=== PATIENT | male | born 1945 | race Hispanic/Latino ===

== ENCOUNTER 2018-11-12 21:55 | Inpatient (IN) | payer MEDICARE ==
[~2018-11-12 21:55] MED LIST: ADRENALIN ONE
[2018-11-12] MEDS ORDERED: NACL 0.9% 1000 ML 1,000 ML ONE (22:11)
[2018-11-12] MEDS ORDERED: NACL 0.9% 1000 ML 1,000 ML IV ONE (22:22)
[2018-11-12 22:30] LABS: Hematocrit 39.6 % (35.5-45.6); Hemoglobin 13.4 gm/dl (11.8-15.2); Mean Corpuscular HGB Conc 34 % (32-34); Mean Corpuscular Volume 104 fl (84-94); Platelet Count 112 K/mm3 (140-440); Red Blood Count 3.82 M/mm3 (3.65-5.03); Red Cell Distribution Width 15.1 % (13.2-15.2)
--- NOTE | 2018-11-12 22:36 | Emergency Department Report ---
ED CPR HPI - General Stated Complaint: CARDIAC ARREST Time Seen by Provider: 11/12/18 22:21 Source: family, EMS Mode of arrival: Stretcher Limitations: Altered Mental Status - History of Present Illness Initial Comments: 73-year-old male smoker with hx of previous stroke not taking any home meds presents to the hospital status post cardiopulmonary arrest. Witnessed collapse by his who then called EMS. EMS at the scene at 9:29, 3 min after receiving call. Patient was in V. fib upon arrival. Patient received 3 defibrillation shocks, one dose of epinephrine, and orally intubated in route to the hospital. Pt in PEA upon arrival. CPR continued upon arrival. Accucheck obtained after arrival and normal range - Related Data Home Medications Medication Instructions Recorded Confirmed Last Taken No Known Home Medications [No 11/13/18 11/13/18 Unknown Reported Home Medications] Allergies Allergy/AdvReac Type Severity Reaction Status Date / Time No Known Allergies Allergy Verified 11/12/18 22:20 ED Review of Systems ROS: Stated complaint: CARDIAC ARREST Other details as noted in HPI Comment: Unobtainable due to pts medical conditions ED Past Medical Hx - Medications Home Medications: Home Medications Medication Instructions Recorded Confirmed Last Taken Type No Known Home Medications [No 11/13/18 11/13/18 Unknown History Reported Home Medications] ED Physical Exam - Other Other exam information: Gen.: Unresponsive, thin, frail-appearing Head: Atraumatic Eyes: Unresponsive pupils EENT: Orally intubated, cyanosis Neck: Normal appearance Chest: Breath sounds bilaterally with bagging although diminished, no breath sounds over the epigastrium Cardiovascular: Pulseless Abdomen: Normal appearance none, nondistended Back: Normal appearance Extremity: No deformity Neuro: GCS equals 3 Psychiatric: Unresponsive Skin: Cyanotic ED Course Vital Signs 11/12/18 11/12/18 11/12/18 22:05 22:10 22:15 Temperature 95.1 F L Pulse Rate 67 66 Respiratory 15 15 Rate Blood Pressure Blood Pressure 184/105 156/78 [Left] O2 Sat by Pulse 100 100 100 Oximetry 11/12/18 11/12/18 11/12/18 22:25 22:35 22:40 Temperature Pulse Rate 78 64 75 Respiratory 15 16 23 Rate Blood Pressure Blood Pressure 115/73 117/64 117/77 [Left] O2 Sat by Pulse 100 100 100 Oximetry 11/12/18 11/12/18 22:47 22:50 Temperature Pulse Rate 77 69 Respiratory 15 Rate Blood Pressure 115/82 Blood Pressure 151/81 [Left] O2 Sat by Pulse 100 100 Oximetry - Reevaluation(s) Reevaluation #1: 11/12/18 22:37 CPR continued upon patient arrival. Patient was seen several doses of epi, 2 AMP of bicarbonate for PEA rhythm. Patient did regain his pulse and EKG performed showing inferior ST elevation MT about possible posterior wall involvement. Case discussed with Dr. Crouch on-call STEMI doctor and Package Line Relief Operator activated. Reevaluation #2: 11/12/18 22:48 Patient noted to have decorticate posturing versus seizure activity. Keppra and Ativan ordered. - Consultations Consultation #1: 11/12/18 22:[address] Crouch marketing operations specialist for ST elevation MT. label designer activated. Requests CT head prior to heparin. 11/12/18 22:58 Willa in ED to take pt [facility] ED Medical Decision Making - Lab Data Result diagrams: 11/12/18 22:15 11/12/18 22:15 Lab Results 11/12/18 11/12/18 11/12/18 Range/Units 22:10 22:15 22:15 WBC 8.5 (4.5-11.0) K/mm3 RBC 3.82 (3.65-5.03) M/mm3 Hgb 13.4 (11.8-15.2) gm/dl Hct 39.6 (35.5-45.6) % MCV 104 H (84-94) fl MCH 35 H (28-32) pg MCHC 34 (32-34) % RDW 15.1 (13.2-15.2) % Plt Count 112 L (140-440) K/mm3 Lymph % (Auto) Computer Numerical Control Grinder Lymph # Computer Numerical Control Grinder Add Manual Diff Complete Total Counted 100 Seg Neuts % (Manual) 46.0 (40.0-70.0) % Band Neutrophils % 1.0 % Lymphocytes % (Manual) 47.0 H (13.4-35.0) % Reactive Lymphs % (Man) 3.0 % Monocytes % (Manual) 1.0 (0.0-7.3) % Eosinophils % (Manual) 1.0 (0.0-4.3) % Basophils % (Manual) 0 (0.0-1.8) % Metamyelocytes % 1.0 % Myelocytes % 0 % Promyelocytes % 0 % Blast Cells % 0 % Nucleated RBC % Not Reportable Seg Neutrophils # Man 3.9 (1.8-7.7) K/mm3 Band Neutrophils # 0.1 K/mm3 Lymphocytes # (Manual) 4.0 (1.2-5.4) K/mm3 Abs React Lymphs (Man) 0.3 K/mm3 Monocytes # (Manual) 0.1 (0.0-0.8) K/mm3 Eosinophils # (Manual) 0.1 (0.0-0.4) K/mm3 Basophils # (Manual) 0.0 (0.0-0.1) K/mm3 Metamyelocytes # 0.1 K/mm3 Myelocytes # 0.0 K/mm3 Promyelocytes # 0.0 K/mm3 Blast Cells # 0.0 K/mm3 WBC Morphology Not Reportable Hypersegmented Neuts Not Reportable Hyposegmented Neuts Not Reportable Hypogranular Neuts Not Reportable Smudge Cells Not Reportable Toxic Granulation Not Reportable Toxic Vacuolation Not Reportable Dohle Bodies Not Reportable Pelger-Huet Anomaly Not Reportable Christal Rods Not Reportable Platelet Estimate Consistent w auto Clumped Platelets Not Reportable Plt Clumps, EDTA Not Reportable Large Platelets 1+ Giant Platelets Not Reportable Platelet Satelliting Not Reportable Plt Morphology Comment Not Reportable RBC Morphology Normal Dimorphic RBCs Not Reportable Polychromasia Not Reportable Hypochromasia Not Reportable Poikilocytosis Not Reportable Anisocytosis Not Reportable Microcytosis Not Reportable Macrocytosis Not Reportable Spherocytes Not Reportable Pappenheimer Bodies Not Reportable Sickle Cells Not Reportable Target Cells Not Reportable Tear Drop Cells Not Reportable Ovalocytes Not Reportable Helmet Cells Not Reportable Stewart-Gilliam Bodies Not Reportable [place] Rings Not Reportable Sita Cells Not Reportable Bite Cells Not Reportable Crenated Cell Not Reportable Elliptocytes Not Reportable Acanthocytes (Spur) Not Reportable Rouleaux Not Reportable Hemoglobin C Crystals Not Reportable Schistocytes Not Reportable Malaria parasites Not Reportable Coleman Bodies Not Reportable Hem Pathologist Commnt No PT 19.2 H (12.2-14.9) Sec. INR 1.66 H (0.87-1.13) APTT 52.5 H (24.2-36.6) Sec. Sodium (137-145) mmol/L Potassium (3.6-5.0) mmol/L Chloride (98-107) mmol/L Carbon Dioxide (22-30) mmol/L Anion Gap mmol/L BUN (9-20) mg/dL Creatinine (0.8-1.5) mg/dL Estimated GFR ml/min BUN/Creatinine Ratio % Glucose (75-100) mg/dL POC Glucose 131 H (70-105) Calcium (8.4-10.2) mg/dL Total Bilirubin (0.1-1.2) mg/dL AST (5-40) units/L ALT (7-56) units/L Alkaline Phosphatase (35-129) units/L Troponin T (0.00-0.029) ng/mL Total Protein (6.3-8.2) g/dL Albumin (3.9-5) g/dL Albumin/Globulin Ratio % 11/12/18 Range/Units 22:15 WBC (4.5-11.0) K/mm3 RBC (3.65-5.03) M/mm3 Hgb (11.8-15.2) gm/dl Hct (35.5-45.6) % MCV (84-94) fl MCH (28-32) pg MCHC (32-34) % RDW (13.2-15.2) % Plt Count (140-440) K/mm3 Lymph % (Auto) Lymph # Add Manual Diff Total Counted Seg Neuts % (Manual) (40.0-70.0) % Band Neutrophils % % Lymphocytes % (Manual) (13.4-35.0) % Reactive Lymphs % (Man) % Monocytes % (Manual) (0.0-7.3) % Eosinophils % (Manual) (0.0-4.3) % Basophils % (Manual) (0.0-1.8) % Metamyelocytes % % Myelocytes % % Promyelocytes % % Blast Cells % % Nucleated RBC % Seg Neutrophils # Man (1.8-7.7) K/mm3 Band Neutrophils # K/mm3 Lymphocytes # (Manual) (1.2-5.4) K/mm3 Abs React Lymphs (Man) K/mm3 Monocytes # (Manual) (0.0-0.8) K/mm3 Eosinophils # (Manual) (0.0-0.4) K/mm3 Basophils # (Manual) (0.0-0.1) K/mm3 Metamyelocytes # K/mm3 Myelocytes # K/mm3 Promyelocytes # K/mm3 Blast Cells # K/mm3 WBC Morphology Hypersegmented Neuts Hyposegmented Neuts Hypogranular Neuts Smudge Cells Toxic Granulation Toxic Vacuolation Dohle Bodies Pelger-Huet Anomaly Christal Rods Platelet Estimate Clumped Platelets Plt Clumps, EDTA Large Platelets Giant Platelets Platelet Satelliting Plt Morphology Comment RBC Morphology Dimorphic RBCs Polychromasia Hypochromasia Poikilocytosis Anisocytosis Microcytosis Macrocytosis Spherocytes Pappenheimer Bodies Sickle Cells Target Cells Tear Drop Cells Ovalocytes Helmet Cells Stewart-Gilliam Bodies [place]aver[place] Rings Hayden Cells Bite Cells Crenated Cell Elliptocytes Acanthocytes (Spur) Rouleaux Hemoglobin C Crystals Schistocytes Malaria parasites Coleman Bodies Hem Pathologist Commnt PT (12.2-14.9) Sec. INR (0.87-1.13) APTT (24.2-36.6) Sec. Sodium 142 (137-145) mmol/L Potassium 2.7 L* (3.6-5.0) mmol/L Chloride 94.9 L (98-107) mmol/L Carbon Dioxide 26 (22-30) mmol/L Anion Gap 24 mmol/L BUN 10 (9-20) mg/dL Creatinine 0.9 (0.8-1.5) mg/dL Estimated GFR > 60 ml/min BUN/Creatinine Ratio 11 % Glucose 341 H (75-100) mg/dL POC Glucose (70-105) Calcium 7.5 L (8.4-10.2) mg/dL Total Bilirubin 0.20 (0.1-1.2) mg/dL AST 58 H (5-40) units/L ALT 37 (7-56) units/L Alkaline Phosphatase 57 (35-129) units/L Troponin T < 0.010 (0.00-0.029) ng/mL Total Protein 4.7 L (6.3-8.2) g/dL Albumin 2.9 L (3.9-5) g/dL Albumin/Globulin Ratio 1.6 % - EKG Data -: EKG Interpreted by Me EKG shows normal: sinus rhythm, ST-T waves (inf stemi, with possible posterior involvement) - EKG Data When compared to previous EKG there are: previous EKG unavailable - Radiology Data Radiology results: report reviewed CHEST 1 VIEW 2240 INDICATION / CLINICAL INFORMATION: intubation, cardiac arrest. COMPARISON: None FINDINGS: SUPPORT DEVICES: None HEART / MEDIASTINUM: No significant abnormality. LUNGS / PLEURA: Evidence of COPD is seen. No definite areas of consolidation are noted. Mild asymmetric increase in markings is noted in the right upper lobe which could be chronic though mild acute interstitial infiltrate cannot be entirely excluded. Clinical correlation is suggested. No pneumothorax. ADDITIONAL FINDINGS: No significant additional findings. IMPRESSION: Chronic change with asymmetric markings noted in the right upper lobe as discussed CT HEAD WITHOUT CONTRAST INDICATION: MAIN: syncope, cardiac arrest, FALL, AMS TECHNIQUE: All CT scans at this location are performed using CT dose reduction for ALARA by means of automated exposure control. COMPARISON: None available. FINDINGS: BRAIN: No hemorrhage or mass effect are seen. Moderate white matter microvascular changes are seen. Asymmetric hypodensity is noted in the anterior aspect of the anterior limb of the internal capsule on the right which is age unknown. Also age unknown are small focal hypodensities in the anterior aspects of both thalami, greater on the left. I do not see evidence of acute cortical infarction. Mild atrophic changes are seen, cortical and central. ORBITS: Normal as visualized. SOFT TISSUES OF HEAD: Normal. CALVARIUM: Normal. VISUALIZED PARANASAL SINUSES AND MASTOID AIR CELLS: Clear. ADDITIONAL FINDINGS: None. IMPRESSION: No definite acute abnormalities are seen though bilateral deep lacu rosalba focal areas of ischemia as described are of unknown age. - Medical Decision Making pt pulseless greater than 30 min + stemi going [facility] BP with map >65 during ed stay after ROSC heparin pending ct head result pt with decorticate postering in ed, tx with ativan and keppra overall poor prognosis - Differential Diagnosis mi, unstable angina, pulmonary emboilism, co2 retention Critical Care Time: Yes Critical care time in (mins) excluding proc time.: 65 Critical care attestation.: If time is entered above; I have spent that time in minutes in the direct care of this critically ill patient, excluding procedure time. ED Disposition Clinical Impression: Cardiopulmonary arrest with successful resuscitation STEMI (ST elevation myocardial infarction) Qualifiers: Involved coronary artery: LAD coronary artery Qualified Code(s): I21.02 - ST elevation (STEMI) myocardial infarction involving left anterior descending coronary artery Disposition: -09 OP ADMIT IP TO THIS HOSP Is pt being admited?: Yes Condition: Serious Time of Disposition: 23:05 (Dr Ivan/hosp)
[2018-11-12 22:42] LABS: INR 1.66 (0.87-1.13)
[2018-11-12 22:43] LABS: Partial Thromboplastin Time 52.5 Sec. (24.2-36.6)
[2018-11-12] MEDS ORDERED: KEPPRA 1,000 MG/NS 0.75% 100ML 1,000 MG/100 ML BAG IV ONE ×2 (22:43→22:45)
[2018-11-12] MEDS ORDERED: ATIVAN IV ONE (22:45)
[2018-11-12] MEDS ORDERED: ATIVAN ONE (22:48)
[2018-11-12] MEDS ORDERED: HEPARIN 10,000 UNITS/10 ML ONE (22:57)
[2018-11-12] MEDS ORDERED: HEPARIN/NS 5000 UNIT/500ML(CATH LAB) 1,000 ML IR ONE (22:57)
[2018-11-12] MEDS ORDERED: XYLOCAINE 2% INFILTRATI ONE (22:57)
[2018-11-12] MEDS ORDERED: CALAN ONE (22:57)
[2018-11-12] MEDS ORDERED: NITROGLYCERIN SYRINGE 0 ML ONE (22:58)
[2018-11-12] MEDS ORDERED: NACL 0.9% 500 ML 500 ML ONE (22:58)
[2018-11-12] MEDS ORDERED: VERSED ONE (22:58)
[2018-11-12] MEDS ORDERED: SUBLIMAZE ONE (22:58)
--- NOTE | 2018-11-12 23:00 | Cat Scan Report ---
CT HEAD WITHOUT CONTRAST INDICATION: MAIN: syncope, cardiac arrest, FALL, AMS TECHNIQUE: All CT scans at this location are performed using CT dose reduction for ALARA by means of automated exposure control. COMPARISON: None available. FINDINGS: BRAIN: No hemorrhage or mass effect are seen. Moderate white matter microvascular changes are seen. A symmetric hypodensity is noted in the anterior aspect of the anterior limb of the internal capsule on the right which is age unknown. Also age unknown are small focal hypodensities in the anterior aspec ts of both thalami, greater on the left. I do not see evidence of acute cortical infarction. Mild atr ophic changes are seen, cortical and central. ORBITS: Normal as visualized. SOFT TISSUES OF HEAD: Normal. CALVARIUM: Normal. VISUALIZED PARANASAL SINUSES AND MASTOID AIR CELLS: Clear. ADDITIONAL FINDINGS: None. IMPRESSION: No definite acute abnormalities are seen though bilateral deep lacunar focal areas of isc hemia as described are of unknown age. Signer Name: Jason Britt MD Signed: 11/12/2018 10:56 PM Workstation Name: [id number]
[2018-11-12 23:08] LABS: Alanine Aminotransferase 37 units/L (7-56); Albumin 2.9 g/dL (3.9-5); BUN/Creatinine Ratio 11; Blood Urea Nitrogen 10 mg/dL (9-20); Calcium 7.5 mg/dL (8.4-10.2); Hemolysis Index 73
[2018-11-12] MEDS: PLAVIX ONE ×2 (23:30→23:45)
[2018-11-12] MEDS ORDERED: KCL 10MEQ/100ML 10 MEQ/100 ML BAG IV ONE (23:37)
[2018-11-12 23:40] LABS: Band Neutrophils # (Manual) 0.1 K/mm3; Basophils % (Manual) 0 % (0.0-1.8); Large Platelets 1+; Platelet Estimate Consistent w Auto; RBC Morphology Normal; Total Cells Counted 100
--- NOTE | 2018-11-12 23:43 | XRay Report ---
CHEST 1 VIEW 2240 INDICATION / CLINICAL INFORMATION: intubation, cardiac arrest. COMPARISON: None FINDINGS: SUPPORT DEVICES: None HEART / MEDIASTINUM: No significant abnormality. LUNGS / PLEURA: Evidence of COPD is seen. No definite areas of consolidation are noted. Mild asymmetr ic increase in markings is noted in the right upper lobe which could be chronic though mild acute int erstitial infiltrate cannot be entirely excluded. Clinical correlation is suggested. No pneumothorax. ADDITIONAL FINDINGS: No significant additional findings. IMPRESSION: Chronic change with asymmetric markings noted in the right upper lobe as discussed Signer Name: Jason Britt MD Signed: 11/12/2018 11:39 PM Workstation Name: [id number]
[2018-11-12] MEDS ORDERED: NACL 0.9% 1000 ML 1,000 ML IV SCH (23:45)
[2018-11-12] MEDS ORDERED: ASPIRIN ONE (23:46)
[2018-11-12] MEDS ORDERED: ALUM-MAG HYDROX-SIMETH 200-200-20MG/5ML ONE (23:46)
[2018-11-12] MEDS ORDERED: ZOFRAN IV PRN (23:59)
--- NOTE | 2018-11-13 00:13 | Consultation ---
History of Present Illness Consult date: 11/13/18 Requesting physician: GABI HARRELL Consult reason: cardiac arrest History of present illness: 73-year-old patient who is malnourished smoker history of questionable stroke last year. Though as per the who gives history. As per the patient's been having chest pain on and off for last several weeks has not seen a physician or gone to hospital for treatment. After dinner had chest pain and collapsed. called EMS after approximately 5-10 minutes patient resuscitation initiated by EMS. Patient was in V. fib and shocked. Patient had rosc in the ED and EKG shows an acute inferior lateral wall PR. CT of the head was negative for acute bleed. Patient had resuscitation. Patient brought to the cardiac Sales Executive Insurance revealed left main patent. LAD proximal 95% with WENDY 2 flow circumflex patent OM1 patent RCA patent with moderate LV dysfunction EF 3540% with septal inferior wall hypokinesis. With PCI of the LAD with a drug- eluting 3.5 x 23 mm stent at 15 kim. By the right femoral artery patient is on the vent and will be transferred to CCU. In the ED patient had some seizure activity in the ER physician rodrigo Tadeo Past History Past Medical History: other Social history: smoking. denies: alcohol abuse, prescription drug abuse Medications and Allergies Allergies Allergy/AdvReac Type Severity Reaction Status Date / Time No Known Allergies Allergy Verified 11/12/18 22:20 Active Meds: Active Medications Potassium Chloride (Kcl 10meq/100ml) 10 meq in 100 mls @ 100 mls/hr IV ONCE ONE Stop: 11/13/18 00:36 Review of Systems ROS unobtainable: due to endotracheal tube Physical Examination Vital Signs Pulse Ox 100 11/12/18 22:05 General appearance: cachectic HEENT: Positive: Other (sluggish) Neck: Positive: neck supple Cardiac: Positive: Reg Rate and Rhythm Lungs: Positive: clear to auscultation Neuro: Positive: Other (unresponsive) Abdomen: Positive: Soft Male genitourinary: Positive: scrotal edema Incision: Cardiac Cath Site (no hematoma) Extremities: Present: normal. Absent: edema Results 11/12/18 22:15 11/12/18 22:15 Cardiac Enzymes 11/12/18 Range/Units 22:15 AST 58 H (5-40) units/L Coagulation 11/12/18 Range/Units 22:15 PT 19.2 H (12.2-14.9) Sec. INR 1.66 H (0.87-1.13) APTT 52.5 H (24.2-36.6) Sec. CBC 11/12/18 Range/Units 22:15 WBC 8.5 (4.5-11.0) K/mm3 RBC 3.82 (3.65-5.03) M/mm3 Hgb 13.4 (11.8-15.2) gm/dl Hct 39.6 (35.5-45.6) % Plt Count 112 L (140-440) K/mm3 Lymph # Service Department Manager Comprehensive Metabolic Panel 11/12/18 Range/Units 22:15 Sodium 142 (137-145) mmol/L Potassium 2.7 L* (3.6-5.0) mmol/L Chloride 94.9 L (98-107) mmol/L Carbon Dioxide 26 (22-30) mmol/L BUN 10 (9-20) mg/dL Creatinine 0.9 (0.8-1.5) mg/dL Glucose 341 H (75-100) mg/dL Calcium 7.5 L (8.4-10.2) mg/dL AST 58 H (5-40) units/L ALT 37 (7-56) units/L Alkaline Phosphatase 57 (35-129) units/L Total Protein 4.7 L (6.3-8.2) g/dL Albumin 2.9 L (3.9-5) g/dL - Imaging and Cardiology Cardiac cath: report reviewed ( left main patent. LAD proximal 95% with WENDY 2 flow circumflex patent OM1 patent RCA patent with moderate LV dysfunction EF 3540% with septal inferior wall hypokinesis. With PCI of the LAD with a drug- eluting 3.5 x 23 mm stent at 15 kim.) EKG interpretations - Telemetry EKG Rhythm: Sinus Rhythm (st elevation inferior leads) Assessment and Plan Patient will have post PCI care discussed with the family detail about cardiac care but in view of prolonged resuscitation patient will have possible anoxic encephalopathy. Replace potassium for hypokalemia magnesium was given. Patient has NG tube for aspirin and Plavix and statin. Start low-dose beta danika in a.m. Guarded prognosis - Patient Problems (1) Respiratory failure requiring intubation Current Visit: Yes Status: Acute (2) Malnutrition of moderate degree Current Visit: Yes Status: Chronic (3) Smoking Current Visit: Yes Status: Chronic (4) Hypokalemia Current Visit: Yes Status: Acute (5) Acute diastolic (congestive) heart failure Current Visit: Yes Status: Acute (6) Cardiopulmonary arrest with successful resuscitation Current Visit: Yes Status: Acute (7) STEMI (ST elevation myocardial infarction) Current Visit: Yes Status: Acute Qualifiers: Involved coronary artery: LAD coronary artery Qualified Code(s): I21.02 - ST elevation (STEMI) myocardial infarction involving left anterior descending coronary artery
[2018-11-13] MEDS ORDERED: MAGNESIUM SULFATE 2GM/50ML 2 GM/50 ML BAG IV ONE (00:15)
[2018-11-13] MEDS ORDERED: KCL 10MEQ/100ML 10 MEQ/100 ML BAG IV ONE ×3 (00:15→02:23)
[2018-11-13] MEDS ORDERED: ATIVAN IV ONE (00:40)
[2018-11-13] MEDS ORDERED: POTASSIUM CHLORIDE FEEDTUBE ONE (00:45)
[2018-11-13] MEDS ORDERED: TYLENOL PR PRN (01:50)
[2018-11-13] MEDS ORDERED: PROVENTIL IH PRN (01:53)
[2018-11-13] MEDS ORDERED: D50W (25GM) Syringe IV PRN (02:01)
[2018-11-13 02:21] LABS: ABG Base Excess -4.7 mmol/L (-2.0-3.0); ABG HCO3 21.5 mmol/L (20.0-26.0); ABG Methemoglobin 0.7 % (0.0-1.5); ABG Oxygen Saturation 98.7 % (95.0-99.0); ABG PCO2 43.4 mm Hg; ABG PH 7.312 pH Units (7.350-7.450); ABG PO2 147.6 mm Hg (80.0-90.0)
--- NOTE | 2018-11-13 03:51 | Cardiac Catherization Report ---
LEFT HEART CATHETERIZATION/PERCUTANEOUS CORONARY INTERVENTION REPORT CLINICAL INFORMATION: This is a 73-year-old gentleman who is a smoker, noncompliant with medical followup, questionable history of TIA, who has been having chest pain on and off for several weeks, collapsed at home, had a witnessed arrest, had a return of spontaneous circulation. via EMS with VFib and shock. The patient's EKG post-resuscitation showed acute inferior ST elevation and lateral ST elevation with depressions in anterior leads, brought emergently to cardiac collaborative physician. The patient's initial CT of the head was negative that led to delay in part of the post-resuscitated cardiac arrest protocol. The patient received sedation, has received Ativan and Keppra for seizures by the ED. Procedure was done via the right femoral artery, sterile technique, local anesthesia, 6-Chinese groin sheath inserted. Left system engaged JL4 catheter. Left main is short and large and patent. LAD is a large caliber vessel, proximal 95% lesion with WENDY 2 flow, small diagonal. Patent circumflex medium caliber vessel, patent. Dictation ends here. see second dictation JOB# [id number] LAMAR/CANDIDA VINCENT
[2018-11-13] MEDS: KCL 10MEQ/100ML 10 MEQ/100 ML BAG IV SCH ×2 (03:54→05:06)
--- NOTE | 2018-11-13 04:00 | Cardiac Catherization Report ---
PROCEDURE: Left heart catheterization/percutaneous coronary support. CLINICAL INFORMATION: A 73-year-old female, cachectic and smoker, questionable TIA, has been having on and off chest pain for several weeks, did not go for medical care. Today, had chest pain and collapsed and EMS was called, and after prolonged resuscitation, had VFib shock. In the ED, post-resuscitation EKG shows acute inferior lateral wall AL with ST depression in the anterior leads. Initial CT of the head was done, was negative for bleed. The patient brought to the laboratory technologist for AL, post-arrest. The patient received sedation in the ED for seizures, Ativan and Keppra. Procedure was done via the right femoral artery, sterile technique, local anesthesia, 6-Belarusian groin sheath inserted. Left system and JL4 catheter, left main large and patent. LAD is a large caliber, proximal 95% with WENDY 2 flow. Circumflex is a medium caliber vessel, patent. OM1, medium caliber vessel, patent. RCA engaged with JR4 catheter, medium caliber vessel, patent. Small PDA, PLV patent. LV gram done in [place] and [place] view shows moderate LV dysfunction with septal and inferior wall hypokinesis, EF 35-40%. LVEDP of 31 mmHg, LV is 151. Aortic is 148/83, no gradient across the aortic valve on pullback. PERCUTANEOUS CORONARY INTERVENTION: 1. LAD engaged the left system, EBU 3.5 guiding catheter. 2. Crossed and distal LAD with short [place] wire. 3. Ballooned with 2.5 x 12 balloon at 12 atmospheres restoring WENDY 3 flow, large vessel. We have stented the proximal mid LAD across diagonal 1 with a drug-eluting Xience 3.5 x 23 mm at 15 atmospheres. 4. Excellent angiographic result, WENDY 3 flow, no dissection or perforation noted. Continued flow into the diagonal. 5. Coronary wire was removed. Multiple angiograms, continued WENDY 3 flow, good stent apposition and expansion, reduced stenosis 0%. 6. A 6-Belarusian guiding catheter was taken over a guidewire, 6-Belarusian groin sheath sewn in. No hematoma, no bleeding. SUMMARY: Successful PCI of the proximal LAD with drug-eluting Xience 3.5 x 23 mm, left main patent, circumflex patent, OM1 patent, RCA patent with moderate LV dysfunction, EF 35-40% with elevated left end-diastolic pressure. Discussed this in detail with the family. By neurological status, the patient will be on post-PCI care and is on a vent for respiratory distress. JOB# [id number] LAMAR/CANDIDA
[2018-11-13] MEDS: HumuLIN R SUB-Q SCH ×6 (04:35→23:39)
[2018-11-13] MEDS ORDERED: APRESOLINE IV ONE (05:21)
[2018-11-13] MEDS: ATIVAN IV PRN (05:46)
[2018-11-13 05:54] LABS: ABG Base Excess -4.4 mmol/L (-2.0-3.0); ABG HCO3 20.8 mmol/L (20.0-26.0); ABG Methemoglobin 0.7 % (0.0-1.5); ABG Oxygen Saturation 98.6 % (95.0-99.0); ABG PCO2 38.5 mm Hg; ABG PH 7.35 pH Units (7.350-7.450); ABG PO2 136.3 mm Hg (80.0-90.0)
[2018-11-13 06:13] LABS: Hematocrit 43.1 % (35.5-45.6); Hemoglobin 14.3 gm/dl (11.8-15.2); Mean Corpuscular HGB Conc 33 % (32-34); Mean Corpuscular Volume 102 fl (84-94); Platelet Count 158 K/mm3 (140-440); Red Blood Count 4.23 M/mm3 (3.65-5.03); Red Cell Distribution Width 15.5 % (13.2-15.2)
[2018-11-13 06:30] LABS: Creatine Kinase MB 126.5 ng/mL (0.0-4.0)
[2018-11-13 06:32] LABS: BUN/Creatinine Ratio 14; Blood Urea Nitrogen 13 mg/dL (9-20); Calcium 7.8 mg/dL (8.4-10.2); Hemolysis Index 27
[2018-11-13 07:14] LABS: Chol/HDL Ratio 2.62 %; HDL Cholesterol 56 mg/dL (40-59); LDL Cholesterol,Direct 95 mg/dL (50-130)
[2018-11-13 08:35] LABS: Band Neutrophils # (Manual) 1.4 K/mm3; Basophils % (Manual) 0 % (0.0-1.8); Eosinophils % (Manual) 0 % (0.0-4.3); Total Cells Counted 100
[2018-11-13 08:36] LABS: Anisocytosis 1+; Giant Platelets Few; Macrocytosis 1+; Platelet Estimate Consistent w Auto
[2018-11-13] MEDS: DUONEB *Not for PRN Use IH SCH ×3 (09:00→19:29)
--- NOTE | 2018-11-13 09:04 | History and Physical Report ---
CHIEF COMPLAINT: Cardiac arrest state. HISTORY OF PRESENTING ILLNESS: The patient is a 73-year-old male who was brought in as a case of cardiac arrest after he passed out at home. The said that the patient was having chest pain and passed out, and EMS was called. The patient was brought in as a case of cardiopulmonary arrest. He was also found to have ventricular fibrillation and was shocked 3 times with epinephrine given and the patient was intubated en route to the hospital. On arrival at the hospital, CPR was continued and the patient was successfully resuscitated and was found to have inferior wall IL on EKG, he also had seizure attack and as such, the patient was taken to the cardiac catheterization lab by the blending tank tender helper, Dr. Crouch, and had a cardiac catheterization done with stent placement. There is no history of nausea or vomiting. The patient was also found to have lacunar infarct on head CT scan with undetermined age, and also, he was found to have low potassium level and scrotal swelling. PAST MEDICAL HISTORY: Not clearly defined. PAST SURGICAL HISTORY: Not well known. FAMILY HISTORY: Noncontributory. SOCIAL HISTORY: The patient smokes cigarette, does not drink alcohol and does not use illicit drugs. MEDICATIONS: The patient's home medications are not known. ALLERGIES: There are no known drug allergies. REVIEW OF SYSTEMS: CONSTITUTIONAL: There is no fever, no chills, no diaphoresis. HEENT: There is no headache or sore throat. CARDIOVASCULAR SYSTEM: Chest pain noted. No orthopnea. RESPIRATORY SYSTEM: Difficulty in breathing noted. No cough. GASTROINTESTINAL SYSTEM: There is no nausea, no vomiting, no abdominal pain, diarrhea or constipation. NEUROLOGICAL SYSTEM: Change in mental status noted. Syncope or collapse noted. Seizure attack noted. MUSCULOSKELETAL SYSTEM: There is no joint pain or swelling. DERMATOLOGICAL SYSTEM: There is no skin rash or itching. GENITOURINARY SYSTEM: There is no dysuria, hematuria, or flank pain. Rest of systems review is normal. PHYSICAL EXAMINATION: GENERAL: At the time of exam, the patient was intubated, unresponsive, already had cardiac catheterization done and the patient was mechanically ventilated and not in acute distress. VITAL SIGNS: Show normal temperature with pulse of 78, respirations 25, blood pressure 156/117, O2 sat of 100% on mechanical ventilation. HEENT: Shows pupils to be equal on both sides, round, and reacting to light. The patient is intubated through the mouth. NECK: Supple, with no JVD or carotid bruit. CARDIOVASCULAR SYSTEM: Shows normal first and second heart sounds with no gallops or murmurs. RESPIRATORY SYSTEM: Shows good air entry on both sides of the lungs through the ET tube and mechanical ventilation with no abnormal breath sounds. GASTROINTESTINAL SYSTEM: Shows abdomen to be full, soft, nontender with no organomegaly or rigidity. NEUROLOGIC: Shows the patient to be intubated, unresponsive with some posturing noted showing a decerebrate posture. MUSCULOSKELETAL SYSTEM: Shows no joint swelling or tenderness. DERMATOLOGICAL SYSTEM: Shows no skin rash. GENITOURINARY SYSTEM: Shows swollen scrotum, firm in consistency. PERTINENT LABORATORY AND IMAGING STUDIES: The patient had CT of the head done without contrast that shows no definite acute abnormality, but the radiologist said that there is finding of bilateral deep lacunar focal area of ischemia with unknown age. Also, the patient had a chest x-ray done and the chest x-ray shows chronic changes with asymmetric markings noted in the right upper lobe of the lung, which he said could be chronic, though mild acute interstitial infiltrate cannot be entirely excluded and there is no finding of any pneumothorax. Lab results, the patient's CBC showed normal white count, normal hemoglobin and normal hematocrit with CBC differential showing elevated lymphocyte count of 47%. The patient's coagulation studies showed elevated INR of 1.66 with a high PT of 19.2 and elevated PTT of 52.5. The patient's ABG showed low pH of 7.31 with normal pCO2 of 43 and elevated pO2 of 147.6 with normal O2 sat of 98.7 with FiO2 of 40. The patient's chemistry showed normal sodium with low potassium level of 2.7 and low chloride of 94.9, and the patient's blood glucose is high with a value of 341. Liver transaminases show high AST of 58 with normal ALT of 37. Rest of chemistry shows low albumin level of 2.9 and low protein level of 4.7 with normal troponin level. DIAGNOSES: 1. Post-cardiac arrest. 2. Hypokalemia. 3. Syncope with altered mental status. 4. Scrotal swelling, rule out hydrocele. PLAN OF CARE: 1. The patient will be admitted to ICU, Critical Care Unit. 2. The patient will continue Cardiology consult with Dr. Crouch. 3. The patient will have a critical care consult with Dr. Rosa for ICU admission with mechanical ventilation. 4. The patient will have surgical consult with Dr. Lewis for scrotal swelling to rule out hydrocele versus inguinal hernia. 5. The patient will be on Tylenol 650 mg rectally every 4 hours for fever and headache and will have IV hydralazine 20 mg for elevated blood pressure. 6. The patient will have Neurology consult with Dr. rodríguez for seizure attack in the Emergency Room. 7. The patient will be on IV Keppra 750 mg q. 12 hours for management of seizure and IV Ativan 1 mg every 4 hours as needed for seizure. 8. The patient will have basic metabolic panel checked this morning because of hypokalemia, having received 40 mg of potassium by mouth and IV potassium chloride after the cardiac catheterization. 9. The patient will have respiratory therapy to manage ventilator. 10. The patient will be on Accu-Chek q. 4 hours followed by low-dose sliding scale using regular insulin coverage. JOB# [id number] OCN/NTS MELISA
--- NOTE | 2018-11-13 10:28 | Progress Note ---
Assessment and Plan Currently stable cardiac status. Cont post-PCI care and other present cardiac management. Await echo. Await neurology input. The patient has been seen in conjunction with Dr. Raji Mina who agrees with the assessment and plan of care. - Patient Problems (1) Cardiopulmonary arrest with successful resuscitation Current Visit: Yes Status: Acute (2) STEMI (ST elevation myocardial infarction) Current Visit: Yes Status: Acute Qualifiers: Involved coronary artery: LAD coronary artery Qualified Code(s): I21.02 - ST elevation (STEMI) myocardial infarction involving left anterior descending coronary artery (3) CAD (coronary artery disease) Current Visit: Yes Status: Chronic (4) Stented coronary artery Current Visit: Yes Status: Chronic (5) Altered mental status Current Visit: Yes Status: Acute (6) Seizure Current Visit: Yes Status: Suspected (7) Tobacco use Current Visit: Yes Status: Chronic (8) Malnutrition Current Visit: Yes Status: Chronic (9) Hypokalemia Current Visit: Yes Status: Acute Subjective Date of service: 11/13/18 Principal diagnosis: cardiac arrest; stemi Interval history: pt remains intubated, nonresponsive. in SR. family at bedside. Objective Last Vital Signs Temp 96.8 F L 11/13/18 08:00 Pulse 87 11/13/18 09:15 Resp 8 L 11/13/18 09:15 BP 121/76 11/13/18 09:15 Pulse Ox 99 11/13/18 09:15 - Physical Examination General: Other (intubated, nonresponsive ) HEENT: Positive: Other (sluggish) Neck: Positive: neck supple Cardiac: Positive: Reg Rate and Rhythm, S1/S2 Lungs: Positive: Decreased Breath Sounds Neuro: Positive: Other (unresponsive) Abdomen: Positive: Soft Incision: Cardiac Cath Site (c/d/i, no bleeding, no hematoma) Extremities: Present: Cold, Other (DP pulses present via doppler, no pedal pulses via doppler). Absent: edema - Labs and Meds Cardiac Enzymes 11/12/18 11/13/18 Range/Units 22:15 05:44 AST 58 H (5-40) units/L CK-MB (CK-2) 126.5 H (0.0-4.0) ng/mL Coagulation 11/12/18 Range/Units 22:15 PT 19.2 H (12.2-14.9) Sec. INR 1.66 H (0.87-1.13) APTT 52.5 H (24.2-36.6) Sec. Lipids 11/13/18 Range/Units 05:44 Triglycerides 94 (2-149) mg/dL Cholesterol 147 (50-199) mg/dL HDL Cholesterol 56 (40-59) mg/dL Cholesterol/HDL Ratio 2.62 % CBC 11/12/18 11/13/18 Range/Units 22:15 05:44 WBC 8.5 23.9 H (4.5-11.0) K/mm3 RBC 3.82 4.23 (3.65-5.03) M/mm3 Hgb 13.4 14.3 (11.8-15.2) gm/dl Hct 39.6 43.1 (35.5-45.6) % Plt Count 112 L 158 (140-440) K/mm3 Lymph # Classifier Operator Comprehensive Metabolic Panel 11/12/18 11/13/18 Range/Units 22:15 05:44 Sodium 142 141 (137-145) mmol/L Potassium 2.7 L* 3.6 D (3.6-5.0) mmol/L Chloride 94.9 L 102.0 (98-107) mmol/L Carbon Dioxide 26 22 (22-30) mmol/L BUN 10 13 (9-20) mg/dL Creatinine 0.9 0.9 (0.8-1.5) mg/dL Glucose 341 H 210 H (75-100) mg/dL Calcium 7.5 L 7.8 L (8.4-10.2) mg/dL AST 58 H (5-40) units/L ALT 37 (7-56) units/L Alkaline Phosphatase 57 (35-129) units/L Total Protein 4.7 L (6.3-8.2) g/dL Albumin 2.9 L (3.9-5) g/dL - Imaging and Cardiology Cardiac cath: report reviewed ( left main patent. LAD proximal 95% with WENDY 2 flow circumflex patent OM1 patent RCA patent with moderate LV dysfunction EF 3540% with septal inferior wall hypokinesis. With PCI of the LAD with a drug- eluting 3.5 x 23 mm stent at 15 kim.)
[2018-11-13] MEDS: KEPPRA 750 MG in D5W 100 ML IV SCH ×2 (10:37→22:40)
[2018-11-13] MEDS: LOVENOX SUB-Q SCH (10:37)
[2018-11-13] MEDS: LOPRESSOR PO SCH ×2 (10:38→23:49)
[2018-11-13] MEDS: BABY ASPIRIN PO SCH (10:38)
[2018-11-13] MEDS: PEPCID IV SCH ×2 (10:39→22:40)
--- NOTE | 2018-11-13 11:41 | XRay Report ---
CHEST 1 VIEW INDICATION: post pci. COMPARISON: 11/12/2018 FINDINGS: Support devices: A nasogastric tube has been inserted which terminates in the distal esophagus. Advan cement by 10 cm is recommended. Heart: Within normal limits. Lungs/Pleura: The lungs are severely hyperinflated but clear. No pleural effusion or pneumothorax. Additional findings: None. IMPRESSION: Hyperinflation. The nasogastric tube terminates in the distal esophagus. Signer Name: Zeferino Mahan Jr, MD Signed: 11/13/2018 11:37 AM Workstation Name: [id number]
--- NOTE | 2018-11-13 11:52 | Consultation ---
History of Present Illness Consult date: 11/13/18 Requesting physician: LORENZA GUTIÉRREZ Reason for consult: other (Acute Hypoxemic Respiratory Failure; S/P Cardiac Arrest) History of present illness: PULMONARY/CCM CONSULT NOTE (Full dictation # [id number]) Please see dictated notes for full details Past History Past Medical History: other Social history: smoking. denies: alcohol abuse, prescription drug abuse Medications and Allergies Allergies Allergy/AdvReac Type Severity Reaction Status Date / Time No Known Allergies Allergy Verified 11/12/18 22:20 Home Medications Medication Instructions Recorded Confirmed Last Taken Type RX: No Known Home Medications [No 11/13/18 11/13/18 Unknown History Reported Home Medications] Active Meds: Active Medications Acetaminophen (Tylenol) 650 mg MS Q4H PRN PRN Reason: Fever >101 Albuterol (Proventil) 2.5 mg IH Q6HRT PRN PRN Reason: Wheezing Albuterol/Ipratropium (Duoneb *Not For Prn Use*) 1 ampul IH Q6HRT [facility] Last Admin: 11/13/18 09:00 Dose: 1 ampul Documented by: Aspirin (Baby Aspirin) 81 mg PO QDAY [facility] Last Admin: 11/13/18 10:38 Dose: 81 mg Documented by: Atorvastatin Calcium (Lipitor) 80 mg PO QHS [facility] Clopidogrel Bisulfate (Plavix) 75 mg PO QDAY [facility] Dextrose (D50w (25gm) Syringe) 50 ml IV PRN PRN PRN Reason: Hypoglycemia Enoxaparin Sodium (Lovenox) 40 mg SUB-Q QDAY [facility] Last Admin: 11/13/18 10:37 Dose: 40 mg Documented by: Famotidine (Pepcid) 20 mg IV BID [facility] Levetiracetam 750 mg/ Dextrose 107.5 mls @ 400 mls/hr IV Q12HR [facility] Last Admin: 11/13/18 10:37 Dose: 400 mls/hr Documented by: Insulin Human Regular (Humulin R) 0 units SUB-Q Q4H [facility]; Protocol Last Admin: 11/13/18 07:33 Dose: 1 units Documented by: Lorazepam (Ativan) 1 mg IV Q4H PRN PRN Reason: Seizures Last Admin: 11/13/18 05:46 Dose: 1 mg Documented by: Metoprolol Tartrate (Lopressor) 25 mg PO BID [facility] Last Admin: 11/13/18 10:38 Dose: 25 mg Documented by: Ondansetron HCl (Zofran) 4 mg IV Q8H PRN PRN Reason: N/V unrelieved by Reglan Physical Examination Vital signs: Vital Signs Pulse Ox 100 11/12/18 22:05 Results - Laboratory Findings CBC and BMP: 11/13/18 05:44 11/13/18 05:44 ABG ABG pH 7.350 pH Units (7.350-7.450) 11/13/18 04:50 ABG pCO2 38.5 mm Hg 11/13/18 04:50 ABG pO2 136.3 mm Hg (80.0-90.0) H 11/13/18 04:50 ABG O2 Saturation 98.6 % (95.0-99.0) 11/13/18 04:50 PT/INR, D-dimer PT 19.2 Sec. (12.2-14.9) H 11/12/18 22:15 INR 1.66 (0.87-1.13) H 11/12/18 22:15 Abnormal lab findings: Abnormal Labs 11/12/18 11/12/18 11/12/18 22:10 22:15 22:15 WBC MCV 104 H MCH 35 H RDW Plt Count 112 L Seg Neuts % (Manual) Lymphocytes % (Manual) 47.0 H Seg Neutrophils # Man Lymphocytes # (Manual) Monocytes # (Manual) PT 19.2 H INR 1.66 H APTT 52.5 H Activated Clotting Time ABG pH ABG pO2 ABG Base Excess Potassium Chloride Glucose POC Glucose 131 H Calcium AST Total Creatine Kinase CK-MB (CK-2) CK-MB (CK-2) Rel Index Troponin T Total Protein Albumin 11/12/18 11/12/18 11/13/18 22:15 23:42 01:50 WBC MCV MCH RDW Plt Count Seg Neuts % (Manual) Lymphocytes % (Manual) Seg Neutrophils # Man Lymphocytes # (Manual) Monocytes # (Manual) PT INR APTT Activated Clotting Time 329 H ABG pH 7.312 L ABG pO2 147.6 H ABG Base Excess -4.7 L Potassium 2.7 L* Chloride 94.9 L Glucose 341 H POC Glucose Calcium 7.5 L AST 58 H Total Creatine Kinase CK-MB (CK-2) CK-MB (CK-2) Rel Index Troponin T Total Protein 4.7 L Albumin 2.9 L 11/13/18 11/13/18 11/13/18 02:30 03:04 04:01 WBC MCV MCH RDW Plt Count Seg Neuts % (Manual) Lymphocytes % (Manual) Seg Neutrophils # Man Lymphocytes # (Manual) Monocytes # (Manual) PT INR APTT Activated Clotting Time 175 H 142 H ABG pH ABG pO2 ABG Base Excess Potassium Chloride Glucose POC Glucose 185 H Calcium AST Total Creatine Kinase CK-MB (CK-2) CK-MB (CK-2) Rel Index Troponin T Total Protein Albumin 11/13/18 11/13/18 11/13/18 04:50 05:44 05:44 WBC 23.9 H MCV 102 H MCH 34 H RDW 15.5 H Plt Count Seg Neuts % (Manual) 85.0 H Lymphocytes % (Manual) 2.0 L Seg Neutrophils # Man 20.3 H Lymphocytes # (Manual) 0.5 L Monocytes # (Manual) 1.7 H PT INR APTT Activated Clotting Time ABG pH ABG pO2 136.3 H ABG Base Excess -4.4 L Potassium Chloride Glucose 210 H POC Glucose Calcium 7.8 L AST Total Creatine Kinase 2686 H CK-MB (CK-2) 126.5 H CK-MB (CK-2) Rel Index 4.7 H Troponin T 1.500 H* D Total Protein Albumin 11/13/18 06:44 WBC MCV MCH RDW Plt Count Seg Neuts % (Manual) Lymphocytes % (Manual) Seg Neutrophils # Man Lymphocytes # (Manual) Monocytes # (Manual) PT INR APTT Activated Clotting Time ABG pH ABG pO2 ABG Base Excess Potassium Chloride Glucose POC Glucose 197 H Calcium AST Total Creatine Kinase CK-MB (CK-2) CK-MB (CK-2) Rel Index Troponin T Total Protein Albumin
--- NOTE | 2018-11-13 12:14 | Progress Note ---
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 The aggregate critical care time was [35] minutes. This time is in addition to time spent performing reported procedures but includes the following: [x] Data Review and interpretation [x] Patient assessment and monitoring of vital signs [x] Documentation [x] Medication orders and management Brief History: Patient is 73-year-old man with a history of previous TIA 1 year ago, who presented yesterday evening with chest pain and loss of consciousness at home. His states that the patient had been experiencing chest pain for the past few weeks, however did not seek medical attention for this. The patient was found to have cardiac arrest yesterday evening by the EMS. CPR was started, and patient returned to spontaneous circulation in the emergency room. Patient reportedly had a seizure-like event while in the emergency room yesterday. He was taken for heart cath emergently for STEMI, and an LAD stent was placed. Patient remains intubated since yesterday, not on any sedation, no pressor. Head CT no acute infract. Subjective Date of service: 11/13/18 Principal diagnosis: cardiac arrest; stemi Interval history: Patient seen and examined On mechanical ventilation, no sedation Family at bedside - updated Objective - Exam Narrative Exam: - Physical Exam Narrative exam: Patient is intubated, opens eyes spontaneously, however not to command. Noted to open eyes with pain stimulation in all extremities. Pupils equal round reactive to light, cough reflexes intact. Patient does not withdraw to pain stimulation in any extremity, however is noted to open eyes on pain stimulation. - Constitutional General appearance: acutely ill - EENT EENT: Present: ATNC, PERRL, mucous membranes moist - Respiratory Respiratory: Present: decreased breath sounds - Cardiovascular Cardiovascular: Present: regular rate, normal S1, normal S2 Extremities: Present: no peripheral edema bilatateraly, no clubbing, cyanosis - Gastrointestinal Gastrointestinal: Present: normoactive bowel sounds, soft, non-tender - Integumentary Integumentary: Present: erythema (LUE) - Neurologic Cranial nerve examination: PERRL - Musculoskeletal Musculoskeletal: Present: no fluid collection, no pain - Constitutional Vitals: Vital Signs - 12hr 11/13/18 11/13/18 11/13/18 01:01 01:15 01:26 Temperature 98.7 F 98.7 F Pulse Rate 80 83 Pulse Rate [ Bilateral Throughout] Pulse Rate [ From Monitor] Respiratory 26 H Rate Respiratory Rate [Bilateral Throughout] Blood Pressure 103/82 O2 Sat by Pulse 100 100 Oximetry 11/13/18 11/13/18 11/13/18 01:30 01:31 01:45 Temperature Pulse Rate 79 81 80 Pulse Rate [ Bilateral Throughout] Pulse Rate [ From Monitor] Respiratory 23 28 H 24 Rate Respiratory Rate [Bilateral Throughout] Blood Pressure 121/104 121/104 132/110 O2 Sat by Pulse 99 100 99 Oximetry 11/13/18 11/13/18 11/13/18 02:00 02:15 02:31 Temperature Pulse Rate 78 76 78 Pulse Rate [ Bilateral Throughout] Pulse Rate [ From Monitor] Respiratory 24 32 H 29 H Rate Respiratory Rate [Bilateral Throughout] Blood Pressure 144/102 134/96 149/108 O2 Sat by Pulse 99 99 100 Oximetry 11/13/18 11/13/18 11/13/18 02:45 03:00 03:15 Temperature Pulse Rate 79 78 78 Pulse Rate [ Bilateral Throughout] Pulse Rate [ From Monitor] Respiratory 28 H 28 H 26 H Rate Respiratory Rate [Bilateral Throughout] Blood Pressure 135/102 145/103 144/106 O2 Sat by Pulse 100 100 100 Oximetry 11/13/18 11/13/18 11/13/18 03:16 03:30 03:45 Temperature Pulse Rate 77 79 Pulse Rate [ Bilateral Throughout] Pulse Rate [ From Monitor] Respiratory 24 26 H Rate Respiratory Rate [Bilateral Throughout] Blood Pressure 158/107 149/107 O2 Sat by Pulse 100 100 100 Oximetry 11/13/18 11/13/18 11/13/18 04:00 04:15 04:30 Temperature 97.7 F Pulse Rate 82 83 83 Pulse Rate [ Bilateral Throughout] Pulse Rate [ From Monitor] Respiratory 27 H 27 H 25 H Rate Respiratory Rate [Bilateral Throughout] Blood Pressure 154/109 161/116 157/107 O2 Sat by Pulse 100 100 100 Oximetry 11/13/18 11/13/18 11/13/18 04:45 05:00 05:01 Temperature Pulse Rate 82 108 H 84 Pulse Rate [ Bilateral Throughout] Pulse Rate [ From Monitor] Respiratory 17 26 H Rate Respiratory Rate [Bilateral Throughout] Blood Pressure 154/105 147/85 158/111 O2 Sat by Pulse 100 99 99 Oximetry 11/13/18 11/13/18 11/13/18 05:11 05:15 05:29 Temperature Pulse Rate 87 87 Pulse Rate [ 107 H Bilateral Throughout] Pulse Rate [ From Monitor] Respiratory 28 H Rate Respiratory 22 Rate [Bilateral Throughout] Blood Pressure 167/108 163/109 O2 Sat by Pulse 100 Oximetry 11/13/18 11/13/18 11/13/18 05:30 05:45 06:00 Temperature Pulse Rate 90 102 H 95 H Pulse Rate [ Bilateral Throughout] Pulse Rate [ From Monitor] Respiratory 28 H 29 H 25 H Rate Respiratory Rate [Bilateral Throughout] Blood Pressure 181/112 147/85 116/59 O2 Sat by Pulse 100 99 99 Oximetry 11/13/18 11/13/18 11/13/18 06:01 06:15 06:30 Temperature Pulse Rate 103 H 98 H 93 H Pulse Rate [ Bilateral Throughout] Pulse Rate [ From Monitor] Respiratory 30 H 26 H 29 H Rate Respiratory Rate [Bilateral Throughout] Blood Pressure 116/59 102/46 102/46 O2 Sat by Pulse 99 98 99 Oximetry 11/13/18 11/13/18 11/13/18 06:45 07:00 07:15 Temperature Pulse Rate 93 H 90 89 Pulse Rate [ Bilateral Throughout] Pulse Rate [ From Monitor] Respiratory 27 H 26 H 28 H Rate Respiratory Rate [Bilateral Throughout] Blood Pressure 114/85 107/75 93/76 O2 Sat by Pulse 99 99 99 Oximetry 11/13/18 11/13/18 11/13/18 07:31 07:45 08:00 Temperature 96.8 F L Pulse Rate 88 88 Pulse Rate [ Bilateral Throughout] Pulse Rate [ 85 From Monitor] Respiratory 28 H 29 H 32 H Rate Respiratory Rate [Bilateral Throughout] Blood Pressure 89/74 116/80 O2 Sat by Pulse 99 99 100 Oximetry 11/13/18 11/13/18 11/13/18 08:01 08:15 08:31 Temperature Pulse Rate 85 84 84 Pulse Rate [ Bilateral Throughout] Pulse Rate [ From Monitor] Respiratory 32 H 33 H 25 H Rate Respiratory Rate [Bilateral Throughout] Blood Pressure 119/83 129/86 128/87 O2 Sat by Pulse 100 99 100 Oximetry 11/13/18 11/13/18 11/13/18 08:45 08:55 09:00 Temperature Pulse Rate 87 85 87 Pulse Rate [ Bilateral Throughout] Pulse Rate [ From Monitor] Respiratory 30 H 30 H Rate Respiratory Rate [Bilateral Throughout] Blood Pressure 132/90 132/90 123/85 O2 Sat by Pulse 99 100 100 Oximetry 11/13/18 11/13/18 11/13/18 09:01 09:15 10:38 Temperature Pulse Rate 87 89 Pulse Rate [ 86 Bilateral Throughout] Pulse Rate [ From Monitor] Respiratory 8 L Rate Respiratory 27 H Rate [Bilateral Throughout] Blood Pressure 121/76 128/76 O2 Sat by Pulse 99 Oximetry - Labs CBC & Chem 7: 11/13/18 05:44 11/13/18 05:44 Labs: Abnormal lab results 11/12/18 11/12/18 11/12/18 Range/Units 22:10 22:15 22:15 WBC (4.5-11.0) K/mm3 MCV 104 H (84-94) fl MCH 35 H (28-32) pg RDW (13.2-15.2) % Plt Count 112 L (140-440) K/mm3 Seg Neuts % (Manual) (40.0-70.0) % Lymphocytes % (Manual) 47.0 H (13.4-35.0) % Seg Neutrophils # Man (1.8-7.7) K/mm3 Lymphocytes # (Manual) (1.2-5.4) K/mm3 Monocytes # (Manual) (0.0-0.8) K/mm3 PT 19.2 H (12.2-14.9) Sec. INR 1.66 H (0.87-1.13) APTT 52.5 H (24.2-36.6) Sec. Activated Clotting Time (74-137) ABG pH (7.350-7.450) pH Units ABG pO2 (80.0-90.0) mm Hg ABG Base Excess (-2.0-3.0) mmol/L Potassium (3.6-5.0) mmol/L Chloride (98-107) mmol/L Glucose (75-100) mg/dL POC Glucose 131 H (70-105) Calcium (8.4-10.2) mg/dL AST (5-40) units/L Total Creatine Kinase (55-170) units/L CK-MB (CK-2) (0.0-4.0) ng/mL CK-MB (CK-2) Rel Index (0-4) Troponin T (0.00-0.029) ng/mL Total Protein (6.3-8.2) g/dL Albumin (3.9-5) g/dL 11/12/18 11/12/18 11/13/18 Range/Units 22:15 23:42 01:50 WBC (4.5-11.0) K/mm3 MCV (84-94) fl MCH (28-32) pg RDW (13.2-15.2) % Plt Count (140-440) K/mm3 Seg Neuts % (Manual) (40.0-70.0) % Lymphocytes % (Manual) (13.4-35.0) % Seg Neutrophils # Man (1.8-7.7) K/mm3 Lymphocytes # (Manual) (1.2-5.4) K/mm3 Monocytes # (Manual) (0.0-0.8) K/mm3 PT (12.2-14.9) Sec. INR (0.87-1.13) APTT (24.2-36.6) Sec. Activated Clotting Time 329 H (74-137) ABG pH 7.312 L (7.350-7.450) pH Units ABG pO2 147.6 H (80.0-90.0) mm Hg ABG Base Excess -4.7 L (-2.0-3.0) mmol/L Potassium 2.7 L* (3.6-5.0) mmol/L Chloride 94.9 L (98-107) mmol/L Glucose 341 H (75-100) mg/dL POC Glucose (70-105) Calcium 7.5 L (8.4-10.2) mg/dL AST 58 H (5-40) units/L Total Creatine Kinase (55-170) units/L CK-MB (CK-2) (0.0-4.0) ng/mL CK-MB (CK-2) Rel Index (0-4) Troponin T (0.00-0.029) ng/mL Total Protein 4.7 L (6.3-8.2) g/dL Albumin 2.9 L (3.9-5) g/dL 11/13/18 11/13/18 11/13/18 Range/Units 02:30 03:04 04:01 WBC (4.5-11.0) K/mm3 MCV (84-94) fl MCH (28-32) pg RDW (13.2-15.2) % Plt Count (140-440) K/mm3 Seg Neuts % (Manual) (40.0-70.0) % Lymphocytes % (Manual) (13.4-35.0) % Seg Neutrophils # Man (1.8-7.7) K/mm3 Lymphocytes # (Manual) (1.2-5.4) K/mm3 Monocytes # (Manual) (0.0-0.8) K/mm3 PT (12.2-14.9) Sec. INR (0.87-1.13) APTT (24.2-36.6) Sec. Activated Clotting Time 175 H 142 H (74-137) ABG pH (7.350-7.450) pH Units ABG pO2 (80.0-90.0) mm Hg ABG Base Excess (-2.0-3.0) mmol/L Potassium (3.6-5.0) mmol/L Chloride (98-107) mmol/L Glucose (75-100) mg/dL POC Glucose 185 H (70-105) Calcium (8.4-10.2) mg/dL AST (5-40) units/L Total Creatine Kinase (55-170) units/L CK-MB (CK-2) (0.0-4.0) ng/mL CK-MB (CK-2) Rel Index (0-4) Troponin T (0.00-0.029) ng/mL Total Protein (6.3-8.2) g/dL Albumin (3.9-5) g/dL 11/13/18 11/13/18 11/13/18 Range/Units 04:50 05:44 05:44 WBC 23.9 H (4.5-11.0) K/mm3 MCV 102 H (84-94) fl MCH 34 H (28-32) pg RDW 15.5 H (13.2-15.2) % Plt Count (140-440) K/mm3 Seg Neuts % (Manual) 85.0 H (40.0-70.0) % Lymphocytes % (Manual) 2.0 L (13.4-35.0) % Seg Neutrophils # Man 20.3 H (1.8-7.7) K/mm3 Lymphocytes # (Manual) 0.5 L (1.2-5.4) K/mm3 Monocytes # (Manual) 1.7 H (0.0-0.8) K/mm3 PT (12.2-14.9) Sec. INR (0.87-1.13) APTT (24.2-36.6) Sec. Activated Clotting Time (74-137) ABG pH (7.350-7.450) pH Units ABG pO2 136.3 H (80.0-90.0) mm Hg ABG Base Excess -4.4 L (-2.0-3.0) mmol/L Potassium (3.6-5.0) mmol/L Chloride (98-107) mmol/L Glucose 210 H (75-100) mg/dL POC Glucose (70-105) Calcium 7.8 L (8.4-10.2) mg/dL AST (5-40) units/L Total Creatine Kinase 2686 H (55-170) units/L CK-MB (CK-2) 126.5 H (0.0-4.0) ng/mL CK-MB (CK-2) Rel Index 4.7 H (0-4) Troponin T 1.500 H* D (0.00-0.029) ng/mL Total Protein (6.3-8.2) g/dL Albumin (3.9-5) g/dL 11/13/18 Range/Units 06:44 WBC (4.5-11.0) K/mm3 MCV (84-94) fl MCH (28-32) pg RDW (13.2-15.2) % Plt Count (140-440) K/mm3 Seg Neuts % (Manual) (40.0-70.0) % Lymphocytes % (Manual) (13.4-35.0) % Seg Neutrophils # Man (1.8-7.7) K/mm3 Lymphocytes # (Manual) (1.2-5.4) K/mm3 Monocytes # (Manual) (0.0-0.8) K/mm3 PT (12.2-14.9) Sec. INR (0.87-1.13) APTT (24.2-36.6) Sec. Activated Clotting Time (74-137) ABG pH (7.350-7.450) pH Units ABG pO2 (80.0-90.0) mm Hg ABG Base Excess (-2.0-3.0) mmol/L Potassium (3.6-5.0) mmol/L Chloride (98-107) mmol/L Glucose (75-100) mg/dL POC Glucose 197 H (70-105) Calcium (8.4-10.2) mg/dL AST (5-40) units/L Total Creatine Kinase (55-170) units/L CK-MB (CK-2) (0.0-4.0) ng/mL CK-MB (CK-2) Rel Index (0-4) Troponin T (0.00-0.029) ng/mL Total Protein (6.3-8.2) g/dL Albumin (3.9-5) g/dL
--- NOTE | 2018-11-13 14:36 | Consultation ---
History of Present Illness Consult date: 11/13/18 Reason for Consult: Seizure Chief complaint: Seizure History of present illness: Patient is 73-year-old man with a history of previous TIA 1 year ago, who presented yesterday evening with chest pain and loss of consciousness at home. His states that the patient did not have routine outpatient care with physicians. He had been experiencing chest pain for the past few weeks, however did not seek medical attention for this. The patient was found to have cardiac arrest yesterday evening by the EMS. CPR was started, and patient returned to spontaneous circulation in the emergency room. Patient reportedly had a seizure-like event while in the emergency room yesterday. He was taken for heart cath emergently, and an LAD stent was placed yesterday. Patient remains intubated since yesterday., The patient's states that he was not taking any medications regularly, however he was previously advised to do so by his physicians. Past History Past Medical History: other (TIA) Social history: smoking. denies: alcohol abuse, prescription drug abuse Medications and Allergies Allergies Allergy/AdvReac Type Severity Reaction Status Date / Time No Known Allergies Allergy Verified 11/12/18 22:20 Home Medications Medication Instructions Recorded Confirmed Last Taken Type No Known Home Medications [No 11/13/18 11/13/18 Unknown History Reported Home Medications] Active Meds: Active Medications Acetaminophen (Tylenol) 650 mg ME Q4H PRN PRN Reason: Fever >101 Albuterol (Proventil) 2.5 mg IH Q6HRT PRN PRN Reason: Wheezing Albuterol/Ipratropium (Duoneb *Not For Prn Use*) 1 ampul IH Q6HRT [facility] Last Admin: 11/13/18 09:00 Dose: 1 ampul Documented by: Aspirin (Baby Aspirin) 81 mg PO QDAY [facility] Last Admin: 11/13/18 10:38 Dose: 81 mg Documented by: Atorvastatin Calcium (Lipitor) 80 mg PO QHS [facility] Clopidogrel Bisulfate (Plavix) 75 mg PO QDAY [facility] Dextrose (D50w (25gm) Syringe) 50 ml IV PRN PRN PRN Reason: Hypoglycemia Enoxaparin Sodium (Lovenox) 40 mg SUB-Q QDAY [facility] Last Admin: 11/13/18 10:37 Dose: 40 mg Documented by: Famotidine (Pepcid) 20 mg IV BID [facility] Last Admin: 11/13/18 10:39 Dose: 20 mg Documented by: Levetiracetam 750 mg/ Dextrose 107.5 mls @ 400 mls/hr IV Q12HR [facility] Last Admin: 11/13/18 10:37 Dose: 400 mls/hr Documented by: Insulin Human Regular (Humulin R) 0 units SUB-Q Q4H [facility]; Protocol Last Admin: 11/13/18 13:00 Dose: 1 units Documented by: Lorazepam (Ativan) 1 mg IV Q4H PRN PRN Reason: Seizures Last Admin: 11/13/18 05:46 Dose: 1 mg Documented by: Metoprolol Tartrate (Lopressor) 25 mg PO BID [facility] Last Admin: 11/13/18 10:38 Dose: 25 mg Documented by: Ondansetron HCl (Zofran) 4 mg IV Q8H PRN PRN Reason: N/V unrelieved by Reglan Review of Systems ROS unobtainable: due to mental status Physical Examination - Vital Signs Vital Signs: Vital Signs Pulse Ox 100 11/12/18 22:05 - Physical Exam Narrative exam: Patient is intubated, opens eyes spontaneously, however not to command. Noted to open eyes with pain stimulation in all extremities. Pupils equal round reactive to light, cough reflexes intact. Patient does not withdraw to pain stimulation in any extremity, however is noted to open eyes on pain stimulation. - Constitutional General appearance: acutely ill - EENT EENT: Present: ATNC, PERRL, mucous membranes moist - Respiratory Respiratory: Present: decreased breath sounds - Cardiovascular Cardiovascular: Present: regular rate, normal S1, normal S2 Extremities: Present: no peripheral edema bilatateraly, no clubbing, cyanosis - Gastrointestinal Gastrointestinal: Present: normoactive bowel sounds, soft, non-tender - Integumentary Integumentary: Present: erythema (LUE) - Neurologic Cranial nerve examination: PERRL - Musculoskeletal Musculoskeletal: Present: no fluid collection, no pain Results - Laboratory Findings CBC and BMP: 11/13/18 05:44 11/13/18 05:44 Abnormal Lab Findings: Abnormal Labs 11/12/18 11/12/18 11/12/18 22:10 22:15 22:15 WBC MCV 104 H MCH 35 H RDW Plt Count 112 L Seg Neuts % (Manual) Lymphocytes % (Manual) 47.0 H Seg Neutrophils # Man Lymphocytes # (Manual) Monocytes # (Manual) PT 19.2 H INR 1.66 H APTT 52.5 H Activated Clotting Time ABG pH ABG pO2 ABG Base Excess Potassium Chloride Glucose POC Glucose 131 H Calcium AST Total Creatine Kinase CK-MB (CK-2) CK-MB (CK-2) Rel Index Troponin T Total Protein Albumin 11/12/18 11/12/18 11/13/18 22:15 23:42 01:50 WBC MCV MCH RDW Plt Count Seg Neuts % (Manual) Lymphocytes % (Manual) Seg Neutrophils # Man Lymphocytes # (Manual) Monocytes # (Manual) PT INR APTT Activated Clotting Time 329 H ABG pH 7.312 L ABG pO2 147.6 H ABG Base Excess -4.7 L Potassium 2.7 L* Chloride 94.9 L Glucose 341 H POC Glucose Calcium 7.5 L AST 58 H Total Creatine Kinase CK-MB (CK-2) CK-MB (CK-2) Rel Index Troponin T Total Protein 4.7 L Albumin 2.9 L 11/13/18 11/13/18 11/13/18 02:30 03:04 04:01 WBC MCV MCH RDW Plt Count Seg Neuts % (Manual) Lymphocytes % (Manual) Seg Neutrophils # Man Lymphocytes # (Manual) Monocytes # (Manual) PT INR APTT Activated Clotting Time 175 H 142 H ABG pH ABG pO2 ABG Base Excess Potassium Chloride Glucose POC Glucose 185 H Calcium AST Total Creatine Kinase CK-MB (CK-2) CK-MB (CK-2) Rel Index Troponin T Total Protein Albumin 11/13/18 11/13/18 11/13/18 04:50 05:44 05:44 WBC 23.9 H MCV 102 H MCH 34 H RDW 15.5 H Plt Count Seg Neuts % (Manual) 85.0 H Lymphocytes % (Manual) 2.0 L Seg Neutrophils # Man 20.3 H Lymphocytes # (Manual) 0.5 L Monocytes # (Manual) 1.7 H PT INR APTT Activated Clotting Time ABG pH ABG pO2 136.3 H ABG Base Excess -4.4 L Potassium Chloride Glucose 210 H POC Glucose Calcium 7.8 L AST Total Creatine Kinase 2686 H CK-MB (CK-2) 126.5 H CK-MB (CK-2) Rel Index 4.7 H Troponin T 1.500 H* D Total Protein Albumin 11/13/18 11/13/18 06:44 11:12 WBC MCV MCH RDW Plt Count Seg Neuts % (Manual) Lymphocytes % (Manual) Seg Neutrophils # Man Lymphocytes # (Manual) Monocytes # (Manual) PT INR APTT Activated Clotting Time ABG pH ABG pO2 ABG Base Excess Potassium Chloride Glucose POC Glucose 197 H 152 H Calcium AST Total Creatine Kinase CK-MB (CK-2) CK-MB (CK-2) Rel Index Troponin T Total Protein Albumin Assessment and Plan Patient is 73-year-old man with a history of previous TIA 1 year ago, who presented with chest pain and loss of consciousness at home. He was found to be in cardiac arrest, and only return to spontaneous circulation upon arriving in the ER. Patient reportedly had a seizure-like episode while in the ER. According the patient's clinical findings, it is likely that he has anoxic brain injury due to the cardiac arrest. It is not entirely clear how long the patient was in cardiac arrest prior to returning to spontaneous circulation. Plan: 1. Seizure: - Will check EEG - Continue Keppra 2. Anoxic brain injury after cardiac arrest - Currently patient is opening eyes to pain stimulation, and pupillary/cough/ brainstem reflexes are notably intact. This indicates that patient's brainstem is intact at this time - Discussed potential prognosis with family at bedside, including possible long- term dependency and disability, given amount of time patient was in cardiac arrest prior to CPR initiated ( states that there was about a 30 minute time period prior to CPR initiation). - Will continue to follow patient. Kyaw Brush MD Neurology
--- NOTE | 2018-11-13 15:13 | XRay Report ---
ABDOMEN 1 VIEW(S) INDICATION / CLINICAL INFORMATION: NGT position. COMPARISON: None available. FINDINGS: TUBES / LINES: The nasogastric tube terminates in the distal esophagus. Advancement is recommended. BOWEL GAS PATTERN: No significant abnormality. FREE AIR / EXTRALUMINAL GAS: None seen. ADDITIONAL FINDINGS: There is residual IV contrast in the renal collecting systems and bladder. IMPRESSION: No significant abnormality. The endotracheal tube terminates in the distal esophagus. Signer Name: Zeferino Mahan Jr, MD Signed: 11/13/2018 3:09 PM Workstation Name: [id number]
--- NOTE | 2018-11-13 15:14 | XRay Report ---
CHEST 1 VIEW INDICATION: Endotracheal tube placement. COMPARISON: 11/13/2018 at 1032 hours FINDINGS: Support devices: The endotracheal tube terminates at the level of the thoracic inlet approximately 10 cm superior to the mahesh. The nasogastric tube terminates in the distal esophagus. Heart: Within normal limits. Lungs/Pleura: The lungs are markedly hyperinflated consistent with advanced emphysema. Additional findings: None. IMPRESSION: Lines and tubes as described. Emphysema. Signer Name: Zeferino Mahan Jr, MD Signed: 11/13/2018 3:10 PM Workstation Name: [id number]
[2018-11-14] MEDS: DUONEB *Not for PRN Use IH SCH ×4 (01:45→19:30)
[2018-11-14] MEDS: HumuLIN R SUB-Q SCH ×6 (03:21→23:51)
[2018-11-14 03:49] LABS: Basophils # (Auto) 0.1 K/mm3 (0.0-0.1); Basophils % (Auto) 0.4 % (0.0-1.8); Eosinophils # (Auto) 0.1 K/mm3 (0.0-0.4); Eosinophils % (Auto) 0.5 % (0.0-4.3); Hematocrit 41.2 % (35.5-45.6); Lymphocytes # (Auto) 1.2 K/mm3 (1.2-5.4); Lymphocytes % (Auto) 8.5 % (13.4-35.0); Mean Corpuscular HGB Conc 34 % (32-34); Mean Corpuscular Volume 103 fl (84-94); Monocytes # (Auto) 0.7 K/mm3 (0.0-0.8); Monocytes % (Auto) 5.3 % (0.0-7.3); Red Blood Count 4.01 M/mm3 (3.65-5.03); Red Cell Distribution Width 15.4 % (13.2-15.2)
[2018-11-14 03:52] LABS: Platelet Count 95 K/mm3 (140-440)
[2018-11-14 04:07] LABS: Alanine Aminotransferase 76 units/L (7-56); Albumin 3.4 g/dL (3.9-5); BUN/Creatinine Ratio 29; Blood Urea Nitrogen 20 mg/dL (9-20); Calcium 7.9 mg/dL (8.4-10.2); Hemolysis Index 16
[2018-11-14 04:21] LABS: Bilirubin,Direct < 0.2 mg/dL (0-0.2)
[2018-11-14 06:02] LABS: ABG Base Excess -2.2 mmol/L (-2.0-3.0); ABG HCO3 21.4 mmol/L (20.0-26.0); ABG Methemoglobin 0.6 % (0.0-1.5); ABG Oxygen Saturation 98.1 % (95.0-99.0); ABG PCO2 33.4 mm Hg; ABG PH 7.425 pH Units (7.350-7.450)
--- NOTE | 2018-11-14 07:01 | Consultation ---
PULMONARY CRITICAL CARE CONSULT NOTE CONSULTING PHYSICIAN: Dr. Ivan. REASON FOR CONSULTATION: Acute hypoxemic respiratory failure, status post cardiopulmonary arrest with return of spontaneous circulation. CHIEF COMPLAINT AND HISTORY OF PRESENT ILLNESS: As follows: The patient is a 73-year-old male with past medical history significant amongst other things for a diagnosis of a prior cerebrovascular accident and not taking any home meds. He came into the Emergency Room status post cardiopulmonary arrest. He had a witnessed collapse by his . EMS was called. He was in VFib on arrival. He received 3 defibrillations and one dose of epinephrine. He was intubated en route to the hospital. On reaching the hospital, evaluation was done. He apparently had been complaining of some chest pain before collapsing. A CT of his head was negative. He was taken to the landscape lab[facility]. He had a patent left main, but left anterior descending, proximal, had 95% occlusion. He was found to have an ejection fraction of 35-40%. He had PCI done with stenting, a drug-eluting stent. Postprocedure, he was brought into the Intensive Care Unit, where I stopped by to see him. When I stopped by to see him, he was on mechanical ventilator, essentially right in the set rate of the ventilator. Not really responding appropriately or following my commands. He was not on any sedation. He does have a prior history of a stroke and his baseline mental status is unclear but appears to have been decent enough to where he was eating dinner with his . He is described as a tobacco abuser, who continues to smoke. This is as much of the history of presentation as I have. PAST MEDICAL HISTORY: Again, significant for a diagnosis of a prior cerebrovascular accident, a history of tobacco use disorder, and I believe a history of hypertension. PAST SURGICAL HISTORY: Unknown. MEDICATIONS: He was on at the time I stopped by to see him were reviewed. Pertinent medications included the following: Tylenol 650 mg per rectum q. 4 hours p.r.n. fever greater than 101, albuterol and Atrovent treatments nebulized q. 6 hours, aspirin 81 mg p.o. daily, Lipitor 80 mg p.o. at bedtime, Plavix 75 mg p.o. daily, Lovenox 40 mg subcutaneous daily, Pepcid 20 mg IV b.i.d., insulin via sliding scale, Keppra 750 mg IV q. 12 hours, Lopressor 25 mg p.o. b.i.d., and Zofran 4 mg IV q. 8 hours p.r.n. nausea and vomiting. ALLERGIES: No known drug allergies. DIET: Thin, almost cachectic-looking gentleman. Acute weight loss or gain history is unknown. FAMILY AND SOCIAL HISTORY: Apparently lives in the community with his . He is described as a current smoker. Alcohol or illicit drug use or abuse history is unknown. FAMILY HISTORY: Otherwise, unknown. REVIEW OF SYSTEMS: Unknown and unobtainable secondary to the patient's medical and mental condition. Since he has been here, it is unclear if he actually had a seizure, but there was some history of that along the way, but he has had no gross hematochezia or melena, no gross hematuria, no hematemesis, and no bloody tracheal secretions. Review of systems is otherwise unobtainable or as in the body of history above. PHYSICAL EXAMINATION: VITAL SIGNS: At presentation in the Emergency Room, he was hypothermic, temperature of 95.1 degrees Fahrenheit, pulse of 67, respiratory rate of 15, blood pressure of 184/105, O2 sats were 100%, and inspired oxygen concentration at the time was not recorded. When I stopped by to see him, his O2 sats were 99%. That was on the assist control mode of ventilation. A set rate of 22, tidal volume is 450, PEEP of 6, and 50% FiO2. GENERAL: He is an elderly-looking male, normocephalic, looks chronically ill, and on the mechanical ventilator without significant patient ventilator dyssynchrony. HEAD, EYES, EARS, NOSE AND THROAT: He is anicteric. No conjunctival erythema. Oropharynx was moist. ET tube was in place, taped at the lips, around 23 cm. Grossly, no palpable lymph nodes in the supraclavicular or submandibular lymph node chains. There was no thyromegaly and no jugular venous distention. LUNGS: Auscultation of both lung rizvi is significant for diminished bilateral breath sounds. No wheezing. Prolonged expiratory phase. HEART: Heart sounds 1 and 2 were heard. They were regular in rate and rhythm at time of my evaluation without overt rubs or murmurs. ABDOMEN: Soft and flat. Bowel sounds were positive. Nontender and no palpable hepatosplenomegaly. EXTREMITIES: Without overt digital clubbing or cyanosis. No pedal edema. Pedal pulses were palpable bilaterally. NEUROLOGICAL: Pupils were equal, round, about 3 mm, and reactive to the light. Extraocular muscle movements could not be assessed. He did not display spontaneous movements to his extremities. No spasticity. No fasciculations could be seen. SKIN: Poor turgor. He had areas of the upper extremities and upper chest with ecchymosis under the skin. In the areas I examined I did not notice a decubitus ulcer. PSYCHIATRIC: Mood and affect could not be evaluated due to the altered mental status. LABORATORY DATA: From my review were as follows: Admission white cell count is 8500, hemoglobin is 13.4, hematocrit 39.6, and platelet count is 112. No significant band forms were reported. INR was 1.66. Serum sodium was 142, potassium 2.7, chloride 95, bicarbonate 24, BUN 10, creatinine is 0.9, and glucose was 341. AST was up slightly at 58. Albumin was low at 2.9. His troponin was 1.5. CPK 2686. I think that was post-catheterization. His potassium is up to 3.6. Most recent ABG: pH of 7.35, pCO2 of 39, and pO2 of 136 and that was on 35% and the above-mentioned vent settings. Microbiology studies: No microbiology studies. Radiographic studies have been reviewed. His initial chest x-ray has definite hyperinflation. No focal infiltrate and chronic-looking increased interstitial markings. I see a NG tube coursing downwards through the mediastinum. I do not see an ET tube in this film view. No gross pneumothorax and no gross bony fractures. ASSESSMENT AND PLAN: 1. Acute hypoxemic respiratory failure, on mechanical ventilator support. 2. Status post cardiac arrest with return of spontaneous circulation. 3. Ventricular fibrillation. 4. History of cerebrovascular accident. 5. Adult failure to thrive. 6. ST elevation myocardial infarction. 7. Leukocytosis. White count is now 23,900. 8. Coagulopathy present on arrival. 9. Hypokalemia. 10. Likely chronic obstructive pulmonary disease. 11. Possible history of hypertension. PLAN: We will keep him on full mechanical ventilatory support in the short time. Hopefully, his mental status improves to where he could be extubated without any risk of aspiration or decompensation. A ventilator-associated pneumonia bundle has been instituted. Because of the clinical COPD, he will be started on long and short-acting bronchodilators. I will start him with Brovana and then put him on inhaled corticosteroids. I will change the scheduled DuoNeb treatments to p.r.n. Oxygen will be weaned to keep sats greater than or equal to about 90%. Aspiration precautions will be maintained. I am going to discontinue his IV normal saline, especially with the low ejection fraction. We will reduce his set rate on the mechanical ventilator to 12 and repeat an arterial blood gas shortly. A nutrition consult is going to be placed to begin feeding him. Cardiology evaluation is ongoing. He is on antiplatelet therapy at this time. I have a low clinical suspicion for a possible venous thromboembolic event in this gentleman. I will not be pushing that workup any further. We are going to follow him clinically off antibiotic therapy. I do feel this is a stress leukocytosis we are dealing with. I will, however, get a lactic acid level as well as a CRP level and trend as necessary to aid clinical decision making. He is appropriately on GI prophylaxis as well as DVT prophylaxis. Enteral nutrition will be the feeding modality of choice as soon as we can. Daily spontaneous breathing trials will be done. We will also be having daily sedation assessment trials. Target sedation will be for RASS scale of 0 to -1. Flu and pneumonia vaccination have been addressed per protocol. Thank you very much for the consult, Dr. Ivan. We will follow along and make further recommendations as picture progresses/becomes clearer. He is critically ill on life-sustaining interventions including mechanical ventilatory support, at high risk of decompensation including the risk of . At this time, we spent about 35-40 minutes of critical care time without overlap and excluding any procedural time that may be necessary. JOB# [id number] BUCKY/CANDIDA VINCENT
--- NOTE | 2018-11-14 08:35 | Progress Note ---
Assessment and Plan Assessment and plan: Cardiopulmonary arrest with successful resuscitation - could be from STEMI - now on vent, w/o pressor, follow 2d echo - s/p emergent cath with PCI STEMI (ST elevation myocardial infarction) - ST elevation (STEMI) myocardial infarction involving left anterior descending coronary artery s/p PCI cardiology following CAD (coronary artery disease), cont asprin and plavix Anoxic encephalopathy CT head no acute process, neurology consulted Comatose hyperkalemia Mild Repeat in am Seizure, on iv keppra, Tobacco use Severe PC Malnutrition - consult cage tender Hypokalemia, repleted SIRS - cont abx, follow cx DVT Px, lovenox The high probability of a clinically significant, sudden or life threatening deterioration of the [multiple] system(s) required my full and direct attention, intervention and personal management. The aggregate critical care time was [33] minutes. This time is in addition to time spent performing reported procedures but includes the following: [x] Data Review and interpretation [x] Patient assessment and monitoring of vital signs [x] Documentation [x] Medication orders and management History Interval history: Still intubated Hospitalist Physical - Physical exam Narrative exam: Gen: Not in acute distress, malnourished, intubated HEENT: Normocephalic, atraumatic Neck: supple, no JVD Heart: S1 and S2 reg, no murmurs, rubs or gallop Lungs: Clear to auscultation, no rhonchi, no wheeze Abd: soft, non tender, non distended, normal BS, Ext: No edema, no clubbing, no cyanosis Neuro: Unresponsive, does not follow commands - Constitutional Vitals: Temp Pulse Resp BP Pulse Ox 97.9 F 97 H 14 115/83 98 11/14/18 08:00 11/14/18 08:00 11/14/18 08:00 11/14/18 08:00 11/14/18 08:00 General appearance: Present: cachectic Results - Labs CBC & Chem 7: 11/14/18 03:24 11/14/18 03:24 Labs: Laboratory Last Values WBC 13.6 K/mm3 (4.5-11.0) H 11/14/18 03:24 RBC 4.01 M/mm3 (3.65-5.03) 11/14/18 03:24 Hgb 14.0 gm/dl (11.8-15.2) 11/14/18 03:24 Hct 41.2 % (35.5-45.6) 11/14/18 03:24 MCV 103 fl (84-94) H 11/14/18 03:24 MCH 35 pg (28-32) H 11/14/18 03:24 MCHC 34 % (32-34) 11/14/18 03:24 RDW 15.4 % (13.2-15.2) H 11/14/18 03:24 Plt Count 95 K/mm3 (140-440) L 11/14/18 03:24 Lymph % (Auto) 8.5 % (13.4-35.0) L 11/14/18 03:24 [place] % (Auto) 5.3 % (0.0-7.3) 11/14/18 03:24 Eos % (Auto) 0.5 % (0.0-4.3) 11/14/18 03:24 Baso % (Auto) 0.4 % (0.0-1.8) 11/14/18 03:24 Lymph # 1.2 K/mm3 (1.2-5.4) 11/14/18 03:24 [place] # 0.7 K/mm3 (0.0-0.8) 11/14/18 03:24 Eos # 0.1 K/mm3 (0.0-0.4) 11/14/18 03:24 Baso # 0.1 K/mm3 (0.0-0.1) 11/14/18 03:24 Add Manual Diff Complete 11/13/18 05:44 Total Counted 100 11/13/18 05:44 Seg Neutrophils % 85.3 % (40.0-70.0) H 11/14/18 03:24 Seg Neuts % (Manual) 85.0 % (40.0-70.0) H 11/13/18 05:44 6.0 % 11/13/18 05:44 2.0 % (13.4-35.0) L 11/13/18 05:44 Reactive Lymphs % (Man) 0 % 11/13/18 05:44 7.0 % (0.0-7.3) 11/13/18 05:44 0 % (0.0-4.3) 11/13/18 05:44 0 % (0.0-1.8) 11/13/18 05:44 0 % 11/13/18 05:44 0 % 11/13/18 05:44 0 % 11/13/18 05:44 0 % 11/13/18 05:44 Nucleated RBC % Not Reportable 11/13/18 05:44 Seg Neutrophils # 11.6 K/mm3 (1.8-7.7) H 11/14/18 03:24 Seg Neutrophils # Man 20.3 K/mm3 (1.8-7.7) H 11/13/18 05:44 Band Neutrophils # 1.4 K/mm3 11/13/18 05:44 0.5 K/mm3 (1.2-5.4) L 11/13/18 05:44 Abs React Lymphs (Man) 0.0 K/mm3 11/13/18 05:44 1.7 K/mm3 (0.0-0.8) H 11/13/18 05:44 0.0 K/mm3 (0.0-0.4) 11/13/18 05:44 0.0 K/mm3 (0.0-0.1) 11/13/18 05:44 0.0 K/mm3 11/13/18 05:44 0.0 K/mm3 11/13/18 05:44 0.0 K/mm3 11/13/18 05:44 Blast Cells # 0.0 K/mm3 11/13/18 05:44 WBC Morphology Not Reportable 11/13/18 05:44 Hypersegmented Neuts Not Reportable 11/13/18 05:44 Hyposegmented Neuts Not Reportable 11/13/18 05:44 Hypogranular Neuts Not Reportable 11/13/18 05:44 Not Reportable 11/13/18 05:44 Not Reportable 11/13/18 05:44 Not Reportable 11/13/18 05:44 Not Reportable 11/13/18 05:44 Not Reportable 11/13/18 05:44 Not Reportable 11/13/18 05:44 Consistent w auto 11/13/18 05:44 Not Reportable 11/13/18 05:44 Plt Clumps, EDTA Not Reportable 11/13/18 05:44 Not Reportable 11/13/18 05:44 Few 11/13/18 05:44 Not Reportable 11/13/18 05:44 Plt Morphology Comment Not Reportable 11/13/18 05:44 RBC Morphology Not Reportable 11/13/18 05:44 Dimorphic RBCs Not Reportable 11/13/18 05:44 Not Reportable 11/13/18 05:44 Not Reportable 11/13/18 05:44 Not Reportable 11/13/18 05:44 1+ 11/13/18 05:44 Not Reportable 11/13/18 05:44 1+ 11/13/18 05:44 Not Reportable 11/13/18 05:44 Not Reportable 11/13/18 05:44 Not Reportable 11/13/18 05:44 Not Reportable 11/13/18 05:44 Not Reportable 11/13/18 05:44 Not Reportable 11/13/18 05:44 Not Reportable 11/13/18 05:44 Not Reportable 11/13/18 05:44 Not Reportable 11/13/18 05:44 Not Reportable 11/13/18 05:44 Not Reportable 11/13/18 05:44 Not Reportable 11/13/18 05:44 Not Reportable 11/13/18 05:44 Acanthocytes (Spur) Not Reportable 11/13/18 05:44 Rouleaux Not Reportable 11/13/18 05:44 Not Reportable 11/13/18 05:44 Not Reportable 11/13/18 05:44 Not Reportable 11/13/18 05:44 Not Reportable 11/13/18 05:44 Hem Pathologist Commnt No 11/13/18 05:44 PT 19.2 Sec. (12.2-14.9) H 11/12/18 22:15 INR 1.66 (0.87-1.13) H 11/12/18 22:15 APTT 52.5 Sec. (24.2-36.6) H 11/12/18 22:15 142 (74-137) H 11/13/18 04:01 ABG pH 7.425 pH Units (7.350-7.450) 11/14/18 05:25 ABG pCO2 33.4 mm Hg 11/14/18 05:25 ABG pO2 110.0 mm Hg (80.0-90.0) H 11/14/18 05:25 ABG HCO3 21.4 mmol/L (20.0-26.0) 11/14/18 05:25 ABG O2 Saturation 98.1 % (95.0-99.0) 11/14/18 05:25 ABG O2 Content 18.0 (0.0-44) 11/14/18 05:25 ABG Base Excess -2.2 mmol/L (-2.0-3.0) L 11/14/18 05:25 ABG Hemoglobin 13.2 gm/dl (14.0-18.0) L 11/14/18 05:25 ABG Carboxyhemoglobin 1.2 % (0.0-5.0) 11/14/18 05:25 ABG Methemoglobin 0.6 % (0.0-1.5) 11/14/18 05:25 96.3 % (95.0-99.0) 11/14/18 05:25 30 % 11/14/18 05:25 Sodium 136 mmol/L (137-145) L 11/14/18 03:24 Potassium 5.1 mmol/L (3.6-5.0) H D 11/14/18 03:24 Chloride 102.7 mmol/L (98-107) 11/14/18 03:24 Carbon Dioxide 20 mmol/L (22-30) L 11/14/18 03:24 18 mmol/L 11/14/18 03:24 BUN 20 mg/dL (9-20) 11/14/18 03:24 0.7 mg/dL (0.8-1.5) L 11/14/18 03:24 Estimated GFR > 60 ml/min 11/14/18 03:24 29 % 11/14/18 03:24 Glucose 124 mg/dL (75-100) H 11/14/18 03:24 POC Glucose 124 (70-105) H 11/14/18 06:17 Calcium 7.9 mg/dL (8.4-10.2) L 11/14/18 03:24 Magnesium 2.60 mg/dL (1.7-2.3) H 11/13/18 16:19 0.60 mg/dL (0.1-1.2) 11/14/18 03:24 < 0.2 mg/dL (0-0.2) 11/14/18 03:24 0.4 mg/dL 11/14/18 03:24 AST 183 units/L (5-40) H 11/14/18 03:24 ALT 76 units/L (7-56) H 11/14/18 03:24 57 units/L (35-129) 11/14/18 03:24 2686 units/L (55-170) H 11/13/18 05:44 CK-MB (CK-2) 126.5 ng/mL (0.0-4.0) H 11/13/18 05:44 CK-MB (CK-2) Rel Index 4.7 (0-4) H 11/13/18 05:44 1.500 ng/mL (0.00-0.029) H* D 11/13/18 05:44 5.9 g/dL (6.3-8.2) L D 11/14/18 03:24 3.4 g/dL (3.9-5) L 11/14/18 03:24 1.4 % 11/14/18 03:24 Triglycerides 94 mg/dL (2-149) 11/13/18 05:44 Cholesterol 147 mg/dL (50-199) 11/13/18 05:44 95 mg/dL (50-130) 11/13/18 05:44 56 mg/dL (40-59) 11/13/18 05:44 2.62 % 11/13/18 05:44 Active Medications - Current Medications Current Medications: Generic Name Dose Route Start Last Admin Trade Name Freq PRN Reason Stop Dose Admin Acetaminophen 650 mg 11/13/18 01:50 Tylenol OK Q4H PRN Fever >101 Albuterol 2.5 mg 11/13/18 01:53 Proventil IH Q6HRT PRN Wheezing Albuterol/Ipratropium 1 ampul 11/13/18 08:00 11/14/18 07:38 Duoneb *Not For Prn Use* IH 1 ampul Q6HRT YOSELIN Administration Aspirin 81 mg 11/13/18 10:00 11/13/18 10:38 Baby Aspirin PO 81 mg QDAY YOSELIN Administration Atorvastatin Calcium 80 mg 11/13/18 22:00 11/13/18 21:21 Lipitor PO 80 mg QHS YOSELIN Administration Clopidogrel Bisulfate 75 mg 11/14/18 10:00 Plavix PO QDAY YOSELIN Dextrose 50 ml 11/13/18 02:01 D50w (25gm) Syringe IV PRN PRN Hypoglycemia Enoxaparin Sodium 40 mg 11/13/18 10:00 11/13/18 10:37 Lovenox SUB-Q 40 mg QDAY YOSELIN Administration Famotidine 20 mg 11/13/18 10:00 11/13/18 22:40 Pepcid IV 20 mg BID YOSELIN Administration Levetiracetam 750 mg/ Dextrose 107.5 mls @ 400 mls/hr 11/13/18 10:00 11/13/18 22:40 IV 400 mls/hr Q12HR YOSELIN Administration Insulin Human Regular 0 units 11/13/18 03:00 11/14/18 06:17 Humulin R SUB-Q Not Given Q4H [facility] Protocol Lorazepam 1 mg 11/13/18 01:41 11/13/18 05:46 Ativan IV 1 mg Q4H PRN Administration Seizures Metoprolol Tartrate 25 mg 11/13/18 10:00 11/13/18 23:49 Lopressor PO Not Given BID YOSELIN Ondansetron HCl 4 mg 11/12/18 23:59 Zofran IV Q8H PRN N/V unrelieved by Moy Nutrition/Malnutrition Assess - Dietary Evaluation Nutrition/Malnutrition Findings: Nutrition Notes Start: 11/13/18 11:12 Freq: Status: Active Protocol: Document 11/13/18 11:12 JUDE (Rec: 11/13/18 11:20 JUDE [email or web address]) Nutrition Notes 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 Pt intubated and on vent support. No TF consult received yet. Burn Absent Trauma Absent #2 Nutrition Diagnosis Malnutrition Etiology acute illness (cardiac arrest) As Evidenced by Signs and Symptoms BMI 12.9, subcutaneous fat loss, muscle wasting, inadequate PO intake #1 Nutrition Diagnosis Inadequate oral intake Etiology mech ventilation As Evidenced by Signs and Symptoms pt NPO Is patient on ventilator? Yes Is Patient Ambulatory and/or Out of Bed No REE-([facility]-confined to bed) 1510.932 Kcal/Kg value to use for calculation 45 Approximate Energy Requirements Using 2002 kcal/Kg Calculation Used for Recommendations Kcal/kg Additional Notes Pro needs 1.2-2g/k-89g/ day Fluid needs 1ml/kcal Nutrition Intervention Change Diet Order: Change diet to NPO Goal #1 Either advance diet or start EN support to meet nutrient needs Goal #2 Wt maintenance and/or gain Anticipated Discharge Needs: Unable to identify at this time Follow-Up By: 11/14/18 Additional Comments F/U: diet advancement, vent status, TF consult
[2018-11-14] MEDS ORDERED: SODIUM BICARBONATE FEEDTUBE PRN (09:40)
[2018-11-14] MEDS: PLAVIX PO SCH (09:40)
[2018-11-14] MEDS ORDERED: SIMPLE SYRUP FEEDTUBE PRN ×2 (09:40)
[2018-11-14] MEDS: PEPCID IV SCH ×2 (09:40→21:05)
[2018-11-14] MEDS ORDERED: PANCREAZE DR 10,500 UNIT FEEDTUBE PRN (09:40)
[2018-11-14] MEDS: BABY ASPIRIN PO SCH (09:40)
[2018-11-14] MEDS: LOPRESSOR PO SCH ×2 (09:40→23:30)
[2018-11-14] MEDS: KEPPRA 750 MG in D5W 100 ML IV SCH ×2 (09:44→21:50)
--- NOTE | 2018-11-14 09:53 | Progress Note ---
Assessment and Plan Echo reviewed - TDS, EF 15-20%, mid anteroseptal, apical anterior and apical lateral wall dyskinetic. No current clinical evidence of acute heart failure. Cont lopressor per hold parameters. Initiate lisinoprol with hold parameters. Currently stable cardiac status. Cont post-PCI care and other present cardiac management. Neuro input noted. The patient has been seen in conjunction with Dr. Raji Mina who agrees with the assessment and plan of care. - Patient Problems (1) Anoxic brain injury Current Visit: Yes Status: Suspected (2) Cardiopulmonary arrest with successful resuscitation Current Visit: Yes Status: Acute (3) STEMI (ST elevation myocardial infarction) Current Visit: Yes Status: Acute Qualifiers: Involved coronary artery: LAD coronary artery Qualified Code(s): I21.02 - ST elevation (STEMI) myocardial infarction involving left anterior descending coronary artery (4) CAD (coronary artery disease) Current Visit: Yes Status: Chronic (5) Stented coronary artery Current Visit: Yes Status: Chronic (6) Ischemic cardiomyopathy Current Visit: Yes Status: Acute (7) Altered mental status Current Visit: Yes Status: Acute (8) Seizure Current Visit: Yes Status: Suspected (9) Tobacco use Current Visit: Yes Status: Chronic (10) Malnutrition Current Visit: Yes Status: Chronic (11) Hypokalemia Current Visit: Yes Status: Acute Subjective Date of service: 11/14/18 Principal diagnosis: cardiac arrest; stemi Interval history: pt remains intubated, nonresponsive. in SR. Objective Last Vital Signs Temp 97.9 F 11/14/18 08:00 Pulse 98 H 11/14/18 09:40 Resp 14 11/14/18 08:00 BP 121/91 11/14/18 09:40 Pulse Ox 98 11/14/18 08:00 - Physical Examination General: Other (intubated, nonresponsive ) HEENT: Positive: Other (sluggish) Neck: Positive: neck supple Cardiac: Positive: Reg Rate and Rhythm, S1/S2 Lungs: Positive: Decreased Breath Sounds, Ventilated Respirations Neuro: Positive: Other (unresponsive) Abdomen: Positive: Soft Incision: Cardiac Cath Site (c/d/i, no bleeding, no hematoma) Extremities: Present: Cold, Other (DP pulses present via doppler, no pedal pulses via doppler). Absent: edema - Labs and Meds Cardiac Enzymes 11/14/18 Range/Units 03:24 AST 183 H (5-40) units/L CBC 11/14/18 Range/Units 03:24 WBC 13.6 H (4.5-11.0) K/mm3 RBC 4.01 (3.65-5.03) M/mm3 Hgb 14.0 (11.8-15.2) gm/dl Hct 41.2 (35.5-45.6) % Plt Count 95 L (140-440) K/mm3 Lymph # 1.2 (1.2-5.4) K/mm3 [place] # 0.7 (0.0-0.8) K/mm3 Eos # 0.1 (0.0-0.4) K/mm3 Baso # 0.1 (0.0-0.1) K/mm3 Comprehensive Metabolic Panel 11/14/18 Range/Units 03:24 Sodium 136 L (137-145) mmol/L Potassium 5.1 H D (3.6-5.0) mmol/L Chloride 102.7 (98-107) mmol/L Carbon Dioxide 20 L (22-30) mmol/L BUN 20 (9-20) mg/dL Creatinine 0.7 L (0.8-1.5) mg/dL Glucose 124 H (75-100) mg/dL Calcium 7.9 L (8.4-10.2) mg/dL Direct Bilirubin < 0.2 (0-0.2) mg/dL Indirect Bilirubin 0.4 mg/dL AST 183 H (5-40) units/L ALT 76 H (7-56) units/L Alkaline Phosphatase 57 (35-129) units/L Total Protein 5.9 L D (6.3-8.2) g/dL Albumin 3.4 L (3.9-5) g/dL - Imaging and Cardiology Cardiac cath: report reviewed ( left main patent. LAD proximal 95% with WENDY 2 flow circumflex patent OM1 patent RCA patent with moderate LV dysfunction EF 3540% with septal inferior wall hypokinesis. With PCI of the LAD with a drug- eluting 3.5 x 23 mm stent at 15 kim.) - Telemetry EKG Rhythm: Sinus Rhythm
[2018-11-14] MEDS: ZESTRIL PO SCH (12:45)
--- NOTE | 2018-11-14 13:07 | Progress Note ---
Assessment and Plan Acute hypoxemic respiratory failure, on mechanical ventilator support. Status post cardiac arrest with return of spontaneous circulation. Ventricular fibrillation. History of cerebrovascular accident. Adult failure to thrive. ST elevation myocardial infarction. Leukocytosis Coagulopathy present on arrival. Hypokalemia. Likely chronic obstructive pulmonary disease. Possible history of hypertension - daily SAT and SBT assessments as tolerated - ABG after 2 hours on SBT's today - discontinue lovenox re: thrombocytopenia - continue bronchodilators with pulmonary hygiene per RT - VAP bundle addressed - continue to wean supplemental O2 to keep O2 sats > 90% - VTE prophylaxis with SCD's - continue stress ulcer prophylaxis - begin enteral nutrition at goal rate as tolerated - continue accuchecks with glycemic control per SSI for target blood glucose 140-180mg/dL - follow EEG report - follow clinically off AB's (No acute indication) - resume chronic home medications per attending - target sedation for RASS 0 to -1 - continue Keppra for seizures; adjust per neurology recommendations - neurology evaluation ongoing - continue mobility protocols / off loading for pressure ulcer prevention - Critical care bundles addressed - continue Seizure precautions - fall precautions - neuro-checks per RN - continue other care per attending / other consultants ..... care plan discussed at length with his at bedside CONDITION: CRITICAL PROGNOSIS: GUARDED TO GRAVE CODE STATUS: FULL CODE The high probability of a clinically significant, sudden or life threatening deterioration of the [Neurologic, Respiratory & Cardiovascular] system(s) required my full and direct attention, intervention and personal management. The aggregate critical care time was [37] minutes. This time is in addition to time spent performing reported procedures but includes the following: [x] Data Review and interpretation [x] Patient assessment and monitoring of vital signs [x] Documentation [x] Medication orders and management Subjective Date of service: 11/14/18 Principal diagnosis: Ac. hypoxemic resp failure; S/P cardiac arrest; V-fib; H/O CVA; STEMI Interval history: Patient is seen today for: Ac. hypoxemic resp failure; S/P cardiac arrest with ROSC; Ventricular fibrillation.; H/O CVA; STEMI; Leukocytosis; Coagulopathy (POA); Likely COPD; HTN Seen and examined at bedside; 24hour events reviewed; nursing and respiratory care staff consulted; no adverse overnight events reported to me; resting peacefully in bed; a little more purposeful movements now; is visiting; no emesis or overt aspiration; no seizure activity noted Objective Vital Signs - 12hr 11/14/18 11/14/18 11/14/18 01:15 01:31 01:45 Temperature Pulse Rate 93 H 94 H 87 Pulse Rate [ Bilateral Throughout] Pulse Rate [ From Monitor] Respiratory 26 H 24 24 Rate Respiratory Rate [Bilateral Throughout] Blood Pressure 152/115 111/81 111/81 O2 Sat by Pulse 99 100 100 Oximetry 11/14/18 11/14/18 11/14/18 02:00 02:02 02:05 Temperature Pulse Rate 96 H 98 H Pulse Rate [ 97 H Bilateral Throughout] Pulse Rate [ From Monitor] Respiratory 13 25 H Rate Respiratory 21 Rate [Bilateral Throughout] Blood Pressure 112/84 112/84 O2 Sat by Pulse 99 99 Oximetry 11/14/18 11/14/18 11/14/18 02:15 02:31 02:42 Temperature Pulse Rate 94 H 96 H 96 H Pulse Rate [ Bilateral Throughout] Pulse Rate [ 97 H From Monitor] Respiratory 27 H 25 H 25 H Rate Respiratory Rate [Bilateral Throughout] Blood Pressure 111/81 111/81 O2 Sat by Pulse 100 100 100 Oximetry 11/14/18 11/14/18 11/14/18 02:45 03:00 03:10 Temperature 98.8 F Pulse Rate 95 H 92 H 94 H Pulse Rate [ Bilateral Throughout] Pulse Rate [ 97 H From Monitor] Respiratory 24 21 27 H Rate Respiratory Rate [Bilateral Throughout] Blood Pressure 111/81 120/89 O2 Sat by Pulse 100 100 100 Oximetry 11/14/18 11/14/18 11/14/18 03:15 03:31 03:45 Temperature Pulse Rate 97 H 98 H 98 H Pulse Rate [ Bilateral Throughout] Pulse Rate [ From Monitor] Respiratory 12 22 26 H Rate Respiratory Rate [Bilateral Throughout] Blood Pressure 120/89 120/89 120/89 O2 Sat by Pulse 99 100 100 Oximetry 11/14/18 11/14/18 11/14/18 04:00 04:15 04:31 Temperature Pulse Rate 98 H 99 H 99 H Pulse Rate [ Bilateral Throughout] Pulse Rate [ From Monitor] Respiratory 25 H 25 H 26 H Rate Respiratory Rate [Bilateral Throughout] Blood Pressure 117/89 117/89 117/89 O2 Sat by Pulse 100 100 100 Oximetry 11/14/18 11/14/18 11/14/18 04:45 05:00 05:15 Temperature Pulse Rate 99 H 98 H 97 H Pulse Rate [ Bilateral Throughout] Pulse Rate [ From Monitor] Respiratory 25 H 25 H 24 Rate Respiratory Rate [Bilateral Throughout] Blood Pressure 117/89 124/93 124/93 O2 Sat by Pulse 99 99 99 Oximetry 11/14/18 11/14/18 11/14/18 05:18 05:31 05:33 Temperature Pulse Rate 94 H 97 H 94 H Pulse Rate [ Bilateral Throughout] Pulse Rate [ 97 H From Monitor] Respiratory 19 27 H Rate Respiratory Rate [Bilateral Throughout] Blood Pressure 124/91 124/93 O2 Sat by Pulse 100 99 100 Oximetry 11/14/18 11/14/18 11/14/18 05:45 06:00 06:15 Temperature Pulse Rate 99 H 98 H 97 H Pulse Rate [ Bilateral Throughout] Pulse Rate [ From Monitor] Respiratory 25 H 21 23 Rate Respiratory Rate [Bilateral Throughout] Blood Pressure 124/93 116/86 116/86 O2 Sat by Pulse 99 99 99 Oximetry 11/14/18 11/14/18 11/14/18 06:31 06:45 07:00 Temperature Pulse Rate 99 H 98 H 98 H Pulse Rate [ Bilateral Throughout] Pulse Rate [ From Monitor] Respiratory 24 21 24 Rate Respiratory Rate [Bilateral Throughout] Blood Pressure 116/86 116/86 119/85 O2 Sat by Pulse 99 99 99 Oximetry 11/14/18 11/14/18 11/14/18 07:15 07:31 07:39 Temperature Pulse Rate 96 H 97 H 97 H Pulse Rate [ 99 H Bilateral Throughout] Pulse Rate [ From Monitor] Respiratory 25 H 23 Rate Respiratory 13 Rate [Bilateral Throughout] Blood Pressure 119/85 119/85 118/85 O2 Sat by Pulse 99 97 99 Oximetry 11/14/18 11/14/18 11/14/18 07:45 08:00 08:10 Temperature 97.9 F Pulse Rate 95 H 97 H 100 H Pulse Rate [ Bilateral Throughout] Pulse Rate [ 97 H From Monitor] Respiratory 20 14 Rate Respiratory Rate [Bilateral Throughout] Blood Pressure 119/85 115/83 O2 Sat by Pulse 98 98 Oximetry 11/14/18 11/14/18 11/14/18 08:15 08:31 08:45 Temperature Pulse Rate 97 H 98 H 99 H Pulse Rate [ Bilateral Throughout] Pulse Rate [ From Monitor] Respiratory 14 15 12 Rate Respiratory Rate [Bilateral Throughout] Blood Pressure 115/83 115/83 115/83 O2 Sat by Pulse 97 96 98 Oximetry 11/14/18 11/14/18 11/14/18 09:00 09:15 09:31 Temperature Pulse Rate 98 H 101 H 98 H Pulse Rate [ Bilateral Throughout] Pulse Rate [ From Monitor] Respiratory 19 16 24 Rate Respiratory Rate [Bilateral Throughout] Blood Pressure 121/91 121/91 121/91 O2 Sat by Pulse 97 98 99 Oximetry 11/14/18 11/14/18 11/14/18 09:40 09:45 10:00 Temperature Pulse Rate 98 H 99 H 95 H Pulse Rate [ Bilateral Throughout] Pulse Rate [ From Monitor] Respiratory 25 H 22 Rate Respiratory Rate [Bilateral Throughout] Blood Pressure 121/91 121/91 132/88 O2 Sat by Pulse 100 100 Oximetry 11/14/18 11/14/18 11/14/18 10:15 10:31 10:45 Temperature Pulse Rate 95 H 94 H 88 Pulse Rate [ Bilateral Throughout] Pulse Rate [ From Monitor] Respiratory 21 21 19 Rate Respiratory Rate [Bilateral Throughout] Blood Pressure 132/88 132/88 132/88 O2 Sat by Pulse 99 100 100 Oximetry 11/14/18 11/14/18 12:12 12:45 Temperature Pulse Rate 70 73 Pulse Rate [ Bilateral Throughout] Pulse Rate [ From Monitor] Respiratory 12 Rate Respiratory Rate [Bilateral Throughout] Blood Pressure 130/73 130/73 O2 Sat by Pulse 100 Oximetry Constitutional: no acute distress, other (elderly and chronically ill looking CM with mildly increased resp effort at rest; + temporal wasting) Eyes: non-icteric ENT: oropharynx moist, other (ETT 25 cm MARCE) Neck: supple, no lymphadenopathy, no JVD Effort: mildly labored Ascultation: Bilateral: diminished breath sounds, rhonchi (scant) Percussion: Bilateral: not dull Cardiovascular: regular rate and rhythm Gastrointestinal: normoactive bowel sounds, soft, non-tender, non-distended Integumentary: erythema (LUE), other (echymosis) Extremities: no cyanosis, no edema, pink and warm, pulses normal Neurologic: non-focal exam (grossly), pupils equal and round, unable to assess Psychiatric: other (unable to assess re: AMS) CBC and BMP: 11/14/18 03:24 11/14/18 03:24 ABG, PT/INR, D-dimer: ABG ABG pH 7.425 pH Units (7.350-7.450) 11/14/18 05:25 ABG pCO2 33.4 mm Hg 11/14/18 05:25 ABG pO2 110.0 mm Hg (80.0-90.0) H 11/14/18 05:25 ABG O2 Saturation 98.1 % (95.0-99.0) 11/14/18 05:25 PT/INR, D-dimer PT 19.2 Sec. (12.2-14.9) H 11/12/18 22:15 INR 1.66 (0.87-1.13) H 11/12/18 22:15 Abnormal lab findings: Abnormal Labs 11/12/18 11/12/18 11/12/18 22:10 22:15 22:15 WBC MCV 104 H MCH 35 H RDW Plt Count 112 L Lymph % (Auto) Seg Neutrophils % Seg Neuts % (Manual) Lymphocytes % (Manual) 47.0 H Seg Neutrophils # Seg Neutrophils # Man Lymphocytes # (Manual) Monocytes # (Manual) PT 19.2 H INR 1.66 H APTT 52.5 H Activated Clotting Time ABG pH ABG pO2 ABG Base Excess ABG Hemoglobin Sodium Potassium Chloride Carbon Dioxide Creatinine Glucose POC Glucose 131 H Calcium Magnesium AST ALT Total Creatine Kinase CK-MB (CK-2) CK-MB (CK-2) Rel Index Troponin T Total Protein Albumin 11/12/18 11/12/18 11/13/18 22:15 23:42 01:50 WBC MCV MCH RDW Plt Count Lymph % (Auto) Seg Neutrophils % Seg Neuts % (Manual) Lymphocytes % (Manual) Seg Neutrophils # Seg Neutrophils # Man Lymphocytes # (Manual) Monocytes # (Manual) PT INR APTT Activated Clotting Time 329 H ABG pH 7.312 L ABG pO2 147.6 H ABG Base Excess -4.7 L ABG Hemoglobin Sodium Potassium 2.7 L* Chloride 94.9 L Carbon Dioxide Creatinine Glucose 341 H POC Glucose Calcium 7.5 L Magnesium AST 58 H ALT Total Creatine Kinase CK-MB (CK-2) CK-MB (CK-2) Rel Index Troponin T Total Protein 4.7 L Albumin 2.9 L 11/13/18 11/13/18 11/13/18 02:30 03:04 04:01 WBC MCV MCH RDW Plt Count Lymph % (Auto) Seg Neutrophils % Seg Neuts % (Manual) Lymphocytes % (Manual) Seg Neutrophils # Seg Neutrophils # Man Lymphocytes # (Manual) Monocytes # (Manual) PT INR APTT Activated Clotting Time 175 H 142 H ABG pH ABG pO2 ABG Base Excess ABG Hemoglobin Sodium Potassium Chloride Carbon Dioxide Creatinine Glucose POC Glucose 185 H Calcium Magnesium AST ALT Total Creatine Kinase CK-MB (CK-2) CK-MB (CK-2) Rel Index Troponin T Total Protein Albumin 11/13/18 11/13/18 11/13/18 04:50 05:44 05:44 WBC 23.9 H MCV 102 H MCH 34 H RDW 15.5 H Plt Count Lymph % (Auto) Seg Neutrophils % Seg Neuts % (Manual) 85.0 H Lymphocytes % (Manual) 2.0 L Seg Neutrophils # Seg Neutrophils # Man 20.3 H Lymphocytes # (Manual) 0.5 L Monocytes # (Manual) 1.7 H PT INR APTT Activated Clotting Time ABG pH ABG pO2 136.3 H ABG Base Excess -4.4 L ABG Hemoglobin Sodium Potassium Chloride Carbon Dioxide Creatinine Glucose 210 H POC Glucose Calcium 7.8 L Magnesium AST ALT Total Creatine Kinase 2686 H CK-MB (CK-2) 126.5 H CK-MB (CK-2) Rel Index 4.7 H Troponin T 1.500 H* D Total Protein Albumin 11/13/18 11/13/18 11/13/18 06:44 11:12 14:15 WBC MCV MCH RDW Plt Count Lymph % (Auto) Seg Neutrophils % Seg Neuts % (Manual) Lymphocytes % (Manual) Seg Neutrophils # Seg Neutrophils # Man Lymphocytes # (Manual) Monocytes # (Manual) PT INR APTT Activated Clotting Time ABG pH ABG pO2 ABG Base Excess ABG Hemoglobin Sodium Potassium Chloride Carbon Dioxide Creatinine Glucose POC Glucose 197 H 152 H 125 H Calcium Magnesium AST ALT Total Creatine Kinase CK-MB (CK-2) CK-MB (CK-2) Rel Index Troponin T Total Protein Albumin 11/13/18 11/13/18 11/13/18 16:19 17:51 19:15 WBC MCV MCH RDW Plt Count Lymph % (Auto) Seg Neutrophils % Seg Neuts % (Manual) Lymphocytes % (Manual) Seg Neutrophils # Seg Neutrophils # Man Lymphocytes # (Manual) Monocytes # (Manual) PT INR APTT Activated Clotting Time ABG pH ABG pO2 ABG Base Excess ABG Hemoglobin Sodium Potassium Chloride Carbon Dioxide Creatinine Glucose POC Glucose 124 H 129 H Calcium Magnesium 2.60 H AST ALT Total Creatine Kinase CK-MB (CK-2) CK-MB (CK-2) Rel Index Troponin T Total Protein Albumin 11/13/18 11/14/18 11/14/18 23:11 02:55 03:24 WBC 13.6 H MCV 103 H MCH 35 H RDW 15.4 H Plt Count 95 L Lymph % (Auto) 8.5 L Seg Neutrophils % 85.3 H Seg Neuts % (Manual) Lymphocytes % (Manual) Seg Neutrophils # 11.6 H Seg Neutrophils # Man Lymphocytes # (Manual) Monocytes # (Manual) PT INR APTT Activated Clotting Time ABG pH ABG pO2 ABG Base Excess ABG Hemoglobin Sodium Potassium Chloride Carbon Dioxide Creatinine Glucose POC Glucose 180 H 119 H Calcium Magnesium AST ALT Total Creatine Kinase CK-MB (CK-2) CK-MB (CK-2) Rel Index Troponin T Total Protein Albumin 11/14/18 11/14/18 11/14/18 03:24 05:25 06:17 WBC MCV MCH RDW Plt Count Lymph % (Auto) Seg Neutrophils % Seg Neuts % (Manual) Lymphocytes % (Manual) Seg Neutrophils # Seg Neutrophils # Man Lymphocytes # (Manual) Monocytes # (Manual) PT INR APTT Activated Clotting Time ABG pH ABG pO2 110.0 H ABG Base Excess -2.2 L ABG Hemoglobin 13.2 L Sodium 136 L Potassium 5.1 H D Chloride Carbon Dioxide 20 L Creatinine 0.7 L Glucose 124 H POC Glucose 124 H Calcium 7.9 L Magnesium AST 183 H ALT 76 H Total Creatine Kinase CK-MB (CK-2) CK-MB (CK-2) Rel Index Troponin T Total Protein 5.9 L D Albumin 3.4 L 11/14/18 11:28 WBC MCV MCH RDW Plt Count Lymph % (Auto) Seg Neutrophils % Seg Neuts % (Manual) Lymphocytes % (Manual) Seg Neutrophils # Seg Neutrophils # Man Lymphocytes # (Manual) Monocytes # (Manual) PT INR APTT Activated Clotting Time ABG pH ABG pO2 ABG Base Excess ABG Hemoglobin Sodium Potassium Chloride Carbon Dioxide Creatinine Glucose POC Glucose 172 H Calcium Magnesium AST ALT Total Creatine Kinase CK-MB (CK-2) CK-MB (CK-2) Rel Index Troponin T Total Protein Albumin Chest x-ray: pending Allied health notes reviewed: nursing
[2018-11-14] MEDS ORDERED: ARTIFICIAL TEARS OPHTH OINT OU PRN (13:20)
[2018-11-14] MEDS ORDERED: VASELINE LIP THERAPY TP PRN (13:20)
--- NOTE | 2018-11-14 13:28 | Event Note ---
Date: 11/14/18 Elevated lactic acid levels reported at 4.4 persistent but improving leucocytosis clinically improving - get CRP level - get cultures (blood and urine) - continue to follow clinically off AB's - gentle hydration (IVNS @ 75 mls/hr X 1 liter
--- NOTE | 2018-11-14 13:43 | XRay Report ---
CHEST 1 VIEW INDICATION: ETT position. COMPARISON: 11/13/2018 FINDINGS: Support devices: The endotracheal tube has been advanced and now terminates 7 cm superior to the yoel na. Heart: Within normal limits. Lungs/Pleura: The lungs remain hyperinflated but clear. Additional findings: None. IMPRESSION: Endotracheal tube as described. Signer Name: Zeferino Mahan Jr, MD Signed: 11/14/2018 1:39 PM Workstation Name: [id number]
--- NOTE | 2018-11-14 16:01 | Progress Note ---
Assessment and Plan Patient is 73-year-old man with a history of previous TIA 1 year ago, who presented with chest pain and loss of consciousness at home. He was found to be in cardiac arrest, and only return to spontaneous circulation upon arriving in the ER. Patient reportedly had a seizure-like episode while in the ER. According the patient's clinical findings, it is likely that he has anoxic brain injury due to the cardiac arrest. It is not entirely clear how long the patient was in cardiac arrest prior to returning to spontaneous circulation. Plan: 1. Seizure: - Will check EEG- final report pending, however initial review did not show any seizures. - Continue Keppra 2. Anoxic brain injury after cardiac arrest - Currently patient is opening eyes to pain stimulation, and pupillary/cough/ brainstem reflexes are notably intact. This indicates that patient's brainstem is intact at this time - Discussed potential prognosis with family at bedside, including possible long- term dependency and disability, given amount of time patient was in cardiac arrest prior to CPR initiated ( states that there was about a 30 minute time period prior to CPR initiation). - Will continue to follow patient. Kyaw Brush MD Neurology Subjective Date of service: 11/14/18 Principal diagnosis: Ac. hypoxemic resp failure; S/P cardiac arrest; V-fib; H/O CVA; STEMI Interval history: No acute events overnight. Objective - Exam Narrative Exam: Patient is intubated, opens eyes spontaneously, however not to command. Noted to open eyes with pain stimulation in all extremities. Patient withdraws to pain stimulation in all extremities. Cough, corneal reflexes intact, PEERL. 2+ reflexes throughout. - Vital Sign Vital Signs - 12hr 11/14/18 11/14/18 11/14/18 04:00 04:15 04:31 Temperature Pulse Rate 98 H 99 H 99 H Pulse Rate [ Bilateral Throughout] Pulse Rate [ From Monitor] Respiratory 25 H 25 H 26 H Rate Respiratory Rate [Bilateral Throughout] Blood Pressure 117/89 117/89 117/89 O2 Sat by Pulse 100 100 100 Oximetry 11/14/18 11/14/18 11/14/18 04:45 05:00 05:15 Temperature Pulse Rate 99 H 98 H 97 H Pulse Rate [ Bilateral Throughout] Pulse Rate [ From Monitor] Respiratory 25 H 25 H 24 Rate Respiratory Rate [Bilateral Throughout] Blood Pressure 117/89 124/93 124/93 O2 Sat by Pulse 99 99 99 Oximetry 11/14/18 11/14/18 11/14/18 05:18 05:31 05:33 Temperature Pulse Rate 94 H 97 H 94 H Pulse Rate [ Bilateral Throughout] Pulse Rate [ 97 H From Monitor] Respiratory 19 27 H Rate Respiratory Rate [Bilateral Throughout] Blood Pressure 124/91 124/93 O2 Sat by Pulse 100 99 100 Oximetry 11/14/18 11/14/18 11/14/18 05:45 06:00 06:15 Temperature Pulse Rate 99 H 98 H 97 H Pulse Rate [ Bilateral Throughout] Pulse Rate [ From Monitor] Respiratory 25 H 21 23 Rate Respiratory Rate [Bilateral Throughout] Blood Pressure 124/93 116/86 116/86 O2 Sat by Pulse 99 99 99 Oximetry 11/14/18 11/14/18 11/14/18 06:31 06:45 07:00 Temperature Pulse Rate 99 H 98 H 98 H Pulse Rate [ Bilateral Throughout] Pulse Rate [ From Monitor] Respiratory 24 21 24 Rate Respiratory Rate [Bilateral Throughout] Blood Pressure 116/86 116/86 119/85 O2 Sat by Pulse 99 99 99 Oximetry 11/14/18 11/14/18 11/14/18 07:15 07:31 07:39 Temperature Pulse Rate 96 H 97 H 97 H Pulse Rate [ 99 H Bilateral Throughout] Pulse Rate [ From Monitor] Respiratory 25 H 23 Rate Respiratory 13 Rate [Bilateral Throughout] Blood Pressure 119/85 119/85 118/85 O2 Sat by Pulse 99 97 99 Oximetry 11/14/18 11/14/18 11/14/18 07:45 08:00 08:10 Temperature 97.9 F Pulse Rate 95 H 97 H 100 H Pulse Rate [ Bilateral Throughout] Pulse Rate [ 97 H From Monitor] Respiratory 20 14 Rate Respiratory Rate [Bilateral Throughout] Blood Pressure 119/85 115/83 O2 Sat by Pulse 98 98 Oximetry 11/14/18 11/14/18 11/14/18 08:15 08:31 08:45 Temperature Pulse Rate 97 H 98 H 99 H Pulse Rate [ Bilateral Throughout] Pulse Rate [ From Monitor] Respiratory 14 15 12 Rate Respiratory Rate [Bilateral Throughout] Blood Pressure 115/83 115/83 115/83 O2 Sat by Pulse 97 96 98 Oximetry 11/14/18 11/14/18 11/14/18 09:00 09:15 09:31 Temperature Pulse Rate 98 H 101 H 98 H Pulse Rate [ Bilateral Throughout] Pulse Rate [ From Monitor] Respiratory 19 16 24 Rate Respiratory Rate [Bilateral Throughout] Blood Pressure 121/91 121/91 121/91 O2 Sat by Pulse 97 98 99 Oximetry 11/14/18 11/14/18 11/14/18 09:40 09:45 10:00 Temperature Pulse Rate 98 H 99 H 95 H Pulse Rate [ Bilateral Throughout] Pulse Rate [ From Monitor] Respiratory 25 H 22 Rate Respiratory Rate [Bilateral Throughout] Blood Pressure 121/91 121/91 132/88 O2 Sat by Pulse 100 100 Oximetry 11/14/18 11/14/18 11/14/18 10:15 10:31 10:45 Temperature Pulse Rate 95 H 94 H 88 Pulse Rate [ Bilateral Throughout] Pulse Rate [ From Monitor] Respiratory 21 21 19 Rate Respiratory Rate [Bilateral Throughout] Blood Pressure 132/88 132/88 132/88 O2 Sat by Pulse 99 100 100 Oximetry 11/14/18 11/14/18 12:12 12:45 Temperature Pulse Rate 70 73 Pulse Rate [ Bilateral Throughout] Pulse Rate [ From Monitor] Respiratory 12 Rate Respiratory Rate [Bilateral Throughout] Blood Pressure 130/73 130/73 O2 Sat by Pulse 100 Oximetry - General Apperance Constitutional: acutely ill - EENT EENT: ATNC, PERRL, mucous membranes moist - Respiratory Respiratory: decreased breath sounds - Cardiovascular Cardiovascular: regular rate, normal S1, normal S2 Extremities: no clubbing, cyanosis, no inflammation - Gastrointestinal Gastrointestinal: normoactive bowel sounds, soft, non-tender - Neurologic Cranial nerve examination: PERRL - Laboratory Findings CBC and BMP: 11/14/18 03:24 11/14/18 03:24 Abnormal Lab Findings: Abnormal Labs 11/12/18 11/12/18 11/12/18 22:10 22:15 22:15 WBC MCV 104 H MCH 35 H RDW Plt Count 112 L Lymph % (Auto) Seg Neutrophils % Seg Neuts % (Manual) Lymphocytes % (Manual) 47.0 H Seg Neutrophils # Seg Neutrophils # Man Lymphocytes # (Manual) Monocytes # (Manual) PT 19.2 H INR 1.66 H APTT 52.5 H Activated Clotting Time ABG pH ABG pO2 ABG Base Excess ABG Hemoglobin Sodium Potassium Chloride Carbon Dioxide Creatinine Glucose POC Glucose 131 H Lactic Acid Calcium Magnesium AST ALT Total Creatine Kinase CK-MB (CK-2) CK-MB (CK-2) Rel Index Troponin T Total Protein Albumin 11/12/18 11/12/18 11/13/18 22:15 23:42 01:50 WBC MCV MCH RDW Plt Count Lymph % (Auto) Seg Neutrophils % Seg Neuts % (Manual) Lymphocytes % (Manual) Seg Neutrophils # Seg Neutrophils # Man Lymphocytes # (Manual) Monocytes # (Manual) PT INR APTT Activated Clotting Time 329 H ABG pH 7.312 L ABG pO2 147.6 H ABG Base Excess -4.7 L ABG Hemoglobin Sodium Potassium 2.7 L* Chloride 94.9 L Carbon Dioxide Creatinine Glucose 341 H POC Glucose Lactic Acid Calcium 7.5 L Magnesium AST 58 H ALT Total Creatine Kinase CK-MB (CK-2) CK-MB (CK-2) Rel Index Troponin T Total Protein 4.7 L Albumin 2.9 L 11/13/18 11/13/18 11/13/18 02:30 03:04 04:01 WBC MCV MCH RDW Plt Count Lymph % (Auto) Seg Neutrophils % Seg Neuts % (Manual) Lymphocytes % (Manual) Seg Neutrophils # Seg Neutrophils # Man Lymphocytes # (Manual) Monocytes # (Manual) PT INR APTT Activated Clotting Time 175 H 142 H ABG pH ABG pO2 ABG Base Excess ABG Hemoglobin Sodium Potassium Chloride Carbon Dioxide Creatinine Glucose POC Glucose 185 H Lactic Acid Calcium Magnesium AST ALT Total Creatine Kinase CK-MB (CK-2) CK-MB (CK-2) Rel Index Troponin T Total Protein Albumin 11/13/18 11/13/18 11/13/18 04:50 05:44 05:44 WBC 23.9 H MCV 102 H MCH 34 H RDW 15.5 H Plt Count Lymph % (Auto) Seg Neutrophils % Seg Neuts % (Manual) 85.0 H Lymphocytes % (Manual) 2.0 L Seg Neutrophils # Seg Neutrophils # Man 20.3 H Lymphocytes # (Manual) 0.5 L Monocytes # (Manual) 1.7 H PT INR APTT Activated Clotting Time ABG pH ABG pO2 136.3 H ABG Base Excess -4.4 L ABG Hemoglobin Sodium Potassium Chloride Carbon Dioxide Creatinine Glucose 210 H POC Glucose Lactic Acid Calcium 7.8 L Magnesium AST ALT Total Creatine Kinase 2686 H CK-MB (CK-2) 126.5 H CK-MB (CK-2) Rel Index 4.7 H Troponin T 1.500 H* D Total Protein Albumin 11/13/18 11/13/18 11/13/18 06:44 11:12 14:15 WBC MCV MCH RDW Plt Count Lymph % (Auto) Seg Neutrophils % Seg Neuts % (Manual) Lymphocytes % (Manual) Seg Neutrophils # Seg Neutrophils # Man Lymphocytes # (Manual) Monocytes # (Manual) PT INR APTT Activated Clotting Time ABG pH ABG pO2 ABG Base Excess ABG Hemoglobin Sodium Potassium Chloride Carbon Dioxide Creatinine Glucose POC Glucose 197 H 152 H 125 H Lactic Acid Calcium Magnesium AST ALT Total Creatine Kinase CK-MB (CK-2) CK-MB (CK-2) Rel Index Troponin T Total Protein Albumin 11/13/18 11/13/18 11/13/18 16:19 17:51 19:15 WBC MCV MCH RDW Plt Count Lymph % (Auto) Seg Neutrophils % Seg Neuts % (Manual) Lymphocytes % (Manual) Seg Neutrophils # Seg Neutrophils # Man Lymphocytes # (Manual) Monocytes # (Manual) PT INR APTT Activated Clotting Time ABG pH ABG pO2 ABG Base Excess ABG Hemoglobin Sodium Potassium Chloride Carbon Dioxide Creatinine Glucose POC Glucose 124 H 129 H Lactic Acid Calcium Magnesium 2.60 H AST ALT Total Creatine Kinase CK-MB (CK-2) CK-MB (CK-2) Rel Index Troponin T Total Protein Albumin 11/13/18 11/14/18 11/14/18 23:11 02:55 03:24 WBC 13.6 H MCV 103 H MCH 35 H RDW 15.4 H Plt Count 95 L Lymph % (Auto) 8.5 L Seg Neutrophils % 85.3 H Seg Neuts % (Manual) Lymphocytes % (Manual) Seg Neutrophils # 11.6 H Seg Neutrophils # Man Lymphocytes # (Manual) Monocytes # (Manual) PT INR APTT Activated Clotting Time ABG pH ABG pO2 ABG Base Excess ABG Hemoglobin Sodium Potassium Chloride Carbon Dioxide Creatinine Glucose POC Glucose 180 H 119 H Lactic Acid Calcium Magnesium AST ALT Total Creatine Kinase CK-MB (CK-2) CK-MB (CK-2) Rel Index Troponin T Total Protein Albumin 11/14/18 11/14/18 11/14/18 03:24 05:25 06:17 WBC MCV MCH RDW Plt Count Lymph % (Auto) Seg Neutrophils % Seg Neuts % (Manual) Lymphocytes % (Manual) Seg Neutrophils # Seg Neutrophils # Man Lymphocytes # (Manual) Monocytes # (Manual) PT INR APTT Activated Clotting Time ABG pH ABG pO2 110.0 H ABG Base Excess -2.2 L ABG Hemoglobin 13.2 L Sodium 136 L Potassium 5.1 H D Chloride Carbon Dioxide 20 L Creatinine 0.7 L Glucose 124 H POC Glucose 124 H Lactic Acid Calcium 7.9 L Magnesium AST 183 H ALT 76 H Total Creatine Kinase CK-MB (CK-2) CK-MB (CK-2) Rel Index Troponin T Total Protein 5.9 L D Albumin 3.4 L 11/14/18 11/14/18 11:28 12:41 WBC MCV MCH RDW Plt Count Lymph % (Auto) Seg Neutrophils % Seg Neuts % (Manual) Lymphocytes % (Manual) Seg Neutrophils # Seg Neutrophils # Man Lymphocytes # (Manual) Monocytes # (Manual) PT INR APTT Activated Clotting Time ABG pH ABG pO2 ABG Base Excess ABG Hemoglobin Sodium Potassium Chloride Carbon Dioxide Creatinine Glucose POC Glucose 172 H Lactic Acid 4.40 H* Calcium Magnesium AST ALT Total Creatine Kinase CK-MB (CK-2) CK-MB (CK-2) Rel Index Troponin T Total Protein Albumin
[2018-11-14] MEDS: NACL 0.9% 1000 ML 1,000 ML IV SCH (21:07)
--- NOTE | 2018-11-14 21:40 | Electroencephalogram Report ---
Electroencephalogram EEG Date of exam: 11/14/18 History: Patient is 73-year-old man with a history of previous TIA 1 year ago, who presented with chest pain and loss of consciousness at home. He was found to be in cardiac arrest, and only return to spontaneous circulation upon arriving in the ER. Patient reportedly had a seizure-like episode while in the ER. Description: DESCRIPTION OF THE PROCEDURE: Electrodes were applied using Paste technique in positions dictated by International 10-20 system of placement. In addition to EEG data EKG and eye movements were recorded. DESCRIPTION OF ACTIVITY: At the onset of this recording, the patient is lying supine. In the background we note a 3-5 Hz delta and theta activity that has an amplitude ranging 20-30uV. Additional low voltage rhythmic delta activity occurs at the anterior head regions bilaterally. There are no asymmetries in amplitude or frequency between hemispheres. There is artifact noted due to electrode not being adequately adhesive during EEG. Intermittent photic stimulation was not performed. Hyperventilation was not performed. EEG Impression: 1) Generalized slowing. 2) No seizures or epileptiform discharges CLINICAL INTERPRETATION: This routine video EEG, performed is abnormal secondary to above findings and is consistent with bi-hemispheric dysfunction and encephalopathy. The above described finding of diffuse slowing is etiologically non-specific and similar findings have been reported in cases of toxic, metabolic, hypoxic ischemic, infectious, medication, sleep deprivation, dementia,post-ictal state, and other causes of diffuse and multifocal encephalopathy.
[2018-11-15] MEDS: DUONEB *Not for PRN Use IH SCH ×4 (01:05→19:33)
[2018-11-15] MEDS: HumuLIN R SUB-Q SCH ×5 (03:04→18:27)
[2018-11-15 06:17] LABS: Mean Corpuscular HGB Conc 34 % (32-34); Mean Corpuscular Volume 102 fl (84-94); Red Blood Count 3.41 M/mm3 (3.65-5.03)
[2018-11-15 06:27] LABS: Alanine Aminotransferase 59 units/L (7-56); BUN/Creatinine Ratio 33; Blood Urea Nitrogen 26 mg/dL (9-20); Calcium 8.1 mg/dL (8.4-10.2); Hemolysis Index 39
[2018-11-15 06:51] LABS: Mean Platelet Volume 10.4 fl (6-12); Platelet Count 91 K/mm3 (140-440)
--- NOTE | 2018-11-15 07:26 | XRay Report ---
CHEST 1 VIEW [id number] INDICATION / CLINICAL INFORMATION: follow up respiratory failure. COMPARISON: 11/14/2018, 11/13/2018 FINDINGS: SUPPORT DEVICES: Endotracheal tube is not significantly changed. Nasogastric tube is in better positi on with proximal port now roughly at the level of gastroesophageal junction. HEART / MEDIASTINUM: Stable LUNGS / PLEURA: Increased markings are seen in the right midlung of concern for developing interstiti al infiltrate. No dense areas of consolidation are noted. Left lung field remains clear. Chronic pearson ges are again seen. No pneumothorax. ADDITIONAL FINDINGS: No significant additional findings. IMPRESSION: Possible developing infiltrate in the right midlung Signer Name: Jason Britt MD Signed: 11/15/2018 7:21 AM Workstation Name: [id number]
--- NOTE | 2018-11-15 08:48 | Progress Note ---
Assessment and Plan Assessment and plan: Cardiopulmonary arrest with successful resuscitation - could be from STEMI - now on vent, w/o pressor, follow 2d echo - s/p emergent cath with PCI STEMI (ST elevation myocardial infarction) - ST elevation (STEMI) myocardial infarction involving left anterior descending coronary artery s/p PCI cardiology following CAD (coronary artery disease), cont asprin and plavix Anoxic encephalopathy CT head no acute process, neurology consulted Comatose hyperkalemia Now resolved Seizure, on iv keppra, Tobacco use Severe PC Malnutrition - consult booster station operator Hypokalemia, repleted SIRS - cont abx, follow cx DVT Px, lovenox The high probability of a clinically significant, sudden or life threatening deterioration of the [multiple] system(s) required my full and direct attention, intervention and personal management. The aggregate critical care time was [34] minutes. This time is in addition to time spent performing reported procedures but includes the following: [x] Data Review and interpretation [x] Patient assessment and monitoring of vital signs [x] Documentation [x] Medication orders and management History Interval history: Still intubated at bedside Hospitalist Physical - Physical exam Narrative exam: Gen: Not in acute distress, malnourished, intubated HEENT: Normocephalic, atraumatic Neck: supple, no JVD Heart: S1 and S2 reg, no murmurs, rubs or gallop Lungs: Clear to auscultation, no rhonchi, no wheeze Abd: soft, non tender, non distended, normal BS, Ext: No edema, no clubbing, no cyanosis Neuro: Unresponsive, does not follow commands - Constitutional Vitals: Temp Pulse Resp BP Pulse Ox 99.0 F 84 20 105/70 98 11/15/18 08:00 11/15/18 07:54 11/15/18 07:52 11/15/18 07:54 11/15/18 07:54 General appearance: Present: cachectic Results - Labs CBC & Chem 7: 11/15/18 05:59 11/15/18 05:14 Labs: Laboratory Last Values WBC 9.6 K/mm3 (4.5-11.0) 11/15/18 05:59 RBC 3.41 M/mm3 (3.65-5.03) L 11/15/18 05:59 Hgb 12.0 gm/dl (11.8-15.2) 11/15/18 05:59 Hct 35.0 % (35.5-45.6) L D 11/15/18 05:59 MCV 102 fl (84-94) H 11/15/18 05:59 MCH 35 pg (28-32) H 11/15/18 05:59 MCHC 34 % (32-34) 11/15/18 05:59 RDW 15.0 % (13.2-15.2) 11/15/18 05:59 Plt Count 91 K/mm3 (140-440) L 11/15/18 05:59 Lymph % (Auto) 8.5 % (13.4-35.0) L 11/14/18 03:24 [place] % (Auto) 5.3 % (0.0-7.3) 11/14/18 03:24 Eos % (Auto) 0.5 % (0.0-4.3) 11/14/18 03:24 Baso % (Auto) 0.4 % (0.0-1.8) 11/14/18 03:24 Lymph # 1.2 K/mm3 (1.2-5.4) 11/14/18 03:24 [place] # 0.7 K/mm3 (0.0-0.8) 11/14/18 03:24 Eos # 0.1 K/mm3 (0.0-0.4) 11/14/18 03:24 Baso # 0.1 K/mm3 (0.0-0.1) 11/14/18 03:24 Add Manual Diff Complete 11/13/18 05:44 Total Counted 100 11/13/18 05:44 Seg Neutrophils % 85.3 % (40.0-70.0) H 11/14/18 03:24 Seg Neuts % (Manual) 85.0 % (40.0-70.0) H 11/13/18 05:44 6.0 % 11/13/18 05:44 2.0 % (13.4-35.0) L 11/13/18 05:44 Reactive Lymphs % (Man) 0 % 11/13/18 05:44 7.0 % (0.0-7.3) 11/13/18 05:44 0 % (0.0-4.3) 11/13/18 05:44 0 % (0.0-1.8) 11/13/18 05:44 0 % 11/13/18 05:44 0 % 11/13/18 05:44 0 % 11/13/18 05:44 0 % 11/13/18 05:44 Nucleated RBC % Not Reportable 11/13/18 05:44 Seg Neutrophils # 11.6 K/mm3 (1.8-7.7) H 11/14/18 03:24 Seg Neutrophils # Man 20.3 K/mm3 (1.8-7.7) H 11/13/18 05:44 Band Neutrophils # 1.4 K/mm3 11/13/18 05:44 0.5 K/mm3 (1.2-5.4) L 11/13/18 05:44 Abs React Lymphs (Man) 0.0 K/mm3 11/13/18 05:44 1.7 K/mm3 (0.0-0.8) H 11/13/18 05:44 0.0 K/mm3 (0.0-0.4) 11/13/18 05:44 0.0 K/mm3 (0.0-0.1) 11/13/18 05:44 0.0 K/mm3 11/13/18 05:44 0.0 K/mm3 11/13/18 05:44 0.0 K/mm3 11/13/18 05:44 Blast Cells # 0.0 K/mm3 11/13/18 05:44 WBC Morphology Not Reportable 11/13/18 05:44 Hypersegmented Neuts Not Reportable 11/13/18 05:44 Hyposegmented Neuts Not Reportable 11/13/18 05:44 Hypogranular Neuts Not Reportable 11/13/18 05:44 Not Reportable 11/13/18 05:44 Not Reportable 11/13/18 05:44 Not Reportable 11/13/18 05:44 Not Reportable 11/13/18 05:44 Not Reportable 11/13/18 05:44 Not Reportable 11/13/18 05:44 Consistent w auto 11/13/18 05:44 Not Reportable 11/13/18 05:44 Plt Clumps, EDTA Not Reportable 11/13/18 05:44 Not Reportable 11/13/18 05:44 Few 11/13/18 05:44 Not Reportable 11/13/18 05:44 Plt Morphology Comment Not Reportable 11/13/18 05:44 RBC Morphology Not Reportable 11/13/18 05:44 Dimorphic RBCs Not Reportable 11/13/18 05:44 Not Reportable 11/13/18 05:44 Not Reportable 11/13/18 05:44 Not Reportable 11/13/18 05:44 1+ 11/13/18 05:44 Not Reportable 11/13/18 05:44 1+ 11/13/18 05:44 Not Reportable 11/13/18 05:44 Not Reportable 11/13/18 05:44 Not Reportable 11/13/18 05:44 Not Reportable 11/13/18 05:44 Not Reportable 11/13/18 05:44 Not Reportable 11/13/18 05:44 Not Reportable 11/13/18 05:44 Not Reportable 11/13/18 05:44 Not Reportable 11/13/18 05:44 Not Reportable 11/13/18 05:44 Not Reportable 11/13/18 05:44 Not Reportable 11/13/18 05:44 Not Reportable 11/13/18 05:44 Acanthocytes (Spur) Not Reportable 11/13/18 05:44 Rouleaux Not Reportable 11/13/18 05:44 Not Reportable 11/13/18 05:44 Not Reportable 11/13/18 05:44 Not Reportable 11/13/18 05:44 Not Reportable 11/13/18 05:44 Hem Pathologist Commnt No 11/13/18 05:44 PT 19.2 Sec. (12.2-14.9) H 11/12/18 22:15 INR 1.66 (0.87-1.13) H 11/12/18 22:15 APTT 52.5 Sec. (24.2-36.6) H 11/12/18 22:15 142 (74-137) H 11/13/18 04:01 POC ABG pH 7.404 (7.35-7.45) 11/15/18 03:17 ABG pH 7.425 pH Units (7.350-7.450) 11/14/18 05:25 POC ABG pCO2 35.7 (35-45) 11/15/18 03:17 ABG pCO2 33.4 mm Hg 11/14/18 05:25 POC ABG pO2 93 (80-105) 11/15/18 03:17 ABG pO2 110.0 mm Hg (80.0-90.0) H 11/14/18 05:25 POC ABG HCO3 22.3 (22-26 mml/L) 11/15/18 03:17 ABG HCO3 21.4 mmol/L (20.0-26.0) 11/14/18 05:25 POC ABG Total CO2 23 (23-27mmol/L) 11/15/18 03:17 POC ABG O2 Sat 97 11/15/18 03:17 ABG O2 Saturation 98.1 % (95.0-99.0) 11/14/18 05:25 ABG O2 Content 18.0 (0.0-44) 11/14/18 05:25 POC ABG Base Excess -2 ((-2) - (+3)mmol/L) 11/15/18 03:17 ABG Base Excess -2.2 mmol/L (-2.0-3.0) L 11/14/18 05:25 ABG Hemoglobin 13.2 gm/dl (14.0-18.0) L 11/14/18 05:25 ABG Carboxyhemoglobin 1.2 % (0.0-5.0) 11/14/18 05:25 ABG Methemoglobin 0.6 % (0.0-1.5) 11/14/18 05:25 96.3 % (95.0-99.0) 11/14/18 05:25 30 % 11/15/18 03:17 Sodium 139 mmol/L (137-145) 11/15/18 05:14 Potassium 5.0 mmol/L (3.6-5.0) 11/15/18 05:14 Chloride 102.2 mmol/L (98-107) 11/15/18 05:14 Carbon Dioxide 22 mmol/L (22-30) 11/15/18 05:14 20 mmol/L 11/15/18 05:14 BUN 26 mg/dL (9-20) H 11/15/18 05:14 0.8 mg/dL (0.8-1.5) 11/15/18 05:14 Estimated GFR > 60 ml/min 11/15/18 05:14 33 % 11/15/18 05:14 Glucose 134 mg/dL (75-100) H 11/15/18 05:14 POC Glucose 160 (70-105) H 11/15/18 06:37 Lactic Acid 2.30 mmol/L (0.7-2.0) H* 11/15/18 05:59 Calcium 8.1 mg/dL (8.4-10.2) L 11/15/18 05:14 Magnesium 2.60 mg/dL (1.7-2.3) H 11/13/18 16:19 0.50 mg/dL (0.1-1.2) 11/15/18 05:14 < 0.2 mg/dL (0-0.2) 11/14/18 03:24 0.4 mg/dL 11/14/18 03:24 AST 107 units/L (5-40) H 11/15/18 05:14 ALT 59 units/L (7-56) H 11/15/18 05:14 45 units/L (35-129) 11/15/18 05:14 2686 units/L (55-170) H 11/13/18 05:44 CK-MB (CK-2) 126.5 ng/mL (0.0-4.0) H 11/13/18 05:44 CK-MB (CK-2) Rel Index 4.7 (0-4) H 11/13/18 05:44 1.500 ng/mL (0.00-0.029) H* D 11/13/18 05:44 12.70 mg/dL (0.00-1.30) H 11/14/18 19:58 5.3 g/dL (6.3-8.2) L 11/15/18 05:14 3.0 g/dL (3.9-5) L 11/15/18 05:14 1.3 % 11/15/18 05:14 Triglycerides 94 mg/dL (2-149) 11/13/18 05:44 Cholesterol 147 mg/dL (50-199) 11/13/18 05:44 95 mg/dL (50-130) 11/13/18 05:44 56 mg/dL (40-59) 11/13/18 05:44 2.62 % 11/13/18 05:44 Active Medications - Current Medications Current Medications: Generic Name Dose Route Start Last Admin Trade Name Freq PRN Reason Stop Dose Admin Acetaminophen 650 mg 11/13/18 01:50 Tylenol NM Q4H PRN Fever >101 Albuterol 2.5 mg 11/13/18 01:53 Proventil IH Q6HRT PRN Wheezing Albuterol/Ipratropium 1 ampul 11/13/18 08:00 11/15/18 07:52 Duoneb *Not For Prn Use* IH 1 ampul Q6HRT YOSELIN Administration Lipase/Protease/Amylase 1 each 11/14/18 09:40 Pancreazambar Bass 10,500 Unit FEEDTUBE PRN PRN For Clogged Feeding Tube Aspirin 81 mg 11/13/18 10:00 11/14/18 09:40 Baby Aspirin PO 81 mg QDAY YOSELIN Administration Atorvastatin Calcium 80 mg 11/13/18 22:00 11/14/18 21:05 Lipitor PO 80 mg QHS YOSELIN Administration Clopidogrel Bisulfate 75 mg 11/14/18 10:00 11/14/18 09:40 Plavix PO 75 mg QDAY YOSELIN Administration Dextrose 50 ml 11/13/18 02:01 D50w (25gm) Syringe IV PRN PRN Hypoglycemia Famotidine 20 mg 11/15/18 10:00 Pepcid PO BID YOSELIN Hydrophilic Ointment 1 applic 11/14/18 13:20 Vaseline Lip Therapy TP Q2HR PRN Dry Lips Levetiracetam 750 mg/ Dextrose 107.5 mls @ 400 mls/hr 11/13/18 10:00 11/14/18 21:50 IV 11/15/18 23:59 400 mls/hr Q12HR YOSELIN Administration Sodium Chloride 1,000 mls @ 75 mls/hr 11/14/18 14:00 11/14/18 21:07 Nacl 0.9% 1000 Ml IV 75 mls/hr DIRECT YOSELIN Administration Insulin Human Regular 0 units 11/13/18 03:00 11/15/18 06:49 Humulin R SUB-Q 1 units Q4H YOSELIN Administration Protocol Levetiracetam 750 mg 11/16/18 10:00 Keppra PO BID YOSELIN Lisinopril 10 mg 11/14/18 11:00 11/14/18 12:45 Zestril PO 10 mg QDAY YOSELIN Administration Lorazepam 1 mg 11/13/18 01:41 11/13/18 05:46 Ativan IV 1 mg Q4H PRN Administration Seizures Metoprolol Tartrate 25 mg 11/13/18 10:00 11/14/18 23:30 Lopressor PO 25 mg BID YOSELIN Administration Multi-Ingred Cream/Lotion/Oil/Oint 1 applic 11/14/18 13:20 Artificial Tears Ophth Oint OU Q4HR PRN Dry Eye(s) Ondansetron HCl 4 mg 11/12/18 23:59 Zofran IV Q8H PRN N/V unrelieved by Reglan Simple Syrup 15 ml 11/14/18 09:40 Simple Syrup FEEDTUBE PRN PRN Hypoglycemia Simple Syrup 30 ml 11/14/18 09:40 Simple Syrup FEEDTUBE PRN PRN Hypoglycemia Sodium Bicarbonate 325 mg 11/14/18 09:40 Sodium Bicarbonate FEEDTUBE PRN PRN For Clogged Feeding Tube Nutrition/Malnutrition Assess - Dietary Evaluation Nutrition/Malnutrition Findings: Nutrition Notes Start: 11/13/18 11:12 Freq: Status: Active Protocol: Document 11/14/18 08:54 LM (Rec: 11/14/18 09:21 LM [id number]) Nutrition Notes Need for Assessment generated from: MD Order Initial or Follow up Reassessment Other Pertinent Diagnosis s/p cardiac arrest, syncope, AMS, scrotal swelling Current Diet NPO Labs/Tests Na 136 K 5.1 Cr 0.7 BG 124 Ca 7.9 Pertinent Medications Reviewed Height 6 ft 1 in Weight 44.6 kg [place] Body Weight (kg) 83.63 BMI 12.9 Subjective/Other Information MD consult for TF and evaluate nutritional intake. Pt on vent. Burn Absent Trauma Absent #2 Nutrition Diagnosis Malnutrition Diagnosis Progress(for reassessment Continues documentation) #1 Nutrition Diagnosis Inadequate oral intake Diagnosis Progress(for reassessment Continues documentation) Is patient on ventilator? Yes Is Patient Ambulatory and/or Out of Bed No REE-([place]-confined to bed) 1512.132 Kcal/Kg value to use for calculation 45 Approximate Energy Requirements Using 2007 kcal/Kg Calculation Used for Recommendations Kcal/kg Additional Notes Pro needs 1.2-2g/k-89g/ day Fluid needs 1ml/kcal Nutrition Intervention Change Diet Order: TF Nutrition Support: Osmolite 1.5 at 60 ml/hr Flush 150 ml q4hr Kcal 2,160 Protein (gm) 90 Fluid (mL) 1,097 Goal #1 TF start/tolerance Goal #2 Meet at least 80% of energy and protein needs Goal #3 Wt maintenance and/or gain Anticipated Discharge Needs: Unable to identify at this time Follow-Up By: 11/15/18 Additional Comments F/U TF start/tolerance
[2018-11-15] MEDS: PEPCID PO SCH ×2 (09:45→22:00)
[2018-11-15] MEDS: LOPRESSOR PO SCH ×2 (09:45→22:00)
[2018-11-15] MEDS: BABY ASPIRIN PO SCH (09:45)
[2018-11-15] MEDS: ZESTRIL PO SCH (09:45)
[2018-11-15] MEDS: PLAVIX PO SCH (09:45)
[2018-11-15] MEDS: KEPPRA 750 MG in D5W 100 ML IV SCH ×2 (09:46→22:00)
[2018-11-15] MEDS: NACL 0.9% 1000 ML 1,000 ML IV SCH (10:03)
--- NOTE | 2018-11-15 10:34 | Progress Note ---
Assessment and Plan Acute hypoxemic respiratory failure, on mechanical ventilator support. Status post cardiac arrest with return of spontaneous circulation. Ventricular fibrillation. History of cerebrovascular accident. Adult failure to thrive. ST elevation myocardial infarction. Leukocytosis Coagulopathy present on arrival. Hypokalemia. Likely chronic obstructive pulmonary disease. Possible history of hypertension - daily SAT and SBT assessments as tolerated - ABG after 2 hours on SBT's today - discontinue lovenox re: thrombocytopenia - continue bronchodilators with pulmonary hygiene per RT - VAP bundle addressed - continue to wean supplemental O2 to keep O2 sats > 90% - VTE prophylaxis with SCD's - continue stress ulcer prophylaxis - begin enteral nutrition at goal rate as tolerated - continue accuchecks with glycemic control per SSI for target blood glucose 140-180mg/dL - follow EEG report - follow clinically off AB's (No acute indication) - resume chronic home medications per attending - target sedation for RASS 0 to -1 - continue Keppra for seizures; adjust per neurology recommendations - neurology evaluation ongoing - continue mobility protocols / off loading for pressure ulcer prevention - Critical care bundles addressed - continue Seizure precautions - fall precautions - neuro-checks per RN - continue other care per attending / other consultants ..... care plan discussed at length with his at bedside CONDITION: CRITICAL PROGNOSIS: GUARDED TO GRAVE CODE STATUS: FULL CODE The high probability of a clinically significant, sudden or life threatening deterioration of the [Neurologic, Respiratory & Cardiovascular] system(s) required my full and direct attention, intervention and personal management. The aggregate critical care time was [37] minutes. This time is in addition to time spent performing reported procedures but includes the following: [x] Data Review and interpretation [x] Patient assessment and monitoring of vital signs [x] Documentation [x] Medication orders and management Subjective Date of service: 11/15/18 Principal diagnosis: Ac. hypoxemic resp failure; S/P cardiac arrest; V-fib; H/O CVA; STEMI Interval history: Patient is seen today for: Ac. hypoxemic resp failure; S/P cardiac arrest with ROSC; Ventricular fibrillation.; H/O CVA; STEMI; Leukocytosis; Coagulopathy (POA); Likely COPD; HTN Seen and examined at bedside; 24hour events reviewed; nursing and respiratory care staff consulted; no adverse overnight events reported to me; resting peacefully in bed; Objective Vital Signs - 12hr 11/14/18 11/14/18 11/14/18 23:01 23:30 23:31 Temperature Pulse Rate 81 82 79 Pulse Rate [ Bilateral Throughout] Pulse Rate [ From Monitor] Respiratory 12 21 Rate Respiratory Rate [Bilateral Throughout] Blood Pressure 107/74 117/82 117/82 O2 Sat by Pulse 96 Oximetry 11/14/18 11/15/18 11/15/18 23:35 00:00 00:07 Temperature 98.4 F 98.8 F Pulse Rate 78 79 79 Pulse Rate [ Bilateral Throughout] Pulse Rate [ 79 From Monitor] Respiratory 12 12 Rate Respiratory Rate [Bilateral Throughout] Blood Pressure 117/82 111/82 111/82 O2 Sat by Pulse 96 98 98 Oximetry 11/15/18 11/15/18 11/15/18 00:31 01:00 01:19 Temperature Pulse Rate 80 77 Pulse Rate [ 78 Bilateral Throughout] Pulse Rate [ From Monitor] Respiratory 9 L 14 Rate Respiratory 17 Rate [Bilateral Throughout] Blood Pressure 111/82 109/74 O2 Sat by Pulse 100 99 Oximetry 11/15/18 11/15/18 11/15/18 01:31 02:00 02:31 Temperature Pulse Rate 79 82 84 Pulse Rate [ Bilateral Throughout] Pulse Rate [ From Monitor] Respiratory 19 20 18 Rate Respiratory Rate [Bilateral Throughout] Blood Pressure 109/74 104/68 104/68 O2 Sat by Pulse 97 97 98 Oximetry 11/15/18 11/15/18 11/15/18 03:00 03:08 03:30 Temperature Pulse Rate 84 82 81 Pulse Rate [ Bilateral Throughout] Pulse Rate [ From Monitor] Respiratory 20 14 Rate Respiratory Rate [Bilateral Throughout] Blood Pressure 93/63 93/63 93/63 O2 Sat by Pulse 98 97 98 Oximetry 11/15/18 11/15/18 11/15/18 03:51 04:00 04:31 Temperature 98.1 F 98.1 F Pulse Rate 78 81 Pulse Rate [ Bilateral Throughout] Pulse Rate [ 79 From Monitor] Respiratory 20 20 Rate Respiratory Rate [Bilateral Throughout] Blood Pressure 103/73 103/73 O2 Sat by Pulse 97 97 Oximetry 11/15/18 11/15/18 11/15/18 05:00 05:31 06:00 Temperature Pulse Rate 81 81 82 Pulse Rate [ Bilateral Throughout] Pulse Rate [ From Monitor] Respiratory 21 22 22 Rate Respiratory Rate [Bilateral Throughout] Blood Pressure 103/73 103/73 103/67 O2 Sat by Pulse 98 97 98 Oximetry 11/15/18 11/15/18 11/15/18 06:31 07:00 07:31 Temperature Pulse Rate 81 82 82 Pulse Rate [ Bilateral Throughout] Pulse Rate [ From Monitor] Respiratory 20 13 14 Rate Respiratory Rate [Bilateral Throughout] Blood Pressure 103/67 115/69 105/70 O2 Sat by Pulse 98 98 97 Oximetry 11/15/18 11/15/18 11/15/18 07:52 07:54 08:00 Temperature 99.0 F Pulse Rate 84 82 Pulse Rate [ 81 Bilateral Throughout] Pulse Rate [ 82 From Monitor] Respiratory 13 Rate Respiratory 18 Rate [Bilateral Throughout] Blood Pressure 105/70 115/69 O2 Sat by Pulse 98 98 Oximetry 11/15/18 11/15/18 11/15/18 08:31 09:00 09:45 Temperature Pulse Rate 85 84 83 Pulse Rate [ Bilateral Throughout] Pulse Rate [ From Monitor] Respiratory 20 18 Rate Respiratory Rate [Bilateral Throughout] Blood Pressure 115/69 123/78 123/78 O2 Sat by Pulse 98 99 Oximetry Constitutional: no acute distress, other (elderly and chronically ill looking CM with mildly increased resp effort at rest; + temporal wasting) Eyes: non-icteric ENT: oropharynx moist, other (ETT 25 cm MARCE) Neck: supple, no lymphadenopathy, no JVD Effort: mildly labored Ascultation: Bilateral: diminished breath sounds, rhonchi (scant) Percussion: Bilateral: not dull Cardiovascular: regular rate and rhythm Gastrointestinal: normoactive bowel sounds, soft, non-tender Integumentary: erythema (LUE), other (echymosis) Extremities: no cyanosis, no edema, pink and warm, pulses normal Neurologic: non-focal exam (grossly), pupils equal and round, unable to assess Psychiatric: other (unable to assess re: AMS) CBC and BMP: 11/15/18 05:59 11/15/18 05:14 ABG, PT/INR, D-dimer: ABG POC ABG pH 7.404 (7.35-7.45) 11/15/18 03:17 ABG pH 7.425 pH Units (7.350-7.450) 11/14/18 05:25 POC ABG pCO2 35.7 (35-45) 11/15/18 03:17 ABG pCO2 33.4 mm Hg 11/14/18 05:25 POC ABG pO2 93 (80-105) 11/15/18 03:17 ABG pO2 110.0 mm Hg (80.0-90.0) H 11/14/18 05:25 POC ABG HCO3 22.3 (22-26 mml/L) 11/15/18 03:17 POC ABG Total CO2 23 (23-27mmol/L) 11/15/18 03:17 POC ABG O2 Sat 97 11/15/18 03:17 ABG O2 Saturation 98.1 % (95.0-99.0) 11/14/18 05:25 PT/INR, D-dimer PT 19.2 Sec. (12.2-14.9) H 11/12/18 22:15 INR 1.66 (0.87-1.13) H 11/12/18 22:15 Abnormal lab findings: Abnormal Labs 11/12/18 11/12/18 11/12/18 22:10 22:15 22:15 WBC RBC Hct MCV 104 H MCH 35 H RDW Plt Count 112 L Lymph % (Auto) Seg Neutrophils % Seg Neuts % (Manual) Lymphocytes % (Manual) 47.0 H Seg Neutrophils # Seg Neutrophils # Man Lymphocytes # (Manual) Monocytes # (Manual) PT 19.2 H INR 1.66 H APTT 52.5 H Activated Clotting Time ABG pH ABG pO2 ABG Base Excess ABG Hemoglobin Sodium Potassium Chloride Carbon Dioxide BUN Creatinine Glucose POC Glucose 131 H Lactic Acid Calcium Magnesium AST ALT Total Creatine Kinase CK-MB (CK-2) CK-MB (CK-2) Rel Index Troponin T C-Reactive Protein Total Protein Albumin 11/12/18 11/12/18 11/13/18 22:15 23:42 01:50 WBC RBC Hct MCV MCH RDW Plt Count Lymph % (Auto) Seg Neutrophils % Seg Neuts % (Manual) Lymphocytes % (Manual) Seg Neutrophils # Seg Neutrophils # Man Lymphocytes # (Manual) Monocytes # (Manual) PT INR APTT Activated Clotting Time 329 H ABG pH 7.312 L ABG pO2 147.6 H ABG Base Excess -4.7 L ABG Hemoglobin Sodium Potassium 2.7 L* Chloride 94.9 L Carbon Dioxide BUN Creatinine Glucose 341 H POC Glucose Lactic Acid Calcium 7.5 L Magnesium AST 58 H ALT Total Creatine Kinase CK-MB (CK-2) CK-MB (CK-2) Rel Index Troponin T C-Reactive Protein Total Protein 4.7 L Albumin 2.9 L 11/13/18 11/13/18 11/13/18 02:30 03:04 04:01 WBC RBC Hct MCV MCH RDW Plt Count Lymph % (Auto) Seg Neutrophils % Seg Neuts % (Manual) Lymphocytes % (Manual) Seg Neutrophils # Seg Neutrophils # Man Lymphocytes # (Manual) Monocytes # (Manual) PT INR APTT Activated Clotting Time 175 H 142 H ABG pH ABG pO2 ABG Base Excess ABG Hemoglobin Sodium Potassium Chloride Carbon Dioxide BUN Creatinine Glucose POC Glucose 185 H Lactic Acid Calcium Magnesium AST ALT Total Creatine Kinase CK-MB (CK-2) CK-MB (CK-2) Rel Index Troponin T C-Reactive Protein Total Protein Albumin 11/13/18 11/13/18 11/13/18 04:50 05:44 05:44 WBC 23.9 H RBC Hct MCV 102 H MCH 34 H RDW 15.5 H Plt Count Lymph % (Auto) Seg Neutrophils % Seg Neuts % (Manual) 85.0 H Lymphocytes % (Manual) 2.0 L Seg Neutrophils # Seg Neutrophils # Man 20.3 H Lymphocytes # (Manual) 0.5 L Monocytes # (Manual) 1.7 H PT INR APTT Activated Clotting Time ABG pH ABG pO2 136.3 H ABG Base Excess -4.4 L ABG Hemoglobin Sodium Potassium Chloride Carbon Dioxide BUN Creatinine Glucose 210 H POC Glucose Lactic Acid Calcium 7.8 L Magnesium AST ALT Total Creatine Kinase 2686 H CK-MB (CK-2) 126.5 H CK-MB (CK-2) Rel Index 4.7 H Troponin T 1.500 H* D C-Reactive Protein Total Protein Albumin 11/13/18 11/13/18 11/13/18 06:44 11:12 14:15 WBC RBC Hct MCV MCH RDW Plt Count Lymph % (Auto) Seg Neutrophils % Seg Neuts % (Manual) Lymphocytes % (Manual) Seg Neutrophils # Seg Neutrophils # Man Lymphocytes # (Manual) Monocytes # (Manual) PT INR APTT Activated Clotting Time ABG pH ABG pO2 ABG Base Excess ABG Hemoglobin Sodium Potassium Chloride Carbon Dioxide BUN Creatinine Glucose POC Glucose 197 H 152 H 125 H Lactic Acid Calcium Magnesium AST ALT Total Creatine Kinase CK-MB (CK-2) CK-MB (CK-2) Rel Index Troponin T C-Reactive Protein Total Protein Albumin 11/13/18 11/13/18 11/13/18 16:19 17:51 19:15 WBC RBC Hct MCV MCH RDW Plt Count Lymph % (Auto) Seg Neutrophils % Seg Neuts % (Manual) Lymphocytes % (Manual) Seg Neutrophils # Seg Neutrophils # Man Lymphocytes # (Manual) Monocytes # (Manual) PT INR APTT Activated Clotting Time ABG pH ABG pO2 ABG Base Excess ABG Hemoglobin Sodium Potassium Chloride Carbon Dioxide BUN Creatinine Glucose POC Glucose 124 H 129 H Lactic Acid Calcium Magnesium 2.60 H AST ALT Total Creatine Kinase CK-MB (CK-2) CK-MB (CK-2) Rel Index Troponin T C-Reactive Protein Total Protein Albumin 11/13/18 11/14/18 11/14/18 23:11 02:55 03:24 WBC 13.6 H RBC Hct MCV 103 H MCH 35 H RDW 15.4 H Plt Count 95 L Lymph % (Auto) 8.5 L Seg Neutrophils % 85.3 H Seg Neuts % (Manual) Lymphocytes % (Manual) Seg Neutrophils # 11.6 H Seg Neutrophils # Man Lymphocytes # (Manual) Monocytes # (Manual) PT INR APTT Activated Clotting Time ABG pH ABG pO2 ABG Base Excess ABG Hemoglobin Sodium Potassium Chloride Carbon Dioxide BUN Creatinine Glucose POC Glucose 180 H 119 H Lactic Acid Calcium Magnesium AST ALT Total Creatine Kinase CK-MB (CK-2) CK-MB (CK-2) Rel Index Troponin T C-Reactive Protein Total Protein Albumin 11/14/18 11/14/18 11/14/18 03:24 05:25 06:17 WBC RBC Hct MCV MCH RDW Plt Count Lymph % (Auto) Seg Neutrophils % Seg Neuts % (Manual) Lymphocytes % (Manual) Seg Neutrophils # Seg Neutrophils # Man Lymphocytes # (Manual) Monocytes # (Manual) PT INR APTT Activated Clotting Time ABG pH ABG pO2 110.0 H ABG Base Excess -2.2 L ABG Hemoglobin 13.2 L Sodium 136 L Potassium 5.1 H D Chloride Carbon Dioxide 20 L BUN Creatinine 0.7 L Glucose 124 H POC Glucose 124 H Lactic Acid Calcium 7.9 L Magnesium AST 183 H ALT 76 H Total Creatine Kinase CK-MB (CK-2) CK-MB (CK-2) Rel Index Troponin T C-Reactive Protein Total Protein 5.9 L D Albumin 3.4 L 11/14/18 11/14/18 11/14/18 11:28 12:41 16:51 WBC RBC Hct MCV MCH RDW Plt Count Lymph % (Auto) Seg Neutrophils % Seg Neuts % (Manual) Lymphocytes % (Manual) Seg Neutrophils # Seg Neutrophils # Man Lymphocytes # (Manual) Monocytes # (Manual) PT INR APTT Activated Clotting Time ABG pH ABG pO2 ABG Base Excess ABG Hemoglobin Sodium Potassium Chloride Carbon Dioxide BUN Creatinine Glucose POC Glucose 172 H 149 H Lactic Acid 4.40 H* Calcium Magnesium AST ALT Total Creatine Kinase CK-MB (CK-2) CK-MB (CK-2) Rel Index Troponin T C-Reactive Protein Total Protein Albumin 11/14/18 11/14/18 11/14/18 18:54 19:58 19:58 WBC RBC Hct MCV MCH RDW Plt Count Lymph % (Auto) Seg Neutrophils % Seg Neuts % (Manual) Lymphocytes % (Manual) Seg Neutrophils # Seg Neutrophils # Man Lymphocytes # (Manual) Monocytes # (Manual) PT INR APTT Activated Clotting Time ABG pH ABG pO2 ABG Base Excess ABG Hemoglobin Sodium Potassium Chloride Carbon Dioxide BUN Creatinine Glucose POC Glucose 168 H Lactic Acid 3.90 H* Calcium Magnesium AST ALT Total Creatine Kinase CK-MB (CK-2) CK-MB (CK-2) Rel Index Troponin T C-Reactive Protein 12.70 H Total Protein Albumin 11/14/18 11/15/18 11/15/18 23:10 02:40 05:14 WBC RBC Hct MCV MCH RDW Plt Count Lymph % (Auto) Seg Neutrophils % Seg Neuts % (Manual) Lymphocytes % (Manual) Seg Neutrophils # Seg Neutrophils # Man Lymphocytes # (Manual) Monocytes # (Manual) PT INR APTT Activated Clotting Time ABG pH ABG pO2 ABG Base Excess ABG Hemoglobin Sodium Potassium Chloride Carbon Dioxide BUN 26 H Creatinine Glucose 134 H POC Glucose 160 H 129 H Lactic Acid Calcium 8.1 L Magnesium AST 107 H ALT 59 H Total Creatine Kinase CK-MB (CK-2) CK-MB (CK-2) Rel Index Troponin T C-Reactive Protein Total Protein 5.3 L Albumin 3.0 L 11/15/18 11/15/18 11/15/18 05:59 05:59 06:37 WBC RBC 3.41 L Hct 35.0 L D MCV 102 H MCH 35 H RDW Plt Count 91 L Lymph % (Auto) Seg Neutrophils % Seg Neuts % (Manual) Lymphocytes % (Manual) Seg Neutrophils # Seg Neutrophils # Man Lymphocytes # (Manual) Monocytes # (Manual) PT INR APTT Activated Clotting Time ABG pH ABG pO2 ABG Base Excess ABG Hemoglobin Sodium Potassium Chloride Carbon Dioxide BUN Creatinine Glucose POC Glucose 160 H Lactic Acid 2.30 H* Calcium Magnesium AST ALT Total Creatine Kinase CK-MB (CK-2) CK-MB (CK-2) Rel Index Troponin T C-Reactive Protein Total Protein Albumin Allied health notes reviewed: nursing
--- NOTE | 2018-11-15 10:39 | Progress Note ---
Assessment and Plan Currently stable cardiac status. Cont post-PCI care and other present cardiac management. Neuro input noted. The patient has been seen in conjunction with Dr. Raji Mina who agrees with the assessment and plan of care. - Patient Problems (1) Anoxic brain injury Current Visit: Yes Status: Suspected (2) Cardiopulmonary arrest with successful resuscitation Current Visit: Yes Status: Acute (3) STEMI (ST elevation myocardial infarction) Current Visit: Yes Status: Acute Qualifiers: Involved coronary artery: LAD coronary artery Qualified Code(s): I21.02 - ST elevation (STEMI) myocardial infarction involving left anterior descending coronary artery (4) CAD (coronary artery disease) Current Visit: Yes Status: Chronic (5) Stented coronary artery Current Visit: Yes Status: Chronic (6) Ischemic cardiomyopathy Current Visit: Yes Status: Acute (7) Altered mental status Current Visit: Yes Status: Acute (8) Seizure Current Visit: Yes Status: Suspected (9) Tobacco use Current Visit: Yes Status: Chronic (10) Malnutrition Current Visit: Yes Status: Chronic (11) Hypokalemia Current Visit: Yes Status: Acute Subjective Date of service: 11/15/18 Principal diagnosis: Ac. hypoxemic resp failure; S/P cardiac arrest; V-fib; H/O CVA; STEMI Interval history: pt remains intubated, nonresponsive. in SR. Objective Last Vital Signs Temp 99.0 F 11/15/18 08:00 Pulse 84 11/15/18 09:45 Resp 18 11/15/18 09:00 BP 123/78 11/15/18 09:45 Pulse Ox 99 11/15/18 09:00 - Physical Examination General: Other (intubated, nonresponsive ) HEENT: Positive: Other (sluggish) Neck: Positive: neck supple Cardiac: Positive: Reg Rate and Rhythm, S1/S2 Lungs: Positive: Decreased Breath Sounds, Ventilated Respirations Neuro: Positive: Other (unresponsive) Abdomen: Positive: Soft Incision: Cardiac Cath Site (c/d/i, no bleeding, no hematoma) Extremities: Present: Cold, Other (DP pulses present via doppler, no pedal puls es via doppler). Absent: edema - Labs and Meds Cardiac Enzymes 11/15/18 Range/Units 05:14 AST 107 H (5-40) units/L CBC 11/15/18 Range/Units 05:59 WBC 9.6 (4.5-11.0) K/mm3 RBC 3.41 L (3.65-5.03) M/mm3 Hgb 12.0 (11.8-15.2) gm/dl Hct 35.0 L D (35.5-45.6) % Plt Count 91 L (140-440) K/mm3 Comprehensive Metabolic Panel 11/15/18 Range/Units 05:14 Sodium 139 (137-145) mmol/L Potassium 5.0 (3.6-5.0) mmol/L Chloride 102.2 (98-107) mmol/L Carbon Dioxide 22 (22-30) mmol/L BUN 26 H (9-20) mg/dL Creatinine 0.8 (0.8-1.5) mg/dL Glucose 134 H (75-100) mg/dL Calcium 8.1 L (8.4-10.2) mg/dL AST 107 H (5-40) units/L ALT 59 H (7-56) units/L Alkaline Phosphatase 45 (35-129) units/L Total Protein 5.3 L (6.3-8.2) g/dL Albumin 3.0 L (3.9-5) g/dL - Imaging and Cardiology Echo: report reviewed (TDS, EF 15-20%, mid anteroseptal, apical anterior and apical lateral wall dyskinetic.) Cardiac cath: report reviewed ( left main patent. LAD proximal 95% with WENDY 2 flow circumflex patent OM1 patent RCA patent with moderate LV dysfunction EF 3540% with septal inferior wall hypokinesis. With PCI of the LAD with a drug- eluting 3.5 x 23 mm stent at 15 kim.) - Telemetry EKG Rhythm: Sinus Rhythm - Allied health notes Allied health notes reviewed: nursing
[2018-11-15] MEDS ORDERED: NACL 0.9% 1000 ML 1,000 ML IV SCH (12:00)
--- NOTE | 2018-11-15 14:33 | XRay Report ---
ABDOMEN 1 VIEW(S) INDICATION / CLINICAL INFORMATION: NGT placement confirmation. COMPARISON: 11/13/2018 FINDINGS: TUBES / LINES: The nasogastric tube is coiled in the upper esophagus. BOWEL GAS PATTERN: No significant abnormality. FREE AIR / EXTRALUMINAL GAS: None seen. ADDITIONAL FINDINGS: No significant additional findings. IMPRESSION: The nasogastric tube is coiled in the upper esophagus. Replacement is recommended. Signer Name: Zeferino Mahan Jr, MD Signed: 11/15/2018 2:28 PM Workstation Name: [id number]
--- NOTE | 2018-11-15 14:49 | XRay Report ---
ABDOMEN 1 VIEW(S) INDICATION / CLINICAL INFORMATION: NGT placement confirmation. COMPARISON: 11/15/2018 at 1408 hours FINDINGS: TUBES / LINES: The nasogastric tube has been repositioned and now terminates in the fundus of the sto mach. BOWEL GAS PATTERN: No significant abnormality. FREE AIR / EXTRALUMINAL GAS: None seen. ADDITIONAL FINDINGS: No significant additional findings. IMPRESSION: The nasogastric tube terminates in the fundus of the stomach. Signer Name: Zeferino Mahan Jr, MD Signed: 11/15/2018 2:44 PM Workstation Name: [id number]
--- NOTE | 2018-11-15 15:55 | Ultrasound Report ---
SCROTAL ULTRASOUND WITH DOPPLER HISTORY: mass COMPARISON: None. TECHNIQUE: Grayscale, color and spectral Doppler images were obtained of the scrotum. FINDINGS: RIGHT: Right testicle: No significant abnormality. No mass. Right testicular size: 4.7 x 1.3 x 3.0 cm. Right epididymis: No significant abnormality. LEFT: Left testicle: No significant abnormality. No mass. Left testicular size: 4.6 x 2.1 x 3.0 cm. Left epididymis: No significant abnormality. Spectral Doppler waveforms demonstrate arterial flow to both testicles. Additional findings: A large slightly complex left hydrocele containing septations is identified. IMPRESSION: Large slightly complex left hydrocele. Signer Name: Zeferino Mahan Jr, MD Signed: 11/15/2018 3:50 PM Workstation Name: [id number]
[2018-11-15] MEDS ORDERED: fentaNYL DRIP Premix 2,000 MCG/100 ML BAG IV SCH (16:00)
--- NOTE | 2018-11-15 16:10 | Progress Note ---
Assessment and Plan Patient is 73-year-old man with a history of previous TIA 1 year ago, who presented with chest pain and loss of consciousness at home. He was found to be in cardiac arrest, and only return to spontaneous circulation upon arriving in the ER. Patient reportedly had a seizure-like episode while in the ER. According the patient's clinical findings, it is likely that he has anoxic brain injury due to the cardiac arrest. It is not entirely clear how long the patient was in cardiac arrest prior to returning to spontaneous circulation. Plan: 1. Seizure: - EEG: generalized slowing noted, no seizures or epileptiform activity. - Continue Keppra 2. Anoxic brain injury after cardiac arrest - Currently patient is opening eyes to pain stimulation, and pupillary/cough/ brainstem reflexes are notably intact. This indicates that patient's brainstem is intact at this time - Discussed potential prognosis with family at bedside, including possible long- term dependency and disability, given amount of time patient was in cardiac arrest prior to CPR initiated ( states that there was about a 30 minute time period prior to CPR initiation). - Will continue to follow patient with serial neurologic exams. Kyaw Brush MD Neurology Subjective Date of service: 11/15/18 Principal diagnosis: Ac. hypoxemic resp failure; S/P cardiac arrest; V-fib; H/O CVA; STEMI Interval history: No acute events overnight. Objective - Exam Narrative Exam: Patient is intubated, opens eyes spontaneously, however not to command. Noted to open eyes with pain stimulation in all extremities. Patient withdraws to pain stimulation in all extremities. Cough, corneal reflexes intact, PEERL. 2+ reflexes throughout. - Vital Sign Vital Signs - 12hr 11/15/18 11/15/18 11/15/18 04:31 05:00 05:31 Temperature Pulse Rate 81 81 81 Pulse Rate [ Bilateral Throughout] Pulse Rate [ From Monitor] Respiratory 20 21 22 Rate Respiratory Rate [Bilateral Throughout] Blood Pressure 103/73 103/73 103/73 O2 Sat by Pulse 97 98 97 Oximetry 11/15/18 11/15/18 11/15/18 06:00 06:31 07:00 Temperature Pulse Rate 82 81 82 Pulse Rate [ Bilateral Throughout] Pulse Rate [ From Monitor] Respiratory 22 20 13 Rate Respiratory Rate [Bilateral Throughout] Blood Pressure 103/67 103/67 115/69 O2 Sat by Pulse 98 98 98 Oximetry 11/15/18 11/15/18 11/15/18 07:31 07:52 07:54 Temperature Pulse Rate 82 84 Pulse Rate [ 81 Bilateral Throughout] Pulse Rate [ From Monitor] Respiratory 14 Rate Respiratory 18 Rate [Bilateral Throughout] Blood Pressure 105/70 105/70 O2 Sat by Pulse 97 98 Oximetry 11/15/18 11/15/18 11/15/18 08:00 08:31 09:00 Temperature 99.0 F Pulse Rate 82 85 84 Pulse Rate [ Bilateral Throughout] Pulse Rate [ 82 From Monitor] Respiratory 13 20 18 Rate Respiratory Rate [Bilateral Throughout] Blood Pressure 115/69 115/69 123/78 O2 Sat by Pulse 98 98 99 Oximetry 11/15/18 11/15/18 11/15/18 09:31 09:45 10:00 Temperature Pulse Rate 82 83 77 Pulse Rate [ Bilateral Throughout] Pulse Rate [ From Monitor] Respiratory 19 16 Rate Respiratory Rate [Bilateral Throughout] Blood Pressure 123/78 123/78 110/69 O2 Sat by Pulse 98 99 Oximetry 11/15/18 11/15/18 11/15/18 10:31 11:00 11:31 Temperature Pulse Rate 72 67 67 Pulse Rate [ Bilateral Throughout] Pulse Rate [ From Monitor] Respiratory 19 20 15 Rate Respiratory Rate [Bilateral Throughout] Blood Pressure 110/69 112/60 110/69 O2 Sat by Pulse 98 99 99 Oximetry 11/15/18 11/15/18 11/15/18 11:46 12:00 12:31 Temperature 98.0 F Pulse Rate 66 67 68 Pulse Rate [ Bilateral Throughout] Pulse Rate [ 67 From Monitor] Respiratory 18 20 18 Rate Respiratory Rate [Bilateral Throughout] Blood Pressure 112/60 110/64 110/64 O2 Sat by Pulse 99 100 100 Oximetry 11/15/18 11/15/18 11/15/18 13:00 13:31 14:00 Temperature Pulse Rate 72 72 75 Pulse Rate [ Bilateral Throughout] Pulse Rate [ From Monitor] Respiratory 22 20 20 Rate Respiratory Rate [Bilateral Throughout] Blood Pressure 110/64 110/64 137/71 O2 Sat by Pulse 100 98 97 Oximetry 11/15/18 11/15/18 11/15/18 14:31 15:00 15:04 Temperature Pulse Rate 78 76 80 Pulse Rate [ Bilateral Throughout] Pulse Rate [ From Monitor] Respiratory 23 19 Rate Respiratory Rate [Bilateral Throughout] Blood Pressure 132/74 121/69 121/69 O2 Sat by Pulse 98 100 99 Oximetry 11/15/18 11/15/18 11/15/18 15:13 15:31 16:00 Temperature Pulse Rate 79 77 Pulse Rate [ 81 Bilateral Throughout] Pulse Rate [ From Monitor] Respiratory 20 17 Rate Respiratory 22 Rate [Bilateral Throughout] Blood Pressure 121/69 115/68 O2 Sat by Pulse 99 96 Oximetry - General Apperance Constitutional: uncomfortable - EENT EENT: ATNC, PERRL, mucous membranes moist - Respiratory Respiratory: decreased breath sounds - Cardiovascular Cardiovascular: regular rate, normal S1, normal S2 Extremities: no peripheral edema bilat, no clubbing, cyanosis - Gastrointestinal Gastrointestinal: normoactive bowel sounds, soft, non-tender - Integumentary Integumentary: normal - Laboratory Findings CBC and BMP: 11/15/18 05:59 11/15/18 05:14 Abnormal Lab Findings: Abnormal Labs 11/12/18 11/12/18 11/12/18 22:10 22:15 22:15 WBC RBC Hct MCV 104 H MCH 35 H RDW Plt Count 112 L Lymph % (Auto) Seg Neutrophils % Seg Neuts % (Manual) Lymphocytes % (Manual) 47.0 H Seg Neutrophils # Seg Neutrophils # Man Lymphocytes # (Manual) Monocytes # (Manual) PT 19.2 H INR 1.66 H APTT 52.5 H Activated Clotting Time ABG pH ABG pO2 ABG Base Excess ABG Hemoglobin Sodium Potassium Chloride Carbon Dioxide BUN Creatinine Glucose POC Glucose 131 H Lactic Acid Calcium Magnesium AST ALT Total Creatine Kinase CK-MB (CK-2) CK-MB (CK-2) Rel Index Troponin T C-Reactive Protein Total Protein Albumin 11/12/18 11/12/18 11/13/18 22:15 23:42 01:50 WBC RBC Hct MCV MCH RDW Plt Count Lymph % (Auto) Seg Neutrophils % Seg Neuts % (Manual) Lymphocytes % (Manual) Seg Neutrophils # Seg Neutrophils # Man Lymphocytes # (Manual) Monocytes # (Manual) PT INR APTT Activated Clotting Time 329 H ABG pH 7.312 L ABG pO2 147.6 H ABG Base Excess -4.7 L ABG Hemoglobin Sodium Potassium 2.7 L* Chloride 94.9 L Carbon Dioxide BUN Creatinine Glucose 341 H POC Glucose Lactic Acid Calcium 7.5 L Magnesium AST 58 H ALT Total Creatine Kinase CK-MB (CK-2) CK-MB (CK-2) Rel Index Troponin T C-Reactive Protein Total Protein 4.7 L Albumin 2.9 L 11/13/18 11/13/18 11/13/18 02:30 03:04 04:01 WBC RBC Hct MCV MCH RDW Plt Count Lymph % (Auto) Seg Neutrophils % Seg Neuts % (Manual) Lymphocytes % (Manual) Seg Neutrophils # Seg Neutrophils # Man Lymphocytes # (Manual) Monocytes # (Manual) PT INR APTT Activated Clotting Time 175 H 142 H ABG pH ABG pO2 ABG Base Excess ABG Hemoglobin Sodium Potassium Chloride Carbon Dioxide BUN Creatinine Glucose POC Glucose 185 H Lactic Acid Calcium Magnesium AST ALT Total Creatine Kinase CK-MB (CK-2) CK-MB (CK-2) Rel Index Troponin T C-Reactive Protein Total Protein Albumin 11/13/18 11/13/18 11/13/18 04:50 05:44 05:44 WBC 23.9 H RBC Hct MCV 102 H MCH 34 H RDW 15.5 H Plt Count Lymph % (Auto) Seg Neutrophils % Seg Neuts % (Manual) 85.0 H Lymphocytes % (Manual) 2.0 L Seg Neutrophils # Seg Neutrophils # Man 20.3 H Lymphocytes # (Manual) 0.5 L Monocytes # (Manual) 1.7 H PT INR APTT Activated Clotting Time ABG pH ABG pO2 136.3 H ABG Base Excess -4.4 L ABG Hemoglobin Sodium Potassium Chloride Carbon Dioxide BUN Creatinine Glucose 210 H POC Glucose Lactic Acid Calcium 7.8 L Magnesium AST ALT Total Creatine Kinase 2686 H CK-MB (CK-2) 126.5 H CK-MB (CK-2) Rel Index 4.7 H Troponin T 1.500 H* D C-Reactive Protein Total Protein Albumin 11/13/18 11/13/18 11/13/18 06:44 11:12 14:15 WBC RBC Hct MCV MCH RDW Plt Count Lymph % (Auto) Seg Neutrophils % Seg Neuts % (Manual) Lymphocytes % (Manual) Seg Neutrophils # Seg Neutrophils # Man Lymphocytes # (Manual) Monocytes # (Manual) PT INR APTT Activated Clotting Time ABG pH ABG pO2 ABG Base Excess ABG Hemoglobin Sodium Potassium Chloride Carbon Dioxide BUN Creatinine Glucose POC Glucose 197 H 152 H 125 H Lactic Acid Calcium Magnesium AST ALT Total Creatine Kinase CK-MB (CK-2) CK-MB (CK-2) Rel Index Troponin T C-Reactive Protein Total Protein Albumin 11/13/18 11/13/18 11/13/18 16:19 17:51 19:15 WBC RBC Hct MCV MCH RDW Plt Count Lymph % (Auto) Seg Neutrophils % Seg Neuts % (Manual) Lymphocytes % (Manual) Seg Neutrophils # Seg Neutrophils # Man Lymphocytes # (Manual) Monocytes # (Manual) PT INR APTT Activated Clotting Time ABG pH ABG pO2 ABG Base Excess ABG Hemoglobin Sodium Potassium Chloride Carbon Dioxide BUN Creatinine Glucose POC Glucose 124 H 129 H Lactic Acid Calcium Magnesium 2.60 H AST ALT Total Creatine Kinase CK-MB (CK-2) CK-MB (CK-2) Rel Index Troponin T C-Reactive Protein Total Protein Albumin 11/13/18 11/14/18 11/14/18 23:11 02:55 03:24 WBC 13.6 H RBC Hct MCV 103 H MCH 35 H RDW 15.4 H Plt Count 95 L Lymph % (Auto) 8.5 L Seg Neutrophils % 85.3 H Seg Neuts % (Manual) Lymphocytes % (Manual) Seg Neutrophils # 11.6 H Seg Neutrophils # Man Lymphocytes # (Manual) Monocytes # (Manual) PT INR APTT Activated Clotting Time ABG pH ABG pO2 ABG Base Excess ABG Hemoglobin Sodium Potassium Chloride Carbon Dioxide BUN Creatinine Glucose POC Glucose 180 H 119 H Lactic Acid Calcium Magnesium AST ALT Total Creatine Kinase CK-MB (CK-2) CK-MB (CK-2) Rel Index Troponin T C-Reactive Protein Total Protein Albumin 11/14/18 11/14/18 11/14/18 03:24 05:25 06:17 WBC RBC Hct MCV MCH RDW Plt Count Lymph % (Auto) Seg Neutrophils % Seg Neuts % (Manual) Lymphocytes % (Manual) Seg Neutrophils # Seg Neutrophils # Man Lymphocytes # (Manual) Monocytes # (Manual) PT INR APTT Activated Clotting Time ABG pH ABG pO2 110.0 H ABG Base Excess -2.2 L ABG Hemoglobin 13.2 L Sodium 136 L Potassium 5.1 H D Chloride Carbon Dioxide 20 L BUN Creatinine 0.7 L Glucose 124 H POC Glucose 124 H Lactic Acid Calcium 7.9 L Magnesium AST 183 H ALT 76 H Total Creatine Kinase CK-MB (CK-2) CK-MB (CK-2) Rel Index Troponin T C-Reactive Protein Total Protein 5.9 L D Albumin 3.4 L 11/14/18 11/14/18 11/14/18 11:28 12:41 16:51 WBC RBC Hct MCV MCH RDW Plt Count Lymph % (Auto) Seg Neutrophils % Seg Neuts % (Manual) Lymphocytes % (Manual) Seg Neutrophils # Seg Neutrophils # Man Lymphocytes # (Manual) Monocytes # (Manual) PT INR APTT Activated Clotting Time ABG pH ABG pO2 ABG Base Excess ABG Hemoglobin Sodium Potassium Chloride Carbon Dioxide BUN Creatinine Glucose POC Glucose 172 H 149 H Lactic Acid 4.40 H* Calcium Magnesium AST ALT Total Creatine Kinase CK-MB (CK-2) CK-MB (CK-2) Rel Index Troponin T C-Reactive Protein Total Protein Albumin 11/14/18 11/14/18 11/14/18 18:54 19:58 19:58 WBC RBC Hct MCV MCH RDW Plt Count Lymph % (Auto) Seg Neutrophils % Seg Neuts % (Manual) Lymphocytes % (Manual) Seg Neutrophils # Seg Neutrophils # Man Lymphocytes # (Manual) Monocytes # (Manual) PT INR APTT Activated Clotting Time ABG pH ABG pO2 ABG Base Excess ABG Hemoglobin Sodium Potassium Chloride Carbon Dioxide BUN Creatinine Glucose POC Glucose 168 H Lactic Acid 3.90 H* Calcium Magnesium AST ALT Total Creatine Kinase CK-MB (CK-2) CK-MB (CK-2) Rel Index Troponin T C-Reactive Protein 12.70 H Total Protein Albumin 11/14/18 11/15/18 11/15/18 23:10 02:40 05:14 WBC RBC Hct MCV MCH RDW Plt Count Lymph % (Auto) Seg Neutrophils % Seg Neuts % (Manual) Lymphocytes % (Manual) Seg Neutrophils # Seg Neutrophils # Man Lymphocytes # (Manual) Monocytes # (Manual) PT INR APTT Activated Clotting Time ABG pH ABG pO2 ABG Base Excess ABG Hemoglobin Sodium Potassium Chloride Carbon Dioxide BUN 26 H Creatinine Glucose 134 H POC Glucose 160 H 129 H Lactic Acid Calcium 8.1 L Magnesium AST 107 H ALT 59 H Total Creatine Kinase CK-MB (CK-2) CK-MB (CK-2) Rel Index Troponin T C-Reactive Protein Total Protein 5.3 L Albumin 3.0 L 11/15/18 11/15/18 11/15/18 05:59 05:59 06:37 WBC RBC 3.41 L Hct 35.0 L D MCV 102 H MCH 35 H RDW Plt Count 91 L Lymph % (Auto) Seg Neutrophils % Seg Neuts % (Manual) Lymphocytes % (Manual) Seg Neutrophils # Seg Neutrophils # Man Lymphocytes # (Manual) Monocytes # (Manual) PT INR APTT Activated Clotting Time ABG pH ABG pO2 ABG Base Excess ABG Hemoglobin Sodium Potassium Chloride Carbon Dioxide BUN Creatinine Glucose POC Glucose 160 H Lactic Acid 2.30 H* Calcium Magnesium AST ALT Total Creatine Kinase CK-MB (CK-2) CK-MB (CK-2) Rel Index Troponin T C-Reactive Protein Total Protein Albumin 11/15/18 11:30 WBC RBC Hct MCV MCH RDW Plt Count Lymph % (Auto) Seg Neutrophils % Seg Neuts % (Manual) Lymphocytes % (Manual) Seg Neutrophils # Seg Neutrophils # Man Lymphocytes # (Manual) Monocytes # (Manual) PT INR APTT Activated Clotting Time ABG pH ABG pO2 ABG Base Excess ABG Hemoglobin Sodium Potassium Chloride Carbon Dioxide BUN Creatinine Glucose POC Glucose 186 H Lactic Acid Calcium Magnesium AST ALT Total Creatine Kinase CK-MB (CK-2) CK-MB (CK-2) Rel Index Troponin T C-Reactive Protein Total Protein Albumin
[2018-11-15] MEDS: LOVENOX SUB-Q SCH (22:50)
[2018-11-16] MEDS: HumuLIN R SUB-Q SCH ×7 (01:14→23:00)
[2018-11-16] MEDS: DUONEB *Not for PRN Use IH SCH ×4 (01:44→19:01)
--- NOTE | 2018-11-16 04:17 | XRay Report ---
CHEST 1 VIEW [id number] INDICATION / CLINICAL INFORMATION: follow up respiratory failure. COMPARISON: 11/15/2018 FINDINGS: SUPPORT DEVICES: Stable HEART / MEDIASTINUM: Stable LUNGS / PLEURA: Markings in the right midlung are slightly more prominent. No pneumothorax. ADDITIONAL FINDINGS: No significant additional findings. IMPRESSION: Slight worsening on the right Signer Name: Jason Britt MD Signed: 11/16/2018 4:13 AM Workstation Name: [id number]
[2018-11-16 05:58] LABS: Hematocrit 32.1 % (35.5-45.6); Mean Corpuscular HGB Conc 34 % (32-34); Mean Corpuscular Volume 102 fl (84-94); Red Blood Count 3.14 M/mm3 (3.65-5.03); Red Cell Distribution Width 14.9 % (13.2-15.2)
[2018-11-16 06:03] LABS: Platelet Count 96 K/mm3 (140-440)
[2018-11-16 06:05] LABS: BUN/Creatinine Ratio 34; Blood Urea Nitrogen 17 mg/dL (9-20); Hemolysis Index 19
--- NOTE | 2018-11-16 08:53 | Progress Note ---
Assessment and Plan Assessment and plan: Cardiopulmonary arrest with successful resuscitation - could be from STEMI - now on vent, w/o pressor, follow 2d echo - s/p emergent cath with PCI STEMI (ST elevation myocardial infarction) - ST elevation (STEMI) myocardial infarction involving left anterior descending coronary artery s/p PCI cardiology following CAD (coronary artery disease), cont asprin and plavix Anoxic encephalopathy CT head no acute process, neurology consulted Comatose Hydrocele consult Urologist. 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 She has decided on DNR status The high probability of a clinically significant, sudden or life threatening deterioration of the [multiple] system(s) required my full and direct attention, intervention and personal management. The aggregate critical care time was [36] minutes. This time is in addition to time spent performing reported procedures but includes the following: [x] Data Review and interpretation [x] Patient assessment and monitoring of vital signs [x] Documentation [x] Medication orders and management History Interval history: Still intubated at bedside has decided on DNR code status Hospitalist Physical - Physical exam Narrative exam: Gen: Not in acute distress, malnourished, intubated HEENT: Normocephalic, atraumatic Neck: supple, no JVD Heart: S1 and S2 reg, no murmurs, rubs or gallop Lungs: Clear to auscultation, no rhonchi, no wheeze Abd: soft, non tender, non distended, normal BS, Ext: No edema, no clubbing, no cyanosis Neuro: Unresponsive, does not follow commands - Constitutional Vitals: Temp Pulse Resp BP Pulse Ox 98.6 F 64 10 L 99/59 98 11/16/18 08:00 11/16/18 08:00 11/16/18 08:00 11/16/18 08:00 11/16/18 08:00 General appearance: Present: cachectic Results - Labs CBC & Chem 7: 11/16/18 05:22 11/16/18 05:22 Labs: Laboratory Last Values WBC 6.6 K/mm3 (4.5-11.0) 11/16/18 05:22 RBC 3.14 M/mm3 (3.65-5.03) L 11/16/18 05:22 Hgb 11.0 gm/dl (11.8-15.2) L 11/16/18 05:22 Hct 32.1 % (35.5-45.6) L 11/16/18 05:22 MCV 102 fl (84-94) H 11/16/18 05:22 MCH 35 pg (28-32) H 11/16/18 05:22 MCHC 34 % (32-34) 11/16/18 05:22 RDW 14.9 % (13.2-15.2) 11/16/18 05:22 Plt Count 96 K/mm3 (140-440) L 11/16/18 05:22 Lymph % (Auto) 8.5 % (13.4-35.0) L 11/14/18 03:24 Geary % (Auto) 5.3 % (0.0-7.3) 11/14/18 03:24 Eos % (Auto) 0.5 % (0.0-4.3) 11/14/18 03:24 Baso % (Auto) 0.4 % (0.0-1.8) 11/14/18 03:24 Lymph # 1.2 K/mm3 (1.2-5.4) 11/14/18 03:24 Geary # 0.7 K/mm3 (0.0-0.8) 11/14/18 03:24 Eos # 0.1 K/mm3 (0.0-0.4) 11/14/18 03:24 Baso # 0.1 K/mm3 (0.0-0.1) 11/14/18 03:24 Add Manual Diff Complete 11/13/18 05:44 Total Counted 100 11/13/18 05:44 Seg Neutrophils % 85.3 % (40.0-70.0) H 11/14/18 03:24 Seg Neuts % (Manual) 85.0 % (40.0-70.0) H 11/13/18 05:44 6.0 % 11/13/18 05:44 2.0 % (13.4-35.0) L 11/13/18 05:44 Reactive Lymphs % (Man) 0 % 11/13/18 05:44 7.0 % (0.0-7.3) 11/13/18 05:44 0 % (0.0-4.3) 11/13/18 05:44 0 % (0.0-1.8) 11/13/18 05:44 0 % 11/13/18 05:44 0 % 11/13/18 05:44 0 % 11/13/18 05:44 0 % 11/13/18 05:44 Nucleated RBC % Not Reportable 11/13/18 05:44 Seg Neutrophils # 11.6 K/mm3 (1.8-7.7) H 11/14/18 03:24 Seg Neutrophils # Man 20.3 K/mm3 (1.8-7.7) H 11/13/18 05:44 Band Neutrophils # 1.4 K/mm3 11/13/18 05:44 0.5 K/mm3 (1.2-5.4) L 11/13/18 05:44 Abs React Lymphs (Man) 0.0 K/mm3 11/13/18 05:44 1.7 K/mm3 (0.0-0.8) H 11/13/18 05:44 0.0 K/mm3 (0.0-0.4) 11/13/18 05:44 0.0 K/mm3 (0.0-0.1) 11/13/18 05:44 0.0 K/mm3 11/13/18 05:44 0.0 K/mm3 11/13/18 05:44 0.0 K/mm3 11/13/18 05:44 Blast Cells # 0.0 K/mm3 11/13/18 05:44 WBC Morphology Not Reportable 11/13/18 05:44 Hypersegmented Neuts Not Reportable 11/13/18 05:44 Hyposegmented Neuts Not Reportable 11/13/18 05:44 Hypogranular Neuts Not Reportable 11/13/18 05:44 Not Reportable 11/13/18 05:44 Not Reportable 11/13/18 05:44 Not Reportable 11/13/18 05:44 Not Reportable 11/13/18 05:44 Not Reportable 11/13/18 05:44 Not Reportable 11/13/18 05:44 Consistent w auto 11/13/18 05:44 Not Reportable 11/13/18 05:44 Plt Clumps, EDTA Not Reportable 11/13/18 05:44 Not Reportable 11/13/18 05:44 Few 11/13/18 05:44 Not Reportable 11/13/18 05:44 Plt Morphology Comment Not Reportable 11/13/18 05:44 RBC Morphology Not Reportable 11/13/18 05:44 Dimorphic RBCs Not Reportable 11/13/18 05:44 Not Reportable 11/13/18 05:44 Not Reportable 11/13/18 05:44 Not Reportable 11/13/18 05:44 1+ 11/13/18 05:44 Not Reportable 11/13/18 05:44 1+ 11/13/18 05:44 Not Reportable 11/13/18 05:44 Not Reportable 11/13/18 05:44 Not Reportable 11/13/18 05:44 Not Reportable 11/13/18 05:44 Not Reportable 11/13/18 05:44 Not Reportable 11/13/18 05:44 Not Reportable 11/13/18 05:44 Not Reportable 11/13/18 05:44 Not Reportable 11/13/18 05:44 Not Reportable 11/13/18 05:44 Not Reportable 11/13/18 05:44 Not Reportable 11/13/18 05:44 Not Reportable 11/13/18 05:44 Acanthocytes (Spur) Not Reportable 11/13/18 05:44 Rouleaux Not Reportable 11/13/18 05:44 Not Reportable 11/13/18 05:44 Not Reportable 11/13/18 05:44 Not Reportable 11/13/18 05:44 Not Reportable 11/13/18 05:44 Hem Pathologist Commnt No 11/13/18 05:44 PT 19.2 Sec. (12.2-14.9) H 11/12/18 22:15 INR 1.66 (0.87-1.13) H 11/12/18 22:15 APTT 52.5 Sec. (24.2-36.6) H 11/12/18 22:15 142 (74-137) H 11/13/18 04:01 POC ABG pH 7.367 (7.35-7.45) 11/16/18 03:11 ABG pH 7.425 pH Units (7.350-7.450) 11/14/18 05:25 POC ABG pCO2 43.9 (35-45) 11/16/18 03:11 ABG pCO2 33.4 mm Hg 11/14/18 05:25 POC ABG pO2 89 (80-105) 11/16/18 03:11 ABG pO2 110.0 mm Hg (80.0-90.0) H 11/14/18 05:25 POC ABG HCO3 25.2 (22-26 mml/L) 11/16/18 03:11 ABG HCO3 21.4 mmol/L (20.0-26.0) 11/14/18 05:25 POC ABG Total CO2 27 (23-27mmol/L) 11/16/18 03:11 POC ABG O2 Sat 96 11/16/18 03:11 ABG O2 Saturation 98.1 % (95.0-99.0) 11/14/18 05:25 ABG O2 Content 18.0 (0.0-44) 11/14/18 05:25 POC ABG Base Excess 0 ((-2) - (+3)mmol/L) 11/16/18 03:11 ABG Base Excess -2.2 mmol/L (-2.0-3.0) L 11/14/18 05:25 ABG Hemoglobin 13.2 gm/dl (14.0-18.0) L 11/14/18 05:25 ABG Carboxyhemoglobin 1.2 % (0.0-5.0) 11/14/18 05:25 ABG Methemoglobin 0.6 % (0.0-1.5) 11/14/18 05:25 96.3 % (95.0-99.0) 11/14/18 05:25 30 % 11/16/18 03:11 Sodium 139 mmol/L (137-145) 11/16/18 05:22 Potassium 4.4 mmol/L (3.6-5.0) 11/16/18 05:22 Chloride 103.3 mmol/L (98-107) 11/16/18 05:22 Carbon Dioxide 24 mmol/L (22-30) 11/16/18 05:22 16 mmol/L 11/16/18 05:22 BUN 17 mg/dL (9-20) 11/16/18 05:22 0.5 mg/dL (0.8-1.5) L 11/16/18 05:22 Estimated GFR > 60 ml/min 11/16/18 05:22 34 % 11/16/18 05:22 Glucose 134 mg/dL (75-100) H 11/16/18 05:22 POC Glucose 176 (70-105) H 11/16/18 08:11 Lactic Acid 2.30 mmol/L (0.7-2.0) H* 11/15/18 05:59 Calcium 8.0 mg/dL (8.4-10.2) L 11/16/18 05:22 Magnesium 2.60 mg/dL (1.7-2.3) H 11/13/18 16:19 0.50 mg/dL (0.1-1.2) 11/15/18 05:14 < 0.2 mg/dL (0-0.2) 11/14/18 03:24 0.4 mg/dL 11/14/18 03:24 AST 107 units/L (5-40) H 11/15/18 05:14 ALT 59 units/L (7-56) H 11/15/18 05:14 45 units/L (35-129) 11/15/18 05:14 2686 units/L (55-170) H 11/13/18 05:44 CK-MB (CK-2) 126.5 ng/mL (0.0-4.0) H 11/13/18 05:44 CK-MB (CK-2) Rel Index 4.7 (0-4) H 11/13/18 05:44 1.500 ng/mL (0.00-0.029) H* D 11/13/18 05:44 12.70 mg/dL (0.00-1.30) H 11/14/18 19:58 5.3 g/dL (6.3-8.2) L 11/15/18 05:14 3.0 g/dL (3.9-5) L 11/15/18 05:14 1.3 % 11/15/18 05:14 Triglycerides 94 mg/dL (2-149) 11/13/18 05:44 Cholesterol 147 mg/dL (50-199) 11/13/18 05:44 95 mg/dL (50-130) 11/13/18 05:44 56 mg/dL (40-59) 11/13/18 05:44 2.62 % 11/13/18 05:44 Active Medications - Current Medications Current Medications: Generic Name Dose Route Start Last Admin Trade Name Freq PRN Reason Stop Dose Admin Acetaminophen 650 mg 11/13/18 01:50 Tylenol WI Q4H PRN Fever >101 Albuterol 2.5 mg 11/13/18 01:53 Proventil IH Q6HRT PRN Wheezing Albuterol/Ipratropium 1 ampul 11/13/18 08:00 11/16/18 07:32 Duoneb *Not For Prn Use* IH 1 ampul Q6HRT YOSELIN Administration Lipase/Protease/Amylase 1 each 11/14/18 09:40 Pancreaze 10,500 Unit FEEDTUBE PRN PRN For Clogged Feeding Tube Aspirin 81 mg 11/13/18 10:00 11/15/18 09:45 Baby Aspirin PO 81 mg QDAY YOSELIN Administration Atorvastatin Calcium 80 mg 11/13/18 22:00 11/15/18 22:00 Lipitor PO 80 mg QHS YOSELIN Administration Clopidogrel Bisulfate 75 mg 11/14/18 10:00 11/15/18 09:45 Plavix PO 75 mg QDAY YOSELIN Administration Dextrose 50 ml 11/13/18 02:01 D50w (25gm) Syringe IV PRN PRN Hypoglycemia Famotidine 20 mg 11/15/18 10:00 11/15/18 22:00 Pepcid PO 20 mg BID YOSELIN Administration Hydrophilic Ointment 1 applic 11/14/18 13:20 Vaseline Lip Therapy TP Q2HR PRN Dry Lips Fentanyl Citrate 2,000 mcg in 100 mls @ 2.23 mls/hr 11/15/18 16:00 11/15/18 15:54 Fentanyl Drip Premix IV 1 mcg/kg/hr TITR YOSELIN 2.23 mls/hr Administration Protocol 1 MCG/KG/HR Insulin Human Regular 0 units 11/13/18 03:00 11/16/18 03:06 Humulin R SUB-Q Not Given Q4H [facility] Protocol Levetiracetam 750 mg 11/16/18 10:00 Keppra PO BID YOSELIN Lisinopril 10 mg 11/14/18 11:00 11/15/18 09:45 Zestril PO 10 mg QDAY YOSELIN Administration Lorazepam 1 mg 11/13/18 01:41 11/13/18 05:46 Ativan IV 1 mg Q4H PRN Administration Seizures Metoprolol Tartrate 25 mg 11/13/18 10:00 11/15/18 22:00 Lopressor PO 25 mg BID YOSELIN Administration Multi-Ingred Cream/Lotion/Oil/Oint 1 applic 11/14/18 13:20 Artificial Tears Ophth Oint OU Q4HR PRN Dry Eye(s) Ondansetron HCl 4 mg 11/12/18 23:59 Zofran IV Q8H PRN N/V unrelieved by Reglan Simple Syrup 15 ml 11/14/18 09:40 Simple Syrup FEEDTUBE PRN PRN Hypoglycemia Simple Syrup 30 ml 11/14/18 09:40 Simple Syrup FEEDTUBE PRN PRN Hypoglycemia Sodium Bicarbonate 325 mg 11/14/18 09:40 Sodium Bicarbonate FEEDTUBE PRN PRN For Clogged Feeding Tube Nutrition/Malnutrition Assess - Dietary Evaluation Nutrition/Malnutrition Findings: Nutrition Notes Start: 11/13/18 11:12 Freq: Status: Active Protocol: Document 11/15/18 09:15 LM (Rec: 11/15/18 09:33 LM [id number]) Nutrition Notes Initial or Follow up Reassessment Other Pertinent Diagnosis s/p cardiac arrest, syncope, AMS, scrotal swelling, R wrist and elbow wound Current Diet Osmolite 1.5 at 60 ml/hr Labs/Tests BG 134 BUN 26 Pertinent Medications Humulin Height 6 ft 1 in Weight 44.6 kg [place] Body Weight (kg) 83.63 BMI 12.9 Subjective/Other Information Osmolite running at 40 ml/hr at time of visit. Pt tolerating TF. Percent of energy/protein needs met: 72%/100% Burn Absent Trauma Absent #2 Nutrition Diagnosis Malnutrition Diagnosis Progress(for reassessment Continues documentation) #1 Nutrition Diagnosis Inadequate oral intake Diagnosis Progress(for reassessment Continues documentation) Is patient on ventilator? Yes Is Patient Ambulatory and/or Out of Bed No REE-([facility]-confined to bed) 1512.132 Kcal/Kg value to use for calculation 45 Approximate Energy Requirements Using 2007 kcal/Kg Calculation Used for Recommendations Kcal/kg Additional Notes Pro needs 1.2-2g/k-89g/ day Fluid needs 1ml/kcal Nutrition Intervention Change Diet Order: Continue TF Nutrition Support: Osmolite 1.5 at 60 ml/hr Flush 150 ml q4hr Kcal 2,160 Protein (gm) 90 Fluid (mL) 1,097 Goal #1 Continue TF Goal #2 Meet at least 80% of energy and protein needs Goal #3 Wt maintenance and/or gain Anticipated Discharge Needs: Unable to identify at this time Follow-Up By: 11/17/18 Additional Comments F/U for TF rate/tolerance
[2018-11-16] MEDS ORDERED: SUBLIMAZE IV PRN (10:08)
[2018-11-16] MEDS: KEPPRA PO SCH ×2 (10:23→21:14)
[2018-11-16] MEDS: BABY ASPIRIN PO SCH (10:23)
[2018-11-16] MEDS: PEPCID PO SCH ×2 (10:23→21:15)
[2018-11-16] MEDS: PLAVIX PO SCH (10:23)
[2018-11-16] MEDS: LOPRESSOR PO SCH ×2 (10:24→21:15)
[2018-11-16] MEDS: ZESTRIL PO SCH (10:25)
--- NOTE | 2018-11-16 10:52 | Progress Note ---
Assessment and Plan Currently stable cardiac status. Cont post-PCI care and other present cardiac management. Neuro input noted. The patient has been seen in conjunction with Dr. Raji Mina who agrees with the assessment and plan of care. - Patient Problems (1) Anoxic brain injury Current Visit: Yes Status: Suspected (2) Cardiopulmonary arrest with successful resuscitation Current Visit: Yes Status: Acute (3) STEMI (ST elevation myocardial infarction) Current Visit: Yes Status: Acute Qualifiers: Involved coronary artery: LAD coronary artery Qualified Code(s): I21.02 - ST elevation (STEMI) myocardial infarction involving left anterior descending coronary artery (4) CAD (coronary artery disease) Current Visit: Yes Status: Chronic (5) Stented coronary artery Current Visit: Yes Status: Chronic (6) Ischemic cardiomyopathy Current Visit: Yes Status: Acute (7) Altered mental status Current Visit: Yes Status: Acute (8) Seizure Current Visit: Yes Status: Suspected (9) Tobacco use Current Visit: Yes Status: Chronic (10) Malnutrition Current Visit: Yes Status: Chronic (11) Hypokalemia Current Visit: Yes Status: Acute Subjective Date of service: 11/16/18 Principal diagnosis: Ac. hypoxemic resp failure; S/P cardiac arrest; V-fib; H/O CVA; STEMI Interval history: pt remains intubated, nonresponsive. in SR. at bedside. Objective Last Vital Signs Temp 98.6 F 11/16/18 08:00 Pulse 67 11/16/18 10:25 Resp 9 L 11/16/18 10:00 BP 96/59 11/16/18 10:25 Pulse Ox 96 11/16/18 10:00 - Physical Examination General: Other (intubated, nonresponsive ) HEENT: Positive: Other (sluggish) Neck: Positive: neck supple Cardiac: Positive: Reg Rate and Rhythm, S1/S2 Lungs: Positive: Decreased Breath Sounds, Oxygen, Ventilated Respirations Neuro: Positive: Other (unresponsive) Abdomen: Positive: Soft Incision: Cardiac Cath Site (c/d/i, no bleeding, no hematoma) Extremities: Present: Cold, Other (DP pulses present via doppler, no pedal pulses via doppler). Absent: edema - Labs and Meds CBC 11/16/18 Range/Units 05:22 WBC 6.6 (4.5-11.0) K/mm3 RBC 3.14 L (3.65-5.03) M/mm3 Hgb 11.0 L (11.8-15.2) gm/dl Hct 32.1 L (35.5-45.6) % Plt Count 96 L (140-440) K/mm3 Comprehensive Metabolic Panel 11/16/18 Range/Units 05:22 Sodium 139 (137-145) mmol/L Potassium 4.4 (3.6-5.0) mmol/L Chloride 103.3 (98-107) mmol/L Carbon Dioxide 24 (22-30) mmol/L BUN 17 (9-20) mg/dL Creatinine 0.5 L (0.8-1.5) mg/dL Glucose 134 H (75-100) mg/dL Calcium 8.0 L (8.4-10.2) mg/dL - Imaging and Cardiology Echo: report reviewed (TDS, EF 15-20%, mid anteroseptal, apical anterior and apical lateral wall dyskinetic.) Cardiac cath: report reviewed ( left main patent. LAD proximal 95% with WENDY 2 flow circumflex patent OM1 patent RCA patent with moderate LV dysfunction EF 3540% with septal inferior wall hypokinesis. With PCI of the LAD with a drug- eluting 3.5 x 23 mm stent at 15 kim.) - Allied health notes Allied health notes reviewed: nursing
--- NOTE | 2018-11-16 10:55 | Progress Note ---
Assessment and Plan Acute hypoxemic respiratory failure, on mechanical ventilator support. Status post cardiac arrest with return of spontaneous circulation. Ventricular fibrillation. History of cerebrovascular accident. Adult failure to thrive. ST elevation myocardial infarction. Leukocytosis Coagulopathy present on arrival. Hypokalemia. Likely chronic obstructive pulmonary disease. Possible history of hypertension - daily SAT and SBT assessments as tolerated - continue bronchodilators with pulmonary hygiene per RT - VAP bundle addressed - continue to wean supplemental O2 to keep O2 sats > 90% - VTE prophylaxis with SCD's - continue stress ulcer prophylaxis - begin enteral nutrition at goal rate as tolerated - continue accuchecks with glycemic control per SSI for target blood glucose 140-180mg/dL - follow clinically off AB's (No acute indication) - chronic home medications per attending - target sedation for RASS 0 to -1 - continue Keppra for seizures; adjust per neurology recommendations - neurology evaluation ongoing - continue mobility protocols / off loading for pressure ulcer prevention - Critical care bundles addressed - continue Seizure precautions - fall precautions - neuro-checks per RN - continue other care per attending / other consultants ..... care plan discussed at length with his at bedside CONDITION: CRITICAL PROGNOSIS: GUARDED TO GRAVE CODE STATUS: DNAR The high probability of a clinically significant, sudden or life threatening deterioration of the [Neurologic, Respiratory & Cardiovascular] system(s) required my full and direct attention, intervention and personal management. The aggregate critical care time was [35] minutes. This time is in addition to time spent performing reported procedures but includes the following: [x] Data Review and interpretation [x] Patient assessment and monitoring of vital signs [x] Documentation [x] Medication orders and management Subjective Date of service: 11/16/18 Principal diagnosis: Ac. hypoxemic resp failure; S/P cardiac arrest; V-fib; H/O CVA; STEMI Interval history: Patient is seen today for: Ac. hypoxemic resp failure; S/P cardiac arrest with ROSC; Ventricular fibrillation.; H/O CVA; STEMI; Leukocytosis; Coagulopathy (POA); Likely COPD; HTN Seen and examined at bedside; 24hour events reviewed; nursing and respiratory care staff consulted; no adverse overnight events reported to me; resting peacefully in bed; some agitation reported earlier. Encephalopathy persists, to lerating PSV trials. No fevers, no vomiting reported. at the bedside. Vitals, labs,medications, chart and imaging reviewed. Discussed in ICU-IDT rounds Objective Vital Signs - 12hr 11/15/18 11/15/18 11/15/18 23:00 23:31 23:44 Temperature Pulse Rate 71 72 75 Pulse Rate [ Bilateral Throughout] Pulse Rate [ From Monitor] Respiratory 9 L 9 L Rate Respiratory Rate [Bilateral Throughout] Blood Pressure 112/62 112/62 112/62 O2 Sat by Pulse 98 98 98 Oximetry 11/16/18 11/16/18 11/16/18 00:00 00:31 01:00 Temperature 98.0 F Pulse Rate 70 75 73 Pulse Rate [ Bilateral Throughout] Pulse Rate [ 76 From Monitor] Respiratory 9 L 10 L 9 L Rate Respiratory Rate [Bilateral Throughout] Blood Pressure 121/65 121/65 129/60 O2 Sat by Pulse 99 98 99 Oximetry 11/16/18 11/16/18 11/16/18 01:31 01:45 02:01 Temperature Pulse Rate 73 67 Pulse Rate [ 75 Bilateral Throughout] Pulse Rate [ From Monitor] Respiratory 9 L 10 L Rate Respiratory 14 Rate [Bilateral Throughout] Blood Pressure 129/60 116/56 O2 Sat by Pulse 97 95 Oximetry 11/16/18 11/16/18 11/16/18 02:31 03:00 03:31 Temperature Pulse Rate 70 67 71 Pulse Rate [ Bilateral Throughout] Pulse Rate [ From Monitor] Respiratory 10 L 9 L 9 L Rate Respiratory Rate [Bilateral Throughout] Blood Pressure 116/56 105/60 105/60 O2 Sat by Pulse 99 98 99 Oximetry 11/16/18 11/16/18 11/16/18 04:00 04:01 04:31 Temperature 97.7 F Pulse Rate 80 65 64 Pulse Rate [ Bilateral Throughout] Pulse Rate [ 80 From Monitor] Respiratory 17 9 L 9 L Rate Respiratory Rate [Bilateral Throughout] Blood Pressure 95/45 O2 Sat by Pulse 96 97 98 Oximetry 11/16/18 11/16/18 11/16/18 05:01 05:31 06:00 Temperature Pulse Rate 80 75 69 Pulse Rate [ Bilateral Throughout] Pulse Rate [ From Monitor] Respiratory 13 8 L 10 L Rate Respiratory Rate [Bilateral Throughout] Blood Pressure 95/45 154/86 98/58 O2 Sat by Pulse 97 98 95 Oximetry 11/16/18 11/16/18 11/16/18 06:31 07:00 07:22 Temperature Pulse Rate 65 64 64 Pulse Rate [ Bilateral Throughout] Pulse Rate [ From Monitor] Respiratory 9 L 9 L Rate Respiratory Rate [Bilateral Throughout] Blood Pressure 98/58 90/60 90/60 O2 Sat by Pulse 97 97 99 Oximetry 11/16/18 11/16/18 11/16/18 07:31 07:33 07:52 Temperature Pulse Rate 64 Pulse Rate [ 64 Bilateral Throughout] Pulse Rate [ 65 From Monitor] Respiratory 9 L 9 L Rate Respiratory 10 L Rate [Bilateral Throughout] Blood Pressure 90/60 O2 Sat by Pulse 99 Oximetry 11/16/18 11/16/18 11/16/18 08:00 08:31 09:00 Temperature 98.6 F Pulse Rate 64 66 68 Pulse Rate [ Bilateral Throughout] Pulse Rate [ From Monitor] Respiratory 10 L 9 L 9 L Rate Respiratory Rate [Bilateral Throughout] Blood Pressure 99/59 99/59 117/66 O2 Sat by Pulse 98 98 97 Oximetry 11/16/18 11/16/18 11/16/18 09:31 10:00 10:24 Temperature Pulse Rate 67 67 68 Pulse Rate [ Bilateral Throughout] Pulse Rate [ From Monitor] Respiratory 9 L 9 L Rate Respiratory Rate [Bilateral Throughout] Blood Pressure 117/66 96/59 96/59 O2 Sat by Pulse 97 96 Oximetry 11/16/18 10:25 Temperature Pulse Rate 67 Pulse Rate [ Bilateral Throughout] Pulse Rate [ From Monitor] Respiratory Rate Respiratory Rate [Bilateral Throughout] Blood Pressure 96/59 O2 Sat by Pulse Oximetry Constitutional: no acute distress, other (elderly and chronically ill looking CM with mildly increased resp effort at rest; + temporal wasting) Eyes: non-icteric ENT: oropharynx moist, other (ETT 25 cm MARCE) Neck: supple, no lymphadenopathy, no JVD Effort: mildly labored Ascultation: Bilateral: diminished breath sounds, rhonchi (scant) Percussion: Bilateral: not dull Cardiovascular: regular rate and rhythm, other (S1,S2) Gastrointestinal: normoactive bowel sounds, soft, non-tender Integumentary: other (Bilateral ecchymosis on risa posterior aspects of his chest wall) Extremities: no cyanosis, no edema, pink and warm, pulses normal Neurologic: non-focal exam (grossly), pupils equal and round, unable to assess Psychiatric: other (unable to assess re: AMS) CBC and BMP: 11/19/18 13:46 11/18/18 04:03 ABG, PT/INR, D-dimer: ABG POC ABG pH 7.367 (7.35-7.45) 11/16/18 03:11 ABG pH 7.425 pH Units (7.350-7.450) 11/14/18 05:25 POC ABG pCO2 43.9 (35-45) 11/16/18 03:11 ABG pCO2 33.4 mm Hg 11/14/18 05:25 POC ABG pO2 89 (80-105) 11/16/18 03:11 ABG pO2 110.0 mm Hg (80.0-90.0) H 11/14/18 05:25 POC ABG HCO3 25.2 (22-26 mml/L) 11/16/18 03:11 POC ABG Total CO2 27 (23-27mmol/L) 11/16/18 03:11 POC ABG O2 Sat 96 11/16/18 03:11 ABG O2 Saturation 98.1 % (95.0-99.0) 11/14/18 05:25 PT/INR, D-dimer PT 19.2 Sec. (12.2-14.9) H 11/12/18 22:15 INR 1.66 (0.87-1.13) H 11/12/18 22:15 Abnormal lab findings: Abnormal Labs 11/12/18 11/12/18 11/12/18 22:10 22:15 22:15 WBC RBC Hgb Hct MCV 104 H MCH 35 H RDW Plt Count 112 L Lymph % (Auto) Seg Neutrophils % Seg Neuts % (Manual) Lymphocytes % (Manual) 47.0 H Seg Neutrophils # Seg Neutrophils # Man Lymphocytes # (Manual) Monocytes # (Manual) PT 19.2 H INR 1.66 H APTT 52.5 H Activated Clotting Time ABG pH ABG pO2 ABG Base Excess ABG Hemoglobin Sodium Potassium Chloride Carbon Dioxide BUN Creatinine Glucose POC Glucose 131 H Lactic Acid Calcium Magnesium AST ALT Total Creatine Kinase CK-MB (CK-2) CK-MB (CK-2) Rel Index Troponin T C-Reactive Protein Total Protein Albumin 11/12/18 11/12/18 11/13/18 22:15 23:42 01:50 WBC RBC Hgb Hct MCV MCH RDW Plt Count Lymph % (Auto) Seg Neutrophils % Seg Neuts % (Manual) Lymphocytes % (Manual) Seg Neutrophils # Seg Neutrophils # Man Lymphocytes # (Manual) Monocytes # (Manual) PT INR APTT Activated Clotting Time 329 H ABG pH 7.312 L ABG pO2 147.6 H ABG Base Excess -4.7 L ABG Hemoglobin Sodium Potassium 2.7 L* Chloride 94.9 L Carbon Dioxide BUN Creatinine Glucose 341 H POC Glucose Lactic Acid Calcium 7.5 L Magnesium AST 58 H ALT Total Creatine Kinase CK-MB (CK-2) CK-MB (CK-2) Rel Index Troponin T C-Reactive Protein Total Protein 4.7 L Albumin 2.9 L 11/13/18 11/13/18 11/13/18 02:30 03:04 04:01 WBC RBC Hgb Hct MCV MCH RDW Plt Count Lymph % (Auto) Seg Neutrophils % Seg Neuts % (Manual) Lymphocytes % (Manual) Seg Neutrophils # Seg Neutrophils # Man Lymphocytes # (Manual) Monocytes # (Manual) PT INR APTT Activated Clotting Time 175 H 142 H ABG pH ABG pO2 ABG Base Excess ABG Hemoglobin Sodium Potassium Chloride Carbon Dioxide BUN Creatinine Glucose POC Glucose 185 H Lactic Acid Calcium Magnesium AST ALT Total Creatine Kinase CK-MB (CK-2) CK-MB (CK-2) Rel Index Troponin T C-Reactive Protein Total Protein Albumin 11/13/18 11/13/18 11/13/18 04:50 05:44 05:44 WBC 23.9 H RBC Hgb Hct MCV 102 H MCH 34 H RDW 15.5 H Plt Count Lymph % (Auto) Seg Neutrophils % Seg Neuts % (Manual) 85.0 H Lymphocytes % (Manual) 2.0 L Seg Neutrophils # Seg Neutrophils # Man 20.3 H Lymphocytes # (Manual) 0.5 L Monocytes # (Manual) 1.7 H PT INR APTT Activated Clotting Time ABG pH ABG pO2 136.3 H ABG Base Excess -4.4 L ABG Hemoglobin Sodium Potassium Chloride Carbon Dioxide BUN Creatinine Glucose 210 H POC Glucose Lactic Acid Calcium 7.8 L Magnesium AST ALT Total Creatine Kinase 2686 H CK-MB (CK-2) 126.5 H CK-MB (CK-2) Rel Index 4.7 H Troponin T 1.500 H* D C-Reactive Protein Total Protein Albumin 11/13/18 11/13/18 11/13/18 06:44 11:12 14:15 WBC RBC Hgb Hct MCV MCH RDW Plt Count Lymph % (Auto) Seg Neutrophils % Seg Neuts % (Manual) Lymphocytes % (Manual) Seg Neutrophils # Seg Neutrophils # Man Lymphocytes # (Manual) Monocytes # (Manual) PT INR APTT Activated Clotting Time ABG pH ABG pO2 ABG Base Excess ABG Hemoglobin Sodium Potassium Chloride Carbon Dioxide BUN Creatinine Glucose POC Glucose 197 H 152 H 125 H Lactic Acid Calcium Magnesium AST ALT Total Creatine Kinase CK-MB (CK-2) CK-MB (CK-2) Rel Index Troponin T C-Reactive Protein Total Protein Albumin 11/13/18 11/13/18 11/13/18 16:19 17:51 19:15 WBC RBC Hgb Hct MCV MCH RDW Plt Count Lymph % (Auto) Seg Neutrophils % Seg Neuts % (Manual) Lymphocytes % (Manual) Seg Neutrophils # Seg Neutrophils # Man Lymphocytes # (Manual) Monocytes # (Manual) PT INR APTT Activated Clotting Time ABG pH ABG pO2 ABG Base Excess ABG Hemoglobin Sodium Potassium Chloride Carbon Dioxide BUN Creatinine Glucose POC Glucose 124 H 129 H Lactic Acid Calcium Magnesium 2.60 H AST ALT Total Creatine Kinase CK-MB (CK-2) CK-MB (CK-2) Rel Index Troponin T C-Reactive Protein Total Protein Albumin 11/13/18 11/14/18 11/14/18 23:11 02:55 03:24 WBC 13.6 H RBC Hgb Hct MCV 103 H MCH 35 H RDW 15.4 H Plt Count 95 L Lymph % (Auto) 8.5 L Seg Neutrophils % 85.3 H Seg Neuts % (Manual) Lymphocytes % (Manual) Seg Neutrophils # 11.6 H Seg Neutrophils # Man Lymphocytes # (Manual) Monocytes # (Manual) PT INR APTT Activated Clotting Time ABG pH ABG pO2 ABG Base Excess ABG Hemoglobin Sodium Potassium Chloride Carbon Dioxide BUN Creatinine Glucose POC Glucose 180 H 119 H Lactic Acid Calcium Magnesium AST ALT Total Creatine Kinase CK-MB (CK-2) CK-MB (CK-2) Rel Index Troponin T C-Reactive Protein Total Protein Albumin 11/14/18 11/14/18 11/14/18 03:24 05:25 06:17 WBC RBC Hgb Hct MCV MCH RDW Plt Count Lymph % (Auto) Seg Neutrophils % Seg Neuts % (Manual) Lymphocytes % (Manual) Seg Neutrophils # Seg Neutrophils # Man Lymphocytes # (Manual) Monocytes # (Manual) PT INR APTT Activated Clotting Time ABG pH ABG pO2 110.0 H ABG Base Excess -2.2 L ABG Hemoglobin 13.2 L Sodium 136 L Potassium 5.1 H D Chloride Carbon Dioxide 20 L BUN Creatinine 0.7 L Glucose 124 H POC Glucose 124 H Lactic Acid Calcium 7.9 L Magnesium AST 183 H ALT 76 H Total Creatine Kinase CK-MB (CK-2) CK-MB (CK-2) Rel Index Troponin T C-Reactive Protein Total Protein 5.9 L D Albumin 3.4 L 11/14/18 11/14/18 11/14/18 11:28 12:41 16:51 WBC RBC Hgb Hct MCV MCH RDW Plt Count Lymph % (Auto) Seg Neutrophils % Seg Neuts % (Manual) Lymphocytes % (Manual) Seg Neutrophils # Seg Neutrophils # Man Lymphocytes # (Manual) Monocytes # (Manual) PT INR APTT Activated Clotting Time ABG pH ABG pO2 ABG Base Excess ABG Hemoglobin Sodium Potassium Chloride Carbon Dioxide BUN Creatinine Glucose POC Glucose 172 H 149 H Lactic Acid 4.40 H* Calcium Magnesium AST ALT Total Creatine Kinase CK-MB (CK-2) CK-MB (CK-2) Rel Index Troponin T C-Reactive Protein Total Protein Albumin 11/14/18 11/14/18 11/14/18 18:54 19:58 19:58 WBC RBC Hgb Hct MCV MCH RDW Plt Count Lymph % (Auto) Seg Neutrophils % Seg Neuts % (Manual) Lymphocytes % (Manual) Seg Neutrophils # Seg Neutrophils # Man Lymphocytes # (Manual) Monocytes # (Manual) PT INR APTT Activated Clotting Time ABG pH ABG pO2 ABG Base Excess ABG Hemoglobin Sodium Potassium Chloride Carbon Dioxide BUN Creatinine Glucose POC Glucose 168 H Lactic Acid 3.90 H* Calcium Magnesium AST ALT Total Creatine Kinase CK-MB (CK-2) CK-MB (CK-2) Rel Index Troponin T C-Reactive Protein 12.70 H Total Protein Albumin 11/14/18 11/15/18 11/15/18 23:10 02:40 05:14 WBC RBC Hgb Hct MCV MCH RDW Plt Count Lymph % (Auto) Seg Neutrophils % Seg Neuts % (Manual) Lymphocytes % (Manual) Seg Neutrophils # Seg Neutrophils # Man Lymphocytes # (Manual) Monocytes # (Manual) PT INR APTT Activated Clotting Time ABG pH ABG pO2 ABG Base Excess ABG Hemoglobin Sodium Potassium Chloride Carbon Dioxide BUN 26 H Creatinine Glucose 134 H POC Glucose 160 H 129 H Lactic Acid Calcium 8.1 L Magnesium AST 107 H ALT 59 H Total Creatine Kinase CK-MB (CK-2) CK-MB (CK-2) Rel Index Troponin T C-Reactive Protein Total Protein 5.3 L Albumin 3.0 L 11/15/18 11/15/18 11/15/18 05:59 05:59 06:37 WBC RBC 3.41 L Hgb Hct 35.0 L D MCV 102 H MCH 35 H RDW Plt Count 91 L Lymph % (Auto) Seg Neutrophils % Seg Neuts % (Manual) Lymphocytes % (Manual) Seg Neutrophils # Seg Neutrophils # Man Lymphocytes # (Manual) Monocytes # (Manual) PT INR APTT Activated Clotting Time ABG pH ABG pO2 ABG Base Excess ABG Hemoglobin Sodium Potassium Chloride Carbon Dioxide BUN Creatinine Glucose POC Glucose 160 H Lactic Acid 2.30 H* Calcium Magnesium AST ALT Total Creatine Kinase CK-MB (CK-2) CK-MB (CK-2) Rel Index Troponin T C-Reactive Protein Total Protein Albumin 11/15/18 11/15/18 11/16/18 11:30 23:20 03:09 WBC RBC Hgb Hct MCV MCH RDW Plt Count Lymph % (Auto) Seg Neutrophils % Seg Neuts % (Manual) Lymphocytes % (Manual) Seg Neutrophils # Seg Neutrophils # Man Lymphocytes # (Manual) Monocytes # (Manual) PT INR APTT Activated Clotting Time ABG pH ABG pO2 ABG Base Excess ABG Hemoglobin Sodium Potassium Chloride Carbon Dioxide BUN Creatinine Glucose POC Glucose 186 H 129 H 153 H Lactic Acid Calcium Magnesium AST ALT Total Creatine Kinase CK-MB (CK-2) CK-MB (CK-2) Rel Index Troponin T C-Reactive Protein Total Protein Albumin 11/16/18 11/16/18 11/16/18 05:22 05:22 06:54 WBC RBC 3.14 L Hgb 11.0 L Hct 32.1 L MCV 102 H MCH 35 H RDW Plt Count 96 L Lymph % (Auto) Seg Neutrophils % Seg Neuts % (Manual) Lymphocytes % (Manual) Seg Neutrophils # Seg Neutrophils # Man Lymphocytes # (Manual) Monocytes # (Manual) PT INR APTT Activated Clotting Time ABG pH ABG pO2 ABG Base Excess ABG Hemoglobin Sodium Potassium Chloride Carbon Dioxide BUN Creatinine 0.5 L Glucose 134 H POC Glucose 184 H Lactic Acid Calcium 8.0 L Magnesium AST ALT Total Creatine Kinase CK-MB (CK-2) CK-MB (CK-2) Rel Index Troponin T C-Reactive Protein Total Protein Albumin 11/16/18 08:11 WBC RBC Hgb Hct MCV MCH RDW Plt Count Lymph % (Auto) Seg Neutrophils % Seg Neuts % (Manual) Lymphocytes % (Manual) Seg Neutrophils # Seg Neutrophils # Man Lymphocytes # (Manual) Monocytes # (Manual) PT INR APTT Activated Clotting Time ABG pH ABG pO2 ABG Base Excess ABG Hemoglobin Sodium Potassium Chloride Carbon Dioxide BUN Creatinine Glucose POC Glucose 176 H Lactic Acid Calcium Magnesium AST ALT Total Creatine Kinase CK-MB (CK-2) CK-MB (CK-2) Rel Index Troponin T C-Reactive Protein Total Protein Albumin Chest x-ray: image reviewed (ETT in positon, flattening of the diaphragms, inc reased infiltrates RLL) Allied health notes reviewed: RT
--- NOTE | 2018-11-16 11:54 | Progress Note ---
Assessment and Plan Patient is 73-year-old man with a history of previous TIA 1 year ago, who presented with chest pain and loss of consciousness at home. He was found to be in cardiac arrest, and only return to spontaneous circulation upon arriving in the ER. Patient reportedly had a seizure-like episode while in the ER. According the patient's clinical findings, it is likely that he has anoxic brain injury due to the cardiac arrest. It is not entirely clear how long the patient was in cardiac arrest prior to returning to spontaneous circulation. Plan: 1. Anoxic brain injury after cardiac arrest - Currently patient is opening eyes to pain stimulation, and pupillary/cough/ brainstem reflexes are notably intact. This indicates that patient's brainstem is intact at this time - Discussed potential prognosis with family at bedside, including possible long- term dependency and disability, given amount of time patient was in cardiac arrest prior to CPR initiated ( states that there was about a 30 minute time period prior to CPR initiation). 2. Seizure: - EEG: generalized slowing noted, no seizures or epileptiform activity. - Continue Keppra - Cont. supportive care per ICU/primary teams. - Will continue to follow patient with serial neurologic exams. Kyaw Brush MD Neurology Subjective Date of service: 11/16/18 Principal diagnosis: Ac. hypoxemic resp failure; S/P cardiac arrest; V-fib; H/O CVA; STEMI Interval history: No acute events overnight. Objective - Exam Narrative Exam: Patient is intubated, opens eyes spontaneously, however not to command. Noted to track movement with eyes. Noted to open eyes with pain stimulation in all extremities. Patient withdraws to pain stimulation in all extremities. Cough, corneal reflexes intact, PEERL. 2+ reflexes throughout. - Vital Sign Vital Signs - 12hr 11/16/18 11/16/18 11/16/18 00:00 00:31 01:00 Temperature 98.0 F Pulse Rate 70 75 73 Pulse Rate [ Bilateral Throughout] Pulse Rate [ 76 From Monitor] Respiratory 9 L 10 L 9 L Rate Respiratory Rate [Bilateral Throughout] Blood Pressure 121/65 121/65 129/60 O2 Sat by Pulse 99 98 99 Oximetry 11/16/18 11/16/18 11/16/18 01:31 01:45 02:01 Temperature Pulse Rate 73 67 Pulse Rate [ 75 Bilateral Throughout] Pulse Rate [ From Monitor] Respiratory 9 L 10 L Rate Respiratory 14 Rate [Bilateral Throughout] Blood Pressure 129/60 116/56 O2 Sat by Pulse 97 95 Oximetry 11/16/18 11/16/18 11/16/18 02:31 03:00 03:31 Temperature Pulse Rate 70 67 71 Pulse Rate [ Bilateral Throughout] Pulse Rate [ From Monitor] Respiratory 10 L 9 L 9 L Rate Respiratory Rate [Bilateral Throughout] Blood Pressure 116/56 105/60 105/60 O2 Sat by Pulse 99 98 99 Oximetry 11/16/18 11/16/18 11/16/18 04:00 04:01 04:31 Temperature 97.7 F Pulse Rate 80 65 64 Pulse Rate [ Bilateral Throughout] Pulse Rate [ 80 From Monitor] Respiratory 17 9 L 9 L Rate Respiratory Rate [Bilateral Throughout] Blood Pressure 95/45 O2 Sat by Pulse 96 97 98 Oximetry 11/16/18 11/16/18 11/16/18 05:01 05:31 06:00 Temperature Pulse Rate 80 75 69 Pulse Rate [ Bilateral Throughout] Pulse Rate [ From Monitor] Respiratory 13 8 L 10 L Rate Respiratory Rate [Bilateral Throughout] Blood Pressure 95/45 154/86 98/58 O2 Sat by Pulse 97 98 95 Oximetry 11/16/18 11/16/18 11/16/18 06:31 07:00 07:22 Temperature Pulse Rate 65 64 64 Pulse Rate [ Bilateral Throughout] Pulse Rate [ From Monitor] Respiratory 9 L 9 L Rate Respiratory Rate [Bilateral Throughout] Blood Pressure 98/58 90/60 90/60 O2 Sat by Pulse 97 97 99 Oximetry 11/16/18 11/16/18 11/16/18 07:31 07:33 07:52 Temperature Pulse Rate 64 Pulse Rate [ 64 Bilateral Throughout] Pulse Rate [ 65 From Monitor] Respiratory 9 L 9 L Rate Respiratory 10 L Rate [Bilateral Throughout] Blood Pressure 90/60 O2 Sat by Pulse 99 Oximetry 11/16/18 11/16/18 11/16/18 08:00 08:31 09:00 Temperature 98.6 F Pulse Rate 64 66 68 Pulse Rate [ Bilateral Throughout] Pulse Rate [ From Monitor] Respiratory 10 L 9 L 9 L Rate Respiratory Rate [Bilateral Throughout] Blood Pressure 99/59 99/59 117/66 O2 Sat by Pulse 98 98 97 Oximetry 11/16/18 11/16/18 11/16/18 09:31 10:00 10:24 Temperature Pulse Rate 67 67 68 Pulse Rate [ Bilateral Throughout] Pulse Rate [ From Monitor] Respiratory 9 L 9 L Rate Respiratory Rate [Bilateral Throughout] Blood Pressure 117/66 96/59 96/59 O2 Sat by Pulse 97 96 Oximetry 11/16/18 11/16/18 11/16/18 10:25 10:31 11:00 Temperature Pulse Rate 67 71 69 Pulse Rate [ Bilateral Throughout] Pulse Rate [ From Monitor] Respiratory 9 L 9 L Rate Respiratory Rate [Bilateral Throughout] Blood Pressure 96/59 96/59 105/66 O2 Sat by Pulse 96 99 Oximetry 11/16/18 11:31 Temperature Pulse Rate 71 Pulse Rate [ Bilateral Throughout] Pulse Rate [ From Monitor] Respiratory 9 L Rate Respiratory Rate [Bilateral Throughout] Blood Pressure 105/66 O2 Sat by Pulse 97 Oximetry - General Apperance Constitutional: comfortable - EENT EENT: ATNC, PERRL, mucous membranes moist - Respiratory Respiratory: decreased breath sounds - Cardiovascular Cardiovascular: regular rate, normal S1, normal S2 Extremities: no peripheral edema bilat, no clubbing, cyanosis - Gastrointestinal Gastrointestinal: normoactive bowel sounds, non-tender - Integumentary Integumentary: normal - Laboratory Findings CBC and BMP: 11/16/18 05:22 11/16/18 05:22 Abnormal Lab Findings: Abnormal Labs 11/12/18 11/12/18 11/12/18 22:10 22:15 22:15 WBC RBC Hgb Hct MCV 104 H MCH 35 H RDW Plt Count 112 L Lymph % (Auto) Seg Neutrophils % Seg Neuts % (Manual) Lymphocytes % (Manual) 47.0 H Seg Neutrophils # Seg Neutrophils # Man Lymphocytes # (Manual) Monocytes # (Manual) PT 19.2 H INR 1.66 H APTT 52.5 H Activated Clotting Time ABG pH ABG pO2 ABG Base Excess ABG Hemoglobin Sodium Potassium Chloride Carbon Dioxide BUN Creatinine Glucose POC Glucose 131 H Lactic Acid Calcium Magnesium AST ALT Total Creatine Kinase CK-MB (CK-2) CK-MB (CK-2) Rel Index Troponin T C-Reactive Protein Total Protein Albumin 11/12/18 11/12/18 11/13/18 22:15 23:42 01:50 WBC RBC Hgb Hct MCV MCH RDW Plt Count Lymph % (Auto) Seg Neutrophils % Seg Neuts % (Manual) Lymphocytes % (Manual) Seg Neutrophils # Seg Neutrophils # Man Lymphocytes # (Manual) Monocytes # (Manual) PT INR APTT Activated Clotting Time 329 H ABG pH 7.312 L ABG pO2 147.6 H ABG Base Excess -4.7 L ABG Hemoglobin Sodium Potassium 2.7 L* Chloride 94.9 L Carbon Dioxide BUN Creatinine Glucose 341 H POC Glucose Lactic Acid Calcium 7.5 L Magnesium AST 58 H ALT Total Creatine Kinase CK-MB (CK-2) CK-MB (CK-2) Rel Index Troponin T C-Reactive Protein Total Protein 4.7 L Albumin 2.9 L 11/13/18 11/13/18 11/13/18 02:30 03:04 04:01 WBC RBC Hgb Hct MCV MCH RDW Plt Count Lymph % (Auto) Seg Neutrophils % Seg Neuts % (Manual) Lymphocytes % (Manual) Seg Neutrophils # Seg Neutrophils # Man Lymphocytes # (Manual) Monocytes # (Manual) PT INR APTT Activated Clotting Time 175 H 142 H ABG pH ABG pO2 ABG Base Excess ABG Hemoglobin Sodium Potassium Chloride Carbon Dioxide BUN Creatinine Glucose POC Glucose 185 H Lactic Acid Calcium Magnesium AST ALT Total Creatine Kinase CK-MB (CK-2) CK-MB (CK-2) Rel Index Troponin T C-Reactive Protein Total Protein Albumin 11/13/18 11/13/18 11/13/18 04:50 05:44 05:44 WBC 23.9 H RBC Hgb Hct MCV 102 H MCH 34 H RDW 15.5 H Plt Count Lymph % (Auto) Seg Neutrophils % Seg Neuts % (Manual) 85.0 H Lymphocytes % (Manual) 2.0 L Seg Neutrophils # Seg Neutrophils # Man 20.3 H Lymphocytes # (Manual) 0.5 L Monocytes # (Manual) 1.7 H PT INR APTT Activated Clotting Time ABG pH ABG pO2 136.3 H ABG Base Excess -4.4 L ABG Hemoglobin Sodium Potassium Chloride Carbon Dioxide BUN Creatinine Glucose 210 H POC Glucose Lactic Acid Calcium 7.8 L Magnesium AST ALT Total Creatine Kinase 2686 H CK-MB (CK-2) 126.5 H CK-MB (CK-2) Rel Index 4.7 H Troponin T 1.500 H* D C-Reactive Protein Total Protein Albumin 11/13/18 11/13/18 11/13/18 06:44 11:12 14:15 WBC RBC Hgb Hct MCV MCH RDW Plt Count Lymph % (Auto) Seg Neutrophils % Seg Neuts % (Manual) Lymphocytes % (Manual) Seg Neutrophils # Seg Neutrophils # Man Lymphocytes # (Manual) Monocytes # (Manual) PT INR APTT Activated Clotting Time ABG pH ABG pO2 ABG Base Excess ABG Hemoglobin Sodium Potassium Chloride Carbon Dioxide BUN Creatinine Glucose POC Glucose 197 H 152 H 125 H Lactic Acid Calcium Magnesium AST ALT Total Creatine Kinase CK-MB (CK-2) CK-MB (CK-2) Rel Index Troponin T C-Reactive Protein Total Protein Albumin 11/13/18 11/13/18 11/13/18 16:19 17:51 19:15 WBC RBC Hgb Hct MCV MCH RDW Plt Count Lymph % (Auto) Seg Neutrophils % Seg Neuts % (Manual) Lymphocytes % (Manual) Seg Neutrophils # Seg Neutrophils # Man Lymphocytes # (Manual) Monocytes # (Manual) PT INR APTT Activated Clotting Time ABG pH ABG pO2 ABG Base Excess ABG Hemoglobin Sodium Potassium Chloride Carbon Dioxide BUN Creatinine Glucose POC Glucose 124 H 129 H Lactic Acid Calcium Magnesium 2.60 H AST ALT Total Creatine Kinase CK-MB (CK-2) CK-MB (CK-2) Rel Index Troponin T C-Reactive Protein Total Protein Albumin 11/13/18 11/14/18 11/14/18 23:11 02:55 03:24 WBC 13.6 H RBC Hgb Hct MCV 103 H MCH 35 H RDW 15.4 H Plt Count 95 L Lymph % (Auto) 8.5 L Seg Neutrophils % 85.3 H Seg Neuts % (Manual) Lymphocytes % (Manual) Seg Neutrophils # 11.6 H Seg Neutrophils # Man Lymphocytes # (Manual) Monocytes # (Manual) PT INR APTT Activated Clotting Time ABG pH ABG pO2 ABG Base Excess ABG Hemoglobin Sodium Potassium Chloride Carbon Dioxide BUN Creatinine Glucose POC Glucose 180 H 119 H Lactic Acid Calcium Magnesium AST ALT Total Creatine Kinase CK-MB (CK-2) CK-MB (CK-2) Rel Index Troponin T C-Reactive Protein Total Protein Albumin 11/14/18 11/14/18 11/14/18 03:24 05:25 06:17 WBC RBC Hgb Hct MCV MCH RDW Plt Count Lymph % (Auto) Seg Neutrophils % Seg Neuts % (Manual) Lymphocytes % (Manual) Seg Neutrophils # Seg Neutrophils # Man Lymphocytes # (Manual) Monocytes # (Manual) PT INR APTT Activated Clotting Time ABG pH ABG pO2 110.0 H ABG Base Excess -2.2 L ABG Hemoglobin 13.2 L Sodium 136 L Potassium 5.1 H D Chloride Carbon Dioxide 20 L BUN Creatinine 0.7 L Glucose 124 H POC Glucose 124 H Lactic Acid Calcium 7.9 L Magnesium AST 183 H ALT 76 H Total Creatine Kinase CK-MB (CK-2) CK-MB (CK-2) Rel Index Troponin T C-Reactive Protein Total Protein 5.9 L D Albumin 3.4 L 11/14/18 11/14/18 11/14/18 11:28 12:41 16:51 WBC RBC Hgb Hct MCV MCH RDW Plt Count Lymph % (Auto) Seg Neutrophils % Seg Neuts % (Manual) Lymphocytes % (Manual) Seg Neutrophils # Seg Neutrophils # Man Lymphocytes # (Manual) Monocytes # (Manual) PT INR APTT Activated Clotting Time ABG pH ABG pO2 ABG Base Excess ABG Hemoglobin Sodium Potassium Chloride Carbon Dioxide BUN Creatinine Glucose POC Glucose 172 H 149 H Lactic Acid 4.40 H* Calcium Magnesium AST ALT Total Creatine Kinase CK-MB (CK-2) CK-MB (CK-2) Rel Index Troponin T C-Reactive Protein Total Protein Albumin 11/14/18 11/14/18 11/14/18 18:54 19:58 19:58 WBC RBC Hgb Hct MCV MCH RDW Plt Count Lymph % (Auto) Seg Neutrophils % Seg Neuts % (Manual) Lymphocytes % (Manual) Seg Neutrophils # Seg Neutrophils # Man Lymphocytes # (Manual) Monocytes # (Manual) PT INR APTT Activated Clotting Time ABG pH ABG pO2 ABG Base Excess ABG Hemoglobin Sodium Potassium Chloride Carbon Dioxide BUN Creatinine Glucose POC Glucose 168 H Lactic Acid 3.90 H* Calcium Magnesium AST ALT Total Creatine Kinase CK-MB (CK-2) CK-MB (CK-2) Rel Index Troponin T C-Reactive Protein 12.70 H Total Protein Albumin 11/14/18 11/15/18 11/15/18 23:10 02:40 05:14 WBC RBC Hgb Hct MCV MCH RDW Plt Count Lymph % (Auto) Seg Neutrophils % Seg Neuts % (Manual) Lymphocytes % (Manual) Seg Neutrophils # Seg Neutrophils # Man Lymphocytes # (Manual) Monocytes # (Manual) PT INR APTT Activated Clotting Time ABG pH ABG pO2 ABG Base Excess ABG Hemoglobin Sodium Potassium Chloride Carbon Dioxide BUN 26 H Creatinine Glucose 134 H POC Glucose 160 H 129 H Lactic Acid Calcium 8.1 L Magnesium AST 107 H ALT 59 H Total Creatine Kinase CK-MB (CK-2) CK-MB (CK-2) Rel Index Troponin T C-Reactive Protein Total Protein 5.3 L Albumin 3.0 L 11/15/18 11/15/18 11/15/18 05:59 05:59 06:37 WBC RBC 3.41 L Hgb Hct 35.0 L D MCV 102 H MCH 35 H RDW Plt Count 91 L Lymph % (Auto) Seg Neutrophils % Seg Neuts % (Manual) Lymphocytes % (Manual) Seg Neutrophils # Seg Neutrophils # Man Lymphocytes # (Manual) Monocytes # (Manual) PT INR APTT Activated Clotting Time ABG pH ABG pO2 ABG Base Excess ABG Hemoglobin Sodium Potassium Chloride Carbon Dioxide BUN Creatinine Glucose POC Glucose 160 H Lactic Acid 2.30 H* Calcium Magnesium AST ALT Total Creatine Kinase CK-MB (CK-2) CK-MB (CK-2) Rel Index Troponin T C-Reactive Protein Total Protein Albumin 11/15/18 11/15/18 11/16/18 11:30 23:20 03:09 WBC RBC Hgb Hct MCV MCH RDW Plt Count Lymph % (Auto) Seg Neutrophils % Seg Neuts % (Manual) Lymphocytes % (Manual) Seg Neutrophils # Seg Neutrophils # Man Lymphocytes # (Manual) Monocytes # (Manual) PT INR APTT Activated Clotting Time ABG pH ABG pO2 ABG Base Excess ABG Hemoglobin Sodium Potassium Chloride Carbon Dioxide BUN Creatinine Glucose POC Glucose 186 H 129 H 153 H Lactic Acid Calcium Magnesium AST ALT Total Creatine Kinase CK-MB (CK-2) CK-MB (CK-2) Rel Index Troponin T C-Reactive Protein Total Protein Albumin 11/16/18 11/16/18 11/16/18 05:22 05:22 06:54 WBC RBC 3.14 L Hgb 11.0 L Hct 32.1 L MCV 102 H MCH 35 H RDW Plt Count 96 L Lymph % (Auto) Seg Neutrophils % Seg Neuts % (Manual) Lymphocytes % (Manual) Seg Neutrophils # Seg Neutrophils # Man Lymphocytes # (Manual) Monocytes # (Manual) PT INR APTT Activated Clotting Time ABG pH ABG pO2 ABG Base Excess ABG Hemoglobin Sodium Potassium Chloride Carbon Dioxide BUN Creatinine 0.5 L Glucose 134 H POC Glucose 184 H Lactic Acid Calcium 8.0 L Magnesium AST ALT Total Creatine Kinase CK-MB (CK-2) CK-MB (CK-2) Rel Index Troponin T C-Reactive Protein Total Protein Albumin 11/16/18 08:11 WBC RBC Hgb Hct MCV MCH RDW Plt Count Lymph % (Auto) Seg Neutrophils % Seg Neuts % (Manual) Lymphocytes % (Manual) Seg Neutrophils # Seg Neutrophils # Man Lymphocytes # (Manual) Monocytes # (Manual) PT INR APTT Activated Clotting Time ABG pH ABG pO2 ABG Base Excess ABG Hemoglobin Sodium Potassium Chloride Carbon Dioxide BUN Creatinine Glucose POC Glucose 176 H Lactic Acid Calcium Magnesium AST ALT Total Creatine Kinase CK-MB (CK-2) CK-MB (CK-2) Rel Index Troponin T C-Reactive Protein Total Protein Albumin
[2018-11-16] MEDS: SUBLIMAZE IV PRN ×2 (14:13→20:51)
[2018-11-16] MEDS: ATIVAN IV PRN (20:30)
[2018-11-17] MEDS: DUONEB *Not for PRN Use IH SCH ×4 (02:30→19:09)
[2018-11-17] MEDS: HumuLIN R SUB-Q SCH ×5 (03:00→20:00)
[2018-11-17] MEDS: SUBLIMAZE IV PRN (06:19)
[2018-11-17] MEDS: ATIVAN IV PRN (06:20)
--- NOTE | 2018-11-17 06:32 | XRay Report ---
CHEST 1 VIEW [id number] INDICATION / CLINICAL INFORMATION: follow up respiratory failure. COMPARISON: 11/16/2018 FINDINGS: SUPPORT DEVICES: Stable HEART / MEDIASTINUM: Stable LUNGS / PLEURA: Increased markings in the right lung continue without significant change. No pneumoth orax. ADDITIONAL FINDINGS: No significant additional findings. IMPRESSION: No significant changes Signer Name: Jason Britt MD Signed: 11/17/2018 6:28 AM Workstation Name: [id number]
[2018-11-17 06:39] LABS: Hematocrit 28.7 % (35.5-45.6); Mean Corpuscular HGB Conc 35 % (32-34); Mean Corpuscular Volume 102 fl (84-94); Platelet Count 117 K/mm3 (140-440); Red Blood Count 2.82 M/mm3 (3.65-5.03)
[2018-11-17 06:40] LABS: BUN/Creatinine Ratio 35; Blood Urea Nitrogen 14 mg/dL (9-20); Calcium 8.1 mg/dL (8.4-10.2); Hemolysis Index 48
--- NOTE | 2018-11-17 08:44 | Progress Note ---
Assessment and Plan Assessment and plan: Cardiopulmonary arrest with successful resuscitation - could be from STEMI - now on vent, w/o pressor, follow 2d echo - s/p emergent cath with PCI STEMI (ST elevation myocardial infarction) - ST elevation (STEMI) myocardial infarction involving left anterior descending coronary artery s/p PCI cardiology following CAD (coronary artery disease), cont asprin and plavix Anoxic encephalopathy CT head no acute process, Neurology following Nurse says patient was awake, following commands yesterday and overnight. He is currently sedated because of agitation so I cannot duplicate Hydrocele consult Urologist. hyperkalemia Now resolved Seizure, on iv keppra, Tobacco use Severe PC Malnutrition - consult metal tester Hypokalemia, repleted SIRS - cont abx, follow cx DVT Px, lovenox DNR status I discussed with at bedside. She has decided on DNR status The high probability of a clinically significant, sudden or life threatening deterioration of the [multiple] system(s) required my full and direct attention, intervention and personal management. The aggregate critical care time was [35] minutes. This time is in addition to time spent performing reported procedures but includes the following: [x] Data Review and interpretation [x] Patient assessment and monitoring of vital signs [x] Documentation [x] Medication orders and management History Interval history: Still intubated at bedside has decided on DNR code status Nurse say patient was awake, following commands yesterday , and earlier but was agitated, so now sedated Hospitalist Physical - Physical exam Narrative exam: Gen: Not in acute distress, malnourished, intubated HEENT: Normocephalic, atraumatic Neck: supple, no JVD Heart: S1 and S2 reg, no murmurs, rubs or gallop Lungs: Clear to auscultation, no rhonchi, no wheeze Abd: soft, non tender, non distended, normal BS, Ext: No edema, no clubbing, no cyanosis Neuro: Currently sedated, does not follow commands. Nurse says was following commands earlier - Constitutional Vitals: Temp Pulse Resp BP Pulse Ox 101.2 F H 88 15 124/68 94 11/17/18 08:00 11/17/18 07:47 11/17/18 07:47 11/17/18 07:31 11/17/18 07:31 General appearance: Present: cachectic Results - Labs CBC & Chem 7: 11/17/18 05:34 11/17/18 05:34 Labs: Laboratory Last Values WBC 6.1 K/mm3 (4.5-11.0) 11/17/18 05:34 RBC 2.82 M/mm3 (3.65-5.03) L 11/17/18 05:34 Hgb 10.0 gm/dl (11.8-15.2) L 11/17/18 05:34 Hct 28.7 % (35.5-45.6) L 11/17/18 05:34 MCV 102 fl (84-94) H 11/17/18 05:34 MCH 36 pg (28-32) H 11/17/18 05:34 MCHC 35 % (32-34) H 11/17/18 05:34 RDW 15.0 % (13.2-15.2) 11/17/18 05:34 Plt Count 117 K/mm3 (140-440) L 11/17/18 05:34 Lymph % (Auto) 8.5 % (13.4-35.0) L 11/14/18 03:24 [place] % (Auto) 5.3 % (0.0-7.3) 11/14/18 03:24 Eos % (Auto) 0.5 % (0.0-4.3) 11/14/18 03:24 Baso % (Auto) 0.4 % (0.0-1.8) 11/14/18 03:24 Lymph # 1.2 K/mm3 (1.2-5.4) 11/14/18 03:24 [place] # 0.7 K/mm3 (0.0-0.8) 11/14/18 03:24 Eos # 0.1 K/mm3 (0.0-0.4) 11/14/18 03:24 Baso # 0.1 K/mm3 (0.0-0.1) 11/14/18 03:24 Add Manual Diff Complete 11/13/18 05:44 Total Counted 100 11/13/18 05:44 Seg Neutrophils % 85.3 % (40.0-70.0) H 11/14/18 03:24 Seg Neuts % (Manual) 85.0 % (40.0-70.0) H 11/13/18 05:44 6.0 % 11/13/18 05:44 2.0 % (13.4-35.0) L 11/13/18 05:44 Reactive Lymphs % (Man) 0 % 11/13/18 05:44 7.0 % (0.0-7.3) 11/13/18 05:44 0 % (0.0-4.3) 11/13/18 05:44 0 % (0.0-1.8) 11/13/18 05:44 0 % 11/13/18 05:44 0 % 11/13/18 05:44 0 % 11/13/18 05:44 0 % 11/13/18 05:44 Nucleated RBC % Not Reportable 11/13/18 05:44 Seg Neutrophils # 11.6 K/mm3 (1.8-7.7) H 11/14/18 03:24 Seg Neutrophils # Man 20.3 K/mm3 (1.8-7.7) H 11/13/18 05:44 Band Neutrophils # 1.4 K/mm3 11/13/18 05:44 0.5 K/mm3 (1.2-5.4) L 11/13/18 05:44 Abs React Lymphs (Man) 0.0 K/mm3 11/13/18 05:44 1.7 K/mm3 (0.0-0.8) H 11/13/18 05:44 0.0 K/mm3 (0.0-0.4) 11/13/18 05:44 0.0 K/mm3 (0.0-0.1) 11/13/18 05:44 0.0 K/mm3 11/13/18 05:44 0.0 K/mm3 11/13/18 05:44 0.0 K/mm3 11/13/18 05:44 Blast Cells # 0.0 K/mm3 11/13/18 05:44 WBC Morphology Not Reportable 11/13/18 05:44 Hypersegmented Neuts Not Reportable 11/13/18 05:44 Hyposegmented Neuts Not Reportable 11/13/18 05:44 Hypogranular Neuts Not Reportable 11/13/18 05:44 Not Reportable 11/13/18 05:44 Not Reportable 11/13/18 05:44 Not Reportable 11/13/18 05:44 Not Reportable 11/13/18 05:44 Not Reportable 11/13/18 05:44 Not Reportable 11/13/18 05:44 Consistent w auto 11/13/18 05:44 Not Reportable 11/13/18 05:44 Plt Clumps, EDTA Not Reportable 11/13/18 05:44 Not Reportable 11/13/18 05:44 Few 11/13/18 05:44 Not Reportable 11/13/18 05:44 Plt Morphology Comment Not Reportable 11/13/18 05:44 RBC Morphology Not Reportable 11/13/18 05:44 Dimorphic RBCs Not Reportable 11/13/18 05:44 Not Reportable 11/13/18 05:44 Not Reportable 11/13/18 05:44 Not Reportable 11/13/18 05:44 1+ 11/13/18 05:44 Not Reportable 11/13/18 05:44 1+ 11/13/18 05:44 Not Reportable 11/13/18 05:44 Not Reportable 11/13/18 05:44 Not Reportable 11/13/18 05:44 Not Reportable 11/13/18 05:44 Not Reportable 11/13/18 05:44 Not Reportable 11/13/18 05:44 Not Reportable 11/13/18 05:44 Not Reportable 11/13/18 05:44 Not Reportable 11/13/18 05:44 Not Reportable 11/13/18 05:44 Not Reportable 11/13/18 05:44 Not Reportable 11/13/18 05:44 Not Reportable 11/13/18 05:44 Acanthocytes (Spur) Not Reportable 11/13/18 05:44 Rouleaux Not Reportable 11/13/18 05:44 Not Reportable 11/13/18 05:44 Not Reportable 11/13/18 05:44 Not Reportable 11/13/18 05:44 Not Reportable 11/13/18 05:44 Hem Pathologist Commnt No 11/13/18 05:44 PT 19.2 Sec. (12.2-14.9) H 11/12/18 22:15 INR 1.66 (0.87-1.13) H 11/12/18 22:15 APTT 52.5 Sec. (24.2-36.6) H 11/12/18 22:15 142 (74-137) H 11/13/18 04:01 POC ABG pH 7.424 (7.35-7.45) 11/17/18 04:17 ABG pH 7.425 pH Units (7.350-7.450) 11/14/18 05:25 POC ABG pCO2 40.0 (35-45) 11/17/18 04:17 ABG pCO2 33.4 mm Hg 11/14/18 05:25 POC ABG pO2 70 (80-105) L 11/17/18 04:17 ABG pO2 110.0 mm Hg (80.0-90.0) H 11/14/18 05:25 POC ABG HCO3 26.2 (22-26 mml/L) 11/17/18 04:17 ABG HCO3 21.4 mmol/L (20.0-26.0) 11/14/18 05:25 POC ABG Total CO2 27 (23-27mmol/L) 11/17/18 04:17 POC ABG O2 Sat 94 11/17/18 04:17 ABG O2 Saturation 98.1 % (95.0-99.0) 11/14/18 05:25 ABG O2 Content 18.0 (0.0-44) 11/14/18 05:25 POC ABG Base Excess 2 ((-2) - (+3)mmol/L) 11/17/18 04:17 ABG Base Excess -2.2 mmol/L (-2.0-3.0) L 11/14/18 05:25 ABG Hemoglobin 13.2 gm/dl (14.0-18.0) L 11/14/18 05:25 ABG Carboxyhemoglobin 1.2 % (0.0-5.0) 11/14/18 05:25 ABG Methemoglobin 0.6 % (0.0-1.5) 11/14/18 05:25 96.3 % (95.0-99.0) 11/14/18 05:25 30 % 11/17/18 04:17 Sodium 140 mmol/L (137-145) 11/17/18 05:34 Potassium 3.7 mmol/L (3.6-5.0) 11/17/18 05:34 Chloride 102.8 mmol/L (98-107) 11/17/18 05:34 Carbon Dioxide 27 mmol/L (22-30) 11/17/18 05:34 14 mmol/L 11/17/18 05:34 BUN 14 mg/dL (9-20) 11/17/18 05:34 0.4 mg/dL (0.8-1.5) L 11/17/18 05:34 Estimated GFR > 60 ml/min 11/17/18 05:34 35 % 11/17/18 05:34 Glucose 198 mg/dL (75-100) H 11/17/18 05:34 POC Glucose 255 (70-105) H 11/17/18 03:18 Lactic Acid 2.30 mmol/L (0.7-2.0) H* 11/15/18 05:59 Calcium 8.1 mg/dL (8.4-10.2) L 11/17/18 05:34 Magnesium 2.60 mg/dL (1.7-2.3) H 11/13/18 16:19 0.50 mg/dL (0.1-1.2) 11/15/18 05:14 < 0.2 mg/dL (0-0.2) 11/14/18 03:24 0.4 mg/dL 11/14/18 03:24 AST 107 units/L (5-40) H 11/15/18 05:14 ALT 59 units/L (7-56) H 11/15/18 05:14 45 units/L (35-129) 11/15/18 05:14 2686 units/L (55-170) H 11/13/18 05:44 CK-MB (CK-2) 126.5 ng/mL (0.0-4.0) H 11/13/18 05:44 CK-MB (CK-2) Rel Index 4.7 (0-4) H 11/13/18 05:44 1.500 ng/mL (0.00-0.029) H* D 11/13/18 05:44 12.70 mg/dL (0.00-1.30) H 11/14/18 19:58 5.3 g/dL (6.3-8.2) L 11/15/18 05:14 3.0 g/dL (3.9-5) L 11/15/18 05:14 1.3 % 11/15/18 05:14 Triglycerides 94 mg/dL (2-149) 11/13/18 05:44 Cholesterol 147 mg/dL (50-199) 11/13/18 05:44 95 mg/dL (50-130) 11/13/18 05:44 56 mg/dL (40-59) 11/13/18 05:44 2.62 % 11/13/18 05:44 Active Medications - Current Medications Current Medications: Generic Name Dose Route Start Last Admin Trade Name Freq PRN Reason Stop Dose Admin Acetaminophen 650 mg 11/13/18 01:50 Tylenol IA Q4H PRN Fever >101 Albuterol 2.5 mg 11/13/18 01:53 Proventil IH Q6HRT PRN Wheezing Albuterol/Ipratropium 1 ampul 11/13/18 08:00 11/17/18 07:27 Duoneb *Not For Prn Use* IH 1 ampul Q6HRT YOSELIN Administration Lipase/Protease/Amylase 1 each 11/14/18 09:40 Pancreazambar Bass 10,500 Unit FEEDTUBE PRN PRN For Clogged Feeding Tube Aspirin 81 mg 11/13/18 10:00 11/16/18 10:23 Baby Aspirin PO 81 mg QDAY YOSELIN Administration Atorvastatin Calcium 80 mg 11/13/18 22:00 11/16/18 21:15 Lipitor PO 80 mg QHS YOSELIN Administration Clopidogrel Bisulfate 75 mg 11/14/18 10:00 11/16/18 10:23 Plavix PO 75 mg QDAY YOSELIN Administration Dextrose 50 ml 11/13/18 02:01 D50w (25gm) Syringe IV PRN PRN Hypoglycemia Famotidine 20 mg 11/15/18 10:00 11/16/18 21:15 Pepcid PO 20 mg BID YOSELIN Administration Fentanyl 50 mcg 11/16/18 11:00 11/17/18 06:19 Sublimaze IV 50 mcg Q2H PRN Administration Pain , Severe (7-10)/AGITATION Hydrophilic Ointment 1 applic 11/14/18 13:20 Vaseline Lip Therapy TP Q2HR PRN Dry Lips Insulin Human Regular 0 units 11/13/18 03:00 11/17/18 03:00 Humulin R SUB-Q 3 units Q4H YOSELIN Administration Protocol Levetiracetam 750 mg 11/16/18 10:00 11/16/18 21:14 Keppra PO 750 mg BID YOSELIN Administration Lisinopril 10 mg 11/14/18 11:00 11/16/18 10:25 Zestril PO Not Given QDAY YOSELIN Lorazepam 1 mg 11/13/18 01:41 11/17/18 06:20 Ativan IV 1 mg Q4H PRN Administration Seizures Metoprolol Tartrate 25 mg 11/13/18 10:00 11/16/18 21:15 Lopressor PO 25 mg BID YOSELIN Administration Multi-Ingred Cream/Lotion/Oil/Oint 1 applic 11/14/18 13:20 Artificial Tears Ophth Oint OU Q4HR PRN Dry Eye(s) Ondansetron HCl 4 mg 11/12/18 23:59 Zofran IV Q8H PRN N/V unrelieved by Reglan Simple Syrup 15 ml 11/14/18 09:40 Simple Syrup FEEDTUBE PRN PRN Hypoglycemia Simple Syrup 30 ml 11/14/18 09:40 Simple Syrup FEEDTUBE PRN PRN Hypoglycemia Sodium Bicarbonate 325 mg 11/14/18 09:40 Sodium Bicarbonate FEEDTUBE PRN PRN For Clogged Feeding Tube Nutrition/Malnutrition Assess - Dietary Evaluation Nutrition/Malnutrition Findings: Nutrition Notes Start: 11/13/18 11:12 Freq: Status: Active Protocol: Document 11/15/18 09:15 LM (Rec: 11/15/18 09:33 LM [id number]) Nutrition Notes Initial or Follow up Reassessment Other Pertinent Diagnosis s/p cardiac arrest, syncope, AMS, scrotal swelling, R wrist and elbow wound Current Diet Osmolite 1.5 at 60 ml/hr Labs/Tests BG 134 BUN 26 Pertinent Medications Humulin Height 6 ft 1 in Weight 44.6 kg [place] Body Weight (kg) 83.63 BMI 12.9 Subjective/Other Information Osmolite running at 40 ml/hr at time of visit. Pt tolerating TF. Percent of energy/protein needs met: 72%/100% Burn Absent Trauma Absent #2 Nutrition Diagnosis Malnutrition Diagnosis Progress(for reassessment Continues documentation) #1 Nutrition Diagnosis Inadequate oral intake Diagnosis Progress(for reassessment Continues documentation) Is patient on ventilator? Yes Is Patient Ambulatory and/or Out of Bed No REE-([place]-confined to bed) 1512.132 Kcal/Kg value to use for calculation 45 Approximate Energy Requirements Using 2007 kcal/Kg Calculation Used for Recommendations Kcal/kg Additional Notes Pro needs 1.2-2g/k-89g/ day Fluid needs 1ml/kcal Nutrition Intervention Change Diet Order: Continue TF Nutrition Support: Osmolite 1.5 at 60 ml/hr Flush 150 ml q4hr Kcal 2,160 Protein (gm) 90 Fluid (mL) 1,097 Goal #1 Continue TF Goal #2 Meet at least 80% of energy and protein needs Goal #3 Wt maintenance and/or gain Anticipated Discharge Needs: Unable to identify at this time Follow-Up By: 11/17/18 Additional Comments F/U for TF rate/tolerance
[2018-11-17] MEDS: LOPRESSOR PO SCH ×2 (09:12→22:36)
[2018-11-17] MEDS: BABY ASPIRIN PO SCH (09:12)
[2018-11-17] MEDS: PLAVIX PO SCH (09:12)
[2018-11-17] MEDS: PEPCID PO SCH ×2 (09:12→22:35)
[2018-11-17] MEDS: KEPPRA PO SCH ×2 (09:13→22:34)
[2018-11-17] MEDS: ZESTRIL PO SCH (10:00)
--- NOTE | 2018-11-17 10:54 | Progress Note ---
Assessment and Plan Currently stable cardiac status. Cont post-PCI care and other present cardiac management. Neuro input noted. Pt was made DNR per his . The patient has been seen in conjunction with Dr. Raji Mina who agrees with the assessment and plan of care. - Patient Problems (1) Anoxic brain injury Current Visit: Yes Status: Suspected (2) Cardiopulmonary arrest with successful resuscitation Current Visit: Yes Status: Acute (3) STEMI (ST elevation myocardial infarction) Current Visit: Yes Status: Acute Qualifiers: Involved coronary artery: LAD coronary artery Qualified Code(s): I21.02 - ST elevation (STEMI) myocardial infarction involving left anterior descending coronary artery (4) CAD (coronary artery disease) Current Visit: Yes Status: Chronic (5) Stented coronary artery Current Visit: Yes Status: Chronic (6) Ischemic cardiomyopathy Current Visit: Yes Status: Acute (7) Altered mental status Current Visit: Yes Status: Acute (8) Seizure Current Visit: Yes Status: Suspected (9) Tobacco use Current Visit: Yes Status: Chronic (10) Malnutrition Current Visit: Yes Status: Chronic (11) Hypokalemia Current Visit: Yes Status: Acute (12) DNR (do not resuscitate) Current Visit: Yes Status: Chronic Subjective Date of service: 11/17/18 Principal diagnosis: Ac. hypoxemic resp failure; S/P cardiac arrest; V-fib; H/O CVA; STEMI Interval history: pt remains intubated, nonresponsive. in SR. no family at bedside. Objective Last Vital Signs Temp 101.2 F H 11/17/18 08:00 Pulse 89 11/17/18 09:12 Resp 18 11/17/18 09:00 BP 122/80 11/17/18 09:12 Pulse Ox 96 11/17/18 09:00 - Physical Examination General: Other (intubated, nonresponsive ) HEENT: Positive: Other (sluggish) Neck: Positive: neck supple Cardiac: Positive: Reg Rate and Rhythm, S1/S2 Lungs: Positive: Decreased Breath Sounds, Oxygen, Ventilated Respirations Neuro: Positive: Other (unresponsive) Abdomen: Positive: Soft Incision: Cardiac Cath Site (c/d/i, no bleeding, no hematoma) Extremities: Present: Cold, Other (DP pulses present via doppler, no pedal pulses via doppler). Absent: edema - Labs and Meds CBC 11/17/18 Range/Units 05:34 WBC 6.1 (4.5-11.0) K/mm3 RBC 2.82 L (3.65-5.03) M/mm3 Hgb 10.0 L (11.8-15.2) gm/dl Hct 28.7 L (35.5-45.6) % Plt Count 117 L (140-440) K/mm3 Comprehensive Metabolic Panel 11/17/18 Range/Units 05:34 Sodium 140 (137-145) mmol/L Potassium 3.7 (3.6-5.0) mmol/L Chloride 102.8 (98-107) mmol/L Carbon Dioxide 27 (22-30) mmol/L BUN 14 (9-20) mg/dL Creatinine 0.4 L (0.8-1.5) mg/dL Glucose 198 H (75-100) mg/dL Calcium 8.1 L (8.4-10.2) mg/dL - Imaging and Cardiology Echo: report reviewed (TDS, EF 15-20%, mid anteroseptal, apical anterior and apical lateral wall dyskinetic.) Cardiac cath: report reviewed ( left main patent. LAD proximal 95% with WENDY 2 flow circumflex patent OM1 patent RCA patent with moderate LV dysfunction EF 3540% with septal inferior wall hypokinesis. With PCI of the LAD with a drug- eluting 3.5 x 23 mm stent at 15 kim.) - Allied health notes Allied health notes reviewed: nursing
--- NOTE | 2018-11-17 12:54 | Progress Note ---
Assessment and Plan Acute hypoxemic respiratory failure, on mechanical ventilator support. Status post cardiac arrest with return of spontaneous circulation. Ventricular fibrillation. History of cerebrovascular accident. Adult failure to thrive. ST elevation myocardial infarction. Leukocytosis Coagulopathy present on arrival. Hypokalemia. Likely chronic obstructive pulmonary disease. Possible history of hypertension - daily SAT and SBT assessments as tolerated - ABG after 2 hours on SBT's today - discontinue lovenox re: thrombocytopenia - continue bronchodilators with pulmonary hygiene per RT - VAP bundle addressed - continue to wean supplemental O2 to keep O2 sats > 90% - VTE prophylaxis with SCD's - continue stress ulcer prophylaxis - begin enteral nutrition at goal rate as tolerated - continue accuchecks with glycemic control per SSI for target blood glucose 140-180mg/dL - follow EEG report - follow clinically off AB's (No acute indication) - resume chronic home medications per attending - target sedation for RASS 0 to -1 - continue Keppra for seizures; adjust per neurology recommendations - neurology evaluation ongoing - continue mobility protocols / off loading for pressure ulcer prevention - Critical care bundles addressed - continue Seizure precautions - fall precautions - neuro-checks per RN - continue other care per attending / other consultants ..... care plan discussed at length with his at bedside CONDITION: CRITICAL PROGNOSIS: GUARDED TO GRAVE CODE STATUS: FULL CODE The high probability of a clinically significant, sudden or life threatening deterioration of the [Neurologic, Respiratory & Cardiovascular] system(s) required my full and direct attention, intervention and personal management. The aggregate critical care time was [37] minutes. This time is in addition to time spent performing reported procedures but includes the following: [x] Data Review and interpretation [x] Patient assessment and monitoring of vital signs [x] Documentation [x] Medication orders and management Subjective Date of service: 11/17/18 Principal diagnosis: Ac. hypoxemic resp failure; S/P cardiac arrest; V-fib; H/O CVA; STEMI Objective Vital Signs - 12hr 11/17/18 11/17/18 11/17/18 01:00 01:31 02:00 Temperature Pulse Rate 77 79 78 Pulse Rate [ Bilateral Throughout] Pulse Rate [ From Monitor] Respiratory 18 16 15 Rate Respiratory Rate [Bilateral Throughout] Blood Pressure 113/62 113/62 113/57 O2 Sat by Pulse 100 97 96 Oximetry 11/17/18 11/17/18 11/17/18 02:31 02:40 03:00 Temperature Pulse Rate 80 80 Pulse Rate [ 81 Bilateral Throughout] Pulse Rate [ From Monitor] Respiratory 17 14 Rate Respiratory 16 Rate [Bilateral Throughout] Blood Pressure 113/57 99/59 O2 Sat by Pulse 97 94 Oximetry 11/17/18 11/17/18 11/17/18 03:31 03:59 04:00 Temperature 98.2 F Pulse Rate 81 82 Pulse Rate [ Bilateral Throughout] Pulse Rate [ 88 From Monitor] Respiratory 15 19 Rate Respiratory Rate [Bilateral Throughout] Blood Pressure 99/59 109/61 O2 Sat by Pulse 97 97 Oximetry 11/17/18 11/17/18 11/17/18 04:31 05:00 05:31 Temperature Pulse Rate 82 83 83 Pulse Rate [ Bilateral Throughout] Pulse Rate [ From Monitor] Respiratory 17 19 16 Rate Respiratory Rate [Bilateral Throughout] Blood Pressure 109/61 113/58 113/58 O2 Sat by Pulse 97 97 96 Oximetry 11/17/18 11/17/18 11/17/18 06:00 06:31 07:00 Temperature Pulse Rate 84 87 87 Pulse Rate [ Bilateral Throughout] Pulse Rate [ From Monitor] Respiratory 19 19 22 Rate Respiratory Rate [Bilateral Throughout] Blood Pressure 108/65 108/65 124/68 O2 Sat by Pulse 96 96 97 Oximetry 11/17/18 11/17/18 11/17/18 07:11 07:31 07:47 Temperature Pulse Rate 90 88 Pulse Rate [ 88 Bilateral Throughout] Pulse Rate [ From Monitor] Respiratory 20 20 Rate Respiratory 15 Rate [Bilateral Throughout] Blood Pressure 124/68 124/68 O2 Sat by Pulse 95 94 Oximetry 11/17/18 11/17/18 11/17/18 08:00 08:01 08:31 Temperature 101.2 F H Pulse Rate 87 92 H Pulse Rate [ Bilateral Throughout] Pulse Rate [ 89 From Monitor] Respiratory 19 19 20 Rate Respiratory Rate [Bilateral Throughout] Blood Pressure 119/74 119/74 O2 Sat by Pulse 96 95 95 Oximetry 11/17/18 11/17/18 11/17/18 09:00 09:12 11:57 Temperature Pulse Rate 90 89 75 Pulse Rate [ Bilateral Throughout] Pulse Rate [ From Monitor] Respiratory 18 21 Rate Respiratory Rate [Bilateral Throughout] Blood Pressure 122/80 122/80 119/70 O2 Sat by Pulse 96 93 Oximetry 11/17/18 12:00 Temperature 100.0 F H Pulse Rate Pulse Rate [ Bilateral Throughout] Pulse Rate [ From Monitor] Respiratory Rate Respiratory Rate [Bilateral Throughout] Blood Pressure O2 Sat by Pulse Oximetry Constitutional: no acute distress, other (elderly and chronically ill looking CM with mildly increased resp effort at rest; + temporal wasting) Eyes: non-icteric ENT: oropharynx moist, other (ETT 25 cm MARCE) Neck: supple, no lymphadenopathy, no JVD Effort: mildly labored Ascultation: Bilateral: diminished breath sounds, rhonchi (scant) Percussion: Bilateral: not dull Cardiovascular: regular rate and rhythm Gastrointestinal: normoactive bowel sounds, soft, non-tender Integumentary: normal Extremities: no cyanosis, no edema, pink and warm, pulses normal Neurologic: non-focal exam (grossly), pupils equal and round, unable to assess Psychiatric: other (unable to assess re: AMS) CBC and BMP: 11/17/18 05:34 11/17/18 05:34 ABG, PT/INR, D-dimer: ABG POC ABG pH 7.424 (7.35-7.45) 11/17/18 04:17 ABG pH 7.425 pH Units (7.350-7.450) 11/14/18 05:25 POC ABG pCO2 40.0 (35-45) 11/17/18 04:17 ABG pCO2 33.4 mm Hg 11/14/18 05:25 POC ABG pO2 70 (80-105) L 11/17/18 04:17 ABG pO2 110.0 mm Hg (80.0-90.0) H 11/14/18 05:25 POC ABG HCO3 26.2 (22-26 mml/L) 11/17/18 04:17 POC ABG Total CO2 27 (23-27mmol/L) 11/17/18 04:17 POC ABG O2 Sat 94 11/17/18 04:17 ABG O2 Saturation 98.1 % (95.0-99.0) 11/14/18 05:25 PT/INR, D-dimer PT 19.2 Sec. (12.2-14.9) H 11/12/18 22:15 INR 1.66 (0.87-1.13) H 11/12/18 22:15 Abnormal lab findings: Abnormal Labs 11/12/18 11/12/18 11/12/18 22:10 22:15 22:15 WBC RBC Hgb Hct MCV 104 H MCH 35 H MCHC RDW Plt Count 112 L Lymph % (Auto) Seg Neutrophils % Seg Neuts % (Manual) Lymphocytes % (Manual) 47.0 H Seg Neutrophils # Seg Neutrophils # Man Lymphocytes # (Manual) Monocytes # (Manual) PT 19.2 H INR 1.66 H APTT 52.5 H Activated Clotting Time ABG pH POC ABG pO2 ABG pO2 ABG Base Excess ABG Hemoglobin Sodium Potassium Chloride Carbon Dioxide BUN Creatinine Glucose POC Glucose 131 H Lactic Acid Calcium Magnesium AST ALT Total Creatine Kinase CK-MB (CK-2) CK-MB (CK-2) Rel Index Troponin T C-Reactive Protein Total Protein Albumin 11/12/18 11/12/18 11/13/18 22:15 23:42 01:50 WBC RBC Hgb Hct MCV MCH MCHC RDW Plt Count Lymph % (Auto) Seg Neutrophils % Seg Neuts % (Manual) Lymphocytes % (Manual) Seg Neutrophils # Seg Neutrophils # Man Lymphocytes # (Manual) Monocytes # (Manual) PT INR APTT Activated Clotting Time 329 H ABG pH 7.312 L POC ABG pO2 ABG pO2 147.6 H ABG Base Excess -4.7 L ABG Hemoglobin Sodium Potassium 2.7 L* Chloride 94.9 L Carbon Dioxide BUN Creatinine Glucose 341 H POC Glucose Lactic Acid Calcium 7.5 L Magnesium AST 58 H ALT Total Creatine Kinase CK-MB (CK-2) CK-MB (CK-2) Rel Index Troponin T C-Reactive Protein Total Protein 4.7 L Albumin 2.9 L 11/13/18 11/13/18 11/13/18 02:30 03:04 04:01 WBC RBC Hgb Hct MCV MCH MCHC RDW Plt Count Lymph % (Auto) Seg Neutrophils % Seg Neuts % (Manual) Lymphocytes % (Manual) Seg Neutrophils # Seg Neutrophils # Man Lymphocytes # (Manual) Monocytes # (Manual) PT INR APTT Activated Clotting Time 175 H 142 H ABG pH POC ABG pO2 ABG pO2 ABG Base Excess ABG Hemoglobin Sodium Potassium Chloride Carbon Dioxide BUN Creatinine Glucose POC Glucose 185 H Lactic Acid Calcium Magnesium AST ALT Total Creatine Kinase CK-MB (CK-2) CK-MB (CK-2) Rel Index Troponin T C-Reactive Protein Total Protein Albumin 11/13/18 11/13/18 11/13/18 04:50 05:44 05:44 WBC 23.9 H RBC Hgb Hct MCV 102 H MCH 34 H MCHC RDW 15.5 H Plt Count Lymph % (Auto) Seg Neutrophils % Seg Neuts % (Manual) 85.0 H Lymphocytes % (Manual) 2.0 L Seg Neutrophils # Seg Neutrophils # Man 20.3 H Lymphocytes # (Manual) 0.5 L Monocytes # (Manual) 1.7 H PT INR APTT Activated Clotting Time ABG pH POC ABG pO2 ABG pO2 136.3 H ABG Base Excess -4.4 L ABG Hemoglobin Sodium Potassium Chloride Carbon Dioxide BUN Creatinine Glucose 210 H POC Glucose Lactic Acid Calcium 7.8 L Magnesium AST ALT Total Creatine Kinase 2686 H CK-MB (CK-2) 126.5 H CK-MB (CK-2) Rel Index 4.7 H Troponin T 1.500 H* D C-Reactive Protein Total Protein Albumin 11/13/18 11/13/18 11/13/18 06:44 11:12 14:15 WBC RBC Hgb Hct MCV MCH MCHC RDW Plt Count Lymph % (Auto) Seg Neutrophils % Seg Neuts % (Manual) Lymphocytes % (Manual) Seg Neutrophils # Seg Neutrophils # Man Lymphocytes # (Manual) Monocytes # (Manual) PT INR APTT Activated Clotting Time ABG pH POC ABG pO2 ABG pO2 ABG Base Excess ABG Hemoglobin Sodium Potassium Chloride Carbon Dioxide BUN Creatinine Glucose POC Glucose 197 H 152 H 125 H Lactic Acid Calcium Magnesium AST ALT Total Creatine Kinase CK-MB (CK-2) CK-MB (CK-2) Rel Index Troponin T C-Reactive Protein Total Protein Albumin 11/13/18 11/13/18 11/13/18 16:19 17:51 19:15 WBC RBC Hgb Hct MCV MCH MCHC RDW Plt Count Lymph % (Auto) Seg Neutrophils % Seg Neuts % (Manual) Lymphocytes % (Manual) Seg Neutrophils # Seg Neutrophils # Man Lymphocytes # (Manual) Monocytes # (Manual) PT INR APTT Activated Clotting Time ABG pH POC ABG pO2 ABG pO2 ABG Base Excess ABG Hemoglobin Sodium Potassium Chloride Carbon Dioxide BUN Creatinine Glucose POC Glucose 124 H 129 H Lactic Acid Calcium Magnesium 2.60 H AST ALT Total Creatine Kinase CK-MB (CK-2) CK-MB (CK-2) Rel Index Troponin T C-Reactive Protein Total Protein Albumin 11/13/18 11/14/18 11/14/18 23:11 02:55 03:24 WBC 13.6 H RBC Hgb Hct MCV 103 H MCH 35 H MCHC RDW 15.4 H Plt Count 95 L Lymph % (Auto) 8.5 L Seg Neutrophils % 85.3 H Seg Neuts % (Manual) Lymphocytes % (Manual) Seg Neutrophils # 11.6 H Seg Neutrophils # Man Lymphocytes # (Manual) Monocytes # (Manual) PT INR APTT Activated Clotting Time ABG pH POC ABG pO2 ABG pO2 ABG Base Excess ABG Hemoglobin Sodium Potassium Chloride Carbon Dioxide BUN Creatinine Glucose POC Glucose 180 H 119 H Lactic Acid Calcium Magnesium AST ALT Total Creatine Kinase CK-MB (CK-2) CK-MB (CK-2) Rel Index Troponin T C-Reactive Protein Total Protein Albumin 11/14/18 11/14/18 11/14/18 03:24 05:25 06:17 WBC RBC Hgb Hct MCV MCH MCHC RDW Plt Count Lymph % (Auto) Seg Neutrophils % Seg Neuts % (Manual) Lymphocytes % (Manual) Seg Neutrophils # Seg Neutrophils # Man Lymphocytes # (Manual) Monocytes # (Manual) PT INR APTT Activated Clotting Time ABG pH POC ABG pO2 ABG pO2 110.0 H ABG Base Excess -2.2 L ABG Hemoglobin 13.2 L Sodium 136 L Potassium 5.1 H D Chloride Carbon Dioxide 20 L BUN Creatinine 0.7 L Glucose 124 H POC Glucose 124 H Lactic Acid Calcium 7.9 L Magnesium AST 183 H ALT 76 H Total Creatine Kinase CK-MB (CK-2) CK-MB (CK-2) Rel Index Troponin T C-Reactive Protein Total Protein 5.9 L D Albumin 3.4 L 11/14/18 11/14/18 11/14/18 11:28 12:41 16:51 WBC RBC Hgb Hct MCV MCH MCHC RDW Plt Count Lymph % (Auto) Seg Neutrophils % Seg Neuts % (Manual) Lymphocytes % (Manual) Seg Neutrophils # Seg Neutrophils # Man Lymphocytes # (Manual) Monocytes # (Manual) PT INR APTT Activated Clotting Time ABG pH POC ABG pO2 ABG pO2 ABG Base Excess ABG Hemoglobin Sodium Potassium Chloride Carbon Dioxide BUN Creatinine Glucose POC Glucose 172 H 149 H Lactic Acid 4.40 H* Calcium Magnesium AST ALT Total Creatine Kinase CK-MB (CK-2) CK-MB (CK-2) Rel Index Troponin T C-Reactive Protein Total Protein Albumin 11/14/18 11/14/18 11/14/18 18:54 19:58 19:58 WBC RBC Hgb Hct MCV MCH MCHC RDW Plt Count Lymph % (Auto) Seg Neutrophils % Seg Neuts % (Manual) Lymphocytes % (Manual) Seg Neutrophils # Seg Neutrophils # Man Lymphocytes # (Manual) Monocytes # (Manual) PT INR APTT Activated Clotting Time ABG pH POC ABG pO2 ABG pO2 ABG Base Excess ABG Hemoglobin Sodium Potassium Chloride Carbon Dioxide BUN Creatinine Glucose POC Glucose 168 H Lactic Acid 3.90 H* Calcium Magnesium AST ALT Total Creatine Kinase CK-MB (CK-2) CK-MB (CK-2) Rel Index Troponin T C-Reactive Protein 12.70 H Total Protein Albumin 11/14/18 11/15/18 11/15/18 23:10 02:40 05:14 WBC RBC Hgb Hct MCV MCH MCHC RDW Plt Count Lymph % (Auto) Seg Neutrophils % Seg Neuts % (Manual) Lymphocytes % (Manual) Seg Neutrophils # Seg Neutrophils # Man Lymphocytes # (Manual) Monocytes # (Manual) PT INR APTT Activated Clotting Time ABG pH POC ABG pO2 ABG pO2 ABG Base Excess ABG Hemoglobin Sodium Potassium Chloride Carbon Dioxide BUN 26 H Creatinine Glucose 134 H POC Glucose 160 H 129 H Lactic Acid Calcium 8.1 L Magnesium AST 107 H ALT 59 H Total Creatine Kinase CK-MB (CK-2) CK-MB (CK-2) Rel Index Troponin T C-Reactive Protein Total Protein 5.3 L Albumin 3.0 L 11/15/18 11/15/18 11/15/18 05:59 05:59 06:37 WBC RBC 3.41 L Hgb Hct 35.0 L D MCV 102 H MCH 35 H MCHC RDW Plt Count 91 L Lymph % (Auto) Seg Neutrophils % Seg Neuts % (Manual) Lymphocytes % (Manual) Seg Neutrophils # Seg Neutrophils # Man Lymphocytes # (Manual) Monocytes # (Manual) PT INR APTT Activated Clotting Time ABG pH POC ABG pO2 ABG pO2 ABG Base Excess ABG Hemoglobin Sodium Potassium Chloride Carbon Dioxide BUN Creatinine Glucose POC Glucose 160 H Lactic Acid 2.30 H* Calcium Magnesium AST ALT Total Creatine Kinase CK-MB (CK-2) CK-MB (CK-2) Rel Index Troponin T C-Reactive Protein Total Protein Albumin 11/15/18 11/15/18 11/16/18 11:30 23:20 03:09 WBC RBC Hgb Hct MCV MCH MCHC RDW Plt Count Lymph % (Auto) Seg Neutrophils % Seg Neuts % (Manual) Lymphocytes % (Manual) Seg Neutrophils # Seg Neutrophils # Man Lymphocytes # (Manual) Monocytes # (Manual) PT INR APTT Activated Clotting Time ABG pH POC ABG pO2 ABG pO2 ABG Base Excess ABG Hemoglobin Sodium Potassium Chloride Carbon Dioxide BUN Creatinine Glucose POC Glucose 186 H 129 H 153 H Lactic Acid Calcium Magnesium AST ALT Total Creatine Kinase CK-MB (CK-2) CK-MB (CK-2) Rel Index Troponin T C-Reactive Protein Total Protein Albumin 11/16/18 11/16/18 11/16/18 05:22 05:22 06:54 WBC RBC 3.14 L Hgb 11.0 L Hct 32.1 L MCV 102 H MCH 35 H MCHC RDW Plt Count 96 L Lymph % (Auto) Seg Neutrophils % Seg Neuts % (Manual) Lymphocytes % (Manual) Seg Neutrophils # Seg Neutrophils # Man Lymphocytes # (Manual) Monocytes # (Manual) PT INR APTT Activated Clotting Time ABG pH POC ABG pO2 ABG pO2 ABG Base Excess ABG Hemoglobin Sodium Potassium Chloride Carbon Dioxide BUN Creatinine 0.5 L Glucose 134 H POC Glucose 184 H Lactic Acid Calcium 8.0 L Magnesium AST ALT Total Creatine Kinase CK-MB (CK-2) CK-MB (CK-2) Rel Index Troponin T C-Reactive Protein Total Protein Albumin 11/16/18 11/16/18 11/16/18 08:11 12:07 16:45 WBC RBC Hgb Hct MCV MCH MCHC RDW Plt Count Lymph % (Auto) Seg Neutrophils % Seg Neuts % (Manual) Lymphocytes % (Manual) Seg Neutrophils # Seg Neutrophils # Man Lymphocytes # (Manual) Monocytes # (Manual) PT INR APTT Activated Clotting Time ABG pH POC ABG pO2 ABG pO2 ABG Base Excess ABG Hemoglobin Sodium Potassium Chloride Carbon Dioxide BUN Creatinine Glucose POC Glucose 176 H 221 H 139 H Lactic Acid Calcium Magnesium AST ALT Total Creatine Kinase CK-MB (CK-2) CK-MB (CK-2) Rel Index Troponin T C-Reactive Protein Total Protein Albumin 11/16/18 11/16/1819 20:29 23:19 03:18 WBC RBC Hgb Hct MCV MCH MCHC RDW Plt Count Lymph % (Auto) Seg Neutrophils % Seg Neuts % (Manual) Lymphocytes % (Manual) Seg Neutrophils # Seg Neutrophils # Man Lymphocytes # (Manual) Monocytes # (Manual) PT INR APTT Activated Clotting Time ABG pH POC ABG pO2 ABG pO2 ABG Base Excess ABG Hemoglobin Sodium Potassium Chloride Carbon Dioxide BUN Creatinine Glucose POC Glucose 200 H 177 H 255 H Lactic Acid Calcium Magnesium AST ALT Total Creatine Kinase CK-MB (CK-2) CK-MB (CK-2) Rel Index Troponin T C-Reactive Protein Total Protein Albumin 11/17/18 11/17/18 11/17/18 04:17 05:34 05:34 WBC RBC 2.82 L Hgb 10.0 L Hct 28.7 L MCV 102 H MCH 36 H MCHC 35 H RDW Plt Count 117 L Lymph % (Auto) Seg Neutrophils % Seg Neuts % (Manual) Lymphocytes % (Manual) Seg Neutrophils # Seg Neutrophils # Man Lymphocytes # (Manual) Monocytes # (Manual) PT INR APTT Activated Clotting Time ABG pH POC ABG pO2 70 L ABG pO2 ABG Base Excess ABG Hemoglobin Sodium Potassium Chloride Carbon Dioxide BUN Creatinine 0.4 L Glucose 198 H POC Glucose Lactic Acid Calcium 8.1 L Magnesium AST ALT Total Creatine Kinase CK-MB (CK-2) CK-MB (CK-2) Rel Index Troponin T C-Reactive Protein Total Protein Albumin 11/17/18 11/17/18 08:01 12:17 WBC RBC Hgb Hct MCV MCH MCHC RDW Plt Count Lymph % (Auto) Seg Neutrophils % Seg Neuts % (Manual) Lymphocytes % (Manual) Seg Neutrophils # Seg Neutrophils # Man Lymphocytes # (Manual) Monocytes # (Manual) PT INR APTT Activated Clotting Time ABG pH POC ABG pO2 ABG pO2 ABG Base Excess ABG Hemoglobin Sodium Potassium Chloride Carbon Dioxide BUN Creatinine Glucose POC Glucose 171 H 244 H Lactic Acid Calcium Magnesium AST ALT Total Creatine Kinase CK-MB (CK-2) CK-MB (CK-2) Rel Index Troponin T C-Reactive Protein Total Protein Albumin Allied health notes reviewed: nursing
--- NOTE | 2018-11-17 19:45 | Progress Note ---
Assessment and Plan Patient is 73-year-old man with a history of previous TIA 1 year ago, who presented with chest pain and loss of consciousness at home. He was found to be in cardiac arrest, and only return to spontaneous circulation upon arriving in the ER. Patient reportedly had a seizure-like episode while in the ER. According the patient's clinical findings, it is likely that he has anoxic brain injury due to the cardiac arrest. It is not entirely clear how long the patient was in cardiac arrest prior to returning to spontaneous circulation. Plan: 1. Anoxic brain injury after cardiac arrest - Currently patient is opening eyes to pain stimulation, and pupillary/cough/ brainstem reflexes are notably intact. This indicates that patient's brainstem is intact at this time. Patient also noted to be tracking with eyes today. - Discussed potential prognosis with family at bedside, including possible long- term dependency and disability, given amount of time patient was in cardiac arrest prior to CPR initiated ( states that there was about a 30 minute time period prior to CPR initiation). 2. Seizure: - EEG: generalized slowing noted, no seizures or epileptiform activity. - Continue Keppra - Cont. supportive care per ICU/primary teams. - Will sign off as I am not covering the neurology service over the weekend. Recommend for neurologist covering weekend to be consulted for further neurologic monitoring and management. Kyaw Brush MD Neurology Subjective Date of service: 11/17/18 Principal diagnosis: Ac. hypoxemic resp failure; S/P cardiac arrest; V-fib; H/O CVA; STEMI Interval history: No acute events overnight. Patient reportedly more aroused overnight, and reportedly following commands, yet agitated and therefore required sedation. Objective - Exam Narrative Exam: Patient is intubated, opens eyes spontaneously, however not to command. Noted to track movement with eyes. Noted to open eyes with pain stimulation in all extremities. Patient withdraws to pain stimulation in all extremities. Cough, corneal reflexes intact, PEERL. 2+ reflexes throughout. - Vital Sign Vital Signs - 12hr 11/17/18 11/17/18 11/17/18 07:47 08:00 08:01 Temperature 101.2 F H Pulse Rate 87 Pulse Rate [ 88 Bilateral Throughout] Pulse Rate [ 89 From Monitor] Respiratory 19 19 Rate Respiratory 15 Rate [Bilateral Throughout] Blood Pressure 119/74 O2 Sat by Pulse 96 95 Oximetry 11/17/18 11/17/18 11/17/18 08:31 09:00 09:12 Temperature Pulse Rate 92 H 90 89 Pulse Rate [ Bilateral Throughout] Pulse Rate [ From Monitor] Respiratory 20 18 Rate Respiratory Rate [Bilateral Throughout] Blood Pressure 119/74 122/80 122/80 O2 Sat by Pulse 95 96 Oximetry 11/17/18 11/17/18 11/17/18 09:31 10:00 10:31 Temperature Pulse Rate 89 84 79 Pulse Rate [ Bilateral Throughout] Pulse Rate [ From Monitor] Respiratory 20 24 22 Rate Respiratory Rate [Bilateral Throughout] Blood Pressure 122/80 121/79 121/79 O2 Sat by Pulse 95 94 94 Oximetry 11/17/18 11/17/18 11/17/18 11:00 11:30 11:57 Temperature Pulse Rate 76 76 75 Pulse Rate [ Bilateral Throughout] Pulse Rate [ From Monitor] Respiratory 21 23 21 Rate Respiratory Rate [Bilateral Throughout] Blood Pressure 119/70 119/70 119/70 O2 Sat by Pulse 94 93 93 Oximetry 11/17/18 11/17/18 11/17/18 12:00 12:31 13:00 Temperature 100.0 F H Pulse Rate 74 76 79 Pulse Rate [ Bilateral Throughout] Pulse Rate [ 74 From Monitor] Respiratory 21 18 18 Rate Respiratory Rate [Bilateral Throughout] Blood Pressure 106/61 106/61 126/75 O2 Sat by Pulse 93 94 94 Oximetry 11/17/18 11/17/18 11/17/18 13:31 14:00 14:31 Temperature Pulse Rate 85 86 85 Pulse Rate [ Bilateral Throughout] Pulse Rate [ From Monitor] Respiratory 20 23 24 Rate Respiratory Rate [Bilateral Throughout] Blood Pressure 126/75 115/67 115/67 O2 Sat by Pulse 94 94 95 Oximetry 11/17/18 11/17/18 11/17/18 15:00 15:05 15:06 Temperature Pulse Rate 84 83 Pulse Rate [ 83 Bilateral Throughout] Pulse Rate [ From Monitor] Respiratory 20 22 Rate Respiratory 22 Rate [Bilateral Throughout] Blood Pressure 109/62 109/62 O2 Sat by Pulse 93 93 Oximetry 11/17/18 11/17/18 11/17/18 15:31 16:00 16:31 Temperature 100 F H Pulse Rate 85 86 89 Pulse Rate [ Bilateral Throughout] Pulse Rate [ 88 From Monitor] Respiratory 27 H 22 26 H Rate Respiratory Rate [Bilateral Throughout] Blood Pressure 109/62 110/58 110/58 O2 Sat by Pulse 95 93 93 Oximetry 11/17/18 11/17/18 11/17/18 17:00 17:31 18:00 Temperature Pulse Rate 90 101 H 107 H Pulse Rate [ Bilateral Throughout] Pulse Rate [ From Monitor] Respiratory 26 H 26 H 30 H Rate Respiratory Rate [Bilateral Throughout] Blood Pressure 109/60 109/60 123/63 O2 Sat by Pulse 94 93 93 Oximetry 11/17/18 11/17/18 19:09 19:16 Temperature Pulse Rate 118 H Pulse Rate [ 113 H Bilateral Throughout] Pulse Rate [ From Monitor] Respiratory Rate Respiratory 31 H Rate [Bilateral Throughout] Blood Pressure 113/71 O2 Sat by Pulse 93 Oximetry - General Apperance Constitutional: comfortable - EENT EENT: ATNC, PERRL, mucous membranes moist - Respiratory Respiratory: decreased breath sounds - Cardiovascular Cardiovascular: regular rate, normal S1, normal S2 Extremities: no peripheral edema bilat, no clubbing, cyanosis - Gastrointestinal Gastrointestinal: normoactive bowel sounds, soft, non-tender - Laboratory Findings CBC and BMP: 11/17/18 05:34 11/17/18 05:34 Abnormal Lab Findings: Abnormal Labs 11/12/18 11/12/18 11/12/18 22:10 22:15 22:15 WBC RBC Hgb Hct MCV 104 H MCH 35 H MCHC RDW Plt Count 112 L Lymph % (Auto) Seg Neutrophils % Seg Neuts % (Manual) Lymphocytes % (Manual) 47.0 H Seg Neutrophils # Seg Neutrophils # Man Lymphocytes # (Manual) Monocytes # (Manual) PT 19.2 H INR 1.66 H APTT 52.5 H Activated Clotting Time POC ABG pH ABG pH POC ABG pO2 ABG pO2 ABG Base Excess ABG Hemoglobin Sodium Potassium Chloride Carbon Dioxide BUN Creatinine Glucose POC Glucose 131 H Lactic Acid Calcium Magnesium AST ALT Total Creatine Kinase CK-MB (CK-2) CK-MB (CK-2) Rel Index Troponin T C-Reactive Protein Total Protein Albumin 11/12/18 11/12/18 11/13/18 22:15 23:42 01:50 WBC RBC Hgb Hct MCV MCH MCHC RDW Plt Count Lymph % (Auto) Seg Neutrophils % Seg Neuts % (Manual) Lymphocytes % (Manual) Seg Neutrophils # Seg Neutrophils # Man Lymphocytes # (Manual) Monocytes # (Manual) PT INR APTT Activated Clotting Time 329 H POC ABG pH ABG pH 7.312 L POC ABG pO2 ABG pO2 147.6 H ABG Base Excess -4.7 L ABG Hemoglobin Sodium Potassium 2.7 L* Chloride 94.9 L Carbon Dioxide BUN Creatinine Glucose 341 H POC Glucose Lactic Acid Calcium 7.5 L Magnesium AST 58 H ALT Total Creatine Kinase CK-MB (CK-2) CK-MB (CK-2) Rel Index Troponin T C-Reactive Protein Total Protein 4.7 L Albumin 2.9 L 11/13/18 11/13/18 11/13/18 02:30 03:04 04:01 WBC RBC Hgb Hct MCV MCH MCHC RDW Plt Count Lymph % (Auto) Seg Neutrophils % Seg Neuts % (Manual) Lymphocytes % (Manual) Seg Neutrophils # Seg Neutrophils # Man Lymphocytes # (Manual) Monocytes # (Manual) PT INR APTT Activated Clotting Time 175 H 142 H POC ABG pH ABG pH POC ABG pO2 ABG pO2 ABG Base Excess ABG Hemoglobin Sodium Potassium Chloride Carbon Dioxide BUN Creatinine Glucose POC Glucose 185 H Lactic Acid Calcium Magnesium AST ALT Total Creatine Kinase CK-MB (CK-2) CK-MB (CK-2) Rel Index Troponin T C-Reactive Protein Total Protein Albumin 11/13/18 11/13/18 11/13/18 04:50 05:44 05:44 WBC 23.9 H RBC Hgb Hct MCV 102 H MCH 34 H MCHC RDW 15.5 H Plt Count Lymph % (Auto) Seg Neutrophils % Seg Neuts % (Manual) 85.0 H Lymphocytes % (Manual) 2.0 L Seg Neutrophils # Seg Neutrophils # Man 20.3 H Lymphocytes # (Manual) 0.5 L Monocytes # (Manual) 1.7 H PT INR APTT Activated Clotting Time POC ABG pH ABG pH POC ABG pO2 ABG pO2 136.3 H ABG Base Excess -4.4 L ABG Hemoglobin Sodium Potassium Chloride Carbon Dioxide BUN Creatinine Glucose 210 H POC Glucose Lactic Acid Calcium 7.8 L Magnesium AST ALT Total Creatine Kinase 2686 H CK-MB (CK-2) 126.5 H CK-MB (CK-2) Rel Index 4.7 H Troponin T 1.500 H* D C-Reactive Protein Total Protein Albumin 11/13/18 11/13/18 11/13/18 06:44 11:12 14:15 WBC RBC Hgb Hct MCV MCH MCHC RDW Plt Count Lymph % (Auto) Seg Neutrophils % Seg Neuts % (Manual) Lymphocytes % (Manual) Seg Neutrophils # Seg Neutrophils # Man Lymphocytes # (Manual) Monocytes # (Manual) PT INR APTT Activated Clotting Time POC ABG pH ABG pH POC ABG pO2 ABG pO2 ABG Base Excess ABG Hemoglobin Sodium Potassium Chloride Carbon Dioxide BUN Creatinine Glucose POC Glucose 197 H 152 H 125 H Lactic Acid Calcium Magnesium AST ALT Total Creatine Kinase CK-MB (CK-2) CK-MB (CK-2) Rel Index Troponin T C-Reactive Protein Total Protein Albumin 11/13/18 11/13/18 11/13/18 16:19 17:51 19:15 WBC RBC Hgb Hct MCV MCH MCHC RDW Plt Count Lymph % (Auto) Seg Neutrophils % Seg Neuts % (Manual) Lymphocytes % (Manual) Seg Neutrophils # Seg Neutrophils # Man Lymphocytes # (Manual) Monocytes # (Manual) PT INR APTT Activated Clotting Time POC ABG pH ABG pH POC ABG pO2 ABG pO2 ABG Base Excess ABG Hemoglobin Sodium Potassium Chloride Carbon Dioxide BUN Creatinine Glucose POC Glucose 124 H 129 H Lactic Acid Calcium Magnesium 2.60 H AST ALT Total Creatine Kinase CK-MB (CK-2) CK-MB (CK-2) Rel Index Troponin T C-Reactive Protein Total Protein Albumin 11/13/18 11/14/18 11/14/18 23:11 02:55 03:24 WBC 13.6 H RBC Hgb Hct MCV 103 H MCH 35 H MCHC RDW 15.4 H Plt Count 95 L Lymph % (Auto) 8.5 L Seg Neutrophils % 85.3 H Seg Neuts % (Manual) Lymphocytes % (Manual) Seg Neutrophils # 11.6 H Seg Neutrophils # Man Lymphocytes # (Manual) Monocytes # (Manual) PT INR APTT Activated Clotting Time POC ABG pH ABG pH POC ABG pO2 ABG pO2 ABG Base Excess ABG Hemoglobin Sodium Potassium Chloride Carbon Dioxide BUN Creatinine Glucose POC Glucose 180 H 119 H Lactic Acid Calcium Magnesium AST ALT Total Creatine Kinase CK-MB (CK-2) CK-MB (CK-2) Rel Index Troponin T C-Reactive Protein Total Protein Albumin 11/14/18 11/14/18 11/14/18 03:24 05:25 06:17 WBC RBC Hgb Hct MCV MCH MCHC RDW Plt Count Lymph % (Auto) Seg Neutrophils % Seg Neuts % (Manual) Lymphocytes % (Manual) Seg Neutrophils # Seg Neutrophils # Man Lymphocytes # (Manual) Monocytes # (Manual) PT INR APTT Activated Clotting Time POC ABG pH ABG pH POC ABG pO2 ABG pO2 110.0 H ABG Base Excess -2.2 L ABG Hemoglobin 13.2 L Sodium 136 L Potassium 5.1 H D Chloride Carbon Dioxide 20 L BUN Creatinine 0.7 L Glucose 124 H POC Glucose 124 H Lactic Acid Calcium 7.9 L Magnesium AST 183 H ALT 76 H Total Creatine Kinase CK-MB (CK-2) CK-MB (CK-2) Rel Index Troponin T C-Reactive Protein Total Protein 5.9 L D Albumin 3.4 L 11/14/18 11/14/18 11/14/18 11:28 12:41 16:51 WBC RBC Hgb Hct MCV MCH MCHC RDW Plt Count Lymph % (Auto) Seg Neutrophils % Seg Neuts % (Manual) Lymphocytes % (Manual) Seg Neutrophils # Seg Neutrophils # Man Lymphocytes # (Manual) Monocytes # (Manual) PT INR APTT Activated Clotting Time POC ABG pH ABG pH POC ABG pO2 ABG pO2 ABG Base Excess ABG Hemoglobin Sodium Potassium Chloride Carbon Dioxide BUN Creatinine Glucose POC Glucose 172 H 149 H Lactic Acid 4.40 H* Calcium Magnesium AST ALT Total Creatine Kinase CK-MB (CK-2) CK-MB (CK-2) Rel Index Troponin T C-Reactive Protein Total Protein Albumin 11/14/18 11/14/18 11/14/18 18:54 19:58 19:58 WBC RBC Hgb Hct MCV MCH MCHC RDW Plt Count Lymph % (Auto) Seg Neutrophils % Seg Neuts % (Manual) Lymphocytes % (Manual) Seg Neutrophils # Seg Neutrophils # Man Lymphocytes # (Manual) Monocytes # (Manual) PT INR APTT Activated Clotting Time POC ABG pH ABG pH POC ABG pO2 ABG pO2 ABG Base Excess ABG Hemoglobin Sodium Potassium Chloride Carbon Dioxide BUN Creatinine Glucose POC Glucose 168 H Lactic Acid 3.90 H* Calcium Magnesium AST ALT Total Creatine Kinase CK-MB (CK-2) CK-MB (CK-2) Rel Index Troponin T C-Reactive Protein 12.70 H Total Protein Albumin 11/14/18 11/15/18 11/15/18 23:10 02:40 05:14 WBC RBC Hgb Hct MCV MCH MCHC RDW Plt Count Lymph % (Auto) Seg Neutrophils % Seg Neuts % (Manual) Lymphocytes % (Manual) Seg Neutrophils # Seg Neutrophils # Man Lymphocytes # (Manual) Monocytes # (Manual) PT INR APTT Activated Clotting Time POC ABG pH ABG pH POC ABG pO2 ABG pO2 ABG Base Excess ABG Hemoglobin Sodium Potassium Chloride Carbon Dioxide BUN 26 H Creatinine Glucose 134 H POC Glucose 160 H 129 H Lactic Acid Calcium 8.1 L Magnesium AST 107 H ALT 59 H Total Creatine Kinase CK-MB (CK-2) CK-MB (CK-2) Rel Index Troponin T C-Reactive Protein Total Protein 5.3 L Albumin 3.0 L 11/15/18 11/15/18 11/15/18 05:59 05:59 06:37 WBC RBC 3.41 L Hgb Hct 35.0 L D MCV 102 H MCH 35 H MCHC RDW Plt Count 91 L Lymph % (Auto) Seg Neutrophils % Seg Neuts % (Manual) Lymphocytes % (Manual) Seg Neutrophils # Seg Neutrophils # Man Lymphocytes # (Manual) Monocytes # (Manual) PT INR APTT Activated Clotting Time POC ABG pH ABG pH POC ABG pO2 ABG pO2 ABG Base Excess ABG Hemoglobin Sodium Potassium Chloride Carbon Dioxide BUN Creatinine Glucose POC Glucose 160 H Lactic Acid 2.30 H* Calcium Magnesium AST ALT Total Creatine Kinase CK-MB (CK-2) CK-MB (CK-2) Rel Index Troponin T C-Reactive Protein Total Protein Albumin 11/15/18 11/15/18 11/16/18 11:30 23:20 03:09 WBC RBC Hgb Hct MCV MCH MCHC RDW Plt Count Lymph % (Auto) Seg Neutrophils % Seg Neuts % (Manual) Lymphocytes % (Manual) Seg Neutrophils # Seg Neutrophils # Man Lymphocytes # (Manual) Monocytes # (Manual) PT INR APTT Activated Clotting Time POC ABG pH ABG pH POC ABG pO2 ABG pO2 ABG Base Excess ABG Hemoglobin Sodium Potassium Chloride Carbon Dioxide BUN Creatinine Glucose POC Glucose 186 H 129 H 153 H Lactic Acid Calcium Magnesium AST ALT Total Creatine Kinase CK-MB (CK-2) CK-MB (CK-2) Rel Index Troponin T C-Reactive Protein Total Protein Albumin 11/16/18 11/16/18 11/16/18 05:22 05:22 06:54 WBC RBC 3.14 L Hgb 11.0 L Hct 32.1 L MCV 102 H MCH 35 H MCHC RDW Plt Count 96 L Lymph % (Auto) Seg Neutrophils % Seg Neuts % (Manual) Lymphocytes % (Manual) Seg Neutrophils # Seg Neutrophils # Man Lymphocytes # (Manual) Monocytes # (Manual) PT INR APTT Activated Clotting Time POC ABG pH ABG pH POC ABG pO2 ABG pO2 ABG Base Excess ABG Hemoglobin Sodium Potassium Chloride Carbon Dioxide BUN Creatinine 0.5 L Glucose 134 H POC Glucose 184 H Lactic Acid Calcium 8.0 L Magnesium AST ALT Total Creatine Kinase CK-MB (CK-2) CK-MB (CK-2) Rel Index Troponin T C-Reactive Protein Total Protein Albumin 11/16/18 11/16/18 11/16/18 08:11 12:07 16:45 WBC RBC Hgb Hct MCV MCH MCHC RDW Plt Count Lymph % (Auto) Seg Neutrophils % Seg Neuts % (Manual) Lymphocytes % (Manual) Seg Neutrophils # Seg Neutrophils # Man Lymphocytes # (Manual) Monocytes # (Manual) PT INR APTT Activated Clotting Time POC ABG pH ABG pH POC ABG pO2 ABG pO2 ABG Base Excess ABG Hemoglobin Sodium Potassium Chloride Carbon Dioxide BUN Creatinine Glucose POC Glucose 176 H 221 H 139 H Lactic Acid Calcium Magnesium AST ALT Total Creatine Kinase CK-MB (CK-2) CK-MB (CK-2) Rel Index Troponin T C-Reactive Protein Total Protein Albumin 11/16/18 11/16/18 11/17/18 20:29 23:19 03:18 WBC RBC Hgb Hct MCV MCH MCHC RDW Plt Count Lymph % (Auto) Seg Neutrophils % Seg Neuts % (Manual) Lymphocytes % (Manual) Seg Neutrophils # Seg Neutrophils # Man Lymphocytes # (Manual) Monocytes # (Manual) PT INR APTT Activated Clotting Time POC ABG pH ABG pH POC ABG pO2 ABG pO2 ABG Base Excess ABG Hemoglobin Sodium Potassium Chloride Carbon Dioxide BUN Creatinine Glucose POC Glucose 200 H 177 H 255 H Lactic Acid Calcium Magnesium AST ALT Total Creatine Kinase CK-MB (CK-2) CK-MB (CK-2) Rel Index Troponin T C-Reactive Protein Total Protein Albumin 11/17/18 11/17/18 11/17/18 04:17 05:34 05:34 WBC RBC 2.82 L Hgb 10.0 L Hct 28.7 L MCV 102 H MCH 36 H MCHC 35 H RDW Plt Count 117 L Lymph % (Auto) Seg Neutrophils % Seg Neuts % (Manual) Lymphocytes % (Manual) Seg Neutrophils # Seg Neutrophils # Man Lymphocytes # (Manual) Monocytes # (Manual) PT INR APTT Activated Clotting Time POC ABG pH ABG pH POC ABG pO2 70 L ABG pO2 ABG Base Excess ABG Hemoglobin Sodium Potassium Chloride Carbon Dioxide BUN Creatinine 0.4 L Glucose 198 H POC Glucose Lactic Acid Calcium 8.1 L Magnesium AST ALT Total Creatine Kinase CK-MB (CK-2) CK-MB (CK-2) Rel Index Troponin T C-Reactive Protein Total Protein Albumin 11/17/18 11/17/18 11/17/18 08:01 12:17 16:22 WBC RBC Hgb Hct MCV MCH MCHC RDW Plt Count Lymph % (Auto) Seg Neutrophils % Seg Neuts % (Manual) Lymphocytes % (Manual) Seg Neutrophils # Seg Neutrophils # Man Lymphocytes # (Manual) Monocytes # (Manual) PT INR APTT Activated Clotting Time POC ABG pH 7.473 H ABG pH POC ABG pO2 51 L ABG pO2 ABG Base Excess ABG Hemoglobin Sodium Potassium Chloride Carbon Dioxide BUN Creatinine Glucose POC Glucose 171 H 244 H Lactic Acid Calcium Magnesium AST ALT Total Creatine Kinase CK-MB (CK-2) CK-MB (CK-2) Rel Index Troponin T C-Reactive Protein Total Protein Albumin 11/17/18 16:35 WBC RBC Hgb Hct MCV MCH MCHC RDW Plt Count Lymph % (Auto) Seg Neutrophils % Seg Neuts % (Manual) Lymphocytes % (Manual) Seg Neutrophils # Seg Neutrophils # Man Lymphocytes # (Manual) Monocytes # (Manual) PT INR APTT Activated Clotting Time POC ABG pH ABG pH POC ABG pO2 ABG pO2 ABG Base Excess ABG Hemoglobin Sodium Potassium Chloride Carbon Dioxide BUN Creatinine Glucose POC Glucose 176 H Lactic Acid Calcium Magnesium AST ALT Total Creatine Kinase CK-MB (CK-2) CK-MB (CK-2) Rel Index Troponin T C-Reactive Protein Total Protein Albumin
[2018-11-17 20:23] LABS: Hemoglobin 10.6 gm/dl (11.8-15.2); Mean Corpuscular HGB Conc 34 % (32-34); Mean Corpuscular Volume 102 fl (84-94); Platelet Count 142 K/mm3 (140-440); Red Blood Count 3.04 M/mm3 (3.65-5.03); Red Cell Distribution Width 14.7 % (13.2-15.2)
[2018-11-17 21:30] LABS: Basophils % (Manual) 0 % (0.0-1.8); Eosinophils % (Manual) 0 % (0.0-4.3); RBC Morphology Normal; Total Cells Counted 100
[2018-11-18] MEDS: HumuLIN R SUB-Q SCH ×6 (00:32→21:04)
[2018-11-18] MEDS: DUONEB *Not for PRN Use IH SCH ×4 (01:57→19:40)
[2018-11-18 05:33] LABS: Hematocrit 31.1 % (35.5-45.6); Hemoglobin 10.6 gm/dl (11.8-15.2); Mean Corpuscular HGB Conc 34 % (32-34); Mean Corpuscular Volume 103 fl (84-94); Platelet Count 137 K/mm3 (140-440); Red Blood Count 3.01 M/mm3 (3.65-5.03); Red Cell Distribution Width 14.8 % (13.2-15.2)
[2018-11-18 05:49] LABS: BUN/Creatinine Ratio 30; Blood Urea Nitrogen 18 mg/dL (9-20); Hemolysis Index 9
--- NOTE | 2018-11-18 08:28 | Progress Note ---
Assessment and Plan Acute hypoxemic respiratory failure, on mechanical ventilator support. Status post cardiac arrest with return of spontaneous circulation. Ventricular fibrillation. History of cerebrovascular accident. Adult failure to thrive. ST elevation myocardial infarction. Leukocytosis Coagulopathy present on arrival. Hypokalemia. Likely chronic obstructive pulmonary disease. Possible history of hypertension - daily SAT and SBT assessments as tolerated - ABG after 2 hours on SBT's today - discontinue lovenox re: thrombocytopenia - continue bronchodilators with pulmonary hygiene per RT - VAP bundle addressed - continue to wean supplemental O2 to keep O2 sats > 90% - VTE prophylaxis with SCD's - continue stress ulcer prophylaxis - begin enteral nutrition at goal rate as tolerated - continue accuchecks with glycemic control per SSI for target blood glucose 140-180mg/dL - follow EEG report - follow clinically off AB's (No acute indication) - resume chronic home medications per attending - target sedation for RASS 0 to -1 - continue Keppra for seizures; adjust per neurology recommendations - neurology evaluation ongoing - continue mobility protocols / off loading for pressure ulcer prevention - Critical care bundles addressed - continue Seizure precautions - fall precautions - neuro-checks per RN - continue other care per attending / other consultants ..... care plan discussed at length with his at bedside CONDITION: CRITICAL PROGNOSIS: GUARDED TO GRAVE CODE STATUS: FULL CODE The high probability of a clinically significant, sudden or life threatening deterioration of the [Neurologic, Respiratory & Cardiovascular] system(s) required my full and direct attention, intervention and personal management. The aggregate critical care time was [37] minutes. This time is in addition to time spent performing reported procedures but includes the following: [x] Data Review and interpretation [x] Patient assessment and monitoring of vital signs [x] Documentation [x] Medication orders and management Subjective Date of service: 11/18/18 Principal diagnosis: Ac. hypoxemic resp failure; S/P cardiac arrest; V-fib; H/O CVA; STEMI Interval history: Patient is seen today for: Seen and examined at bedside; 24hour events reviewed; nursing and respiratory care staff consulted; no adverse overnight events reported to me; Objective Vital Signs - 12hr 11/17/18 11/17/18 11/17/18 20:31 20:59 21:00 Temperature Pulse Rate 107 H 103 H Pulse Rate [ Bilateral Throughout] Pulse Rate [ From Monitor] Respiratory 30 H 26 H 28 H Rate Respiratory Rate [Bilateral Throughout] Blood Pressure 113/80 O2 Sat by Pulse 95 95 Oximetry 11/17/18 11/17/18 11/17/18 21:31 22:00 22:31 Temperature Pulse Rate 96 H 84 Pulse Rate [ Bilateral Throughout] Pulse Rate [ From Monitor] Respiratory 28 H 24 Rate Respiratory Rate [Bilateral Throughout] Blood Pressure 113/80 116/71 113/80 O2 Sat by Pulse 96 96 96 Oximetry 11/17/18 11/17/18 11/17/18 22:36 23:00 23:20 Temperature 99.9 F H Pulse Rate 86 80 Pulse Rate [ Bilateral Throughout] Pulse Rate [ From Monitor] Respiratory 27 H Rate Respiratory Rate [Bilateral Throughout] Blood Pressure 116/71 94/54 O2 Sat by Pulse 97 Oximetry 11/17/18 11/18/18 11/18/18 23:31 00:00 00:08 Temperature Pulse Rate 78 78 Pulse Rate [ Bilateral Throughout] Pulse Rate [ 79 From Monitor] Respiratory 24 25 H 24 Rate Respiratory Rate [Bilateral Throughout] Blood Pressure 94/54 105/66 O2 Sat by Pulse 97 97 97 Oximetry 11/18/18 11/18/18 11/18/18 00:10 00:23 00:31 Temperature Pulse Rate 78 78 79 Pulse Rate [ Bilateral Throughout] Pulse Rate [ From Monitor] Respiratory 22 Rate Respiratory Rate [Bilateral Throughout] Blood Pressure 105/66 105/66 O2 Sat by Pulse 97 97 Oximetry 11/18/18 11/18/18 11/18/18 01:00 01:31 01:57 Temperature Pulse Rate 82 88 Pulse Rate [ 89 Bilateral Throughout] Pulse Rate [ From Monitor] Respiratory 25 H 28 H Rate Respiratory 21 Rate [Bilateral Throughout] Blood Pressure 110/64 110/64 O2 Sat by Pulse 97 97 Oximetry 11/18/18 11/18/18 11/18/18 02:00 02:31 03:00 Temperature Pulse Rate 89 92 H 93 H Pulse Rate [ Bilateral Throughout] Pulse Rate [ From Monitor] Respiratory 18 24 26 H Rate Respiratory Rate [Bilateral Throughout] Blood Pressure 85/58 85/58 89/65 O2 Sat by Pulse 96 93 95 Oximetry 11/18/18 11/18/18 11/18/18 03:25 03:31 03:48 Temperature 98.4 F Pulse Rate 103 H 98 H Pulse Rate [ Bilateral Throughout] Pulse Rate [ From Monitor] Respiratory 25 H Rate Respiratory Rate [Bilateral Throughout] Blood Pressure 89/65 89/65 O2 Sat by Pulse 96 96 Oximetry 11/18/18 11/18/18 11/18/18 04:00 04:31 05:00 Temperature Pulse Rate 107 H 97 H 103 H Pulse Rate [ Bilateral Throughout] Pulse Rate [ 108 H From Monitor] Respiratory 22 22 24 Rate Respiratory Rate [Bilateral Throughout] Blood Pressure 102/63 89/65 114/78 O2 Sat by Pulse 96 95 96 Oximetry 11/18/18 11/18/18 11/18/18 05:31 06:00 06:30 Temperature Pulse Rate 96 H 93 H 92 H Pulse Rate [ Bilateral Throughout] Pulse Rate [ From Monitor] Respiratory 23 30 H 23 Rate Respiratory Rate [Bilateral Throughout] Blood Pressure 114/78 115/77 115/77 O2 Sat by Pulse 96 97 98 Oximetry 11/18/18 11/18/18 11/18/18 07:00 07:30 08:00 Temperature 98.1 F Pulse Rate 96 H 90 90 Pulse Rate [ Bilateral Throughout] Pulse Rate [ From Monitor] Respiratory 20 23 23 Rate Respiratory Rate [Bilateral Throughout] Blood Pressure 109/65 109/65 103/67 O2 Sat by Pulse 97 97 97 Oximetry Constitutional: no acute distress, other (elderly and chronically ill looking CM with mildly increased resp effort at rest; + temporal wasting) Eyes: non-icteric ENT: oropharynx moist, other (ETT 25 cm MARCE) Neck: supple, no lymphadenopathy, no JVD Effort: mildly labored Ascultation: Bilateral: diminished breath sounds, rhonchi (scant) Percussion: Bilateral: not dull Cardiovascular: regular rate and rhythm Gastrointestinal: normoactive bowel sounds, soft, non-tender Integumentary: normal Extremities: no cyanosis, no edema, pink and warm, pulses normal Neurologic: non-focal exam (grossly), pupils equal and round, unable to assess Psychiatric: other (unable to assess re: AMS) CBC and BMP: 11/18/18 04:22 11/18/18 04:03 ABG, PT/INR, D-dimer: ABG POC ABG pH 7.384 (7.35-7.45) 11/18/18 04:50 ABG pH 7.425 pH Units (7.350-7.450) 11/14/18 05:25 POC ABG pCO2 47.9 (35-45) H 11/18/18 04:50 ABG pCO2 33.4 mm Hg 11/14/18 05:25 POC ABG pO2 75 (80-105) L 11/18/18 04:50 ABG pO2 110.0 mm Hg (80.0-90.0) H 11/14/18 05:25 POC ABG HCO3 28.6 (22-26 mml/L) 11/18/18 04:50 POC ABG Total CO2 30 (23-27mmol/L) 11/18/18 04:50 POC ABG O2 Sat 95 11/18/18 04:50 ABG O2 Saturation 98.1 % (95.0-99.0) 11/14/18 05:25 PT/INR, D-dimer PT 19.2 Sec. (12.2-14.9) H 11/12/18 22:15 INR 1.66 (0.87-1.13) H 11/12/18 22:15 Abnormal lab findings: Abnormal Labs 11/12/18 11/12/18 11/12/18 22:10 22:15 22:15 WBC RBC Hgb Hct MCV 104 H MCH 35 H MCHC RDW Plt Count 112 L Lymph % (Auto) Seg Neutrophils % Seg Neuts % (Manual) Lymphocytes % (Manual) 47.0 H Monocytes % (Manual) Seg Neutrophils # Seg Neutrophils # Man Lymphocytes # (Manual) Monocytes # (Manual) PT 19.2 H INR 1.66 H APTT 52.5 H Activated Clotting Time POC ABG pH ABG pH POC ABG pCO2 POC ABG pO2 ABG pO2 ABG Base Excess ABG Hemoglobin Sodium Potassium Chloride Carbon Dioxide BUN Creatinine Glucose POC Glucose 131 H Lactic Acid Calcium Magnesium AST ALT Total Creatine Kinase CK-MB (CK-2) CK-MB (CK-2) Rel Index Troponin T C-Reactive Protein Total Protein Albumin 11/12/18 11/12/18 11/13/18 22:15 23:42 01:50 WBC RBC Hgb Hct MCV MCH MCHC RDW Plt Count Lymph % (Auto) Seg Neutrophils % Seg Neuts % (Manual) Lymphocytes % (Manual) Monocytes % (Manual) Seg Neutrophils # Seg Neutrophils # Man Lymphocytes # (Manual) Monocytes # (Manual) PT INR APTT Activated Clotting Time 329 H POC ABG pH ABG pH 7.312 L POC ABG pCO2 POC ABG pO2 ABG pO2 147.6 H ABG Base Excess -4.7 L ABG Hemoglobin Sodium Potassium 2.7 L* Chloride 94.9 L Carbon Dioxide BUN Creatinine Glucose 341 H POC Glucose Lactic Acid Calcium 7.5 L Magnesium AST 58 H ALT Total Creatine Kinase CK-MB (CK-2) CK-MB (CK-2) Rel Index Troponin T C-Reactive Protein Total Protein 4.7 L Albumin 2.9 L 11/13/18 11/13/18 11/13/18 02:30 03:04 04:01 WBC RBC Hgb Hct MCV MCH MCHC RDW Plt Count Lymph % (Auto) Seg Neutrophils % Seg Neuts % (Manual) Lymphocytes % (Manual) Monocytes % (Manual) Seg Neutrophils # Seg Neutrophils # Man Lymphocytes # (Manual) Monocytes # (Manual) PT INR APTT Activated Clotting Time 175 H 142 H POC ABG pH ABG pH POC ABG pCO2 POC ABG pO2 ABG pO2 ABG Base Excess ABG Hemoglobin Sodium Potassium Chloride Carbon Dioxide BUN Creatinine Glucose POC Glucose 185 H Lactic Acid Calcium Magnesium AST ALT Total Creatine Kinase CK-MB (CK-2) CK-MB (CK-2) Rel Index Troponin T C-Reactive Protein Total Protein Albumin 11/13/18 11/13/18 11/13/18 04:50 05:44 05:44 WBC 23.9 H RBC Hgb Hct MCV 102 H MCH 34 H MCHC RDW 15.5 H Plt Count Lymph % (Auto) Seg Neutrophils % Seg Neuts % (Manual) 85.0 H Lymphocytes % (Manual) 2.0 L Monocytes % (Manual) Seg Neutrophils # Seg Neutrophils # Man 20.3 H Lymphocytes # (Manual) 0.5 L Monocytes # (Manual) 1.7 H PT INR APTT Activated Clotting Time POC ABG pH ABG pH POC ABG pCO2 POC ABG pO2 ABG pO2 136.3 H ABG Base Excess -4.4 L ABG Hemoglobin Sodium Potassium Chloride Carbon Dioxide BUN Creatinine Glucose 210 H POC Glucose Lactic Acid Calcium 7.8 L Magnesium AST ALT Total Creatine Kinase 2686 H CK-MB (CK-2) 126.5 H CK-MB (CK-2) Rel Index 4.7 H Troponin T 1.500 H* D C-Reactive Protein Total Protein Albumin 09/09/19 09/09/19 09/09/19 06:44 11:12 14:15 WBC RBC Hgb Hct MCV MCH MCHC RDW Plt Count Lymph % (Auto) Seg Neutrophils % Seg Neuts % (Manual) Lymphocytes % (Manual) Monocytes % (Manual) Seg Neutrophils # Seg Neutrophils # Man Lymphocytes # (Manual) Monocytes # (Manual) PT INR APTT Activated Clotting Time POC ABG pH ABG pH POC ABG pCO2 POC ABG pO2 ABG pO2 ABG Base Excess ABG Hemoglobin Sodium Potassium Chloride Carbon Dioxide BUN Creatinine Glucose POC Glucose 197 H 152 H 125 H Lactic Acid Calcium Magnesium AST ALT Total Creatine Kinase CK-MB (CK-2) CK-MB (CK-2) Rel Index Troponin T C-Reactive Protein Total Protein Albumin 11/13/18 11/13/18 11/13/18 16:19 17:51 19:15 WBC RBC Hgb Hct MCV MCH MCHC RDW Plt Count Lymph % (Auto) Seg Neutrophils % Seg Neuts % (Manual) Lymphocytes % (Manual) Monocytes % (Manual) Seg Neutrophils # Seg Neutrophils # Man Lymphocytes # (Manual) Monocytes # (Manual) PT INR APTT Activated Clotting Time POC ABG pH ABG pH POC ABG pCO2 POC ABG pO2 ABG pO2 ABG Base Excess ABG Hemoglobin Sodium Potassium Chloride Carbon Dioxide BUN Creatinine Glucose POC Glucose 124 H 129 H Lactic Acid Calcium Magnesium 2.60 H AST ALT Total Creatine Kinase CK-MB (CK-2) CK-MB (CK-2) Rel Index Troponin T C-Reactive Protein Total Protein Albumin 11/13/18 11/14/18 11/14/18 23:11 02:55 03:24 WBC 13.6 H RBC Hgb Hct MCV 103 H MCH 35 H MCHC RDW 15.4 H Plt Count 95 L Lymph % (Auto) 8.5 L Seg Neutrophils % 85.3 H Seg Neuts % (Manual) Lymphocytes % (Manual) Monocytes % (Manual) Seg Neutrophils # 11.6 H Seg Neutrophils # Man Lymphocytes # (Manual) Monocytes # (Manual) PT INR APTT Activated Clotting Time POC ABG pH ABG pH POC ABG pCO2 POC ABG pO2 ABG pO2 ABG Base Excess ABG Hemoglobin Sodium Potassium Chloride Carbon Dioxide BUN Creatinine Glucose POC Glucose 180 H 119 H Lactic Acid Calcium Magnesium AST ALT Total Creatine Kinase CK-MB (CK-2) CK-MB (CK-2) Rel Index Troponin T C-Reactive Protein Total Protein Albumin 11/14/18 11/14/18 11/14/18 03:24 05:25 06:17 WBC RBC Hgb Hct MCV MCH MCHC RDW Plt Count Lymph % (Auto) Seg Neutrophils % Seg Neuts % (Manual) Lymphocytes % (Manual) Monocytes % (Manual) Seg Neutrophils # Seg Neutrophils # Man Lymphocytes # (Manual) Monocytes # (Manual) PT INR APTT Activated Clotting Time POC ABG pH ABG pH POC ABG pCO2 POC ABG pO2 ABG pO2 110.0 H ABG Base Excess -2.2 L ABG Hemoglobin 13.2 L Sodium 136 L Potassium 5.1 H D Chloride Carbon Dioxide 20 L BUN Creatinine 0.7 L Glucose 124 H POC Glucose 124 H Lactic Acid Calcium 7.9 L Magnesium AST 183 H ALT 76 H Total Creatine Kinase CK-MB (CK-2) CK-MB (CK-2) Rel Index Troponin T C-Reactive Protein Total Protein 5.9 L D Albumin 3.4 L 11/14/18 11/14/18 11/14/18 11:28 12:41 16:51 WBC RBC Hgb Hct MCV MCH MCHC RDW Plt Count Lymph % (Auto) Seg Neutrophils % Seg Neuts % (Manual) Lymphocytes % (Manual) Monocytes % (Manual) Seg Neutrophils # Seg Neutrophils # Man Lymphocytes # (Manual) Monocytes # (Manual) PT INR APTT Activated Clotting Time POC ABG pH ABG pH POC ABG pCO2 POC ABG pO2 ABG pO2 ABG Base Excess ABG Hemoglobin Sodium Potassium Chloride Carbon Dioxide BUN Creatinine Glucose POC Glucose 172 H 149 H Lactic Acid 4.40 H* Calcium Magnesium AST ALT Total Creatine Kinase CK-MB (CK-2) CK-MB (CK-2) Rel Index Troponin T C-Reactive Protein Total Protein Albumin 11/14/18 11/14/18 11/14/18 18:54 19:58 19:58 WBC RBC Hgb Hct MCV MCH MCHC RDW Plt Count Lymph % (Auto) Seg Neutrophils % Seg Neuts % (Manual) Lymphocytes % (Manual) Monocytes % (Manual) Seg Neutrophils # Seg Neutrophils # Man Lymphocytes # (Manual) Monocytes # (Manual) PT INR APTT Activated Clotting Time POC ABG pH ABG pH POC ABG pCO2 POC ABG pO2 ABG pO2 ABG Base Excess ABG Hemoglobin Sodium Potassium Chloride Carbon Dioxide BUN Creatinine Glucose POC Glucose 168 H Lactic Acid 3.90 H* Calcium Magnesium AST ALT Total Creatine Kinase CK-MB (CK-2) CK-MB (CK-2) Rel Index Troponin T C-Reactive Protein 12.70 H Total Protein Albumin 11/14/18 11/15/18 11/15/18 23:10 02:40 05:14 WBC RBC Hgb Hct MCV MCH MCHC RDW Plt Count Lymph % (Auto) Seg Neutrophils % Seg Neuts % (Manual) Lymphocytes % (Manual) Monocytes % (Manual) Seg Neutrophils # Seg Neutrophils # Man Lymphocytes # (Manual) Monocytes # (Manual) PT INR APTT Activated Clotting Time POC ABG pH ABG pH POC ABG pCO2 POC ABG pO2 ABG pO2 ABG Base Excess ABG Hemoglobin Sodium Potassium Chloride Carbon Dioxide BUN 26 H Creatinine Glucose 134 H POC Glucose 160 H 129 H Lactic Acid Calcium 8.1 L Magnesium AST 107 H ALT 59 H Total Creatine Kinase CK-MB (CK-2) CK-MB (CK-2) Rel Index Troponin T C-Reactive Protein Total Protein 5.3 L Albumin 3.0 L 11/15/18 11/15/18 11/15/18 05:59 05:59 06:37 WBC RBC 3.41 L Hgb Hct 35.0 L D MCV 102 H MCH 35 H MCHC RDW Plt Count 91 L Lymph % (Auto) Seg Neutrophils % Seg Neuts % (Manual) Lymphocytes % (Manual) Monocytes % (Manual) Seg Neutrophils # Seg Neutrophils # Man Lymphocytes # (Manual) Monocytes # (Manual) PT INR APTT Activated Clotting Time POC ABG pH ABG pH POC ABG pCO2 POC ABG pO2 ABG pO2 ABG Base Excess ABG Hemoglobin Sodium Potassium Chloride Carbon Dioxide BUN Creatinine Glucose POC Glucose 160 H Lactic Acid 2.30 H* Calcium Magnesium AST ALT Total Creatine Kinase CK-MB (CK-2) CK-MB (CK-2) Rel Index Troponin T C-Reactive Protein Total Protein Albumin 11/15/18 11/15/18 11/16/18 11:30 23:20 03:09 WBC RBC Hgb Hct MCV MCH MCHC RDW Plt Count Lymph % (Auto) Seg Neutrophils % Seg Neuts % (Manual) Lymphocytes % (Manual) Monocytes % (Manual) Seg Neutrophils # Seg Neutrophils # Man Lymphocytes # (Manual) Monocytes # (Manual) PT INR APTT Activated Clotting Time POC ABG pH ABG pH POC ABG pCO2 POC ABG pO2 ABG pO2 ABG Base Excess ABG Hemoglobin Sodium Potassium Chloride Carbon Dioxide BUN Creatinine Glucose POC Glucose 186 H 129 H 153 H Lactic Acid Calcium Magnesium AST ALT Total Creatine Kinase CK-MB (CK-2) CK-MB (CK-2) Rel Index Troponin T C-Reactive Protein Total Protein Albumin 11/16/18 11/16/18 11/16/18 05:22 05:22 06:54 WBC RBC 3.14 L Hgb 11.0 L Hct 32.1 L MCV 102 H MCH 35 H MCHC RDW Plt Count 96 L Lymph % (Auto) Seg Neutrophils % Seg Neuts % (Manual) Lymphocytes % (Manual) Monocytes % (Manual) Seg Neutrophils # Seg Neutrophils # Man Lymphocytes # (Manual) Monocytes # (Manual) PT INR APTT Activated Clotting Time POC ABG pH ABG pH POC ABG pCO2 POC ABG pO2 ABG pO2 ABG Base Excess ABG Hemoglobin Sodium Potassium Chloride Carbon Dioxide BUN Creatinine 0.5 L Glucose 134 H POC Glucose 184 H Lactic Acid Calcium 8.0 L Magnesium AST ALT Total Creatine Kinase CK-MB (CK-2) CK-MB (CK-2) Rel Index Troponin T C-Reactive Protein Total Protein Albumin 11/16/18 11/16/18 11/16/18 08:11 12:07 16:45 WBC RBC Hgb Hct MCV MCH MCHC RDW Plt Count Lymph % (Auto) Seg Neutrophils % Seg Neuts % (Manual) Lymphocytes % (Manual) Monocytes % (Manual) Seg Neutrophils # Seg Neutrophils # Man Lymphocytes # (Manual) Monocytes # (Manual) PT INR APTT Activated Clotting Time POC ABG pH ABG pH POC ABG pCO2 POC ABG pO2 ABG pO2 ABG Base Excess ABG Hemoglobin Sodium Potassium Chloride Carbon Dioxide BUN Creatinine Glucose POC Glucose 176 H 221 H 139 H Lactic Acid Calcium Magnesium AST ALT Total Creatine Kinase CK-MB (CK-2) CK-MB (CK-2) Rel Index Troponin T C-Reactive Protein Total Protein Albumin 11/16/18 11/16/18 11/17/18 20:29 23:19 03:18 WBC RBC Hgb Hct MCV MCH MCHC RDW Plt Count Lymph % (Auto) Seg Neutrophils % Seg Neuts % (Manual) Lymphocytes % (Manual) Monocytes % (Manual) Seg Neutrophils # Seg Neutrophils # Man Lymphocytes # (Manual) Monocytes # (Manual) PT INR APTT Activated Clotting Time POC ABG pH ABG pH POC ABG pCO2 POC ABG pO2 ABG pO2 ABG Base Excess ABG Hemoglobin Sodium Potassium Chloride Carbon Dioxide BUN Creatinine Glucose POC Glucose 200 H 177 H 255 H Lactic Acid Calcium Magnesium AST ALT Total Creatine Kinase CK-MB (CK-2) CK-MB (CK-2) Rel Index Troponin T C-Reactive Protein Total Protein Albumin 11/17/18 11/17/18 11/17/18 04:17 05:34 05:34 WBC RBC 2.82 L Hgb 10.0 L Hct 28.7 L MCV 102 H MCH 36 H MCHC 35 H RDW Plt Count 117 L Lymph % (Auto) Seg Neutrophils % Seg Neuts % (Manual) Lymphocytes % (Manual) Monocytes % (Manual) Seg Neutrophils # Seg Neutrophils # Man Lymphocytes # (Manual) Monocytes # (Manual) PT INR APTT Activated Clotting Time POC ABG pH ABG pH POC ABG pCO2 POC ABG pO2 70 L ABG pO2 ABG Base Excess ABG Hemoglobin Sodium Potassium Chloride Carbon Dioxide BUN Creatinine 0.4 L Glucose 198 H POC Glucose Lactic Acid Calcium 8.1 L Magnesium AST ALT Total Creatine Kinase CK-MB (CK-2) CK-MB (CK-2) Rel Index Troponin T C-Reactive Protein Total Protein Albumin 11/17/18 11/17/18 11/17/18 08:01 12:17 16:22 WBC RBC Hgb Hct MCV MCH MCHC RDW Plt Count Lymph % (Auto) Seg Neutrophils % Seg Neuts % (Manual) Lymphocytes % (Manual) Monocytes % (Manual) Seg Neutrophils # Seg Neutrophils # Man Lymphocytes # (Manual) Monocytes # (Manual) PT INR APTT Activated Clotting Time POC ABG pH 7.473 H ABG pH POC ABG pCO2 POC ABG pO2 51 L ABG pO2 ABG Base Excess ABG Hemoglobin Sodium Potassium Chloride Carbon Dioxide BUN Creatinine Glucose POC Glucose 171 H 244 H Lactic Acid Calcium Magnesium AST ALT Total Creatine Kinase CK-MB (CK-2) CK-MB (CK-2) Rel Index Troponin T C-Reactive Protein Total Protein Albumin 11/17/18 11/17/18 11/17/18 16:35 20:05 21:13 WBC RBC 3.04 L Hgb 10.6 L Hct 31.0 L MCV 102 H MCH 35 H MCHC RDW Plt Count Lymph % (Auto) Seg Neutrophils % Seg Neuts % (Manual) 80.0 H Lymphocytes % (Manual) 11.0 L Monocytes % (Manual) 9.0 H Seg Neutrophils # Seg Neutrophils # Man Lymphocytes # (Manual) 0.7 L Monocytes # (Manual) PT INR APTT Activated Clotting Time POC ABG pH ABG pH POC ABG pCO2 POC ABG pO2 ABG pO2 ABG Base Excess ABG Hemoglobin Sodium Potassium Chloride Carbon Dioxide BUN Creatinine Glucose POC Glucose 176 H 197 H Lactic Acid Calcium Magnesium AST ALT Total Creatine Kinase CK-MB (CK-2) CK-MB (CK-2) Rel Index Troponin T C-Reactive Protein Total Protein Albumin 11/17/18 11/18/18 11/18/18 23:47 03:04 04:03 WBC RBC Hgb Hct MCV MCH MCHC RDW Plt Count Lymph % (Auto) Seg Neutrophils % Seg Neuts % (Manual) Lymphocytes % (Manual) Monocytes % (Manual) Seg Neutrophils # Seg Neutrophils # Man Lymphocytes # (Manual) Monocytes # (Manual) PT INR APTT Activated Clotting Time POC ABG pH ABG pH POC ABG pCO2 POC ABG pO2 ABG pO2 ABG Base Excess ABG Hemoglobin Sodium Potassium Chloride Carbon Dioxide BUN Creatinine 0.6 L Glucose 138 H POC Glucose 252 H 205 H Lactic Acid Calcium 8.0 L Magnesium AST ALT Total Creatine Kinase CK-MB (CK-2) CK-MB (CK-2) Rel Index Troponin T C-Reactive Protein Total Protein Albumin 11/18/18 11/18/18 04:22 04:50 WBC RBC 3.01 L Hgb 10.6 L Hct 31.1 L MCV 103 H MCH 35 H MCHC RDW Plt Count 137 L Lymph % (Auto) Seg Neutrophils % Seg Neuts % (Manual) Lymphocytes % (Manual) Monocytes % (Manual) Seg Neutrophils # Seg Neutrophils # Man Lymphocytes # (Manual) Monocytes # (Manual) PT INR APTT Activated Clotting Time POC ABG pH ABG pH POC ABG pCO2 47.9 H POC ABG pO2 75 L ABG pO2 ABG Base Excess ABG Hemoglobin Sodium Potassium Chloride Carbon Dioxide BUN Creatinine Glucose POC Glucose Lactic Acid Calcium Magnesium AST ALT Total Creatine Kinase CK-MB (CK-2) CK-MB (CK-2) Rel Index Troponin T C-Reactive Protein Total Protein Albumin Allied health notes reviewed: nursing
--- NOTE | 2018-11-18 09:22 | Progress Note ---
Assessment and Plan Assessment and plan: Cardiopulmonary arrest with successful resuscitation - could be from STEMI - now on vent, w/o pressor, follow 2d echo - s/p emergent cath with PCI STEMI (ST elevation myocardial infarction) - ST elevation (STEMI) myocardial infarction involving left anterior descending coronary artery s/p PCI cardiology following CAD (coronary artery disease), cont asprin and plavix Anoxic encephalopathy CT head no acute process, Neurology following Nurse says patient was awake, following commands on 11/16 but not 11/17 or today Hydrocele consult Urologist. hyperkalemia Now resolved Seizure, on iv keppra, Tobacco use Severe PC Malnutrition - consult manifold builder Hypokalemia, repleted SIRS - cont abx, follow cx DVT Px, lovenox DNR status I discussed with at bedside. She has decided on DNR status The high probability of a clinically significant, sudden or life threatening deterioration of the [multiple] system(s) required my full and direct attention, intervention and personal management. The aggregate critical care time was [31] minutes. This time is in addition to time spent performing reported procedures but includes the following: [x] Data Review and interpretation [x] Patient assessment and monitoring of vital signs [x] Documentation [x] Medication orders and management History Interval history: Still intubated at bedside has decided on DNR code status Nurse say patient was awake, following commands on 11/16 Hospitalist Physical - Physical exam Narrative exam: Gen: Not in acute distress, malnourished, intubated HEENT: Normocephalic, atraumatic Neck: supple, no JVD Heart: S1 and S2 reg, no murmurs, rubs or gallop Lungs: Clear to auscultation, no rhonchi, no wheeze Abd: soft, non tender, non distended, normal BS, Ext: No edema, no clubbing, no cyanosis Neuro: Currently sedated, does not follow commands. Nurse says was following commands 11/16 - Constitutional Vitals: Temp Pulse Resp BP Pulse Ox 98.1 F 90 25 H 103/67 97 11/18/18 08:00 11/18/18 08:00 11/18/18 08:00 11/18/18 08:00 11/18/18 08:00 General appearance: Present: cachectic Results - Labs CBC & Chem 7: 11/18/18 04:22 11/18/18 04:03 Labs: Laboratory Last Values WBC 7.7 K/mm3 (4.5-11.0) 11/18/18 04:22 RBC 3.01 M/mm3 (3.65-5.03) L 11/18/18 04:22 Hgb 10.6 gm/dl (11.8-15.2) L 11/18/18 04:22 Hct 31.1 % (35.5-45.6) L 11/18/18 04:22 MCV 103 fl (84-94) H 11/18/18 04:22 MCH 35 pg (28-32) H 11/18/18 04:22 MCHC 34 % (32-34) 11/18/18 04:22 RDW 14.8 % (13.2-15.2) 11/18/18 04:22 Plt Count 137 K/mm3 (140-440) L 11/18/18 04:22 Lymph % (Auto) 8.5 % (13.4-35.0) L 11/14/18 03:24 [place] % (Auto) 5.3 % (0.0-7.3) 11/14/18 03:24 Eos % (Auto) 0.5 % (0.0-4.3) 11/14/18 03:24 Baso % (Auto) 0.4 % (0.0-1.8) 11/14/18 03:24 Lymph # 1.2 K/mm3 (1.2-5.4) 11/14/18 03:24 [place] # 0.7 K/mm3 (0.0-0.8) 11/14/18 03:24 Eos # 0.1 K/mm3 (0.0-0.4) 11/14/18 03:24 Baso # 0.1 K/mm3 (0.0-0.1) 11/14/18 03:24 Add Manual Diff Complete 11/17/18 20:05 Total Counted 100 11/17/18 20:05 Seg Neutrophils % 85.3 % (40.0-70.0) H 11/14/18 03:24 Seg Neuts % (Manual) 80.0 % (40.0-70.0) H 11/17/18 20:05 0 % 11/17/18 20:05 11.0 % (13.4-35.0) L 11/17/18 20:05 Reactive Lymphs % (Man) 0 % 11/17/18 20:05 9.0 % (0.0-7.3) H 11/17/18 20:05 0 % (0.0-4.3) 11/17/18 20:05 0 % (0.0-1.8) 11/17/18 20:05 0 % 11/17/18 20:05 0 % 11/17/18 20:05 0 % 11/17/18 20:05 0 % 11/17/18 20:05 Nucleated RBC % Not Reportable 11/17/18 20:05 Seg Neutrophils # 11.6 K/mm3 (1.8-7.7) H 11/14/18 03:24 Seg Neutrophils # Man 5.3 K/mm3 (1.8-7.7) 11/17/18 20:05 Band Neutrophils # 0.0 K/mm3 11/17/18 20:05 0.7 K/mm3 (1.2-5.4) L 11/17/18 20:05 Abs React Lymphs (Man) 0.0 K/mm3 11/17/18 20:05 0.6 K/mm3 (0.0-0.8) 11/17/18 20:05 0.0 K/mm3 (0.0-0.4) 11/17/18 20:05 0.0 K/mm3 (0.0-0.1) 11/17/18 20:05 0.0 K/mm3 11/17/18 20:05 0.0 K/mm3 11/17/18 20:05 0.0 K/mm3 11/17/18 20:05 Blast Cells # 0.0 K/mm3 11/17/18 20:05 WBC Morphology Not Reportable 11/17/18 20:05 Hypersegmented Neuts Not Reportable 11/17/18 20:05 Hyposegmented Neuts Not Reportable 11/17/18 20:05 Hypogranular Neuts Not Reportable 11/17/18 20:05 Not Reportable 11/17/18 20:05 Not Reportable 11/17/18 20:05 Not Reportable 11/17/18 20:05 Not Reportable 11/17/18 20:05 Not Reportable 11/17/18 20:05 Not Reportable 11/17/18 20:05 Not Reportable 11/17/18 20:05 Not Reportable 11/17/18 20:05 Plt Clumps, EDTA Not Reportable 11/17/18 20:05 Not Reportable 11/17/18 20:05 Not Reportable 11/17/18 20:05 Not Reportable 11/17/18 20:05 Plt Morphology Comment Not Reportable 11/17/18 20:05 RBC Morphology Normal 11/17/18 20:05 Dimorphic RBCs Not Reportable 11/17/18 20:05 Not Reportable 11/17/18 20:05 Not Reportable 11/17/18 20:05 Not Reportable 11/17/18 20:05 Not Reportable 11/17/18 20:05 Not Reportable 11/17/18 20:05 Not Reportable 11/17/18 20:05 Not Reportable 11/17/18 20:05 Not Reportable 11/17/18 20:05 Not Reportable 11/17/18 20:05 Not Reportable 11/17/18 20:05 Not Reportable 11/17/18 20:05 Not Reportable 11/17/18 20:05 Not Reportable 11/17/18 20:05 Not Reportable 11/17/18 20:05 Not Reportable 11/17/18 20:05 Not Reportable 11/17/18 20:05 Not Reportable 11/17/18 20:05 Not Reportable 11/17/18 20:05 Not Reportable 11/17/18 20:05 Acanthocytes (Spur) Not Reportable 11/17/18 20:05 Rouleaux Not Reportable 11/17/18 20:05 Not Reportable 11/17/18 20:05 Not Reportable 11/17/18 20:05 Not Reportable 11/17/18 20:05 Not Reportable 11/17/18 20:05 Hem Pathologist Commnt No 11/17/18 20:05 PT 19.2 Sec. (12.2-14.9) H 11/12/18 22:15 INR 1.66 (0.87-1.13) H 11/12/18 22:15 APTT 52.5 Sec. (24.2-36.6) H 11/12/18 22:15 142 (74-137) H 11/13/18 04:01 POC ABG pH 7.384 (7.35-7.45) 11/18/18 04:50 ABG pH 7.425 pH Units (7.350-7.450) 11/14/18 05:25 POC ABG pCO2 47.9 (35-45) H 11/18/18 04:50 ABG pCO2 33.4 mm Hg 11/14/18 05:25 POC ABG pO2 75 (80-105) L 11/18/18 04:50 ABG pO2 110.0 mm Hg (80.0-90.0) H 11/14/18 05:25 POC ABG HCO3 28.6 (22-26 mml/L) 11/18/18 04:50 ABG HCO3 21.4 mmol/L (20.0-26.0) 11/14/18 05:25 POC ABG Total CO2 30 (23-27mmol/L) 11/18/18 04:50 POC ABG O2 Sat 95 11/18/18 04:50 ABG O2 Saturation 98.1 % (95.0-99.0) 11/14/18 05:25 ABG O2 Content 18.0 (0.0-44) 11/14/18 05:25 POC ABG Base Excess 4 ((-2) - (+3)mmol/L) 11/18/18 04:50 ABG Base Excess -2.2 mmol/L (-2.0-3.0) L 11/14/18 05:25 ABG Hemoglobin 13.2 gm/dl (14.0-18.0) L 11/14/18 05:25 ABG Carboxyhemoglobin 1.2 % (0.0-5.0) 11/14/18 05:25 ABG Methemoglobin 0.6 % (0.0-1.5) 11/14/18 05:25 96.3 % (95.0-99.0) 11/14/18 05:25 30 % 11/18/18 04:50 Sodium 143 mmol/L (137-145) 11/18/18 04:03 Potassium 3.6 mmol/L (3.6-5.0) 11/18/18 04:03 Chloride 104.2 mmol/L (98-107) 11/18/18 04:03 Carbon Dioxide 28 mmol/L (22-30) 11/18/18 04:03 14 mmol/L 11/18/18 04:03 BUN 18 mg/dL (9-20) 11/18/18 04:03 0.6 mg/dL (0.8-1.5) L 11/18/18 04:03 Estimated GFR > 60 ml/min 11/18/18 04:03 30 % 11/18/18 04:03 Glucose 138 mg/dL (75-100) H 11/18/18 04:03 POC Glucose 175 (70-105) H 11/18/18 08:42 Lactic Acid 1.20 mmol/L (0.7-2.0) 11/17/18 20:05 Calcium 8.0 mg/dL (8.4-10.2) L 11/18/18 04:03 Magnesium 2.60 mg/dL (1.7-2.3) H 11/13/18 16:19 0.50 mg/dL (0.1-1.2) 11/15/18 05:14 < 0.2 mg/dL (0-0.2) 11/14/18 03:24 0.4 mg/dL 11/14/18 03:24 AST 107 units/L (5-40) H 11/15/18 05:14 ALT 59 units/L (7-56) H 11/15/18 05:14 45 units/L (35-129) 11/15/18 05:14 2686 units/L (55-170) H 11/13/18 05:44 CK-MB (CK-2) 126.5 ng/mL (0.0-4.0) H 11/13/18 05:44 CK-MB (CK-2) Rel Index 4.7 (0-4) H 11/13/18 05:44 1.500 ng/mL (0.00-0.029) H* D 11/13/18 05:44 12.70 mg/dL (0.00-1.30) H 11/14/18 19:58 5.3 g/dL (6.3-8.2) L 11/15/18 05:14 3.0 g/dL (3.9-5) L 11/15/18 05:14 1.3 % 11/15/18 05:14 Triglycerides 94 mg/dL (2-149) 11/13/18 05:44 Cholesterol 147 mg/dL (50-199) 11/13/18 05:44 95 mg/dL (50-130) 11/13/18 05:44 56 mg/dL (40-59) 11/13/18 05:44 2.62 % 11/13/18 05:44 Active Medications - Current Medications Current Medications: Generic Name Dose Route Start Last Admin Trade Name Freq PRN Reason Stop Dose Admin Acetaminophen 650 mg 11/13/18 01:50 11/17/18 19:59 Tylenol MT 650 mg Q4H PRN Administration Fever >101 Albuterol 2.5 mg 11/13/18 01:53 Proventil IH Q6HRT PRN Wheezing Albuterol/Ipratropium 1 ampul 11/13/18 08:00 11/18/18 08:48 Duoneb *Not For Prn Use* IH 1 ampul Q6HRT YOSELIN Administration Lipase/Protease/Amylase 1 each 11/14/18 09:40 Pancreazambar Bass 10,500 Unit FEEDTUBE PRN PRN For Clogged Feeding Tube Aspirin 81 mg 11/13/18 10:00 11/17/18 09:12 Baby Aspirin PO 81 mg QDAY YOSELIN Administration Atorvastatin Calcium 80 mg 11/13/18 22:00 11/17/18 22:35 Lipitor PO 80 mg QHS YOSELIN Administration Clopidogrel Bisulfate 75 mg 11/14/18 10:00 11/17/18 09:12 Plavix PO 75 mg QDAY YOSELIN Administration Dextrose 50 ml 11/13/18 02:01 D50w (25gm) Syringe IV PRN PRN Hypoglycemia Famotidine 20 mg 11/15/18 10:00 11/17/18 22:35 Pepcid PO 20 mg BID YOSELIN Administration Hydrophilic Ointment 1 applic 11/14/18 13:20 Vaseline Lip Therapy TP Q2HR PRN Dry Lips Insulin Human Regular 0 units 11/13/18 03:00 11/18/18 07:36 Humulin R SUB-Q Not Given Q4H [facility] Protocol Levetiracetam 750 mg 11/16/18 10:00 11/17/18 22:34 Keppra PO 750 mg BID YOSELIN Administration Lisinopril 10 mg 11/14/18 11:00 11/17/18 10:00 Zestril PO 10 mg QDAY YOSELIN Administration Metoprolol Tartrate 25 mg 11/13/18 10:00 11/17/18 22:36 Lopressor PO 25 mg BID YOSELIN Administration Multi-Ingred Cream/Lotion/Oil/Oint 1 applic 11/14/18 13:20 Artificial Tears Ophth Oint OU Q4HR PRN Dry Eye(s) Ondansetron HCl 4 mg 11/12/18 23:59 Zofran IV Q8H PRN N/V unrelieved by Moy Quetiapine Fumarate 25 mg 11/18/18 22:00 Seroquel PO QHS YOSELIN Simple Syrup 15 ml 11/14/18 09:40 Simple Syrup FEEDTUBE PRN PRN Hypoglycemia Simple Syrup 30 ml 11/14/18 09:40 Simple Syrup FEEDTUBE PRN PRN Hypoglycemia Sodium Bicarbonate 325 mg 11/14/18 09:40 Sodium Bicarbonate FEEDTUBE PRN PRN For Clogged Feeding Tube Nutrition/Malnutrition Assess - Dietary Evaluation Nutrition/Malnutrition Findings: Nutrition Notes Start: 11/13/18 11:12 Freq: Status: Active Protocol: Document 11/17/18 08:47 LM (Rec: 11/17/18 08:51 LM [email or web address]) Nutrition Notes Initial or Follow up Reassessment Other Pertinent Diagnosis s/p cardiac arrest, syncope, AMS, scrotal swelling, R wrist and elbow wound Current Diet Osmolite 1.5 at 60 ml/hr Labs/Tests Cr 0.4 BG 255 Pertinent Medications Humulin Height 6 ft 1 in Weight 44.6 kg [place] Body Weight (kg) 83.63 BMI 12.9 Subjective/Other Information Osmolite running at 60 ml/hr. Pt is tolerating TF and remains on vent. Per MD pt will possibly be extubated today. Percent of energy/protein needs met: 100%/100% Burn Absent Trauma Absent #2 Nutrition Diagnosis Malnutrition Diagnosis Progress(for reassessment Continues documentation) #1 Nutrition Diagnosis Inadequate oral intake Diagnosis Progress(for reassessment Continues documentation) Is patient on ventilator? Yes Is Patient Ambulatory and/or Out of Bed No REE-([place]-confined to bed) 1512.132 Kcal/Kg value to use for calculation 45 Approximate Energy Requirements Using 2007 kcal/Kg Calculation Used for Recommendations Kcal/kg Additional Notes Pro needs 1.2-2g/k-89g/ day Fluid needs 1ml/kcal Nutrition Intervention Change Diet Order: Continue TF Nutrition Support: Osmolite 1.5 at 60 ml/hr Flush 150 ml q4hr Kcal 2,160 Protein (gm) 90 Fluid (mL) 1,097 Goal #1 Continue TF Goal #2 Meet at least 80% of energy and protein needs Goal #3 Wt maintenance and/or gain Anticipated Discharge Needs: Unable to identify at this time Follow-Up By: 11/24/18 Additional Comments F/U for TF rate/tolerance
[2018-11-18] MEDS: KEPPRA PO SCH ×2 (09:28→22:40)
[2018-11-18] MEDS: ZESTRIL PO SCH (09:28)
[2018-11-18] MEDS: PLAVIX PO SCH (09:28)
[2018-11-18] MEDS: BABY ASPIRIN PO SCH (09:28)
[2018-11-18] MEDS: PEPCID PO SCH ×2 (09:29→22:48)
[2018-11-18] MEDS: LOPRESSOR PO SCH ×2 (09:29→22:47)
--- NOTE | 2018-11-18 11:31 | Progress Note ---
Assessment and Plan Patient is stable from a cardiac standpoint. We will continue supportive care at this time. The patient has been seen in conjunction with Dr. Tidwell, who agrees with the assessment and plan. - Patient Problems (1) Acute diastolic (congestive) heart failure Current Visit: Yes Status: Acute (2) Altered mental status Current Visit: Yes Status: Acute (3) Cardiopulmonary arrest with successful resuscitation Current Visit: Yes Status: Acute (4) Hypokalemia Current Visit: Yes Status: Acute (5) Ischemic cardiomyopathy Current Visit: Yes Status: Acute (6) Respiratory failure requiring intubation Current Visit: Yes Status: Acute (7) STEMI (ST elevation myocardial infarction) Current Visit: Yes Status: Acute Qualifiers: Involved coronary artery: LAD coronary artery Qualified Code(s): I21.02 - ST elevation (STEMI) myocardial infarction involving left anterior descending coronary artery (8) CAD (coronary artery disease) Current Visit: Yes Status: Chronic (9) DNR (do not resuscitate) Current Visit: Yes Status: Chronic (10) Malnutrition of moderate degree Current Visit: Yes Status: Chronic (11) Smoking Current Visit: Yes Status: Chronic (12) Anoxic brain injury Current Visit: Yes Status: Suspected Subjective Date of service: 11/18/18 Principal diagnosis: Ac. hypoxemic resp failure; S/P cardiac arrest; V-fib; H/O CVA; STEMI Interval history: The patient is lying in bed, intubated and responsive to noxious stimuli. Telemetry reviewed - SR with RBBB in 80s. Objective Last Vital Signs Temp 98.1 F 11/18/18 08:00 Pulse 100 H 11/18/18 11:00 Resp 28 H 11/18/18 11:00 BP 106/64 11/18/18 11:00 Pulse Ox 94 11/18/18 11:00 - Physical Examination General: No Apparent Distress, Other (intubated, nonresponsive ) HEENT: Positive: Other (sluggish) Neck: Positive: neck supple Cardiac: Positive: Reg Rate and Rhythm Lungs: Positive: Ventilated Respirations Neuro: Positive: Other (withdraws ) Abdomen: Positive: Soft /Rectal: Other (deferred) Skin: Positive: Other (scattered discoloration ) Incision: Cardiac Cath Site (c/d/i, no bleeding, no hematoma) Musculoskeletal: other (intubated ) Gait: Other (VERO) Extremities: Present: lower extr. pulses (weak), Cold, Other (DP pulses present via doppler, no pedal pulses via doppler). Absent: edema - Labs and Meds CBC 11/17/18 11/18/18 Range/Units 20:05 04:22 WBC 6.6 7.7 (4.5-11.0) K/mm3 RBC 3.04 L 3.01 L (3.65-5.03) M/mm3 Hgb 10.6 L 10.6 L (11.8-15.2) gm/dl Hct 31.0 L 31.1 L (35.5-45.6) % Plt Count 142 137 L (140-440) K/mm3 Comprehensive Metabolic Panel 11/18/18 Range/Units 04:03 Sodium 143 (137-145) mmol/L Potassium 3.6 (3.6-5.0) mmol/L Chloride 104.2 (98-107) mmol/L Carbon Dioxide 28 (22-30) mmol/L BUN 18 (9-20) mg/dL Creatinine 0.6 L (0.8-1.5) mg/dL Glucose 138 H (75-100) mg/dL Calcium 8.0 L (8.4-10.2) mg/dL - Imaging and Cardiology Echo: report reviewed (TDS, EF 15-20%, mid anteroseptal, apical anterior and apical lateral wall dyskinetic.) Cardiac cath: report reviewed ( left main patent. LAD proximal 95% with WENDY 2 flow circumflex patent OM1 patent RCA patent with moderate LV dysfunction EF 3540% with septal inferior wall hypokinesis. With PCI of the LAD with a drug- eluting 3.5 x 23 mm stent at 15 kim.) - Telemetry EKG Rhythm: Sinus Rhythm AV and intraventricular conduction: right bundle branch block - Allied health notes Allied health notes reviewed: nursing
--- NOTE | 2018-11-18 12:43 | Progress Note ---
Subjective Date of service: 11/18/18 Principal diagnosis: Ac. hypoxemic resp failure; S/P cardiac arrest; V-fib; H/O CVA; STEMI Interval history: see my dictated note on this patient he is not at all responsive and has severwe right arm weakness suspect stroke see other notes for additional matters belen diabetes anemia etc spoke to the family at length Objective - Vital Sign Vital Signs - 12hr 11/18/18 11/18/18 11/18/18 01:00 01:31 01:57 Temperature Pulse Rate 82 88 Pulse Rate [ 89 Bilateral Throughout] Pulse Rate [ From Monitor] Respiratory 25 H 28 H Rate Respiratory 21 Rate [Bilateral Throughout] Blood Pressure 110/64 110/64 O2 Sat by Pulse 97 97 Oximetry 11/18/18 11/18/18 11/18/18 02:00 02:31 03:00 Temperature Pulse Rate 89 92 H 93 H Pulse Rate [ Bilateral Throughout] Pulse Rate [ From Monitor] Respiratory 18 24 26 H Rate Respiratory Rate [Bilateral Throughout] Blood Pressure 85/58 85/58 89/65 O2 Sat by Pulse 96 93 95 Oximetry 11/18/18 11/18/18 11/18/18 03:25 03:31 03:48 Temperature 98.4 F Pulse Rate 103 H 98 H Pulse Rate [ Bilateral Throughout] Pulse Rate [ From Monitor] Respiratory 25 H Rate Respiratory Rate [Bilateral Throughout] Blood Pressure 89/65 89/65 O2 Sat by Pulse 96 96 Oximetry 11/18/18 11/18/18 11/18/18 04:00 04:31 05:00 Temperature Pulse Rate 107 H 97 H 103 H Pulse Rate [ Bilateral Throughout] Pulse Rate [ 108 H From Monitor] Respiratory 22 22 24 Rate Respiratory Rate [Bilateral Throughout] Blood Pressure 102/63 89/65 114/78 O2 Sat by Pulse 96 95 96 Oximetry 11/18/18 11/18/18 11/18/18 05:31 06:00 06:30 Temperature Pulse Rate 96 H 93 H 92 H Pulse Rate [ Bilateral Throughout] Pulse Rate [ From Monitor] Respiratory 23 30 H 23 Rate Respiratory Rate [Bilateral Throughout] Blood Pressure 114/78 115/77 115/77 O2 Sat by Pulse 96 97 98 Oximetry 11/18/18 11/18/18 11/18/18 07:00 07:30 08:00 Temperature 98.1 F Pulse Rate 96 H 90 92 H Pulse Rate [ 90 Bilateral Throughout] Pulse Rate [ 90 From Monitor] Respiratory 20 23 22 Rate Respiratory 25 H Rate [Bilateral Throughout] Blood Pressure 109/65 109/65 103/67 O2 Sat by Pulse 97 97 97 Oximetry 11/18/18 11/18/18 11/18/18 08:30 09:00 09:28 Temperature Pulse Rate 91 H 96 H 112 H Pulse Rate [ Bilateral Throughout] Pulse Rate [ From Monitor] Respiratory 21 25 H Rate Respiratory Rate [Bilateral Throughout] Blood Pressure 103/67 107/74 107/74 O2 Sat by Pulse 96 97 Oximetry 11/18/18 11/18/18 11/18/18 09:29 09:30 10:00 Temperature Pulse Rate 111 H 114 H 111 H Pulse Rate [ Bilateral Throughout] Pulse Rate [ From Monitor] Respiratory 29 H 26 H Rate Respiratory Rate [Bilateral Throughout] Blood Pressure 107/74 107/74 125/73 O2 Sat by Pulse 95 95 Oximetry 11/18/18 11/18/18 11/18/18 10:30 11:00 11:30 Temperature Pulse Rate 107 H 100 H 88 Pulse Rate [ Bilateral Throughout] Pulse Rate [ From Monitor] Respiratory 25 H 28 H 23 Rate Respiratory Rate [Bilateral Throughout] Blood Pressure 125/73 106/64 106/64 O2 Sat by Pulse 95 94 97 Oximetry 11/18/18 12:00 Temperature 97.9 F Pulse Rate 93 H Pulse Rate [ Bilateral Throughout] Pulse Rate [ 90 From Monitor] Respiratory 23 Rate Respiratory Rate [Bilateral Throughout] Blood Pressure 114/63 O2 Sat by Pulse 97 Oximetry - Laboratory Findings CBC and BMP: 11/18/18 04:22 11/18/18 04:03 Abnormal Lab Findings: Abnormal Labs 11/12/18 11/12/18 11/12/18 22:10 22:15 22:15 WBC RBC Hgb Hct MCV 104 H MCH 35 H MCHC RDW Plt Count 112 L Lymph % (Auto) Seg Neutrophils % Seg Neuts % (Manual) Lymphocytes % (Manual) 47.0 H Monocytes % (Manual) Seg Neutrophils # Seg Neutrophils # Man Lymphocytes # (Manual) Monocytes # (Manual) PT 19.2 H INR 1.66 H APTT 52.5 H Activated Clotting Time POC ABG pH ABG pH POC ABG pCO2 POC ABG pO2 ABG pO2 ABG Base Excess ABG Hemoglobin Sodium Potassium Chloride Carbon Dioxide BUN Creatinine Glucose POC Glucose 131 H Lactic Acid Calcium Magnesium AST ALT Total Creatine Kinase CK-MB (CK-2) CK-MB (CK-2) Rel Index Troponin T C-Reactive Protein Total Protein Albumin 11/12/18 11/12/18 11/13/18 22:15 23:42 01:50 WBC RBC Hgb Hct MCV MCH MCHC RDW Plt Count Lymph % (Auto) Seg Neutrophils % Seg Neuts % (Manual) Lymphocytes % (Manual) Monocytes % (Manual) Seg Neutrophils # Seg Neutrophils # Man Lymphocytes # (Manual) Monocytes # (Manual) PT INR APTT Activated Clotting Time 329 H POC ABG pH ABG pH 7.312 L POC ABG pCO2 POC ABG pO2 ABG pO2 147.6 H ABG Base Excess -4.7 L ABG Hemoglobin Sodium Potassium 2.7 L* Chloride 94.9 L Carbon Dioxide BUN Creatinine Glucose 341 H POC Glucose Lactic Acid Calcium 7.5 L Magnesium AST 58 H ALT Total Creatine Kinase CK-MB (CK-2) CK-MB (CK-2) Rel Index Troponin T C-Reactive Protein Total Protein 4.7 L Albumin 2.9 L 11/13/18 11/13/18 11/13/18 02:30 03:04 04:01 WBC RBC Hgb Hct MCV MCH MCHC RDW Plt Count Lymph % (Auto) Seg Neutrophils % Seg Neuts % (Manual) Lymphocytes % (Manual) Monocytes % (Manual) Seg Neutrophils # Seg Neutrophils # Man Lymphocytes # (Manual) Monocytes # (Manual) PT INR APTT Activated Clotting Time 175 H 142 H POC ABG pH ABG pH POC ABG pCO2 POC ABG pO2 ABG pO2 ABG Base Excess ABG Hemoglobin Sodium Potassium Chloride Carbon Dioxide BUN Creatinine Glucose POC Glucose 185 H Lactic Acid Calcium Magnesium AST ALT Total Creatine Kinase CK-MB (CK-2) CK-MB (CK-2) Rel Index Troponin T C-Reactive Protein Total Protein Albumin 11/13/18 11/13/18 11/13/18 04:50 05:44 05:44 WBC 23.9 H RBC Hgb Hct MCV 102 H MCH 34 H MCHC RDW 15.5 H Plt Count Lymph % (Auto) Seg Neutrophils % Seg Neuts % (Manual) 85.0 H Lymphocytes % (Manual) 2.0 L Monocytes % (Manual) Seg Neutrophils # Seg Neutrophils # Man 20.3 H Lymphocytes # (Manual) 0.5 L Monocytes # (Manual) 1.7 H PT INR APTT Activated Clotting Time POC ABG pH ABG pH POC ABG pCO2 POC ABG pO2 ABG pO2 136.3 H ABG Base Excess -4.4 L ABG Hemoglobin Sodium Potassium Chloride Carbon Dioxide BUN Creatinine Glucose 210 H POC Glucose Lactic Acid Calcium 7.8 L Magnesium AST ALT Total Creatine Kinase 2686 H CK-MB (CK-2) 126.5 H CK-MB (CK-2) Rel Index 4.7 H Troponin T 1.500 H* D C-Reactive Protein Total Protein Albumin 11/13/18 11/13/18 11/13/18 06:44 11:12 14:15 WBC RBC Hgb Hct MCV MCH MCHC RDW Plt Count Lymph % (Auto) Seg Neutrophils % Seg Neuts % (Manual) Lymphocytes % (Manual) Monocytes % (Manual) Seg Neutrophils # Seg Neutrophils # Man Lymphocytes # (Manual) Monocytes # (Manual) PT INR APTT Activated Clotting Time POC ABG pH ABG pH POC ABG pCO2 POC ABG pO2 ABG pO2 ABG Base Excess ABG Hemoglobin Sodium Potassium Chloride Carbon Dioxide BUN Creatinine Glucose POC Glucose 197 H 152 H 125 H Lactic Acid Calcium Magnesium AST ALT Total Creatine Kinase CK-MB (CK-2) CK-MB (CK-2) Rel Index Troponin T C-Reactive Protein Total Protein Albumin 11/13/18 11/13/18 11/13/18 16:19 17:51 19:15 WBC RBC Hgb Hct MCV MCH MCHC RDW Plt Count Lymph % (Auto) Seg Neutrophils % Seg Neuts % (Manual) Lymphocytes % (Manual) Monocytes % (Manual) Seg Neutrophils # Seg Neutrophils # Man Lymphocytes # (Manual) Monocytes # (Manual) PT INR APTT Activated Clotting Time POC ABG pH ABG pH POC ABG pCO2 POC ABG pO2 ABG pO2 ABG Base Excess ABG Hemoglobin Sodium Potassium Chloride Carbon Dioxide BUN Creatinine Glucose POC Glucose 124 H 129 H Lactic Acid Calcium Magnesium 2.60 H AST ALT Total Creatine Kinase CK-MB (CK-2) CK-MB (CK-2) Rel Index Troponin T C-Reactive Protein Total Protein Albumin 11/13/18 11/14/18 11/14/18 23:11 02:55 03:24 WBC 13.6 H RBC Hgb Hct MCV 103 H MCH 35 H MCHC RDW 15.4 H Plt Count 95 L Lymph % (Auto) 8.5 L Seg Neutrophils % 85.3 H Seg Neuts % (Manual) Lymphocytes % (Manual) Monocytes % (Manual) Seg Neutrophils # 11.6 H Seg Neutrophils # Man Lymphocytes # (Manual) Monocytes # (Manual) PT INR APTT Activated Clotting Time POC ABG pH ABG pH POC ABG pCO2 POC ABG pO2 ABG pO2 ABG Base Excess ABG Hemoglobin Sodium Potassium Chloride Carbon Dioxide BUN Creatinine Glucose POC Glucose 180 H 119 H Lactic Acid Calcium Magnesium AST ALT Total Creatine Kinase CK-MB (CK-2) CK-MB (CK-2) Rel Index Troponin T C-Reactive Protein Total Protein Albumin 11/14/18 11/14/18 11/14/18 03:24 05:25 06:17 WBC RBC Hgb Hct MCV MCH MCHC RDW Plt Count Lymph % (Auto) Seg Neutrophils % Seg Neuts % (Manual) Lymphocytes % (Manual) Monocytes % (Manual) Seg Neutrophils # Seg Neutrophils # Man Lymphocytes # (Manual) Monocytes # (Manual) PT INR APTT Activated Clotting Time POC ABG pH ABG pH POC ABG pCO2 POC ABG pO2 ABG pO2 110.0 H ABG Base Excess -2.2 L ABG Hemoglobin 13.2 L Sodium 136 L Potassium 5.1 H D Chloride Carbon Dioxide 20 L BUN Creatinine 0.7 L Glucose 124 H POC Glucose 124 H Lactic Acid Calcium 7.9 L Magnesium AST 183 H ALT 76 H Total Creatine Kinase CK-MB (CK-2) CK-MB (CK-2) Rel Index Troponin T C-Reactive Protein Total Protein 5.9 L D Albumin 3.4 L 11/14/18 11/14/18 11/14/18 11:28 12:41 16:51 WBC RBC Hgb Hct MCV MCH MCHC RDW Plt Count Lymph % (Auto) Seg Neutrophils % Seg Neuts % (Manual) Lymphocytes % (Manual) Monocytes % (Manual) Seg Neutrophils # Seg Neutrophils # Man Lymphocytes # (Manual) Monocytes # (Manual) PT INR APTT Activated Clotting Time POC ABG pH ABG pH POC ABG pCO2 POC ABG pO2 ABG pO2 ABG Base Excess ABG Hemoglobin Sodium Potassium Chloride Carbon Dioxide BUN Creatinine Glucose POC Glucose 172 H 149 H Lactic Acid 4.40 H* Calcium Magnesium AST ALT Total Creatine Kinase CK-MB (CK-2) CK-MB (CK-2) Rel Index Troponin T C-Reactive Protein Total Protein Albumin 11/14/18 11/14/18 11/14/18 18:54 19:58 19:58 WBC RBC Hgb Hct MCV MCH MCHC RDW Plt Count Lymph % (Auto) Seg Neutrophils % Seg Neuts % (Manual) Lymphocytes % (Manual) Monocytes % (Manual) Seg Neutrophils # Seg Neutrophils # Man Lymphocytes # (Manual) Monocytes # (Manual) PT INR APTT Activated Clotting Time POC ABG pH ABG pH POC ABG pCO2 POC ABG pO2 ABG pO2 ABG Base Excess ABG Hemoglobin Sodium Potassium Chloride Carbon Dioxide BUN Creatinine Glucose POC Glucose 168 H Lactic Acid 3.90 H* Calcium Magnesium AST ALT Total Creatine Kinase CK-MB (CK-2) CK-MB (CK-2) Rel Index Troponin T C-Reactive Protein 12.70 H Total Protein Albumin 11/14/18 11/15/18 11/15/18 23:10 02:40 05:14 WBC RBC Hgb Hct MCV MCH MCHC RDW Plt Count Lymph % (Auto) Seg Neutrophils % Seg Neuts % (Manual) Lymphocytes % (Manual) Monocytes % (Manual) Seg Neutrophils # Seg Neutrophils # Man Lymphocytes # (Manual) Monocytes # (Manual) PT INR APTT Activated Clotting Time POC ABG pH ABG pH POC ABG pCO2 POC ABG pO2 ABG pO2 ABG Base Excess ABG Hemoglobin Sodium Potassium Chloride Carbon Dioxide BUN 26 H Creatinine Glucose 134 H POC Glucose 160 H 129 H Lactic Acid Calcium 8.1 L Magnesium AST 107 H ALT 59 H Total Creatine Kinase CK-MB (CK-2) CK-MB (CK-2) Rel Index Troponin T C-Reactive Protein Total Protein 5.3 L Albumin 3.0 L 11/15/18 11/15/18 11/15/18 05:59 05:59 06:37 WBC RBC 3.41 L Hgb Hct 35.0 L D MCV 102 H MCH 35 H MCHC RDW Plt Count 91 L Lymph % (Auto) Seg Neutrophils % Seg Neuts % (Manual) Lymphocytes % (Manual) Monocytes % (Manual) Seg Neutrophils # Seg Neutrophils # Man Lymphocytes # (Manual) Monocytes # (Manual) PT INR APTT Activated Clotting Time POC ABG pH ABG pH POC ABG pCO2 POC ABG pO2 ABG pO2 ABG Base Excess ABG Hemoglobin Sodium Potassium Chloride Carbon Dioxide BUN Creatinine Glucose POC Glucose 160 H Lactic Acid 2.30 H* Calcium Magnesium AST ALT Total Creatine Kinase CK-MB (CK-2) CK-MB (CK-2) Rel Index Troponin T C-Reactive Protein Total Protein Albumin 11/15/18 11/15/18 11/16/18 11:30 23:20 03:09 WBC RBC Hgb Hct MCV MCH MCHC RDW Plt Count Lymph % (Auto) Seg Neutrophils % Seg Neuts % (Manual) Lymphocytes % (Manual) Monocytes % (Manual) Seg Neutrophils # Seg Neutrophils # Man Lymphocytes # (Manual) Monocytes # (Manual) PT INR APTT Activated Clotting Time POC ABG pH ABG pH POC ABG pCO2 POC ABG pO2 ABG pO2 ABG Base Excess ABG Hemoglobin Sodium Potassium Chloride Carbon Dioxide BUN Creatinine Glucose POC Glucose 186 H 129 H 153 H Lactic Acid Calcium Magnesium AST ALT Total Creatine Kinase CK-MB (CK-2) CK-MB (CK-2) Rel Index Troponin T C-Reactive Protein Total Protein Albumin 11/16/18 11/16/18 11/16/18 05:22 05:22 06:54 WBC RBC 3.14 L Hgb 11.0 L Hct 32.1 L MCV 102 H MCH 35 H MCHC RDW Plt Count 96 L Lymph % (Auto) Seg Neutrophils % Seg Neuts % (Manual) Lymphocytes % (Manual) Monocytes % (Manual) Seg Neutrophils # Seg Neutrophils # Man Lymphocytes # (Manual) Monocytes # (Manual) PT INR APTT Activated Clotting Time POC ABG pH ABG pH POC ABG pCO2 POC ABG pO2 ABG pO2 ABG Base Excess ABG Hemoglobin Sodium Potassium Chloride Carbon Dioxide BUN Creatinine 0.5 L Glucose 134 H POC Glucose 184 H Lactic Acid Calcium 8.0 L Magnesium AST ALT Total Creatine Kinase CK-MB (CK-2) CK-MB (CK-2) Rel Index Troponin T C-Reactive Protein Total Protein Albumin 11/16/18 11/16/18 11/16/18 08:11 12:07 16:45 WBC RBC Hgb Hct MCV MCH MCHC RDW Plt Count Lymph % (Auto) Seg Neutrophils % Seg Neuts % (Manual) Lymphocytes % (Manual) Monocytes % (Manual) Seg Neutrophils # Seg Neutrophils # Man Lymphocytes # (Manual) Monocytes # (Manual) PT INR APTT Activated Clotting Time POC ABG pH ABG pH POC ABG pCO2 POC ABG pO2 ABG pO2 ABG Base Excess ABG Hemoglobin Sodium Potassium Chloride Carbon Dioxide BUN Creatinine Glucose POC Glucose 176 H 221 H 139 H Lactic Acid Calcium Magnesium AST ALT Total Creatine Kinase CK-MB (CK-2) CK-MB (CK-2) Rel Index Troponin T C-Reactive Protein Total Protein Albumin 11/16/18 11/16/18 11/17/18 20:29 23:19 03:18 WBC RBC Hgb Hct MCV MCH MCHC RDW Plt Count Lymph % (Auto) Seg Neutrophils % Seg Neuts % (Manual) Lymphocytes % (Manual) Monocytes % (Manual) Seg Neutrophils # Seg Neutrophils # Man Lymphocytes # (Manual) Monocytes # (Manual) PT INR APTT Activated Clotting Time POC ABG pH ABG pH POC ABG pCO2 POC ABG pO2 ABG pO2 ABG Base Excess ABG Hemoglobin Sodium Potassium Chloride Carbon Dioxide BUN Creatinine Glucose POC Glucose 200 H 177 H 255 H Lactic Acid Calcium Magnesium AST ALT Total Creatine Kinase CK-MB (CK-2) CK-MB (CK-2) Rel Index Troponin T C-Reactive Protein Total Protein Albumin 11/17/18 11/17/18 11/17/18 04:17 05:34 05:34 WBC RBC 2.82 L Hgb 10.0 L Hct 28.7 L MCV 102 H MCH 36 H MCHC 35 H RDW Plt Count 117 L Lymph % (Auto) Seg Neutrophils % Seg Neuts % (Manual) Lymphocytes % (Manual) Monocytes % (Manual) Seg Neutrophils # Seg Neutrophils # Man Lymphocytes # (Manual) Monocytes # (Manual) PT INR APTT Activated Clotting Time POC ABG pH ABG pH POC ABG pCO2 POC ABG pO2 70 L ABG pO2 ABG Base Excess ABG Hemoglobin Sodium Potassium Chloride Carbon Dioxide BUN Creatinine 0.4 L Glucose 198 H POC Glucose Lactic Acid Calcium 8.1 L Magnesium AST ALT Total Creatine Kinase CK-MB (CK-2) CK-MB (CK-2) Rel Index Troponin T C-Reactive Protein Total Protein Albumin 11/17/18 11/17/18 11/17/18 08:01 12:17 16:22 WBC RBC Hgb Hct MCV MCH MCHC RDW Plt Count Lymph % (Auto) Seg Neutrophils % Seg Neuts % (Manual) Lymphocytes % (Manual) Monocytes % (Manual) Seg Neutrophils # Seg Neutrophils # Man Lymphocytes # (Manual) Monocytes # (Manual) PT INR APTT Activated Clotting Time POC ABG pH 7.473 H ABG pH POC ABG pCO2 POC ABG pO2 51 L ABG pO2 ABG Base Excess ABG Hemoglobin Sodium Potassium Chloride Carbon Dioxide BUN Creatinine Glucose POC Glucose 171 H 244 H Lactic Acid Calcium Magnesium AST ALT Total Creatine Kinase CK-MB (CK-2) CK-MB (CK-2) Rel Index Troponin T C-Reactive Protein Total Protein Albumin 11/17/18 11/17/18 11/17/18 16:35 20:05 21:13 WBC RBC 3.04 L Hgb 10.6 L Hct 31.0 L MCV 102 H MCH 35 H MCHC RDW Plt Count Lymph % (Auto) Seg Neutrophils % Seg Neuts % (Manual) 80.0 H Lymphocytes % (Manual) 11.0 L Monocytes % (Manual) 9.0 H Seg Neutrophils # Seg Neutrophils # Man Lymphocytes # (Manual) 0.7 L Monocytes # (Manual) PT INR APTT Activated Clotting Time POC ABG pH ABG pH POC ABG pCO2 POC ABG pO2 ABG pO2 ABG Base Excess ABG Hemoglobin Sodium Potassium Chloride Carbon Dioxide BUN Creatinine Glucose POC Glucose 176 H 197 H Lactic Acid Calcium Magnesium AST ALT Total Creatine Kinase CK-MB (CK-2) CK-MB (CK-2) Rel Index Troponin T C-Reactive Protein Total Protein Albumin 11/17/18 11/18/18 11/18/18 23:47 03:04 04:03 WBC RBC Hgb Hct MCV MCH MCHC RDW Plt Count Lymph % (Auto) Seg Neutrophils % Seg Neuts % (Manual) Lymphocytes % (Manual) Monocytes % (Manual) Seg Neutrophils # Seg Neutrophils # Man Lymphocytes # (Manual) Monocytes # (Manual) PT INR APTT Activated Clotting Time POC ABG pH ABG pH POC ABG pCO2 POC ABG pO2 ABG pO2 ABG Base Excess ABG Hemoglobin Sodium Potassium Chloride Carbon Dioxide BUN Creatinine 0.6 L Glucose 138 H POC Glucose 252 H 205 H Lactic Acid Calcium 8.0 L Magnesium AST ALT Total Creatine Kinase CK-MB (CK-2) CK-MB (CK-2) Rel Index Troponin T C-Reactive Protein Total Protein Albumin 11/18/18 11/18/18 11/18/18 04:22 04:50 08:42 WBC RBC 3.01 L Hgb 10.6 L Hct 31.1 L MCV 103 H MCH 35 H MCHC RDW Plt Count 137 L Lymph % (Auto) Seg Neutrophils % Seg Neuts % (Manual) Lymphocytes % (Manual) Monocytes % (Manual) Seg Neutrophils # Seg Neutrophils # Man Lymphocytes # (Manual) Monocytes # (Manual) PT INR APTT Activated Clotting Time POC ABG pH ABG pH POC ABG pCO2 47.9 H POC ABG pO2 75 L ABG pO2 ABG Base Excess ABG Hemoglobin Sodium Potassium Chloride Carbon Dioxide BUN Creatinine Glucose POC Glucose 175 H Lactic Acid Calcium Magnesium AST ALT Total Creatine Kinase CK-MB (CK-2) CK-MB (CK-2) Rel Index Troponin T C-Reactive Protein Total Protein Albumin 11/18/18 11:08 WBC RBC Hgb Hct MCV MCH MCHC RDW Plt Count Lymph % (Auto) Seg Neutrophils % Seg Neuts % (Manual) Lymphocytes % (Manual) Monocytes % (Manual) Seg Neutrophils # Seg Neutrophils # Man Lymphocytes # (Manual) Monocytes # (Manual) PT INR APTT Activated Clotting Time POC ABG pH ABG pH POC ABG pCO2 POC ABG pO2 ABG pO2 ABG Base Excess ABG Hemoglobin Sodium Potassium Chloride Carbon Dioxide BUN Creatinine Glucose POC Glucose 209 H Lactic Acid Calcium Magnesium AST ALT Total Creatine Kinase CK-MB (CK-2) CK-MB (CK-2) Rel Index Troponin T C-Reactive Protein Total Protein Albumin
--- NOTE | 2018-11-18 16:47 | Cat Scan Report ---
CT head without contrast CLINICAL HISTORY: Altered mental status FINDINGS: The motion degrades the image quality at. However, there is moderate cerebral white matter disease most consistent with microvascular angiopathy. The findings correlate with the earlier CT of 11/12/2018. There is no clear CT evidence of acute intracranial hemorrhage or significant mass effect. There is also continued mild cerebral atrophy with associated mild prominence of the ventricular syst em which appears unchanged at. There has been interval development of prominent opacification within the left sphenoid sinus at. Mil viridiana findings are seen on the right appear to be related to the presence of the nasogastric tube. All CT scans at this location are performed using the CT dose reduction for [id number] by means of automated e xposure control. IMPRESSION: The motion degrades the image quality. However, there is continued moderate microvascular angiopathy as described without CT evidence of acute intracranial hemorrhage. Signer Name: Alex Whittington MD Signed: 11/18/2018 4:43 PM Workstation Name: [id number]
[2018-11-19] MEDS: HumuLIN R SUB-Q SCH ×6 (00:43→21:21)
[2018-11-19] MEDS: KEPPRA PO SCH ×3 (02:48→21:19)
[2018-11-19] MEDS: DUONEB *Not for PRN Use IH SCH ×4 (04:14→19:37)
--- NOTE | 2018-11-19 08:31 | Progress Note ---
Assessment and Plan Patient's cardiac status is currently stable. We will continue supportive care at this time. The patient has been seen in conjunction with Dr. Tidwell, who agrees with the assessment and plan. - Patient Problems (1) Acute diastolic (congestive) heart failure Current Visit: Yes Status: Acute (2) Altered mental status Current Visit: Yes Status: Acute (3) Cardiopulmonary arrest with successful resuscitation Current Visit: Yes Status: Acute (4) Hypokalemia Current Visit: Yes Status: Acute (5) Ischemic cardiomyopathy Current Visit: Yes Status: Acute (6) Respiratory failure requiring intubation Current Visit: Yes Status: Acute (7) STEMI (ST elevation myocardial infarction) Current Visit: Yes Status: Acute Qualifiers: Involved coronary artery: LAD coronary artery Qualified Code(s): I21.02 - ST elevation (STEMI) myocardial infarction involving left anterior descending coronary artery (8) CAD (coronary artery disease) Current Visit: Yes Status: Chronic (9) DNR (do not resuscitate) Current Visit: Yes Status: Chronic (10) Malnutrition of moderate degree Current Visit: Yes Status: Chronic (11) Smoking Current Visit: Yes Status: Chronic (12) Anoxic brain injury Current Visit: Yes Status: Suspected Subjective Date of service: 11/19/18 Principal diagnosis: Ac. hypoxemic resp failure; S/P cardiac arrest; V-fib; H/O CVA; STEMI Interval history: The patient is lying in bed, responsive only to noxious stimuli. at bedside. Telemetry reviewed - SR in 90s. Objective Last Vital Signs Temp 98.8 F 11/19/18 03:26 Pulse 98 H 11/19/18 08:00 Resp 24 11/19/18 08:00 BP 103/65 11/19/18 08:00 Pulse Ox 96 11/19/18 08:00 - Physical Examination General: No Apparent Distress, Other (intubated, withdraws) HEENT: Positive: Other (sluggish) Neck: Positive: neck supple Cardiac: Positive: Reg Rate and Rhythm Lungs: Positive: Ventilated Respirations (coarse) Neuro: Positive: Other (withdraws ) Abdomen: Positive: Unremarkable, Soft /Rectal: Other (deferred) Skin: Positive: Other (scattered discoloration ) Incision: Cardiac Cath Site (c/d/i, no bleeding, no hematoma) Musculoskeletal: other (intubated ) Gait: Other (VERO) Extremities: Present: lower extr. pulses (weak), Cold, Other (DP pulses present via doppler, no pedal pulses via doppler). Absent: edema - Imaging and Cardiology Echo: report reviewed (TDS, EF 15-20%, mid anteroseptal, apical anterior and apical lateral wall dyskinetic.) Cardiac cath: report reviewed ( left main patent. LAD proximal 95% with WENDY 2 flow circumflex patent OM1 patent RCA patent with moderate LV dysfunction EF 3540% with septal inferior wall hypokinesis. With PCI of the LAD with a drug- eluting 3.5 x 23 mm stent at 15 kim.) - Telemetry EKG Rhythm: Sinus Rhythm AV and intraventricular conduction: right bundle branch block - Allied health notes Allied health notes reviewed: nursing
--- NOTE | 2018-11-19 08:39 | Progress Note ---
Assessment and Plan Assessment and plan: Cardiopulmonary arrest with successful resuscitation - could be from STEMI - now on vent, w/o pressor, follow 2d echo - s/p emergent cath with PCI STEMI (ST elevation myocardial infarction) - ST elevation (STEMI) myocardial infarction involving left anterior descending coronary artery s/p PCI cardiology following CAD (coronary artery disease), cont asprin and plavix Anoxic encephalopathy CT head no acute process, Neurology following Nurse says patient was awake, following commands on 11/16 but not 11/17 or today Hydrocele consult Urologist. hyperkalemia Now resolved Seizure, on iv keppra, Tobacco use Severe PC Malnutrition - consult petal shaper hand Hypokalemia, repleted SIRS - cont abx, follow cx DVT Px, lovenox DNR status I discussed with at bedside. The high probability of a clinically significant, sudden or life threatening deterioration of the [multiple] system(s) required my full and direct attention, intervention and personal management. The aggregate critical care time was [33] minutes. This time is in addition to time spent performing reported procedures but includes the following: [x] Data Review and interpretation [x] Patient assessment and monitoring of vital signs [x] Documentation [x] Medication orders and management History Interval history: Still intubated has decided on DNR code status Hospitalist Physical - Physical exam Narrative exam: Gen: Not in acute distress, malnourished, intubated HEENT: Normocephalic, atraumatic Neck: supple, no JVD Heart: S1 and S2 reg, no murmurs, rubs or gallop Lungs: Clear to auscultation, no rhonchi, no wheeze Abd: soft, non tender, non distended, normal BS, Ext: No edema, no clubbing, no cyanosis Neuro: Does not follow commands today exam. Nurse says was following commands 11/16 - Constitutional Vitals: Temp Pulse Resp BP Pulse Ox 98.8 F 98 H 24 103/65 96 11/19/18 03:26 11/19/18 08:00 11/19/18 08:00 11/19/18 08:00 11/19/18 08:00 General appearance: Present: cachectic Results - Labs CBC & Chem 7: 11/18/18 04:22 11/18/18 04:03 Labs: Laboratory Last Values WBC 7.7 K/mm3 (4.5-11.0) 11/18/18 04:22 RBC 3.01 M/mm3 (3.65-5.03) L 11/18/18 04:22 Hgb 10.6 gm/dl (11.8-15.2) L 11/18/18 04:22 Hct 31.1 % (35.5-45.6) L 11/18/18 04:22 MCV 103 fl (84-94) H 11/18/18 04:22 MCH 35 pg (28-32) H 11/18/18 04:22 MCHC 34 % (32-34) 11/18/18 04:22 RDW 14.8 % (13.2-15.2) 11/18/18 04:22 Plt Count 137 K/mm3 (140-440) L 11/18/18 04:22 Lymph % (Auto) 8.5 % (13.4-35.0) L 11/14/18 03:24 Anson % (Auto) 5.3 % (0.0-7.3) 11/14/18 03:24 Eos % (Auto) 0.5 % (0.0-4.3) 11/14/18 03:24 Baso % (Auto) 0.4 % (0.0-1.8) 11/14/18 03:24 Lymph # 1.2 K/mm3 (1.2-5.4) 11/14/18 03:24 Anson # 0.7 K/mm3 (0.0-0.8) 11/14/18 03:24 Eos # 0.1 K/mm3 (0.0-0.4) 11/14/18 03:24 Baso # 0.1 K/mm3 (0.0-0.1) 11/14/18 03:24 Add Manual Diff Complete 11/17/18 20:05 Total Counted 100 11/17/18 20:05 Seg Neutrophils % 85.3 % (40.0-70.0) H 11/14/18 03:24 Seg Neuts % (Manual) 80.0 % (40.0-70.0) H 11/17/18 20:05 0 % 11/17/18 20:05 11.0 % (13.4-35.0) L 11/17/18 20:05 Reactive Lymphs % (Man) 0 % 11/17/18 20:05 9.0 % (0.0-7.3) H 11/17/18 20:05 0 % (0.0-4.3) 11/17/18 20:05 0 % (0.0-1.8) 11/17/18 20:05 0 % 11/17/18 20:05 0 % 11/17/18 20:05 0 % 11/17/18 20:05 0 % 11/17/18 20:05 Nucleated RBC % Not Reportable 11/17/18 20:05 Seg Neutrophils # 11.6 K/mm3 (1.8-7.7) H 11/14/18 03:24 Seg Neutrophils # Man 5.3 K/mm3 (1.8-7.7) 11/17/18 20:05 Band Neutrophils # 0.0 K/mm3 11/17/18 20:05 0.7 K/mm3 (1.2-5.4) L 11/17/18 20:05 Abs React Lymphs (Man) 0.0 K/mm3 11/17/18 20:05 0.6 K/mm3 (0.0-0.8) 11/17/18 20:05 0.0 K/mm3 (0.0-0.4) 11/17/18 20:05 0.0 K/mm3 (0.0-0.1) 11/17/18 20:05 0.0 K/mm3 11/17/18 20:05 0.0 K/mm3 11/17/18 20:05 0.0 K/mm3 11/17/18 20:05 Blast Cells # 0.0 K/mm3 11/17/18 20:05 WBC Morphology Not Reportable 11/17/18 20:05 Hypersegmented Neuts Not Reportable 11/17/18 20:05 Hyposegmented Neuts Not Reportable 11/17/18 20:05 Hypogranular Neuts Not Reportable 11/17/18 20:05 Not Reportable 11/17/18 20:05 Not Reportable 11/17/18 20:05 Not Reportable 11/17/18 20:05 Not Reportable 11/17/18 20:05 Not Reportable 11/17/18 20:05 Not Reportable 11/17/18 20:05 Not Reportable 11/17/18 20:05 Not Reportable 11/17/18 20:05 Plt Clumps, EDTA Not Reportable 11/17/18 20:05 Not Reportable 11/17/18 20:05 Not Reportable 11/17/18 20:05 Not Reportable 11/17/18 20:05 Plt Morphology Comment Not Reportable 11/17/18 20:05 RBC Morphology Normal 11/17/18 20:05 Dimorphic RBCs Not Reportable 11/17/18 20:05 Not Reportable 11/17/18 20:05 Not Reportable 11/17/18 20:05 Not Reportable 11/17/18 20:05 Not Reportable 11/17/18 20:05 Not Reportable 11/17/18 20:05 Not Reportable 11/17/18 20:05 Not Reportable 11/17/18 20:05 Not Reportable 11/17/18 20:05 Not Reportable 11/17/18 20:05 Not Reportable 11/17/18 20:05 Not Reportable 11/17/18 20:05 Not Reportable 11/17/18 20:05 Not Reportable 11/17/18 20:05 Not Reportable 11/17/18 20:05 Not Reportable 11/17/18 20:05 Not Reportable 11/17/18 20:05 Not Reportable 11/17/18 20:05 Not Reportable 11/17/18 20:05 Not Reportable 11/17/18 20:05 Acanthocytes (Spur) Not Reportable 11/17/18 20:05 Rouleaux Not Reportable 11/17/18 20:05 Not Reportable 11/17/18 20:05 Not Reportable 11/17/18 20:05 Not Reportable 11/17/18 20:05 Not Reportable 11/17/18 20:05 Hem Pathologist Commnt No 11/17/18 20:05 PT 19.2 Sec. (12.2-14.9) H 11/12/18 22:15 INR 1.66 (0.87-1.13) H 11/12/18 22:15 APTT 52.5 Sec. (24.2-36.6) H 11/12/18 22:15 142 (74-137) H 11/13/18 04:01 POC ABG pH 7.477 (7.35-7.45) H 11/19/18 05:04 ABG pH 7.425 pH Units (7.350-7.450) 11/14/18 05:25 POC ABG pCO2 39.1 (35-45) 11/19/18 05:04 ABG pCO2 33.4 mm Hg 11/14/18 05:25 POC ABG pO2 59 (80-105) L 11/19/18 05:04 ABG pO2 110.0 mm Hg (80.0-90.0) H 11/14/18 05:25 POC ABG HCO3 28.9 (22-26 mml/L) 11/19/18 05:04 ABG HCO3 21.4 mmol/L (20.0-26.0) 11/14/18 05:25 POC ABG Total CO2 30 (23-27mmol/L) 11/19/18 05:04 POC ABG O2 Sat 92 11/19/18 05:04 ABG O2 Saturation 98.1 % (95.0-99.0) 11/14/18 05:25 ABG O2 Content 18.0 (0.0-44) 11/14/18 05:25 POC ABG Base Excess 5 ((-2) - (+3)mmol/L) 11/19/18 05:04 ABG Base Excess -2.2 mmol/L (-2.0-3.0) L 11/14/18 05:25 ABG Hemoglobin 13.2 gm/dl (14.0-18.0) L 11/14/18 05:25 ABG Carboxyhemoglobin 1.2 % (0.0-5.0) 11/14/18 05:25 ABG Methemoglobin 0.6 % (0.0-1.5) 11/14/18 05:25 96.3 % (95.0-99.0) 11/14/18 05:25 40 % 11/19/18 05:04 Sodium 143 mmol/L (137-145) 11/18/18 04:03 Potassium 3.6 mmol/L (3.6-5.0) 11/18/18 04:03 Chloride 104.2 mmol/L (98-107) 11/18/18 04:03 Carbon Dioxide 28 mmol/L (22-30) 11/18/18 04:03 14 mmol/L 11/18/18 04:03 BUN 18 mg/dL (9-20) 11/18/18 04:03 0.6 mg/dL (0.8-1.5) L 11/18/18 04:03 Estimated GFR > 60 ml/min 11/18/18 04:03 30 % 11/18/18 04:03 Glucose 138 mg/dL (75-100) H 11/18/18 04:03 POC Glucose 166 (70-105) H 11/19/18 03:30 Lactic Acid 1.20 mmol/L (0.7-2.0) 11/17/18 20:05 Calcium 8.0 mg/dL (8.4-10.2) L 11/18/18 04:03 Magnesium 2.20 mg/dL (1.7-2.3) 11/18/18 14:58 0.50 mg/dL (0.1-1.2) 11/15/18 05:14 < 0.2 mg/dL (0-0.2) 11/14/18 03:24 0.4 mg/dL 11/14/18 03:24 AST 107 units/L (5-40) H 11/15/18 05:14 ALT 59 units/L (7-56) H 11/15/18 05:14 45 units/L (35-129) 11/15/18 05:14 2686 units/L (55-170) H 11/13/18 05:44 CK-MB (CK-2) 126.5 ng/mL (0.0-4.0) H 11/13/18 05:44 CK-MB (CK-2) Rel Index 4.7 (0-4) H 11/13/18 05:44 1.500 ng/mL (0.00-0.029) H* D 11/13/18 05:44 12.70 mg/dL (0.00-1.30) H 11/14/18 19:58 5.3 g/dL (6.3-8.2) L 11/15/18 05:14 3.0 g/dL (3.9-5) L 11/15/18 05:14 1.3 % 11/15/18 05:14 Triglycerides 94 mg/dL (2-149) 11/13/18 05:44 Cholesterol 147 mg/dL (50-199) 11/13/18 05:44 95 mg/dL (50-130) 11/13/18 05:44 56 mg/dL (40-59) 11/13/18 05:44 2.62 % 11/13/18 05:44 Active Medications - Current Medications Current Medications: Generic Name Dose Route Start Last Admin Trade Name Freq PRN Reason Stop Dose Admin Acetaminophen 650 mg 11/13/18 01:50 11/17/18 19:59 Tylenol MA 650 mg Q4H PRN Administration Fever >101 Albuterol 2.5 mg 11/13/18 01:53 Proventil IH Q6HRT PRN Wheezing Albuterol/Ipratropium 1 ampul 11/13/18 08:00 11/19/18 08:11 Duoneb *Not For Prn Use* IH 1 ampul Q6HRT YOSELIN Administration Lipase/Protease/Amylase 1 each 11/14/18 09:40 Pancreazambar Bass 10,500 Unit FEEDTUBE PRN PRN For Clogged Feeding Tube Aspirin 81 mg 11/13/18 10:00 11/18/18 09:28 Baby Aspirin PO 81 mg QDAY YOSELIN Administration Atorvastatin Calcium 80 mg 11/13/18 22:00 11/18/18 22:47 Lipitor PO 80 mg QHS YOSELIN Administration Clopidogrel Bisulfate 75 mg 11/14/18 10:00 11/18/18 09:28 Plavix PO 75 mg QDAY YOSELIN Administration Dextrose 50 ml 11/13/18 02:01 D50w (25gm) Syringe IV PRN PRN Hypoglycemia Famotidine 20 mg 11/15/18 10:00 11/18/18 22:48 Pepcid PO 20 mg BID YOSELIN Administration Hydrophilic Ointment 1 applic 11/14/18 13:20 Vaseline Lip Therapy TP Q2HR PRN Dry Lips Insulin Human Regular 0 units 11/13/18 03:00 11/19/18 06:00 Humulin R SUB-Q Not Given Q4H [facility] Protocol Levetiracetam 750 mg 11/16/18 10:00 11/19/18 02:48 Keppra PO Not Given BID [facility] Lisinopril 10 mg 11/14/18 11:00 11/18/18 09:28 Zestril PO 10 mg QDAY YOSELIN Administration Metoprolol Tartrate 25 mg 11/13/18 10:00 11/18/18 22:47 Lopressor PO 25 mg BID YOSELIN Administration Multi-Ingred Cream/Lotion/Oil/Oint 1 applic 11/14/18 13:20 Artificial Tears Ophth Oint OU Q4HR PRN Dry Eye(s) Ondansetron HCl 4 mg 11/12/18 23:59 Zofran IV Q8H PRN N/V unrelieved by Moy Quetiapine Fumarate 25 mg 11/18/18 22:00 11/18/18 22:48 Seroquel PO 25 mg QHS YOSELIN Administration Simple Syrup 15 ml 11/14/18 09:40 Simple Syrup FEEDTUBE PRN PRN Hypoglycemia Simple Syrup 30 ml 11/14/18 09:40 Simple Syrup FEEDTUBE PRN PRN Hypoglycemia Sodium Bicarbonate 325 mg 11/14/18 09:40 Sodium Bicarbonate FEEDTUBE PRN PRN For Clogged Feeding Tube Nutrition/Malnutrition Assess - Dietary Evaluation Nutrition/Malnutrition Findings: Nutrition Notes Start: 11/13/18 11:12 Freq: Status: Active Protocol: Document 11/17/18 08:47 LM (Rec: 11/17/18 08:51 LM [email or web address]) Nutrition Notes Initial or Follow up Reassessment Other Pertinent Diagnosis s/p cardiac arrest, syncope, AMS, scrotal swelling, R wrist and elbow wound Current Diet Osmolite 1.5 at 60 ml/hr Labs/Tests Cr 0.4 BG 255 Pertinent Medications Humulin Height 6 ft 1 in Weight 44.6 kg Energy Body Weight (kg) 83.63 BMI 12.9 Subjective/Other Information Osmolite running at 60 ml/hr. Pt is tolerating TF and remains on vent. Per MD pt will possibly be extubated today. Percent of energy/protein needs met: 100%/100% Burn Absent Trauma Absent #2 Nutrition Diagnosis Malnutrition Diagnosis Progress(for reassessment Continues documentation) #1 Nutrition Diagnosis Inadequate oral intake Diagnosis Progress(for reassessment Continues documentation) Is patient on ventilator? Yes Is Patient Ambulatory and/or Out of Bed No REE-([facility]-confined to bed) 1512.132 Kcal/Kg value to use for calculation 45 Approximate Energy Requirements Using 2007 kcal/Kg Calculation Used for Recommendations Kcal/kg Additional Notes Pro needs 1.2-2g/k-89g/ day Fluid needs 1ml/kcal Nutrition Intervention Change Diet Order: Continue TF Nutrition Support: Osmolite 1.5 at 60 ml/hr Flush 150 ml q4hr Kcal 2,160 Protein (gm) 90 Fluid (mL) 1,097 Goal #1 Continue TF Goal #2 Meet at least 80% of energy and protein needs Goal #3 Wt maintenance and/or gain Anticipated Discharge Needs: Unable to identify at this time Follow-Up By: 11/24/18 Additional Comments F/U for TF rate/tolerance
[2018-11-19] MEDS: PEPCID PO SCH ×2 (09:10→21:20)
[2018-11-19] MEDS: PLAVIX PO SCH (09:11)
[2018-11-19] MEDS: LOPRESSOR PO SCH ×2 (09:11→21:20)
[2018-11-19] MEDS: BABY ASPIRIN PO SCH (09:11)
[2018-11-19] MEDS: ZESTRIL PO SCH (09:16)
--- NOTE | 2018-11-19 09:56 | Progress Note ---
Subjective Date of service: 11/19/18 Principal diagnosis: Ac. hypoxemic resp failure; S/P cardiac arrest; V-fib; H/O CVA; STEMI Interval history: I would agree with the formal report on the CT of the head... considerable small vessel disease but no bleed or area of majoe ischemic stroke overall great deal of atrophy clinically limited movement of the right arm could be from the hypoxic incident... prognosis not good Objective - Vital Sign Vital Signs - 12hr 11/18/18 11/18/18 11/18/18 22:00 22:06 22:30 Temperature Pulse Rate 99 H 98 H 100 H Pulse Rate [ Bilateral Throughout] Pulse Rate [ From Monitor] Respiratory 34 H 28 H 30 H Rate Respiratory Rate [Bilateral Throughout] Blood Pressure 120/75 120/75 120/75 O2 Sat by Pulse 98 99 99 Oximetry 11/18/18 11/18/18 11/18/18 22:47 23:00 23:17 Temperature Pulse Rate 100 H 98 H 97 H Pulse Rate [ Bilateral Throughout] Pulse Rate [ From Monitor] Respiratory 26 H Rate Respiratory Rate [Bilateral Throughout] Blood Pressure 120/75 121/69 134/77 O2 Sat by Pulse 98 100 Oximetry 11/18/18 11/19/18 11/19/18 23:30 00:00 00:30 Temperature 98.2 F Pulse Rate 84 83 85 Pulse Rate [ Bilateral Throughout] Pulse Rate [ 83 From Monitor] Respiratory 25 H 24 24 Rate Respiratory Rate [Bilateral Throughout] Blood Pressure 121/69 107/62 107/62 O2 Sat by Pulse 96 100 100 Oximetry 11/19/18 11/19/18 11/19/18 01:00 01:30 02:00 Temperature Pulse Rate 82 81 84 Pulse Rate [ Bilateral Throughout] Pulse Rate [ From Monitor] Respiratory 24 26 H 23 Rate Respiratory Rate [Bilateral Throughout] Blood Pressure 106/61 107/62 112/56 O2 Sat by Pulse 100 100 99 Oximetry 11/19/18 11/19/18 11/19/18 02:30 03:00 03:26 Temperature 98.8 F Pulse Rate 86 91 H Pulse Rate [ Bilateral Throughout] Pulse Rate [ From Monitor] Respiratory 23 24 Rate Respiratory Rate [Bilateral Throughout] Blood Pressure 112/56 125/67 O2 Sat by Pulse 98 98 Oximetry 11/19/18 11/19/18 11/19/18 03:30 04:00 04:16 Temperature Pulse Rate 95 H 96 H Pulse Rate [ 102 H Bilateral Throughout] Pulse Rate [ 95 H From Monitor] Respiratory 27 H 24 Rate Respiratory 22 Rate [Bilateral Throughout] Blood Pressure 125/67 110/74 O2 Sat by Pulse 96 97 Oximetry 11/19/18 11/19/18 11/19/18 04:25 04:30 05:00 Temperature Pulse Rate 96 H 111 H 110 H Pulse Rate [ Bilateral Throughout] Pulse Rate [ From Monitor] Respiratory 25 H 27 H Rate Respiratory Rate [Bilateral Throughout] Blood Pressure 128/78 110/74 107/76 O2 Sat by Pulse 100 90 90 Oximetry 11/19/18 11/19/18 11/19/18 05:30 06:00 06:30 Temperature Pulse Rate 110 H 110 H Pulse Rate [ Bilateral Throughout] Pulse Rate [ From Monitor] Respiratory 26 H 25 H Rate Respiratory Rate [Bilateral Throughout] Blood Pressure 107/76 118/71 118/71 O2 Sat by Pulse 88 90 90 Oximetry 11/19/18 11/19/18 11/19/18 07:00 07:30 07:52 Temperature Pulse Rate 102 H 100 H 98 H Pulse Rate [ Bilateral Throughout] Pulse Rate [ From Monitor] Respiratory 28 H 24 Rate Respiratory Rate [Bilateral Throughout] Blood Pressure 93/45 118/71 103/65 O2 Sat by Pulse 84 95 98 Oximetry 11/19/18 11/19/18 11/19/18 08:00 09:11 09:16 Temperature 99.5 F Pulse Rate 96 H 90 99 H Pulse Rate [ 98 H Bilateral Throughout] Pulse Rate [ 98 H From Monitor] Respiratory 25 H Rate Respiratory 24 Rate [Bilateral Throughout] Blood Pressure 103/65 117/72 117/72 O2 Sat by Pulse 98 Oximetry - Laboratory Findings CBC and BMP: 11/18/18 04:22 11/18/18 04:03 Abnormal Lab Findings: Abnormal Labs 11/12/18 11/12/18 11/12/18 22:10 22:15 22:15 WBC RBC Hgb Hct MCV 104 H MCH 35 H MCHC RDW Plt Count 112 L Lymph % (Auto) Seg Neutrophils % Seg Neuts % (Manual) Lymphocytes % (Manual) 47.0 H Monocytes % (Manual) Seg Neutrophils # Seg Neutrophils # Man Lymphocytes # (Manual) Monocytes # (Manual) PT 19.2 H INR 1.66 H APTT 52.5 H Activated Clotting Time POC ABG pH ABG pH POC ABG pCO2 POC ABG pO2 ABG pO2 ABG Base Excess ABG Hemoglobin Sodium Potassium Chloride Carbon Dioxide BUN Creatinine Glucose POC Glucose 131 H Lactic Acid Calcium Magnesium AST ALT Total Creatine Kinase CK-MB (CK-2) CK-MB (CK-2) Rel Index Troponin T C-Reactive Protein Total Protein Albumin 11/12/18 11/12/18 11/13/18 22:15 23:42 01:50 WBC RBC Hgb Hct MCV MCH MCHC RDW Plt Count Lymph % (Auto) Seg Neutrophils % Seg Neuts % (Manual) Lymphocytes % (Manual) Monocytes % (Manual) Seg Neutrophils # Seg Neutrophils # Man Lymphocytes # (Manual) Monocytes # (Manual) PT INR APTT Activated Clotting Time 329 H POC ABG pH ABG pH 7.312 L POC ABG pCO2 POC ABG pO2 ABG pO2 147.6 H ABG Base Excess -4.7 L ABG Hemoglobin Sodium Potassium 2.7 L* Chloride 94.9 L Carbon Dioxide BUN Creatinine Glucose 341 H POC Glucose Lactic Acid Calcium 7.5 L Magnesium AST 58 H ALT Total Creatine Kinase CK-MB (CK-2) CK-MB (CK-2) Rel Index Troponin T C-Reactive Protein Total Protein 4.7 L Albumin 2.9 L 11/13/18 11/13/18 11/13/18 02:30 03:04 04:01 WBC RBC Hgb Hct MCV MCH MCHC RDW Plt Count Lymph % (Auto) Seg Neutrophils % Seg Neuts % (Manual) Lymphocytes % (Manual) Monocytes % (Manual) Seg Neutrophils # Seg Neutrophils # Man Lymphocytes # (Manual) Monocytes # (Manual) PT INR APTT Activated Clotting Time 175 H 142 H POC ABG pH ABG pH POC ABG pCO2 POC ABG pO2 ABG pO2 ABG Base Excess ABG Hemoglobin Sodium Potassium Chloride Carbon Dioxide BUN Creatinine Glucose POC Glucose 185 H Lactic Acid Calcium Magnesium AST ALT Total Creatine Kinase CK-MB (CK-2) CK-MB (CK-2) Rel Index Troponin T C-Reactive Protein Total Protein Albumin 11/13/18 11/13/18 11/13/18 04:50 05:44 05:44 WBC 23.9 H RBC Hgb Hct MCV 102 H MCH 34 H MCHC RDW 15.5 H Plt Count Lymph % (Auto) Seg Neutrophils % Seg Neuts % (Manual) 85.0 H Lymphocytes % (Manual) 2.0 L Monocytes % (Manual) Seg Neutrophils # Seg Neutrophils # Man 20.3 H Lymphocytes # (Manual) 0.5 L Monocytes # (Manual) 1.7 H PT INR APTT Activated Clotting Time POC ABG pH ABG pH POC ABG pCO2 POC ABG pO2 ABG pO2 136.3 H ABG Base Excess -4.4 L ABG Hemoglobin Sodium Potassium Chloride Carbon Dioxide BUN Creatinine Glucose 210 H POC Glucose Lactic Acid Calcium 7.8 L Magnesium AST ALT Total Creatine Kinase 2686 H CK-MB (CK-2) 126.5 H CK-MB (CK-2) Rel Index 4.7 H Troponin T 1.500 H* D C-Reactive Protein Total Protein Albumin 11/13/18 11/13/18 11/13/18 06:44 11:12 14:15 WBC RBC Hgb Hct MCV MCH MCHC RDW Plt Count Lymph % (Auto) Seg Neutrophils % Seg Neuts % (Manual) Lymphocytes % (Manual) Monocytes % (Manual) Seg Neutrophils # Seg Neutrophils # Man Lymphocytes # (Manual) Monocytes # (Manual) PT INR APTT Activated Clotting Time POC ABG pH ABG pH POC ABG pCO2 POC ABG pO2 ABG pO2 ABG Base Excess ABG Hemoglobin Sodium Potassium Chloride Carbon Dioxide BUN Creatinine Glucose POC Glucose 197 H 152 H 125 H Lactic Acid Calcium Magnesium AST ALT Total Creatine Kinase CK-MB (CK-2) CK-MB (CK-2) Rel Index Troponin T C-Reactive Protein Total Protein Albumin 11/13/18 11/13/18 11/13/18 16:19 17:51 19:15 WBC RBC Hgb Hct MCV MCH MCHC RDW Plt Count Lymph % (Auto) Seg Neutrophils % Seg Neuts % (Manual) Lymphocytes % (Manual) Monocytes % (Manual) Seg Neutrophils # Seg Neutrophils # Man Lymphocytes # (Manual) Monocytes # (Manual) PT INR APTT Activated Clotting Time POC ABG pH ABG pH POC ABG pCO2 POC ABG pO2 ABG pO2 ABG Base Excess ABG Hemoglobin Sodium Potassium Chloride Carbon Dioxide BUN Creatinine Glucose POC Glucose 124 H 129 H Lactic Acid Calcium Magnesium 2.60 H AST ALT Total Creatine Kinase CK-MB (CK-2) CK-MB (CK-2) Rel Index Troponin T C-Reactive Protein Total Protein Albumin 11/13/18 11/14/18 11/14/18 23:11 02:55 03:24 WBC 13.6 H RBC Hgb Hct MCV 103 H MCH 35 H MCHC RDW 15.4 H Plt Count 95 L Lymph % (Auto) 8.5 L Seg Neutrophils % 85.3 H Seg Neuts % (Manual) Lymphocytes % (Manual) Monocytes % (Manual) Seg Neutrophils # 11.6 H Seg Neutrophils # Man Lymphocytes # (Manual) Monocytes # (Manual) PT INR APTT Activated Clotting Time POC ABG pH ABG pH POC ABG pCO2 POC ABG pO2 ABG pO2 ABG Base Excess ABG Hemoglobin Sodium Potassium Chloride Carbon Dioxide BUN Creatinine Glucose POC Glucose 180 H 119 H Lactic Acid Calcium Magnesium AST ALT Total Creatine Kinase CK-MB (CK-2) CK-MB (CK-2) Rel Index Troponin T C-Reactive Protein Total Protein Albumin 11/14/18 11/14/18 11/14/18 03:24 05:25 06:17 WBC RBC Hgb Hct MCV MCH MCHC RDW Plt Count Lymph % (Auto) Seg Neutrophils % Seg Neuts % (Manual) Lymphocytes % (Manual) Monocytes % (Manual) Seg Neutrophils # Seg Neutrophils # Man Lymphocytes # (Manual) Monocytes # (Manual) PT INR APTT Activated Clotting Time POC ABG pH ABG pH POC ABG pCO2 POC ABG pO2 ABG pO2 110.0 H ABG Base Excess -2.2 L ABG Hemoglobin 13.2 L Sodium 136 L Potassium 5.1 H D Chloride Carbon Dioxide 20 L BUN Creatinine 0.7 L Glucose 124 H POC Glucose 124 H Lactic Acid Calcium 7.9 L Magnesium AST 183 H ALT 76 H Total Creatine Kinase CK-MB (CK-2) CK-MB (CK-2) Rel Index Troponin T C-Reactive Protein Total Protein 5.9 L D Albumin 3.4 L 11/14/18 11/14/18 11/14/18 11:28 12:41 16:51 WBC RBC Hgb Hct MCV MCH MCHC RDW Plt Count Lymph % (Auto) Seg Neutrophils % Seg Neuts % (Manual) Lymphocytes % (Manual) Monocytes % (Manual) Seg Neutrophils # Seg Neutrophils # Man Lymphocytes # (Manual) Monocytes # (Manual) PT INR APTT Activated Clotting Time POC ABG pH ABG pH POC ABG pCO2 POC ABG pO2 ABG pO2 ABG Base Excess ABG Hemoglobin Sodium Potassium Chloride Carbon Dioxide BUN Creatinine Glucose POC Glucose 172 H 149 H Lactic Acid 4.40 H* Calcium Magnesium AST ALT Total Creatine Kinase CK-MB (CK-2) CK-MB (CK-2) Rel Index Troponin T C-Reactive Protein Total Protein Albumin 11/14/18 11/14/18 11/14/18 18:54 19:58 19:58 WBC RBC Hgb Hct MCV MCH MCHC RDW Plt Count Lymph % (Auto) Seg Neutrophils % Seg Neuts % (Manual) Lymphocytes % (Manual) Monocytes % (Manual) Seg Neutrophils # Seg Neutrophils # Man Lymphocytes # (Manual) Monocytes # (Manual) PT INR APTT Activated Clotting Time POC ABG pH ABG pH POC ABG pCO2 POC ABG pO2 ABG pO2 ABG Base Excess ABG Hemoglobin Sodium Potassium Chloride Carbon Dioxide BUN Creatinine Glucose POC Glucose 168 H Lactic Acid 3.90 H* Calcium Magnesium AST ALT Total Creatine Kinase CK-MB (CK-2) CK-MB (CK-2) Rel Index Troponin T C-Reactive Protein 12.70 H Total Protein Albumin 11/14/18 11/15/18 11/15/18 23:10 02:40 05:14 WBC RBC Hgb Hct MCV MCH MCHC RDW Plt Count Lymph % (Auto) Seg Neutrophils % Seg Neuts % (Manual) Lymphocytes % (Manual) Monocytes % (Manual) Seg Neutrophils # Seg Neutrophils # Man Lymphocytes # (Manual) Monocytes # (Manual) PT INR APTT Activated Clotting Time POC ABG pH ABG pH POC ABG pCO2 POC ABG pO2 ABG pO2 ABG Base Excess ABG Hemoglobin Sodium Potassium Chloride Carbon Dioxide BUN 26 H Creatinine Glucose 134 H POC Glucose 160 H 129 H Lactic Acid Calcium 8.1 L Magnesium AST 107 H ALT 59 H Total Creatine Kinase CK-MB (CK-2) CK-MB (CK-2) Rel Index Troponin T C-Reactive Protein Total Protein 5.3 L Albumin 3.0 L 11/15/18 11/15/18 11/15/18 05:59 05:59 06:37 WBC RBC 3.41 L Hgb Hct 35.0 L D MCV 102 H MCH 35 H MCHC RDW Plt Count 91 L Lymph % (Auto) Seg Neutrophils % Seg Neuts % (Manual) Lymphocytes % (Manual) Monocytes % (Manual) Seg Neutrophils # Seg Neutrophils # Man Lymphocytes # (Manual) Monocytes # (Manual) PT INR APTT Activated Clotting Time POC ABG pH ABG pH POC ABG pCO2 POC ABG pO2 ABG pO2 ABG Base Excess ABG Hemoglobin Sodium Potassium Chloride Carbon Dioxide BUN Creatinine Glucose POC Glucose 160 H Lactic Acid 2.30 H* Calcium Magnesium AST ALT Total Creatine Kinase CK-MB (CK-2) CK-MB (CK-2) Rel Index Troponin T C-Reactive Protein Total Protein Albumin 11/15/18 11/15/18 11/16/18 11:30 23:20 03:09 WBC RBC Hgb Hct MCV MCH MCHC RDW Plt Count Lymph % (Auto) Seg Neutrophils % Seg Neuts % (Manual) Lymphocytes % (Manual) Monocytes % (Manual) Seg Neutrophils # Seg Neutrophils # Man Lymphocytes # (Manual) Monocytes # (Manual) PT INR APTT Activated Clotting Time POC ABG pH ABG pH POC ABG pCO2 POC ABG pO2 ABG pO2 ABG Base Excess ABG Hemoglobin Sodium Potassium Chloride Carbon Dioxide BUN Creatinine Glucose POC Glucose 186 H 129 H 153 H Lactic Acid Calcium Magnesium AST ALT Total Creatine Kinase CK-MB (CK-2) CK-MB (CK-2) Rel Index Troponin T C-Reactive Protein Total Protein Albumin 11/16/18 11/16/18 11/16/18 05:22 05:22 06:54 WBC RBC 3.14 L Hgb 11.0 L Hct 32.1 L MCV 102 H MCH 35 H MCHC RDW Plt Count 96 L Lymph % (Auto) Seg Neutrophils % Seg Neuts % (Manual) Lymphocytes % (Manual) Monocytes % (Manual) Seg Neutrophils # Seg Neutrophils # Man Lymphocytes # (Manual) Monocytes # (Manual) PT INR APTT Activated Clotting Time POC ABG pH ABG pH POC ABG pCO2 POC ABG pO2 ABG pO2 ABG Base Excess ABG Hemoglobin Sodium Potassium Chloride Carbon Dioxide BUN Creatinine 0.5 L Glucose 134 H POC Glucose 184 H Lactic Acid Calcium 8.0 L Magnesium AST ALT Total Creatine Kinase CK-MB (CK-2) CK-MB (CK-2) Rel Index Troponin T C-Reactive Protein Total Protein Albumin 11/16/18 11/16/18 11/16/18 08:11 12:07 16:45 WBC RBC Hgb Hct MCV MCH MCHC RDW Plt Count Lymph % (Auto) Seg Neutrophils % Seg Neuts % (Manual) Lymphocytes % (Manual) Monocytes % (Manual) Seg Neutrophils # Seg Neutrophils # Man Lymphocytes # (Manual) Monocytes # (Manual) PT INR APTT Activated Clotting Time POC ABG pH ABG pH POC ABG pCO2 POC ABG pO2 ABG pO2 ABG Base Excess ABG Hemoglobin Sodium Potassium Chloride Carbon Dioxide BUN Creatinine Glucose POC Glucose 176 H 221 H 139 H Lactic Acid Calcium Magnesium AST ALT Total Creatine Kinase CK-MB (CK-2) CK-MB (CK-2) Rel Index Troponin T C-Reactive Protein Total Protein Albumin 11/16/18 11/16/18 11/17/18 20:29 23:19 03:18 WBC RBC Hgb Hct MCV MCH MCHC RDW Plt Count Lymph % (Auto) Seg Neutrophils % Seg Neuts % (Manual) Lymphocytes % (Manual) Monocytes % (Manual) Seg Neutrophils # Seg Neutrophils # Man Lymphocytes # (Manual) Monocytes # (Manual) PT INR APTT Activated Clotting Time POC ABG pH ABG pH POC ABG pCO2 POC ABG pO2 ABG pO2 ABG Base Excess ABG Hemoglobin Sodium Potassium Chloride Carbon Dioxide BUN Creatinine Glucose POC Glucose 200 H 177 H 255 H Lactic Acid Calcium Magnesium AST ALT Total Creatine Kinase CK-MB (CK-2) CK-MB (CK-2) Rel Index Troponin T C-Reactive Protein Total Protein Albumin 11/17/18 11/17/18 11/17/18 04:17 05:34 05:34 WBC RBC 2.82 L Hgb 10.0 L Hct 28.7 L MCV 102 H MCH 36 H MCHC 35 H RDW Plt Count 117 L Lymph % (Auto) Seg Neutrophils % Seg Neuts % (Manual) Lymphocytes % (Manual) Monocytes % (Manual) Seg Neutrophils # Seg Neutrophils # Man Lymphocytes # (Manual) Monocytes # (Manual) PT INR APTT Activated Clotting Time POC ABG pH ABG pH POC ABG pCO2 POC ABG pO2 70 L ABG pO2 ABG Base Excess ABG Hemoglobin Sodium Potassium Chloride Carbon Dioxide BUN Creatinine 0.4 L Glucose 198 H POC Glucose Lactic Acid Calcium 8.1 L Magnesium AST ALT Total Creatine Kinase CK-MB (CK-2) CK-MB (CK-2) Rel Index Troponin T C-Reactive Protein Total Protein Albumin 11/17/18 11/17/18 11/17/18 08:01 12:17 16:22 WBC RBC Hgb Hct MCV MCH MCHC RDW Plt Count Lymph % (Auto) Seg Neutrophils % Seg Neuts % (Manual) Lymphocytes % (Manual) Monocytes % (Manual) Seg Neutrophils # Seg Neutrophils # Man Lymphocytes # (Manual) Monocytes # (Manual) PT INR APTT Activated Clotting Time POC ABG pH 7.473 H ABG pH POC ABG pCO2 POC ABG pO2 51 L ABG pO2 ABG Base Excess ABG Hemoglobin Sodium Potassium Chloride Carbon Dioxide BUN Creatinine Glucose POC Glucose 171 H 244 H Lactic Acid Calcium Magnesium AST ALT Total Creatine Kinase CK-MB (CK-2) CK-MB (CK-2) Rel Index Troponin T C-Reactive Protein Total Protein Albumin 11/17/18 11/17/18 11/17/18 16:35 20:05 21:13 WBC RBC 3.04 L Hgb 10.6 L Hct 31.0 L MCV 102 H MCH 35 H MCHC RDW Plt Count Lymph % (Auto) Seg Neutrophils % Seg Neuts % (Manual) 80.0 H Lymphocytes % (Manual) 11.0 L Monocytes % (Manual) 9.0 H Seg Neutrophils # Seg Neutrophils # Man Lymphocytes # (Manual) 0.7 L Monocytes # (Manual) PT INR APTT Activated Clotting Time POC ABG pH ABG pH POC ABG pCO2 POC ABG pO2 ABG pO2 ABG Base Excess ABG Hemoglobin Sodium Potassium Chloride Carbon Dioxide BUN Creatinine Glucose POC Glucose 176 H 197 H Lactic Acid Calcium Magnesium AST ALT Total Creatine Kinase CK-MB (CK-2) CK-MB (CK-2) Rel Index Troponin T C-Reactive Protein Total Protein Albumin 11/17/18 11/18/18 11/18/18 23:47 03:04 04:03 WBC RBC Hgb Hct MCV MCH MCHC RDW Plt Count Lymph % (Auto) Seg Neutrophils % Seg Neuts % (Manual) Lymphocytes % (Manual) Monocytes % (Manual) Seg Neutrophils # Seg Neutrophils # Man Lymphocytes # (Manual) Monocytes # (Manual) PT INR APTT Activated Clotting Time POC ABG pH ABG pH POC ABG pCO2 POC ABG pO2 ABG pO2 ABG Base Excess ABG Hemoglobin Sodium Potassium Chloride Carbon Dioxide BUN Creatinine 0.6 L Glucose 138 H POC Glucose 252 H 205 H Lactic Acid Calcium 8.0 L Magnesium AST ALT Total Creatine Kinase CK-MB (CK-2) CK-MB (CK-2) Rel Index Troponin T C-Reactive Protein Total Protein Albumin 11/18/18 11/18/18 11/18/18 04:22 04:50 08:42 WBC RBC 3.01 L Hgb 10.6 L Hct 31.1 L MCV 103 H MCH 35 H MCHC RDW Plt Count 137 L Lymph % (Auto) Seg Neutrophils % Seg Neuts % (Manual) Lymphocytes % (Manual) Monocytes % (Manual) Seg Neutrophils # Seg Neutrophils # Man Lymphocytes # (Manual) Monocytes # (Manual) PT INR APTT Activated Clotting Time POC ABG pH ABG pH POC ABG pCO2 47.9 H POC ABG pO2 75 L ABG pO2 ABG Base Excess ABG Hemoglobin Sodium Potassium Chloride Carbon Dioxide BUN Creatinine Glucose POC Glucose 175 H Lactic Acid Calcium Magnesium AST ALT Total Creatine Kinase CK-MB (CK-2) CK-MB (CK-2) Rel Index Troponin T C-Reactive Protein Total Protein Albumin 11/18/18 11/18/18 11/18/18 11:08 15:29 20:49 WBC RBC Hgb Hct MCV MCH MCHC RDW Plt Count Lymph % (Auto) Seg Neutrophils % Seg Neuts % (Manual) Lymphocytes % (Manual) Monocytes % (Manual) Seg Neutrophils # Seg Neutrophils # Man Lymphocytes # (Manual) Monocytes # (Manual) PT INR APTT Activated Clotting Time POC ABG pH ABG pH POC ABG pCO2 POC ABG pO2 ABG pO2 ABG Base Excess ABG Hemoglobin Sodium Potassium Chloride Carbon Dioxide BUN Creatinine Glucose POC Glucose 209 H 140 H 213 H Lactic Acid Calcium Magnesium AST ALT Total Creatine Kinase CK-MB (CK-2) CK-MB (CK-2) Rel Index Troponin T C-Reactive Protein Total Protein Albumin 11/19/18 11/19/18 11/19/18 00:04 03:30 05:04 WBC RBC Hgb Hct MCV MCH MCHC RDW Plt Count Lymph % (Auto) Seg Neutrophils % Seg Neuts % (Manual) Lymphocytes % (Manual) Monocytes % (Manual) Seg Neutrophils # Seg Neutrophils # Man Lymphocytes # (Manual) Monocytes # (Manual) PT INR APTT Activated Clotting Time POC ABG pH 7.477 H ABG pH POC ABG pCO2 POC ABG pO2 59 L ABG pO2 ABG Base Excess ABG Hemoglobin Sodium Potassium Chloride Carbon Dioxide BUN Creatinine Glucose POC Glucose 118 H 166 H Lactic Acid Calcium Magnesium AST ALT Total Creatine Kinase CK-MB (CK-2) CK-MB (CK-2) Rel Index Troponin T C-Reactive Protein Total Protein Albumin 11/19/18 09:01 WBC RBC Hgb Hct MCV MCH MCHC RDW Plt Count Lymph % (Auto) Seg Neutrophils % Seg Neuts % (Manual) Lymphocytes % (Manual) Monocytes % (Manual) Seg Neutrophils # Seg Neutrophils # Man Lymphocytes # (Manual) Monocytes # (Manual) PT INR APTT Activated Clotting Time POC ABG pH ABG pH POC ABG pCO2 POC ABG pO2 ABG pO2 ABG Base Excess ABG Hemoglobin Sodium Potassium Chloride Carbon Dioxide BUN Creatinine Glucose POC Glucose 179 H Lactic Acid Calcium Magnesium AST ALT Total Creatine Kinase CK-MB (CK-2) CK-MB (CK-2) Rel Index Troponin T C-Reactive Protein Total Protein Albumin
--- NOTE | 2018-11-19 12:31 | Consultation ---
HISTORY OF PRESENT ILLNESS: This is a 73-year-old white male that is admitted to [facility]. He is admitted via the Emergency Room. The patient presents to the hospital with acute onset of severe chest pain and initially was evaluated for loss of consciousness. Since admission, he has had the increase in weakness of his right side and less responsive. He was not under a doctor's care before all this happened and so we do not have much of a background history. tells me he did not like seeing doctors, and therefore, she cannot comment on this further. Since admission, the patient has had a gradual lack of responsivity, seems less able to move the right side at present time. He does not open his eyes to command. He has full ocular movements ____ his eyes open, but does not attempt to communicate with family members. He has a supple neck. No seizure activity. Review of his CAT scan shows loss of attenuation of the white matter. There is some mild cortical atrophy throughout, but no evidence of any acute stroke or bleed and the atrophy that is noted is certainly within normal limits for the patient's stated age of 73. I have reviewed over his electrolytes and hematocrit is 31. At the bedside, vital signs were stable, pulse ox was 96%, pulse rate is 92, blood pressure 122/74. He clearly does not move his right arm, it is slightly swollen. He moves left arm well. He has intact gag reflexes, on the ventilator, respiratory dependent. His blood sugar at the present time was 209. IMPRESSION: Suspect acute stroke in addition to the other factors, metabolic disturbance, anemia, respiratory failure. PLAN: To obtain repeat CT scan of the head at this point. I spoke with the , spoke with the son and explained to them basis of my diagnosis and evaluation. They were at the bedside when I saw him. JOB# [id number] JOSE LUIS/CANDIDA
[2018-11-19 14:24] LABS: Hematocrit 32.7 % (35.5-45.6); Hemoglobin 10.9 gm/dl (11.8-15.2); Mean Corpuscular HGB Conc 33 % (32-34); Mean Corpuscular Volume 103 fl (84-94); Platelet Count 209 K/mm3 (140-440); Red Blood Count 3.17 M/mm3 (3.65-5.03); Red Cell Distribution Width 15.1 % (13.2-15.2)
--- NOTE | 2018-11-19 17:06 | XRay Report ---
CHEST 1 VIEW INDICATION: respiratory failure. COMPARISON: 2 days prior FINDINGS: Support devices: Stable satisfactory device positioning. Heart: Within normal limits. Lungs/Pleura: COPD change with diffuse scarring/interstitial disease again noted. No acute consolidat ion or effusion. Additional findings: None. IMPRESSION: 1. No acute findings. Signer Name: David Rose MD Signed: 11/19/2018 5:02 PM Workstation Name: [id number]
--- NOTE | 2018-11-19 17:44 | Progress Note ---
Assessment and Plan Acute hypoxemic respiratory failure, on mechanical ventilator support. Status post cardiac arrest with return of spontaneous circulation. Ventricular fibrillation. History of cerebrovascular accident. Adult failure to thrive. ST elevation myocardial infarction. Leukocytosis Coagulopathy present on arrival. Hypokalemia. Likely chronic obstructive pulmonary disease. Possible history of hypertension -Start scheduled duonebs and nebulized steroids for desaturation- CXR does not show any acute changes. -Will empirically treat for COPD. -Stop Seroquel, persistent encephalopathy precludes liberation from MVS at this time. Discussed the possibility of trach/PEG. She is agreeable to it if needed. She has had a conversation with one of the other physicians about the possibility of trach/PEG - daily SAT and SBT assessments as tolerated - continue bronchodilators with pulmonary hygiene per RT - VAP bundle addressed - continue to wean supplemental O2 to keep O2 sats > 90% - VTE prophylaxis with SCD's - continue stress ulcer prophylaxis -continue enteral nutrition at goal rate as tolerated - continue accuchecks with glycemic control per SSI for target blood glucose 140-180mg/dL - follow clinically off AB's (No acute indication) - chronic home medications per attending - target sedation for RASS 0 to -1 - continue Keppra for seizures; adjust per neurology recommendations - neurology evaluation ongoing - continue mobility protocols / off loading for pressure ulcer prevention - Critical care bundles addressed - continue other care per attending / other consultants ..... care plan discussed at length with his at bedside, all her questions were answered. Also discussed with RT at the bedside CONDITION: CRITICAL PROGNOSIS: GUARDED TO GRAVE CODE STATUS: DNAR The high probability of a clinically significant, sudden or life threatening deterioration of the [Neurologic, Respiratory & Cardiovascular] system(s) required my full and direct attention, intervention and personal management. The aggregate critical care time was [31] minutes. This time is in addition to time spent performing reported procedures but includes the following: [x] Data Review and interpretation [x] Patient assessment and monitoring of vital signs [x] Documentation [x] Medication orders and management Subjective Date of service: 11/19/18 Principal diagnosis: Ac. hypoxemic resp failure; S/P cardiac arrest; V-fib; H/O CVA; STEMI Interval history: Patient is seen today for: Ac. hypoxemic resp failure; S/P cardiac arrest with ROSC; Ventricular fibrillation.; H/O CVA; STEMI; Leukocytosis; Coagulopathy (POA); Likely COPD; HTN Seen and examined at bedside; 24hour events reviewed; nursing and respiratory care staff consulted; no adverse overnight events reported to me; resting peacefully in bed; some agitation reported earlier. Encephalopathy persists, tolerating PSV trials. No fevers, no vomiting reported. at the bedside. Vitals, labs,medications, chart and imaging reviewed. Discussed in ICU-IDT rounds Objective Vital Signs - 12hr 11/19/18 11/19/18 11/19/18 06:00 06:30 07:00 Temperature Pulse Rate 110 H 102 H Pulse Rate [ Bilateral Throughout] Pulse Rate [ From Monitor] Respiratory 25 H 28 H Rate Respiratory Rate [Bilateral Throughout] Blood Pressure 118/71 118/71 93/45 O2 Sat by Pulse 90 90 84 Oximetry 11/19/18 11/19/18 11/19/18 07:30 07:52 08:00 Temperature 99.5 F Pulse Rate 100 H 98 H 96 H Pulse Rate [ 98 H Bilateral Throughout] Pulse Rate [ 98 H From Monitor] Respiratory 24 25 H Rate Respiratory 24 Rate [Bilateral Throughout] Blood Pressure 118/71 103/65 103/65 O2 Sat by Pulse 95 98 98 Oximetry 11/19/18 11/19/18 11/19/18 08:30 09:00 09:11 Temperature Pulse Rate 100 H 98 H 90 Pulse Rate [ Bilateral Throughout] Pulse Rate [ From Monitor] Respiratory 25 H 24 Rate Respiratory Rate [Bilateral Throughout] Blood Pressure 93/45 117/72 117/72 O2 Sat by Pulse 93 96 Oximetry 11/19/18 11/19/18 11/19/18 09:16 09:30 10:00 Temperature Pulse Rate 99 H 91 H 82 Pulse Rate [ Bilateral Throughout] Pulse Rate [ From Monitor] Respiratory 24 Rate Respiratory Rate [Bilateral Throughout] Blood Pressure 117/72 117/72 117/72 O2 Sat by Pulse 97 97 Oximetry 11/19/18 11/19/18 11/19/18 10:09 10:30 11:00 Temperature Pulse Rate 89 87 Pulse Rate [ Bilateral Throughout] Pulse Rate [ 98 H From Monitor] Respiratory 24 Rate Respiratory Rate [Bilateral Throughout] Blood Pressure 117/72 113/64 O2 Sat by Pulse 90 93 Oximetry 11/19/18 11/19/18 11/19/18 11:15 11:30 12:00 Temperature 97.9 F Pulse Rate 86 84 86 Pulse Rate [ Bilateral Throughout] Pulse Rate [ 86 From Monitor] Respiratory 24 24 Rate Respiratory Rate [Bilateral Throughout] Blood Pressure 113/64 113/64 131/74 O2 Sat by Pulse 90 91 92 Oximetry 11/19/18 11/19/18 11/19/18 12:30 13:00 13:30 Temperature Pulse Rate 87 90 88 Pulse Rate [ Bilateral Throughout] Pulse Rate [ From Monitor] Respiratory 23 24 24 Rate Respiratory Rate [Bilateral Throughout] Blood Pressure 131/74 134/74 134/74 O2 Sat by Pulse 92 93 92 Oximetry 11/19/18 11/19/18 11/19/18 14:00 14:30 15:00 Temperature Pulse Rate 85 84 85 Pulse Rate [ Bilateral Throughout] Pulse Rate [ From Monitor] Respiratory 23 23 24 Rate Respiratory Rate [Bilateral Throughout] Blood Pressure 133/73 133/73 128/75 O2 Sat by Pulse 90 90 91 Oximetry 11/19/18 11/19/18 11/19/18 15:15 15:30 15:50 Temperature Pulse Rate 86 88 Pulse Rate [ 86 Bilateral Throughout] Pulse Rate [ From Monitor] Respiratory 23 Rate Respiratory 20 Rate [Bilateral Throughout] Blood Pressure 128/75 98/64 O2 Sat by Pulse 91 97 Oximetry 11/19/18 11/19/18 11/19/18 16:00 16:30 17:00 Temperature 97.4 F L Pulse Rate 90 85 86 Pulse Rate [ Bilateral Throughout] Pulse Rate [ 90 From Monitor] Respiratory 17 25 H 24 Rate Respiratory Rate [Bilateral Throughout] Blood Pressure 90/48 90/48 70/47 O2 Sat by Pulse 91 94 92 Oximetry Constitutional: no acute distress, other (elderly and chronically ill looking CM with mildly increased resp effort at rest; + temporal wasting) Eyes: non-icteric ENT: oropharynx moist, other (ETT 25 cm MARCE) Neck: supple, no lymphadenopathy, no JVD Effort: mildly labored Ascultation: Bilateral: diminished breath sounds, rhonchi (scant) Percussion: Bilateral: not dull Cardiovascular: regular rate and rhythm, other (S1,S2) Gastrointestinal: normoactive bowel sounds, soft, non-tender Integumentary: other (Bilateral ecchymosis on risa posterior aspects of his chest wall) Extremities: no cyanosis, no edema, pink and warm, pulses normal Neurologic: non-focal exam (grossly), pupils equal and round, unable to assess Psychiatric: other (unable to assess re: AMS) CBC and BMP: 11/19/18 13:46 11/18/18 04:03 ABG, PT/INR, D-dimer: ABG POC ABG pH 7.477 (7.35-7.45) H 11/19/18 05:04 ABG pH 7.425 pH Units (7.350-7.450) 11/14/18 05:25 POC ABG pCO2 39.1 (35-45) 11/19/18 05:04 ABG pCO2 33.4 mm Hg 11/14/18 05:25 POC ABG pO2 59 (80-105) L 11/19/18 05:04 ABG pO2 110.0 mm Hg (80.0-90.0) H 11/14/18 05:25 POC ABG HCO3 28.9 (22-26 mml/L) 11/19/18 05:04 POC ABG Total CO2 30 (23-27mmol/L) 11/19/18 05:04 POC ABG O2 Sat 92 11/19/18 05:04 ABG O2 Saturation 98.1 % (95.0-99.0) 11/14/18 05:25 PT/INR, D-dimer PT 19.2 Sec. (12.2-14.9) H 11/12/18 22:15 INR 1.66 (0.87-1.13) H 11/12/18 22:15 Abnormal lab findings: Abnormal Labs 11/12/18 11/12/18 11/12/18 22:10 22:15 22:15 WBC RBC Hgb Hct MCV 104 H MCH 35 H MCHC RDW Plt Count 112 L Lymph % (Auto) Seg Neutrophils % Seg Neuts % (Manual) Lymphocytes % (Manual) 47.0 H Monocytes % (Manual) Seg Neutrophils # Seg Neutrophils # Man Lymphocytes # (Manual) Monocytes # (Manual) PT 19.2 H INR 1.66 H APTT 52.5 H Activated Clotting Time POC ABG pH ABG pH POC ABG pCO2 POC ABG pO2 ABG pO2 ABG Base Excess ABG Hemoglobin Sodium Potassium Chloride Carbon Dioxide BUN Creatinine Glucose POC Glucose 131 H Lactic Acid Calcium Magnesium AST ALT Total Creatine Kinase CK-MB (CK-2) CK-MB (CK-2) Rel Index Troponin T C-Reactive Protein Total Protein Albumin 11/12/18 11/12/18 11/13/18 22:15 23:42 01:50 WBC RBC Hgb Hct MCV MCH MCHC RDW Plt Count Lymph % (Auto) Seg Neutrophils % Seg Neuts % (Manual) Lymphocytes % (Manual) Monocytes % (Manual) Seg Neutrophils # Seg Neutrophils # Man Lymphocytes # (Manual) Monocytes # (Manual) PT INR APTT Activated Clotting Time 329 H POC ABG pH ABG pH 7.312 L POC ABG pCO2 POC ABG pO2 ABG pO2 147.6 H ABG Base Excess -4.7 L ABG Hemoglobin Sodium Potassium 2.7 L* Chloride 94.9 L Carbon Dioxide BUN Creatinine Glucose 341 H POC Glucose Lactic Acid Calcium 7.5 L Magnesium AST 58 H ALT Total Creatine Kinase CK-MB (CK-2) CK-MB (CK-2) Rel Index Troponin T C-Reactive Protein Total Protein 4.7 L Albumin 2.9 L 11/13/18 11/13/18 11/13/18 02:30 03:04 04:01 WBC RBC Hgb Hct MCV MCH MCHC RDW Plt Count Lymph % (Auto) Seg Neutrophils % Seg Neuts % (Manual) Lymphocytes % (Manual) Monocytes % (Manual) Seg Neutrophils # Seg Neutrophils # Man Lymphocytes # (Manual) Monocytes # (Manual) PT INR APTT Activated Clotting Time 175 H 142 H POC ABG pH ABG pH POC ABG pCO2 POC ABG pO2 ABG pO2 ABG Base Excess ABG Hemoglobin Sodium Potassium Chloride Carbon Dioxide BUN Creatinine Glucose POC Glucose 185 H Lactic Acid Calcium Magnesium AST ALT Total Creatine Kinase CK-MB (CK-2) CK-MB (CK-2) Rel Index Troponin T C-Reactive Protein Total Protein Albumin 11/13/18 11/13/18 11/13/18 04:50 05:44 05:44 WBC 23.9 H RBC Hgb Hct MCV 102 H MCH 34 H MCHC RDW 15.5 H Plt Count Lymph % (Auto) Seg Neutrophils % Seg Neuts % (Manual) 85.0 H Lymphocytes % (Manual) 2.0 L Monocytes % (Manual) Seg Neutrophils # Seg Neutrophils # Man 20.3 H Lymphocytes # (Manual) 0.5 L Monocytes # (Manual) 1.7 H PT INR APTT Activated Clotting Time POC ABG pH ABG pH POC ABG pCO2 POC ABG pO2 ABG pO2 136.3 H ABG Base Excess -4.4 L ABG Hemoglobin Sodium Potassium Chloride Carbon Dioxide BUN Creatinine Glucose 210 H POC Glucose Lactic Acid Calcium 7.8 L Magnesium AST ALT Total Creatine Kinase 2686 H CK-MB (CK-2) 126.5 H CK-MB (CK-2) Rel Index 4.7 H Troponin T 1.500 H* D C-Reactive Protein Total Protein Albumin 11/13/18 11/13/18 11/13/18 06:44 11:12 14:15 WBC RBC Hgb Hct MCV MCH MCHC RDW Plt Count Lymph % (Auto) Seg Neutrophils % Seg Neuts % (Manual) Lymphocytes % (Manual) Monocytes % (Manual) Seg Neutrophils # Seg Neutrophils # Man Lymphocytes # (Manual) Monocytes # (Manual) PT INR APTT Activated Clotting Time POC ABG pH ABG pH POC ABG pCO2 POC ABG pO2 ABG pO2 ABG Base Excess ABG Hemoglobin Sodium Potassium Chloride Carbon Dioxide BUN Creatinine Glucose POC Glucose 197 H 152 H 125 H Lactic Acid Calcium Magnesium AST ALT Total Creatine Kinase CK-MB (CK-2) CK-MB (CK-2) Rel Index Troponin T C-Reactive Protein Total Protein Albumin 11/13/18 11/13/18 11/13/18 16:19 17:51 19:15 WBC RBC Hgb Hct MCV MCH MCHC RDW Plt Count Lymph % (Auto) Seg Neutrophils % Seg Neuts % (Manual) Lymphocytes % (Manual) Monocytes % (Manual) Seg Neutrophils # Seg Neutrophils # Man Lymphocytes # (Manual) Monocytes # (Manual) PT INR APTT Activated Clotting Time POC ABG pH ABG pH POC ABG pCO2 POC ABG pO2 ABG pO2 ABG Base Excess ABG Hemoglobin Sodium Potassium Chloride Carbon Dioxide BUN Creatinine Glucose POC Glucose 124 H 129 H Lactic Acid Calcium Magnesium 2.60 H AST ALT Total Creatine Kinase CK-MB (CK-2) CK-MB (CK-2) Rel Index Troponin T C-Reactive Protein Total Protein Albumin 11/13/18 11/14/18 11/14/18 23:11 02:55 03:24 WBC 13.6 H RBC Hgb Hct MCV 103 H MCH 35 H MCHC RDW 15.4 H Plt Count 95 L Lymph % (Auto) 8.5 L Seg Neutrophils % 85.3 H Seg Neuts % (Manual) Lymphocytes % (Manual) Monocytes % (Manual) Seg Neutrophils # 11.6 H Seg Neutrophils # Man Lymphocytes # (Manual) Monocytes # (Manual) PT INR APTT Activated Clotting Time POC ABG pH ABG pH POC ABG pCO2 POC ABG pO2 ABG pO2 ABG Base Excess ABG Hemoglobin Sodium Potassium Chloride Carbon Dioxide BUN Creatinine Glucose POC Glucose 180 H 119 H Lactic Acid Calcium Magnesium AST ALT Total Creatine Kinase CK-MB (CK-2) CK-MB (CK-2) Rel Index Troponin T C-Reactive Protein Total Protein Albumin 11/14/18 11/14/18 11/14/18 03:24 05:25 06:17 WBC RBC Hgb Hct MCV MCH MCHC RDW Plt Count Lymph % (Auto) Seg Neutrophils % Seg Neuts % (Manual) Lymphocytes % (Manual) Monocytes % (Manual) Seg Neutrophils # Seg Neutrophils # Man Lymphocytes # (Manual) Monocytes # (Manual) PT INR APTT Activated Clotting Time POC ABG pH ABG pH POC ABG pCO2 POC ABG pO2 ABG pO2 110.0 H ABG Base Excess -2.2 L ABG Hemoglobin 13.2 L Sodium 136 L Potassium 5.1 H D Chloride Carbon Dioxide 20 L BUN Creatinine 0.7 L Glucose 124 H POC Glucose 124 H Lactic Acid Calcium 7.9 L Magnesium AST 183 H ALT 76 H Total Creatine Kinase CK-MB (CK-2) CK-MB (CK-2) Rel Index Troponin T C-Reactive Protein Total Protein 5.9 L D Albumin 3.4 L 11/14/18 11/14/18 11/14/18 11:28 12:41 16:51 WBC RBC Hgb Hct MCV MCH MCHC RDW Plt Count Lymph % (Auto) Seg Neutrophils % Seg Neuts % (Manual) Lymphocytes % (Manual) Monocytes % (Manual) Seg Neutrophils # Seg Neutrophils # Man Lymphocytes # (Manual) Monocytes # (Manual) PT INR APTT Activated Clotting Time POC ABG pH ABG pH POC ABG pCO2 POC ABG pO2 ABG pO2 ABG Base Excess ABG Hemoglobin Sodium Potassium Chloride Carbon Dioxide BUN Creatinine Glucose POC Glucose 172 H 149 H Lactic Acid 4.40 H* Calcium Magnesium AST ALT Total Creatine Kinase CK-MB (CK-2) CK-MB (CK-2) Rel Index Troponin T C-Reactive Protein Total Protein Albumin 09/10/19 09/10/19 09/10/19 18:54 19:58 19:58 WBC RBC Hgb Hct MCV MCH MCHC RDW Plt Count Lymph % (Auto) Seg Neutrophils % Seg Neuts % (Manual) Lymphocytes % (Manual) Monocytes % (Manual) Seg Neutrophils # Seg Neutrophils # Man Lymphocytes # (Manual) Monocytes # (Manual) PT INR APTT Activated Clotting Time POC ABG pH ABG pH POC ABG pCO2 POC ABG pO2 ABG pO2 ABG Base Excess ABG Hemoglobin Sodium Potassium Chloride Carbon Dioxide BUN Creatinine Glucose POC Glucose 168 H Lactic Acid 3.90 H* Calcium Magnesium AST ALT Total Creatine Kinase CK-MB (CK-2) CK-MB (CK-2) Rel Index Troponin T C-Reactive Protein 12.70 H Total Protein Albumin 11/14/18 11/15/18 11/15/18 23:10 02:40 05:14 WBC RBC Hgb Hct MCV MCH MCHC RDW Plt Count Lymph % (Auto) Seg Neutrophils % Seg Neuts % (Manual) Lymphocytes % (Manual) Monocytes % (Manual) Seg Neutrophils # Seg Neutrophils # Man Lymphocytes # (Manual) Monocytes # (Manual) PT INR APTT Activated Clotting Time POC ABG pH ABG pH POC ABG pCO2 POC ABG pO2 ABG pO2 ABG Base Excess ABG Hemoglobin Sodium Potassium Chloride Carbon Dioxide BUN 26 H Creatinine Glucose 134 H POC Glucose 160 H 129 H Lactic Acid Calcium 8.1 L Magnesium AST 107 H ALT 59 H Total Creatine Kinase CK-MB (CK-2) CK-MB (CK-2) Rel Index Troponin T C-Reactive Protein Total Protein 5.3 L Albumin 3.0 L 11/15/18 11/15/18 11/15/18 05:59 05:59 06:37 WBC RBC 3.41 L Hgb Hct 35.0 L D MCV 102 H MCH 35 H MCHC RDW Plt Count 91 L Lymph % (Auto) Seg Neutrophils % Seg Neuts % (Manual) Lymphocytes % (Manual) Monocytes % (Manual) Seg Neutrophils # Seg Neutrophils # Man Lymphocytes # (Manual) Monocytes # (Manual) PT INR APTT Activated Clotting Time POC ABG pH ABG pH POC ABG pCO2 POC ABG pO2 ABG pO2 ABG Base Excess ABG Hemoglobin Sodium Potassium Chloride Carbon Dioxide BUN Creatinine Glucose POC Glucose 160 H Lactic Acid 2.30 H* Calcium Magnesium AST ALT Total Creatine Kinase CK-MB (CK-2) CK-MB (CK-2) Rel Index Troponin T C-Reactive Protein Total Protein Albumin 11/15/18 11/15/18 11/16/18 11:30 23:20 03:09 WBC RBC Hgb Hct MCV MCH MCHC RDW Plt Count Lymph % (Auto) Seg Neutrophils % Seg Neuts % (Manual) Lymphocytes % (Manual) Monocytes % (Manual) Seg Neutrophils # Seg Neutrophils # Man Lymphocytes # (Manual) Monocytes # (Manual) PT INR APTT Activated Clotting Time POC ABG pH ABG pH POC ABG pCO2 POC ABG pO2 ABG pO2 ABG Base Excess ABG Hemoglobin Sodium Potassium Chloride Carbon Dioxide BUN Creatinine Glucose POC Glucose 186 H 129 H 153 H Lactic Acid Calcium Magnesium AST ALT Total Creatine Kinase CK-MB (CK-2) CK-MB (CK-2) Rel Index Troponin T C-Reactive Protein Total Protein Albumin 11/16/18 11/16/18 11/16/18 05:22 05:22 06:54 WBC RBC 3.14 L Hgb 11.0 L Hct 32.1 L MCV 102 H MCH 35 H MCHC RDW Plt Count 96 L Lymph % (Auto) Seg Neutrophils % Seg Neuts % (Manual) Lymphocytes % (Manual) Monocytes % (Manual) Seg Neutrophils # Seg Neutrophils # Man Lymphocytes # (Manual) Monocytes # (Manual) PT INR APTT Activated Clotting Time POC ABG pH ABG pH POC ABG pCO2 POC ABG pO2 ABG pO2 ABG Base Excess ABG Hemoglobin Sodium Potassium Chloride Carbon Dioxide BUN Creatinine 0.5 L Glucose 134 H POC Glucose 184 H Lactic Acid Calcium 8.0 L Magnesium AST ALT Total Creatine Kinase CK-MB (CK-2) CK-MB (CK-2) Rel Index Troponin T C-Reactive Protein Total Protein Albumin 11/16/18 11/16/18 11/16/18 08:11 12:07 16:45 WBC RBC Hgb Hct MCV MCH MCHC RDW Plt Count Lymph % (Auto) Seg Neutrophils % Seg Neuts % (Manual) Lymphocytes % (Manual) Monocytes % (Manual) Seg Neutrophils # Seg Neutrophils # Man Lymphocytes # (Manual) Monocytes # (Manual) PT INR APTT Activated Clotting Time POC ABG pH ABG pH POC ABG pCO2 POC ABG pO2 ABG pO2 ABG Base Excess ABG Hemoglobin Sodium Potassium Chloride Carbon Dioxide BUN Creatinine Glucose POC Glucose 176 H 221 H 139 H Lactic Acid Calcium Magnesium AST ALT Total Creatine Kinase CK-MB (CK-2) CK-MB (CK-2) Rel Index Troponin T C-Reactive Protein Total Protein Albumin 11/16/18 11/16/18 11/17/18 20:29 23:19 03:18 WBC RBC Hgb Hct MCV MCH MCHC RDW Plt Count Lymph % (Auto) Seg Neutrophils % Seg Neuts % (Manual) Lymphocytes % (Manual) Monocytes % (Manual) Seg Neutrophils # Seg Neutrophils # Man Lymphocytes # (Manual) Monocytes # (Manual) PT INR APTT Activated Clotting Time POC ABG pH ABG pH POC ABG pCO2 POC ABG pO2 ABG pO2 ABG Base Excess ABG Hemoglobin Sodium Potassium Chloride Carbon Dioxide BUN Creatinine Glucose POC Glucose 200 H 177 H 255 H Lactic Acid Calcium Magnesium AST ALT Total Creatine Kinase CK-MB (CK-2) CK-MB (CK-2) Rel Index Troponin T C-Reactive Protein Total Protein Albumin 11/17/18 11/17/18 11/17/18 04:17 05:34 05:34 WBC RBC 2.82 L Hgb 10.0 L Hct 28.7 L MCV 102 H MCH 36 H MCHC 35 H RDW Plt Count 117 L Lymph % (Auto) Seg Neutrophils % Seg Neuts % (Manual) Lymphocytes % (Manual) Monocytes % (Manual) Seg Neutrophils # Seg Neutrophils # Man Lymphocytes # (Manual) Monocytes # (Manual) PT INR APTT Activated Clotting Time POC ABG pH ABG pH POC ABG pCO2 POC ABG pO2 70 L ABG pO2 ABG Base Excess ABG Hemoglobin Sodium Potassium Chloride Carbon Dioxide BUN Creatinine 0.4 L Glucose 198 H POC Glucose Lactic Acid Calcium 8.1 L Magnesium AST ALT Total Creatine Kinase CK-MB (CK-2) CK-MB (CK-2) Rel Index Troponin T C-Reactive Protein Total Protein Albumin 11/17/18 11/17/18 11/17/18 08:01 12:17 16:22 WBC RBC Hgb Hct MCV MCH MCHC RDW Plt Count Lymph % (Auto) Seg Neutrophils % Seg Neuts % (Manual) Lymphocytes % (Manual) Monocytes % (Manual) Seg Neutrophils # Seg Neutrophils # Man Lymphocytes # (Manual) Monocytes # (Manual) PT INR APTT Activated Clotting Time POC ABG pH 7.473 H ABG pH POC ABG pCO2 POC ABG pO2 51 L ABG pO2 ABG Base Excess ABG Hemoglobin Sodium Potassium Chloride Carbon Dioxide BUN Creatinine Glucose POC Glucose 171 H 244 H Lactic Acid Calcium Magnesium AST ALT Total Creatine Kinase CK-MB (CK-2) CK-MB (CK-2) Rel Index Troponin T C-Reactive Protein Total Protein Albumin 11/17/18 11/17/18 11/17/18 16:35 20:05 21:13 WBC RBC 3.04 L Hgb 10.6 L Hct 31.0 L MCV 102 H MCH 35 H MCHC RDW Plt Count Lymph % (Auto) Seg Neutrophils % Seg Neuts % (Manual) 80.0 H Lymphocytes % (Manual) 11.0 L Monocytes % (Manual) 9.0 H Seg Neutrophils # Seg Neutrophils # Man Lymphocytes # (Manual) 0.7 L Monocytes # (Manual) PT INR APTT Activated Clotting Time POC ABG pH ABG pH POC ABG pCO2 POC ABG pO2 ABG pO2 ABG Base Excess ABG Hemoglobin Sodium Potassium Chloride Carbon Dioxide BUN Creatinine Glucose POC Glucose 176 H 197 H Lactic Acid Calcium Magnesium AST ALT Total Creatine Kinase CK-MB (CK-2) CK-MB (CK-2) Rel Index Troponin T C-Reactive Protein Total Protein Albumin 11/17/18 11/18/18 11/18/18 23:47 03:04 04:03 WBC RBC Hgb Hct MCV MCH MCHC RDW Plt Count Lymph % (Auto) Seg Neutrophils % Seg Neuts % (Manual) Lymphocytes % (Manual) Monocytes % (Manual) Seg Neutrophils # Seg Neutrophils # Man Lymphocytes # (Manual) Monocytes # (Manual) PT INR APTT Activated Clotting Time POC ABG pH ABG pH POC ABG pCO2 POC ABG pO2 ABG pO2 ABG Base Excess ABG Hemoglobin Sodium Potassium Chloride Carbon Dioxide BUN Creatinine 0.6 L Glucose 138 H POC Glucose 252 H 205 H Lactic Acid Calcium 8.0 L Magnesium AST ALT Total Creatine Kinase CK-MB (CK-2) CK-MB (CK-2) Rel Index Troponin T C-Reactive Protein Total Protein Albumin 11/18/18 11/18/18 11/18/18 04:22 04:50 08:42 WBC RBC 3.01 L Hgb 10.6 L Hct 31.1 L MCV 103 H MCH 35 H MCHC RDW Plt Count 137 L Lymph % (Auto) Seg Neutrophils % Seg Neuts % (Manual) Lymphocytes % (Manual) Monocytes % (Manual) Seg Neutrophils # Seg Neutrophils # Man Lymphocytes # (Manual) Monocytes # (Manual) PT INR APTT Activated Clotting Time POC ABG pH ABG pH POC ABG pCO2 47.9 H POC ABG pO2 75 L ABG pO2 ABG Base Excess ABG Hemoglobin Sodium Potassium Chloride Carbon Dioxide BUN Creatinine Glucose POC Glucose 175 H Lactic Acid Calcium Magnesium AST ALT Total Creatine Kinase CK-MB (CK-2) CK-MB (CK-2) Rel Index Troponin T C-Reactive Protein Total Protein Albumin 11/18/18 11/18/18 11/18/18 11:08 15:29 20:49 WBC RBC Hgb Hct MCV MCH MCHC RDW Plt Count Lymph % (Auto) Seg Neutrophils % Seg Neuts % (Manual) Lymphocytes % (Manual) Monocytes % (Manual) Seg Neutrophils # Seg Neutrophils # Man Lymphocytes # (Manual) Monocytes # (Manual) PT INR APTT Activated Clotting Time POC ABG pH ABG pH POC ABG pCO2 POC ABG pO2 ABG pO2 ABG Base Excess ABG Hemoglobin Sodium Potassium Chloride Carbon Dioxide BUN Creatinine Glucose POC Glucose 209 H 140 H 213 H Lactic Acid Calcium Magnesium AST ALT Total Creatine Kinase CK-MB (CK-2) CK-MB (CK-2) Rel Index Troponin T C-Reactive Protein Total Protein Albumin 11/19/18 11/19/18 11/19/18 00:04 03:30 05:04 WBC RBC Hgb Hct MCV MCH MCHC RDW Plt Count Lymph % (Auto) Seg Neutrophils % Seg Neuts % (Manual) Lymphocytes % (Manual) Monocytes % (Manual) Seg Neutrophils # Seg Neutrophils # Man Lymphocytes # (Manual) Monocytes # (Manual) PT INR APTT Activated Clotting Time POC ABG pH 7.477 H ABG pH POC ABG pCO2 POC ABG pO2 59 L ABG pO2 ABG Base Excess ABG Hemoglobin Sodium Potassium Chloride Carbon Dioxide BUN Creatinine Glucose POC Glucose 118 H 166 H Lactic Acid Calcium Magnesium AST ALT Total Creatine Kinase CK-MB (CK-2) CK-MB (CK-2) Rel Index Troponin T C-Reactive Protein Total Protein Albumin 11/19/18 11/19/18 11/19/18 09:01 12:09 13:46 WBC 13.2 H RBC 3.17 L Hgb 10.9 L Hct 32.7 L MCV 103 H MCH 34 H MCHC RDW Plt Count Lymph % (Auto) Seg Neutrophils % Seg Neuts % (Manual) Lymphocytes % (Manual) Monocytes % (Manual) Seg Neutrophils # Seg Neutrophils # Man Lymphocytes # (Manual) Monocytes # (Manual) PT INR APTT Activated Clotting Time POC ABG pH ABG pH POC ABG pCO2 POC ABG pO2 ABG pO2 ABG Base Excess ABG Hemoglobin Sodium Potassium Chloride Carbon Dioxide BUN Creatinine Glucose POC Glucose 179 H 178 H Lactic Acid Calcium Magnesium AST ALT Total Creatine Kinase CK-MB (CK-2) CK-MB (CK-2) Rel Index Troponin T C-Reactive Protein Total Protein Albumin 11/19/18 15:25 WBC RBC Hgb Hct MCV MCH MCHC RDW Plt Count Lymph % (Auto) Seg Neutrophils % Seg Neuts % (Manual) Lymphocytes % (Manual) Monocytes % (Manual) Seg Neutrophils # Seg Neutrophils # Man Lymphocytes # (Manual) Monocytes # (Manual) PT INR APTT Activated Clotting Time POC ABG pH ABG pH POC ABG pCO2 POC ABG pO2 ABG pO2 ABG Base Excess ABG Hemoglobin Sodium Potassium Chloride Carbon Dioxide BUN Creatinine Glucose POC Glucose 144 H Lactic Acid Calcium Magnesium AST ALT Total Creatine Kinase CK-MB (CK-2) CK-MB (CK-2) Rel Index Troponin T C-Reactive Protein Total Protein Albumin Allied health notes reviewed: RT
[2018-11-19] MEDS ORDERED: NACL 0.9% 1000 ML 1,000 ML IV ONE (18:00)
--- NOTE | 2018-11-19 18:12 | Event Note ---
Date: 11/19/18 Had another discussion with the this afternoon. She states that she does not want the tracheotomy, because she is convinced that he would not want to be sustained on any measures, if he cannot be independent. I discussed hospice and she is willing to consider that if heis mental status does not improve in the next 24-48 hours. Discussion was held with the patient's RN present. Also noted to have some hypotension, currently getting 1L NSaline bolus with good response
[2018-11-19] MEDS: PULMICORT IH SCH (19:37)
[2018-11-20] MEDS: HumuLIN R SUB-Q SCH ×4 (01:23→13:33)
[2018-11-20] MEDS ORDERED: CARDIZEM IV PRN (02:54)
[2018-11-20 05:16] LABS: BUN/Creatinine Ratio 48; Blood Urea Nitrogen 24 mg/dL (9-20); Hemolysis Index 43
[2018-11-20] MEDS: DUONEB *Not for PRN Use IH SCH ×2 (05:23→07:22)
[2018-11-20] MEDS ORDERED: NACL 0.9% 500 ML 500 ML IV ONE (07:06)
[2018-11-20] MEDS: PULMICORT IH SCH (07:22)
--- NOTE | 2018-11-20 08:35 | Progress Note ---
Hospitalist Physical - Constitutional Vitals: Temp Pulse Resp BP Pulse Ox 98.4 F 79 24 103/59 100 11/20/18 03:39 11/20/18 07:30 11/20/18 07:30 11/20/18 07:30 11/20/18 07:30 General appearance: Present: cachectic Results - Labs CBC & Chem 7: 11/19/18 13:46 11/20/18 04:35 Labs: Laboratory Last Values WBC 13.2 K/mm3 (4.5-11.0) H 11/19/18 13:46 RBC 3.17 M/mm3 (3.65-5.03) L 11/19/18 13:46 Hgb 10.9 gm/dl (11.8-15.2) L 11/19/18 13:46 Hct 32.7 % (35.5-45.6) L 11/19/18 13:46 MCV 103 fl (84-94) H 11/19/18 13:46 MCH 34 pg (28-32) H 11/19/18 13:46 MCHC 33 % (32-34) 11/19/18 13:46 RDW 15.1 % (13.2-15.2) 11/19/18 13:46 Plt Count 209 K/mm3 (140-440) 11/19/18 13:46 Lymph % (Auto) 8.5 % (13.4-35.0) L 11/14/18 03:24 [place] % (Auto) 5.3 % (0.0-7.3) 11/14/18 03:24 Eos % (Auto) 0.5 % (0.0-4.3) 11/14/18 03:24 Baso % (Auto) 0.4 % (0.0-1.8) 11/14/18 03:24 Lymph # 1.2 K/mm3 (1.2-5.4) 11/14/18 03:24 [place] # 0.7 K/mm3 (0.0-0.8) 11/14/18 03:24 Eos # 0.1 K/mm3 (0.0-0.4) 11/14/18 03:24 Baso # 0.1 K/mm3 (0.0-0.1) 11/14/18 03:24 Add Manual Diff Complete 11/17/18 20:05 Total Counted 100 11/17/18 20:05 Seg Neutrophils % 85.3 % (40.0-70.0) H 11/14/18 03:24 Seg Neuts % (Manual) 80.0 % (40.0-70.0) H 11/17/18 20:05 0 % 11/17/18 20:05 11.0 % (13.4-35.0) L 11/17/18 20:05 Reactive Lymphs % (Man) 0 % 11/17/18 20:05 9.0 % (0.0-7.3) H 11/17/18 20:05 0 % (0.0-4.3) 11/17/18 20:05 0 % (0.0-1.8) 11/17/18 20:05 0 % 11/17/18 20:05 0 % 11/17/18 20:05 0 % 11/17/18 20:05 0 % 11/17/18 20:05 Nucleated RBC % Not Reportable 11/17/18 20:05 Seg Neutrophils # 11.6 K/mm3 (1.8-7.7) H 11/14/18 03:24 Seg Neutrophils # Man 5.3 K/mm3 (1.8-7.7) 11/17/18 20:05 Band Neutrophils # 0.0 K/mm3 11/17/18 20:05 0.7 K/mm3 (1.2-5.4) L 11/17/18 20:05 Abs React Lymphs (Man) 0.0 K/mm3 11/17/18 20:05 0.6 K/mm3 (0.0-0.8) 11/17/18 20:05 0.0 K/mm3 (0.0-0.4) 11/17/18 20:05 0.0 K/mm3 (0.0-0.1) 11/17/18 20:05 0.0 K/mm3 11/17/18 20:05 0.0 K/mm3 11/17/18 20:05 0.0 K/mm3 11/17/18 20:05 Blast Cells # 0.0 K/mm3 11/17/18 20:05 WBC Morphology Not Reportable 11/17/18 20:05 Hypersegmented Neuts Not Reportable 11/17/18 20:05 Hyposegmented Neuts Not Reportable 11/17/18 20:05 Hypogranular Neuts Not Reportable 11/17/18 20:05 Not Reportable 11/17/18 20:05 Not Reportable 11/17/18 20:05 Not Reportable 11/17/18 20:05 Not Reportable 11/17/18 20:05 Not Reportable 11/17/18 20:05 Not Reportable 11/17/18 20:05 Not Reportable 11/17/18 20:05 Not Reportable 11/17/18 20:05 Plt Clumps, EDTA Not Reportable 11/17/18 20:05 Not Reportable 11/17/18 20:05 Not Reportable 11/17/18 20:05 Not Reportable 11/17/18 20:05 Plt Morphology Comment Not Reportable 11/17/18 20:05 RBC Morphology Normal 11/17/18 20:05 Dimorphic RBCs Not Reportable 11/17/18 20:05 Not Reportable 11/17/18 20:05 Not Reportable 11/17/18 20:05 Not Reportable 11/17/18 20:05 Not Reportable 11/17/18 20:05 Not Reportable 11/17/18 20:05 Not Reportable 11/17/18 20:05 Not Reportable 11/17/18 20:05 Not Reportable 11/17/18 20:05 Not Reportable 11/17/18 20:05 Not Reportable 11/17/18 20:05 Not Reportable 11/17/18 20:05 Not Reportable 11/17/18 20:05 Not Reportable 11/17/18 20:05 Not Reportable 11/17/18 20:05 Not Reportable 11/17/18 20:05 Not Reportable 11/17/18 20:05 Not Reportable 11/17/18 20:05 Not Reportable 11/17/18 20:05 Not Reportable 11/17/18 20:05 Acanthocytes (Spur) Not Reportable 11/17/18 20:05 Rouleaux Not Reportable 11/17/18 20:05 Not Reportable 11/17/18 20:05 Not Reportable 11/17/18 20:05 Not Reportable 11/17/18 20:05 Not Reportable 11/17/18 20:05 Hem Pathologist Commnt No 11/17/18 20:05 PT 19.2 Sec. (12.2-14.9) H 11/12/18 22:15 INR 1.66 (0.87-1.13) H 11/12/18 22:15 APTT 52.5 Sec. (24.2-36.6) H 11/12/18 22:15 142 (74-137) H 11/13/18 04:01 POC ABG pH 7.477 (7.35-7.45) H 11/19/18 05:04 ABG pH 7.425 pH Units (7.350-7.450) 11/14/18 05:25 POC ABG pCO2 39.1 (35-45) 11/19/18 05:04 ABG pCO2 33.4 mm Hg 11/14/18 05:25 POC ABG pO2 59 (80-105) L 11/19/18 05:04 ABG pO2 110.0 mm Hg (80.0-90.0) H 11/14/18 05:25 POC ABG HCO3 28.9 (22-26 mml/L) 11/19/18 05:04 ABG HCO3 21.4 mmol/L (20.0-26.0) 11/14/18 05:25 POC ABG Total CO2 30 (23-27mmol/L) 11/19/18 05:04 POC ABG O2 Sat 92 11/19/18 05:04 ABG O2 Saturation 98.1 % (95.0-99.0) 11/14/18 05:25 ABG O2 Content 18.0 (0.0-44) 11/14/18 05:25 POC ABG Base Excess 5 ((-2) - (+3)mmol/L) 11/19/18 05:04 ABG Base Excess -2.2 mmol/L (-2.0-3.0) L 11/14/18 05:25 ABG Hemoglobin 13.2 gm/dl (14.0-18.0) L 11/14/18 05:25 ABG Carboxyhemoglobin 1.2 % (0.0-5.0) 11/14/18 05:25 ABG Methemoglobin 0.6 % (0.0-1.5) 11/14/18 05:25 96.3 % (95.0-99.0) 11/14/18 05:25 40 % 11/19/18 05:04 Sodium 144 mmol/L (137-145) 11/20/18 04:35 Potassium 4.5 mmol/L (3.6-5.0) D 11/20/18 04:35 Chloride 106.4 mmol/L (98-107) 11/20/18 04:35 Carbon Dioxide 27 mmol/L (22-30) 11/20/18 04:35 15 mmol/L 11/20/18 04:35 BUN 24 mg/dL (9-20) H 11/20/18 04:35 0.5 mg/dL (0.8-1.5) L 11/20/18 04:35 Estimated GFR > 60 ml/min 11/20/18 04:35 48 % 11/20/18 04:35 Glucose 105 mg/dL (75-100) H 11/20/18 04:35 POC Glucose 140 (70-105) H 11/20/18 03:32 Lactic Acid 1.20 mmol/L (0.7-2.0) 11/17/18 20:05 Calcium 8.0 mg/dL (8.4-10.2) L 11/20/18 04:35 Magnesium 2.20 mg/dL (1.7-2.3) 11/18/18 14:58 0.50 mg/dL (0.1-1.2) 11/15/18 05:14 < 0.2 mg/dL (0-0.2) 11/14/18 03:24 0.4 mg/dL 11/14/18 03:24 AST 107 units/L (5-40) H 11/15/18 05:14 ALT 59 units/L (7-56) H 11/15/18 05:14 45 units/L (35-129) 11/15/18 05:14 2686 units/L (55-170) H 11/13/18 05:44 CK-MB (CK-2) 126.5 ng/mL (0.0-4.0) H 11/13/18 05:44 CK-MB (CK-2) Rel Index 4.7 (0-4) H 11/13/18 05:44 1.500 ng/mL (0.00-0.029) H* D 11/13/18 05:44 12.70 mg/dL (0.00-1.30) H 11/14/18 19:58 5.3 g/dL (6.3-8.2) L 11/15/18 05:14 3.0 g/dL (3.9-5) L 11/15/18 05:14 1.3 % 11/15/18 05:14 Triglycerides 94 mg/dL (2-149) 11/13/18 05:44 Cholesterol 147 mg/dL (50-199) 11/13/18 05:44 95 mg/dL (50-130) 11/13/18 05:44 56 mg/dL (40-59) 11/13/18 05:44 2.62 % 11/13/18 05:44 Active Medications - Current Medications Current Medications: Generic Name Dose Route Start Last Admin Trade Name Freq PRN Reason Stop Dose Admin Acetaminophen 650 mg 11/13/18 01:50 11/17/18 19:59 Tylenol MT 650 mg Q4H PRN Administration Fever >101 Albuterol/Ipratropium 1 ampul 11/13/18 08:00 11/20/18 07:22 Duoneb *Not For Prn Use* IH 1 ampul Q6HRT YOSELIN Administration Lipase/Protease/Amylase 1 each 11/14/18 09:40 Pancreaze 10,500 Unit FEEDTUBE PRN PRN For Clogged Feeding Tube Aspirin 81 mg 11/13/18 10:00 11/19/18 09:11 Baby Aspirin PO 81 mg QDAY YOSELIN Administration Atorvastatin Calcium 80 mg 11/13/18 22:00 11/19/18 21:20 Lipitor PO 80 mg QHS YOSELIN Administration Budesonide 0.5 mg 11/19/18 20:00 11/20/18 07:22 Pulmicort IH 0.5 mg Q12HRT YOSELIN Administration Clopidogrel Bisulfate 75 mg 11/14/18 10:00 11/19/18 09:11 Plavix PO 75 mg QDAY YOSELIN Administration Dextrose 50 ml 11/13/18 02:01 D50w (25gm) Syringe IV PRN PRN Hypoglycemia Diltiazem HCl 15 mg 11/20/18 02:54 11/20/18 03:12 Cardizem IV 15 mg Q2H PRN Administration svt Famotidine 20 mg 11/15/18 10:00 11/19/18 21:20 Pepcid PO 20 mg BID YOSELIN Administration Hydrophilic Ointment 1 applic 11/14/18 13:20 Vaseline Lip Therapy TP Q2HR PRN Dry Lips Insulin Human Regular 0 units 11/13/18 03:00 11/20/18 03:50 Humulin R SUB-Q Not Given Q4H [facility] Protocol Levetiracetam 750 mg 11/16/18 10:00 11/19/18 21:19 Keppra PO 750 mg BID YOSELIN Administration Lisinopril 10 mg 11/14/18 11:00 11/19/18 09:16 Zestril PO 10 mg QDAY YOSELIN Administration Metoprolol Tartrate 25 mg 11/13/18 10:00 11/19/18 21:20 Lopressor PO 25 mg BID YOSELIN Administration Multi-Ingred Cream/Lotion/Oil/Oint 1 applic 11/14/18 13:20 Artificial Tears Ophth Oint OU Q4HR PRN Dry Eye(s) Ondansetron HCl 4 mg 11/12/18 23:59 Zofran IV Q8H PRN N/V unrelieved by Reglan Simple Syrup 15 ml 11/14/18 09:40 Simple Syrup FEEDTUBE PRN PRN Hypoglycemia Simple Syrup 30 ml 11/14/18 09:40 Simple Syrup FEEDTUBE PRN PRN Hypoglycemia Sodium Bicarbonate 325 mg 11/14/18 09:40 Sodium Bicarbonate FEEDTUBE PRN PRN For Clogged Feeding Tube Nutrition/Malnutrition Assess - Dietary Evaluation Nutrition/Malnutrition Findings: Nutrition Notes Start: 11/13/18 11:12 Freq: Status: Active Protocol: Document 11/17/18 08:47 LM (Rec: 11/17/18 08:51 LM [email or web address]) Nutrition Notes Initial or Follow up Reassessment Other Pertinent Diagnosis s/p cardiac arrest, syncope, AMS, scrotal swelling, R wrist and elbow wound Current Diet Osmolite 1.5 at 60 ml/hr Labs/Tests Cr 0.4 BG 255 Pertinent Medications Humulin Height 6 ft 1 in Weight 44.6 kg Hecker Body Weight (kg) 83.63 BMI 12.9 Subjective/Other Information Osmolite running at 60 ml/hr. Pt is tolerating TF and remains on vent. Per MD pt will possibly be extubated today. Percent of energy/protein needs met: 100%/100% Burn Absent Trauma Absent #2 Nutrition Diagnosis Malnutrition Diagnosis Progress(for reassessment Continues documentation) #1 Nutrition Diagnosis Inadequate oral intake Diagnosis Progress(for reassessment Continues documentation) Is patient on ventilator? Yes Is Patient Ambulatory and/or Out of Bed No REE-([facility]-confined to bed) 1512.132 Kcal/Kg value to use for calculation 45 Approximate Energy Requirements Using 2007 kcal/Kg Calculation Used for Recommendations Kcal/kg Additional Notes Pro needs 1.2-2g/k-89g/ day Fluid needs 1ml/kcal Nutrition Intervention Change Diet Order: Continue TF Nutrition Support: Osmolite 1.5 at 60 ml/hr Flush 150 ml q4hr Kcal 2,160 Protein (gm) 90 Fluid (mL) 1,097 Goal #1 Continue TF Goal #2 Meet at least 80% of energy and protein needs Goal #3 Wt maintenance and/or gain Anticipated Discharge Needs: Unable to identify at this time Follow-Up By: 11/24/18 Additional Comments F/U for TF rate/tolerance
[2018-11-20] MEDS: ZESTRIL PO SCH (09:10)
[2018-11-20] MEDS: LOPRESSOR PO SCH (09:12)
--- NOTE | 2018-11-20 10:50 | Progress Note ---
Assessment and Plan Acute hypoxemic respiratory failure, on mechanical ventilator support. Status post cardiac arrest with return of spontaneous circulation. Ventricular fibrillation. History of cerebrovascular accident. Adult failure to thrive. ST elevation myocardial infarction. Leukocytosis Coagulopathy present on arrival. Hypokalemia. Likely chronic obstructive pulmonary disease. Possible history of hypertension Plan for compassionate extubation based on discussions with the yesterday and today. Asked that Dr. Beasley also have discussions wit the to determine consistency in the information. Subjective Date of service: 11/20/18 Principal diagnosis: Ac. hypoxemic resp failure; S/P cardiac arrest; V-fib; H/O CVA; STEMI Interval history: Patient is seen today for: Ac. hypoxemic resp failure; S/P cardiac arrest with ROSC; Ventricular fibrillation.; H/O CVA; STEMI; Leukocytosis; Coagulopathy (POA); Likely COPD; HTN Seen and examined at bedside; 24hour events reviewed; nursing and respiratory care staff consulted; no adverse overnight events reported to me; resting peacefully in bed; some agitation reported earlier. Encephalopathy persists, remains on MVS No fevers, no vomiting reported. at the bedside. She wants compassionate extubation this morning, does not to wait any further Vitals, labs,medications, chart and imaging reviewed. Discussed in ICU-IDT rounds Objective Vital Signs - 12hr 11/19/18 11/19/18 11/19/18 23:00 23:27 23:30 Temperature 97.5 F L Pulse Rate 92 H 96 H Pulse Rate [ Bilateral Throughout] Pulse Rate [ From Monitor] Respiratory 21 24 Rate Respiratory Rate [Bilateral Throughout] Blood Pressure 108/62 104/70 O2 Sat by Pulse 98 97 Oximetry 11/20/18 11/20/18 11/20/18 00:00 00:30 00:50 Temperature Pulse Rate 94 H 96 H 88 Pulse Rate [ Bilateral Throughout] Pulse Rate [ 94 H From Monitor] Respiratory 26 H 24 Rate Respiratory Rate [Bilateral Throughout] Blood Pressure 105/60 106/66 O2 Sat by Pulse 97 96 100 Oximetry 11/20/18 11/20/18 11/20/18 01:00 01:30 02:00 Temperature Pulse Rate 95 H 96 H 92 H Pulse Rate [ Bilateral Throughout] Pulse Rate [ From Monitor] Respiratory 26 H 22 25 H Rate Respiratory Rate [Bilateral Throughout] Blood Pressure 102/67 99/58 97/65 O2 Sat by Pulse 96 98 96 Oximetry 11/20/18 11/20/18 11/20/18 02:30 03:00 03:12 Temperature Pulse Rate 156 H 151 H 160 H Pulse Rate [ Bilateral Throughout] Pulse Rate [ From Monitor] Respiratory 25 H 22 Rate Respiratory Rate [Bilateral Throughout] Blood Pressure 100/64 107/70 107/70 O2 Sat by Pulse 98 95 Oximetry 11/20/18 11/20/18 11/20/18 03:30 03:39 04:00 Temperature 98.4 F Pulse Rate 120 H 120 H Pulse Rate [ Bilateral Throughout] Pulse Rate [ 124 H From Monitor] Respiratory 25 H 26 H Rate Respiratory Rate [Bilateral Throughout] Blood Pressure 98/64 90/57 O2 Sat by Pulse 95 96 Oximetry 11/20/18 11/20/18 11/20/18 04:30 05:00 05:27 Temperature Pulse Rate 127 H 125 H Pulse Rate [ 121 H Bilateral Throughout] Pulse Rate [ From Monitor] Respiratory 28 H 25 H Rate Respiratory 22 Rate [Bilateral Throughout] Blood Pressure 93/47 93/65 O2 Sat by Pulse 98 97 Oximetry 11/20/18 11/20/18 11/20/18 05:30 06:00 06:30 Temperature Pulse Rate 128 H 78 76 Pulse Rate [ Bilateral Throughout] Pulse Rate [ From Monitor] Respiratory 24 20 15 Rate Respiratory Rate [Bilateral Throughout] Blood Pressure 98/65 93/56 69/45 O2 Sat by Pulse 98 97 99 Oximetry 11/20/18 11/20/18 11/20/18 07:00 07:15 07:21 Temperature Pulse Rate 76 79 Pulse Rate [ 77 Bilateral Throughout] Pulse Rate [ From Monitor] Respiratory 20 Rate Respiratory 18 Rate [Bilateral Throughout] Blood Pressure 100/56 90/57 O2 Sat by Pulse 99 98 Oximetry 11/20/18 11/20/18 11/20/18 07:30 08:00 08:30 Temperature 99.7 F H Pulse Rate 79 80 82 Pulse Rate [ Bilateral Throughout] Pulse Rate [ 80 From Monitor] Respiratory 24 26 H 26 H Rate Respiratory Rate [Bilateral Throughout] Blood Pressure 103/59 94/54 97/46 O2 Sat by Pulse 100 96 97 Oximetry 11/20/18 11/20/18 11/20/18 09:00 09:10 09:12 Temperature Pulse Rate 81 81 82 Pulse Rate [ Bilateral Throughout] Pulse Rate [ From Monitor] Respiratory 21 Rate Respiratory Rate [Bilateral Throughout] Blood Pressure 85/55 85/55 85/55 O2 Sat by Pulse 98 Oximetry 11/20/18 09:30 Temperature Pulse Rate 82 Pulse Rate [ Bilateral Throughout] Pulse Rate [ From Monitor] Respiratory 18 Rate Respiratory Rate [Bilateral Throughout] Blood Pressure 85/58 O2 Sat by Pulse 99 Oximetry Constitutional: no acute distress, other (elderly and chronically ill looking CM with mildly increased resp effort at rest; + temporal wasting) Eyes: non-icteric ENT: oropharynx moist, other (ETT 25 cm MARCE) Neck: supple, no lymphadenopathy, no JVD Effort: mildly labored Ascultation: Bilateral: diminished breath sounds, rhonchi (scant) Percussion: Bilateral: not dull Cardiovascular: regular rate and rhythm, other (S1,S2) Gastrointestinal: normoactive bowel sounds, soft, non-tender Integumentary: other (Bilateral ecchymosis on risa posterior aspects of his chest wall) Extremities: no cyanosis, no edema, pink and warm, pulses normal Neurologic: non-focal exam (grossly), pupils equal and round, unable to assess Psychiatric: other (unable to assess re: AMS) CBC and BMP: 11/19/18 13:46 11/20/18 04:35 ABG, PT/INR, D-dimer: ABG POC ABG pH 7.477 (7.35-7.45) H 11/19/18 05:04 ABG pH 7.425 pH Units (7.350-7.450) 11/14/18 05:25 POC ABG pCO2 39.1 (35-45) 11/19/18 05:04 ABG pCO2 33.4 mm Hg 11/14/18 05:25 POC ABG pO2 59 (80-105) L 11/19/18 05:04 ABG pO2 110.0 mm Hg (80.0-90.0) H 11/14/18 05:25 POC ABG HCO3 28.9 (22-26 mml/L) 11/19/18 05:04 POC ABG Total CO2 30 (23-27mmol/L) 11/19/18 05:04 POC ABG O2 Sat 92 11/19/18 05:04 ABG O2 Saturation 98.1 % (95.0-99.0) 11/14/18 05:25 PT/INR, D-dimer PT 19.2 Sec. (12.2-14.9) H 11/12/18 22:15 INR 1.66 (0.87-1.13) H 11/12/18 22:15 Abnormal lab findings: Abnormal Labs 11/12/18 11/12/18 11/12/18 22:10 22:15 22:15 WBC RBC Hgb Hct MCV 104 H MCH 35 H MCHC RDW Plt Count 112 L Lymph % (Auto) Seg Neutrophils % Seg Neuts % (Manual) Lymphocytes % (Manual) 47.0 H Monocytes % (Manual) Seg Neutrophils # Seg Neutrophils # Man Lymphocytes # (Manual) Monocytes # (Manual) PT 19.2 H INR 1.66 H APTT 52.5 H Activated Clotting Time POC ABG pH ABG pH POC ABG pCO2 POC ABG pO2 ABG pO2 ABG Base Excess ABG Hemoglobin Sodium Potassium Chloride Carbon Dioxide BUN Creatinine Glucose POC Glucose 131 H Lactic Acid Calcium Magnesium AST ALT Total Creatine Kinase CK-MB (CK-2) CK-MB (CK-2) Rel Index Troponin T C-Reactive Protein Total Protein Albumin 11/12/18 11/12/18 11/13/18 22:15 23:42 01:50 WBC RBC Hgb Hct MCV MCH MCHC RDW Plt Count Lymph % (Auto) Seg Neutrophils % Seg Neuts % (Manual) Lymphocytes % (Manual) Monocytes % (Manual) Seg Neutrophils # Seg Neutrophils # Man Lymphocytes # (Manual) Monocytes # (Manual) PT INR APTT Activated Clotting Time 329 H POC ABG pH ABG pH 7.312 L POC ABG pCO2 POC ABG pO2 ABG pO2 147.6 H ABG Base Excess -4.7 L ABG Hemoglobin Sodium Potassium 2.7 L* Chloride 94.9 L Carbon Dioxide BUN Creatinine Glucose 341 H POC Glucose Lactic Acid Calcium 7.5 L Magnesium AST 58 H ALT Total Creatine Kinase CK-MB (CK-2) CK-MB (CK-2) Rel Index Troponin T C-Reactive Protein Total Protein 4.7 L Albumin 2.9 L 11/13/18 11/13/18 11/13/18 02:30 03:04 04:01 WBC RBC Hgb Hct MCV MCH MCHC RDW Plt Count Lymph % (Auto) Seg Neutrophils % Seg Neuts % (Manual) Lymphocytes % (Manual) Monocytes % (Manual) Seg Neutrophils # Seg Neutrophils # Man Lymphocytes # (Manual) Monocytes # (Manual) PT INR APTT Activated Clotting Time 175 H 142 H POC ABG pH ABG pH POC ABG pCO2 POC ABG pO2 ABG pO2 ABG Base Excess ABG Hemoglobin Sodium Potassium Chloride Carbon Dioxide BUN Creatinine Glucose POC Glucose 185 H Lactic Acid Calcium Magnesium AST ALT Total Creatine Kinase CK-MB (CK-2) CK-MB (CK-2) Rel Index Troponin T C-Reactive Protein Total Protein Albumin 11/13/18 11/13/18 11/13/18 04:50 05:44 05:44 WBC 23.9 H RBC Hgb Hct MCV 102 H MCH 34 H MCHC RDW 15.5 H Plt Count Lymph % (Auto) Seg Neutrophils % Seg Neuts % (Manual) 85.0 H Lymphocytes % (Manual) 2.0 L Monocytes % (Manual) Seg Neutrophils # Seg Neutrophils # Man 20.3 H Lymphocytes # (Manual) 0.5 L Monocytes # (Manual) 1.7 H PT INR APTT Activated Clotting Time POC ABG pH ABG pH POC ABG pCO2 POC ABG pO2 ABG pO2 136.3 H ABG Base Excess -4.4 L ABG Hemoglobin Sodium Potassium Chloride Carbon Dioxide BUN Creatinine Glucose 210 H POC Glucose Lactic Acid Calcium 7.8 L Magnesium AST ALT Total Creatine Kinase 2686 H CK-MB (CK-2) 126.5 H CK-MB (CK-2) Rel Index 4.7 H Troponin T 1.500 H* D C-Reactive Protein Total Protein Albumin 11/13/18 11/13/18 11/13/18 06:44 11:12 14:15 WBC RBC Hgb Hct MCV MCH MCHC RDW Plt Count Lymph % (Auto) Seg Neutrophils % Seg Neuts % (Manual) Lymphocytes % (Manual) Monocytes % (Manual) Seg Neutrophils # Seg Neutrophils # Man Lymphocytes # (Manual) Monocytes # (Manual) PT INR APTT Activated Clotting Time POC ABG pH ABG pH POC ABG pCO2 POC ABG pO2 ABG pO2 ABG Base Excess ABG Hemoglobin Sodium Potassium Chloride Carbon Dioxide BUN Creatinine Glucose POC Glucose 197 H 152 H 125 H Lactic Acid Calcium Magnesium AST ALT Total Creatine Kinase CK-MB (CK-2) CK-MB (CK-2) Rel Index Troponin T C-Reactive Protein Total Protein Albumin 11/13/18 11/13/18 11/13/18 16:19 17:51 19:15 WBC RBC Hgb Hct MCV MCH MCHC RDW Plt Count Lymph % (Auto) Seg Neutrophils % Seg Neuts % (Manual) Lymphocytes % (Manual) Monocytes % (Manual) Seg Neutrophils # Seg Neutrophils # Man Lymphocytes # (Manual) Monocytes # (Manual) PT INR APTT Activated Clotting Time POC ABG pH ABG pH POC ABG pCO2 POC ABG pO2 ABG pO2 ABG Base Excess ABG Hemoglobin Sodium Potassium Chloride Carbon Dioxide BUN Creatinine Glucose POC Glucose 124 H 129 H Lactic Acid Calcium Magnesium 2.60 H AST ALT Total Creatine Kinase CK-MB (CK-2) CK-MB (CK-2) Rel Index Troponin T C-Reactive Protein Total Protein Albumin 11/13/18 11/14/18 11/14/18 23:11 02:55 03:24 WBC 13.6 H RBC Hgb Hct MCV 103 H MCH 35 H MCHC RDW 15.4 H Plt Count 95 L Lymph % (Auto) 8.5 L Seg Neutrophils % 85.3 H Seg Neuts % (Manual) Lymphocytes % (Manual) Monocytes % (Manual) Seg Neutrophils # 11.6 H Seg Neutrophils # Man Lymphocytes # (Manual) Monocytes # (Manual) PT INR APTT Activated Clotting Time POC ABG pH ABG pH POC ABG pCO2 POC ABG pO2 ABG pO2 ABG Base Excess ABG Hemoglobin Sodium Potassium Chloride Carbon Dioxide BUN Creatinine Glucose POC Glucose 180 H 119 H Lactic Acid Calcium Magnesium AST ALT Total Creatine Kinase CK-MB (CK-2) CK-MB (CK-2) Rel Index Troponin T C-Reactive Protein Total Protein Albumin 11/14/18 11/14/18 11/14/18 03:24 05:25 06:17 WBC RBC Hgb Hct MCV MCH MCHC RDW Plt Count Lymph % (Auto) Seg Neutrophils % Seg Neuts % (Manual) Lymphocytes % (Manual) Monocytes % (Manual) Seg Neutrophils # Seg Neutrophils # Man Lymphocytes # (Manual) Monocytes # (Manual) PT INR APTT Activated Clotting Time POC ABG pH ABG pH POC ABG pCO2 POC ABG pO2 ABG pO2 110.0 H ABG Base Excess -2.2 L ABG Hemoglobin 13.2 L Sodium 136 L Potassium 5.1 H D Chloride Carbon Dioxide 20 L BUN Creatinine 0.7 L Glucose 124 H POC Glucose 124 H Lactic Acid Calcium 7.9 L Magnesium AST 183 H ALT 76 H Total Creatine Kinase CK-MB (CK-2) CK-MB (CK-2) Rel Index Troponin T C-Reactive Protein Total Protein 5.9 L D Albumin 3.4 L 11/14/18 11/14/18 11/14/18 11:28 12:41 16:51 WBC RBC Hgb Hct MCV MCH MCHC RDW Plt Count Lymph % (Auto) Seg Neutrophils % Seg Neuts % (Manual) Lymphocytes % (Manual) Monocytes % (Manual) Seg Neutrophils # Seg Neutrophils # Man Lymphocytes # (Manual) Monocytes # (Manual) PT INR APTT Activated Clotting Time POC ABG pH ABG pH POC ABG pCO2 POC ABG pO2 ABG pO2 ABG Base Excess ABG Hemoglobin Sodium Potassium Chloride Carbon Dioxide BUN Creatinine Glucose POC Glucose 172 H 149 H Lactic Acid 4.40 H* Calcium Magnesium AST ALT Total Creatine Kinase CK-MB (CK-2) CK-MB (CK-2) Rel Index Troponin T C-Reactive Protein Total Protein Albumin 11/14/18 11/14/18 11/14/18 18:54 19:58 19:58 WBC RBC Hgb Hct MCV MCH MCHC RDW Plt Count Lymph % (Auto) Seg Neutrophils % Seg Neuts % (Manual) Lymphocytes % (Manual) Monocytes % (Manual) Seg Neutrophils # Seg Neutrophils # Man Lymphocytes # (Manual) Monocytes # (Manual) PT INR APTT Activated Clotting Time POC ABG pH ABG pH POC ABG pCO2 POC ABG pO2 ABG pO2 ABG Base Excess ABG Hemoglobin Sodium Potassium Chloride Carbon Dioxide BUN Creatinine Glucose POC Glucose 168 H Lactic Acid 3.90 H* Calcium Magnesium AST ALT Total Creatine Kinase CK-MB (CK-2) CK-MB (CK-2) Rel Index Troponin T C-Reactive Protein 12.70 H Total Protein Albumin 11/14/18 11/15/18 11/15/18 23:10 02:40 05:14 WBC RBC Hgb Hct MCV MCH MCHC RDW Plt Count Lymph % (Auto) Seg Neutrophils % Seg Neuts % (Manual) Lymphocytes % (Manual) Monocytes % (Manual) Seg Neutrophils # Seg Neutrophils # Man Lymphocytes # (Manual) Monocytes # (Manual) PT INR APTT Activated Clotting Time POC ABG pH ABG pH POC ABG pCO2 POC ABG pO2 ABG pO2 ABG Base Excess ABG Hemoglobin Sodium Potassium Chloride Carbon Dioxide BUN 26 H Creatinine Glucose 134 H POC Glucose 160 H 129 H Lactic Acid Calcium 8.1 L Magnesium AST 107 H ALT 59 H Total Creatine Kinase CK-MB (CK-2) CK-MB (CK-2) Rel Index Troponin T C-Reactive Protein Total Protein 5.3 L Albumin 3.0 L 11/15/18 11/15/18 11/15/18 05:59 05:59 06:37 WBC RBC 3.41 L Hgb Hct 35.0 L D MCV 102 H MCH 35 H MCHC RDW Plt Count 91 L Lymph % (Auto) Seg Neutrophils % Seg Neuts % (Manual) Lymphocytes % (Manual) Monocytes % (Manual) Seg Neutrophils # Seg Neutrophils # Man Lymphocytes # (Manual) Monocytes # (Manual) PT INR APTT Activated Clotting Time POC ABG pH ABG pH POC ABG pCO2 POC ABG pO2 ABG pO2 ABG Base Excess ABG Hemoglobin Sodium Potassium Chloride Carbon Dioxide BUN Creatinine Glucose POC Glucose 160 H Lactic Acid 2.30 H* Calcium Magnesium AST ALT Total Creatine Kinase CK-MB (CK-2) CK-MB (CK-2) Rel Index Troponin T C-Reactive Protein Total Protein Albumin 11/15/18 11/15/18 11/16/18 11:30 23:20 03:09 WBC RBC Hgb Hct MCV MCH MCHC RDW Plt Count Lymph % (Auto) Seg Neutrophils % Seg Neuts % (Manual) Lymphocytes % (Manual) Monocytes % (Manual) Seg Neutrophils # Seg Neutrophils # Man Lymphocytes # (Manual) Monocytes # (Manual) PT INR APTT Activated Clotting Time POC ABG pH ABG pH POC ABG pCO2 POC ABG pO2 ABG pO2 ABG Base Excess ABG Hemoglobin Sodium Potassium Chloride Carbon Dioxide BUN Creatinine Glucose POC Glucose 186 H 129 H 153 H Lactic Acid Calcium Magnesium AST ALT Total Creatine Kinase CK-MB (CK-2) CK-MB (CK-2) Rel Index Troponin T C-Reactive Protein Total Protein Albumin 11/16/18 11/16/18 11/16/18 05:22 05:22 06:54 WBC RBC 3.14 L Hgb 11.0 L Hct 32.1 L MCV 102 H MCH 35 H MCHC RDW Plt Count 96 L Lymph % (Auto) Seg Neutrophils % Seg Neuts % (Manual) Lymphocytes % (Manual) Monocytes % (Manual) Seg Neutrophils # Seg Neutrophils # Man Lymphocytes # (Manual) Monocytes # (Manual) PT INR APTT Activated Clotting Time POC ABG pH ABG pH POC ABG pCO2 POC ABG pO2 ABG pO2 ABG Base Excess ABG Hemoglobin Sodium Potassium Chloride Carbon Dioxide BUN Creatinine 0.5 L Glucose 134 H POC Glucose 184 H Lactic Acid Calcium 8.0 L Magnesium AST ALT Total Creatine Kinase CK-MB (CK-2) CK-MB (CK-2) Rel Index Troponin T C-Reactive Protein Total Protein Albumin 11/16/18 11/16/18 11/16/18 08:11 12:07 16:45 WBC RBC Hgb Hct MCV MCH MCHC RDW Plt Count Lymph % (Auto) Seg Neutrophils % Seg Neuts % (Manual) Lymphocytes % (Manual) Monocytes % (Manual) Seg Neutrophils # Seg Neutrophils # Man Lymphocytes # (Manual) Monocytes # (Manual) PT INR APTT Activated Clotting Time POC ABG pH ABG pH POC ABG pCO2 POC ABG pO2 ABG pO2 ABG Base Excess ABG Hemoglobin Sodium Potassium Chloride Carbon Dioxide BUN Creatinine Glucose POC Glucose 176 H 221 H 139 H Lactic Acid Calcium Magnesium AST ALT Total Creatine Kinase CK-MB (CK-2) CK-MB (CK-2) Rel Index Troponin T C-Reactive Protein Total Protein Albumin 11/16/18 11/16/18 11/17/18 20:29 23:19 03:18 WBC RBC Hgb Hct MCV MCH MCHC RDW Plt Count Lymph % (Auto) Seg Neutrophils % Seg Neuts % (Manual) Lymphocytes % (Manual) Monocytes % (Manual) Seg Neutrophils # Seg Neutrophils # Man Lymphocytes # (Manual) Monocytes # (Manual) PT INR APTT Activated Clotting Time POC ABG pH ABG pH POC ABG pCO2 POC ABG pO2 ABG pO2 ABG Base Excess ABG Hemoglobin Sodium Potassium Chloride Carbon Dioxide BUN Creatinine Glucose POC Glucose 200 H 177 H 255 H Lactic Acid Calcium Magnesium AST ALT Total Creatine Kinase CK-MB (CK-2) CK-MB (CK-2) Rel Index Troponin T C-Reactive Protein Total Protein Albumin 11/17/18 11/17/18 11/17/18 04:17 05:34 05:34 WBC RBC 2.82 L Hgb 10.0 L Hct 28.7 L MCV 102 H MCH 36 H MCHC 35 H RDW Plt Count 117 L Lymph % (Auto) Seg Neutrophils % Seg Neuts % (Manual) Lymphocytes % (Manual) Monocytes % (Manual) Seg Neutrophils # Seg Neutrophils # Man Lymphocytes # (Manual) Monocytes # (Manual) PT INR APTT Activated Clotting Time POC ABG pH ABG pH POC ABG pCO2 POC ABG pO2 70 L ABG pO2 ABG Base Excess ABG Hemoglobin Sodium Potassium Chloride Carbon Dioxide BUN Creatinine 0.4 L Glucose 198 H POC Glucose Lactic Acid Calcium 8.1 L Magnesium AST ALT Total Creatine Kinase CK-MB (CK-2) CK-MB (CK-2) Rel Index Troponin T C-Reactive Protein Total Protein Albumin 11/17/18 11/17/18 11/17/18 08:01 12:17 16:22 WBC RBC Hgb Hct MCV MCH MCHC RDW Plt Count Lymph % (Auto) Seg Neutrophils % Seg Neuts % (Manual) Lymphocytes % (Manual) Monocytes % (Manual) Seg Neutrophils # Seg Neutrophils # Man Lymphocytes # (Manual) Monocytes # (Manual) PT INR APTT Activated Clotting Time POC ABG pH 7.473 H ABG pH POC ABG pCO2 POC ABG pO2 51 L ABG pO2 ABG Base Excess ABG Hemoglobin Sodium Potassium Chloride Carbon Dioxide BUN Creatinine Glucose POC Glucose 171 H 244 H Lactic Acid Calcium Magnesium AST ALT Total Creatine Kinase CK-MB (CK-2) CK-MB (CK-2) Rel Index Troponin T C-Reactive Protein Total Protein Albumin 11/17/18 11/17/18 11/17/18 16:35 20:05 21:13 WBC RBC 3.04 L Hgb 10.6 L Hct 31.0 L MCV 102 H MCH 35 H MCHC RDW Plt Count Lymph % (Auto) Seg Neutrophils % Seg Neuts % (Manual) 80.0 H Lymphocytes % (Manual) 11.0 L Monocytes % (Manual) 9.0 H Seg Neutrophils # Seg Neutrophils # Man Lymphocytes # (Manual) 0.7 L Monocytes # (Manual) PT INR APTT Activated Clotting Time POC ABG pH ABG pH POC ABG pCO2 POC ABG pO2 ABG pO2 ABG Base Excess ABG Hemoglobin Sodium Potassium Chloride Carbon Dioxide BUN Creatinine Glucose POC Glucose 176 H 197 H Lactic Acid Calcium Magnesium AST ALT Total Creatine Kinase CK-MB (CK-2) CK-MB (CK-2) Rel Index Troponin T C-Reactive Protein Total Protein Albumin 11/17/18 11/18/18 11/18/18 23:47 03:04 04:03 WBC RBC Hgb Hct MCV MCH MCHC RDW Plt Count Lymph % (Auto) Seg Neutrophils % Seg Neuts % (Manual) Lymphocytes % (Manual) Monocytes % (Manual) Seg Neutrophils # Seg Neutrophils # Man Lymphocytes # (Manual) Monocytes # (Manual) PT INR APTT Activated Clotting Time POC ABG pH ABG pH POC ABG pCO2 POC ABG pO2 ABG pO2 ABG Base Excess ABG Hemoglobin Sodium Potassium Chloride Carbon Dioxide BUN Creatinine 0.6 L Glucose 138 H POC Glucose 252 H 205 H Lactic Acid Calcium 8.0 L Magnesium AST ALT Total Creatine Kinase CK-MB (CK-2) CK-MB (CK-2) Rel Index Troponin T C-Reactive Protein Total Protein Albumin 11/18/18 11/18/18 11/18/18 04:22 04:50 08:42 WBC RBC 3.01 L Hgb 10.6 L Hct 31.1 L MCV 103 H MCH 35 H MCHC RDW Plt Count 137 L Lymph % (Auto) Seg Neutrophils % Seg Neuts % (Manual) Lymphocytes % (Manual) Monocytes % (Manual) Seg Neutrophils # Seg Neutrophils # Man Lymphocytes # (Manual) Monocytes # (Manual) PT INR APTT Activated Clotting Time POC ABG pH ABG pH POC ABG pCO2 47.9 H POC ABG pO2 75 L ABG pO2 ABG Base Excess ABG Hemoglobin Sodium Potassium Chloride Carbon Dioxide BUN Creatinine Glucose POC Glucose 175 H Lactic Acid Calcium Magnesium AST ALT Total Creatine Kinase CK-MB (CK-2) CK-MB (CK-2) Rel Index Troponin T C-Reactive Protein Total Protein Albumin 11/18/18 11/18/18 11/18/18 11:08 15:29 20:49 WBC RBC Hgb Hct MCV MCH MCHC RDW Plt Count Lymph % (Auto) Seg Neutrophils % Seg Neuts % (Manual) Lymphocytes % (Manual) Monocytes % (Manual) Seg Neutrophils # Seg Neutrophils # Man Lymphocytes # (Manual) Monocytes # (Manual) PT INR APTT Activated Clotting Time POC ABG pH ABG pH POC ABG pCO2 POC ABG pO2 ABG pO2 ABG Base Excess ABG Hemoglobin Sodium Potassium Chloride Carbon Dioxide BUN Creatinine Glucose POC Glucose 209 H 140 H 213 H Lactic Acid Calcium Magnesium AST ALT Total Creatine Kinase CK-MB (CK-2) CK-MB (CK-2) Rel Index Troponin T C-Reactive Protein Total Protein Albumin 11/19/18 11/19/18 11/19/18 00:04 03:30 05:04 WBC RBC Hgb Hct MCV MCH MCHC RDW Plt Count Lymph % (Auto) Seg Neutrophils % Seg Neuts % (Manual) Lymphocytes % (Manual) Monocytes % (Manual) Seg Neutrophils # Seg Neutrophils # Man Lymphocytes # (Manual) Monocytes # (Manual) PT INR APTT Activated Clotting Time POC ABG pH 7.477 H ABG pH POC ABG pCO2 POC ABG pO2 59 L ABG pO2 ABG Base Excess ABG Hemoglobin Sodium Potassium Chloride Carbon Dioxide BUN Creatinine Glucose POC Glucose 118 H 166 H Lactic Acid Calcium Magnesium AST ALT Total Creatine Kinase CK-MB (CK-2) CK-MB (CK-2) Rel Index Troponin T C-Reactive Protein Total Protein Albumin 11/19/18 11/19/18 11/19/18 09:01 12:09 13:46 WBC 13.2 H RBC 3.17 L Hgb 10.9 L Hct 32.7 L MCV 103 H MCH 34 H MCHC RDW Plt Count Lymph % (Auto) Seg Neutrophils % Seg Neuts % (Manual) Lymphocytes % (Manual) Monocytes % (Manual) Seg Neutrophils # Seg Neutrophils # Man Lymphocytes # (Manual) Monocytes # (Manual) PT INR APTT Activated Clotting Time POC ABG pH ABG pH POC ABG pCO2 POC ABG pO2 ABG pO2 ABG Base Excess ABG Hemoglobin Sodium Potassium Chloride Carbon Dioxide BUN Creatinine Glucose POC Glucose 179 H 178 H Lactic Acid Calcium Magnesium AST ALT Total Creatine Kinase CK-MB (CK-2) CK-MB (CK-2) Rel Index Troponin T C-Reactive Protein Total Protein Albumin 11/19/18 11/19/18 11/19/18 15:25 20:03 23:10 WBC RBC Hgb Hct MCV MCH MCHC RDW Plt Count Lymph % (Auto) Seg Neutrophils % Seg Neuts % (Manual) Lymphocytes % (Manual) Monocytes % (Manual) Seg Neutrophils # Seg Neutrophils # Man Lymphocytes # (Manual) Monocytes # (Manual) PT INR APTT Activated Clotting Time POC ABG pH ABG pH POC ABG pCO2 POC ABG pO2 ABG pO2 ABG Base Excess ABG Hemoglobin Sodium Potassium Chloride Carbon Dioxide BUN Creatinine Glucose POC Glucose 144 H 232 H 238 H Lactic Acid Calcium Magnesium AST ALT Total Creatine Kinase CK-MB (CK-2) CK-MB (CK-2) Rel Index Troponin T C-Reactive Protein Total Protein Albumin 11/20/18 11/20/18 03:32 04:35 WBC RBC Hgb Hct MCV MCH MCHC RDW Plt Count Lymph % (Auto) Seg Neutrophils % Seg Neuts % (Manual) Lymphocytes % (Manual) Monocytes % (Manual) Seg Neutrophils # Seg Neutrophils # Man Lymphocytes # (Manual) Monocytes # (Manual) PT INR APTT Activated Clotting Time POC ABG pH ABG pH POC ABG pCO2 POC ABG pO2 ABG pO2 ABG Base Excess ABG Hemoglobin Sodium Potassium Chloride Carbon Dioxide BUN 24 H Creatinine 0.5 L Glucose 105 H POC Glucose 140 H Lactic Acid Calcium 8.0 L Magnesium AST ALT Total Creatine Kinase CK-MB (CK-2) CK-MB (CK-2) Rel Index Troponin T C-Reactive Protein Total Protein Albumin Allied health notes reviewed: RT
[2018-11-20] MEDS ORDERED: ATIVAN IV PRN (11:13)
[2018-11-20] MEDS ORDERED: MORPHINE IV PRN ×2 (11:13)
[2018-11-20] MEDS ORDERED: ROBINUL IV PRN (11:13)
--- NOTE | 2018-11-20 11:13 | Event Note ---
Date: 11/20/18 Family, and daughters request withdrawal of care.
--- NOTE | 2018-11-20 11:32 | Progress Note ---
Assessment and Plan Currently stable cardiac status. overall poor prognosis. Pt's at bedside requesting withdrawal of care today. The patient has been seen in conjunction with Dr. Larios who agrees with the assessment and plan of care. - Patient Problems (1) Anoxic brain injury Current Visit: Yes Status: Suspected (2) Cardiopulmonary arrest with successful resuscitation Current Visit: Yes Status: Acute (3) STEMI (ST elevation myocardial infarction) Current Visit: Yes Status: Acute Qualifiers: Involved coronary artery: LAD coronary artery Qualified Code(s): I21.02 - ST elevation (STEMI) myocardial infarction involving left anterior descending coronary artery (4) CAD (coronary artery disease) Current Visit: Yes Status: Chronic (5) Stented coronary artery Current Visit: Yes Status: Chronic (6) Ischemic cardiomyopathy Current Visit: Yes Status: Acute (7) Altered mental status Current Visit: Yes Status: Acute (8) Seizure Current Visit: Yes Status: Suspected (9) Tobacco use Current Visit: Yes Status: Chronic (10) Malnutrition Current Visit: Yes Status: Chronic (11) Hypokalemia Current Visit: Yes Status: Acute (12) DNR (do not resuscitate) Current Visit: Yes Status: Chronic Subjective Date of service: 11/20/18 Principal diagnosis: Ac. hypoxemic resp failure; S/P cardiac arrest; V-fib; H/O CVA; STEMI Interval history: pt remains intubated, nonresponsive. in SR, had a bout of SVT overnight which responded to IV cardizem bolus. at bedside, she is tearful and requesting withdrawal of care today. Objective Last Vital Signs Temp 99.7 F H 11/20/18 08:00 Pulse 85 11/20/18 11:00 Resp 16 11/20/18 11:00 BP 119/64 11/20/18 11:00 Pulse Ox 98 11/20/18 11:00 - Physical Examination General: Other (intubated, withdraws) HEENT: Positive: Other (sluggish) Neck: Positive: neck supple Cardiac: Positive: Reg Rate and Rhythm, S1/S2 Lungs: Positive: Decreased Breath Sounds, Oxygen, Ventilated Respirations Neuro: Positive: Other (withdraws ) Abdomen: Positive: Unremarkable, Soft /Rectal: Other (deferred) Skin: Positive: Other (scattered discoloration ) Incision: Cardiac Cath Site (c/d/i, no bleeding, no hematoma) Musculoskeletal: other (intubated ) Gait: Other (VERO) Extremities: Present: lower extr. pulses (weak), Cold, Other (DP pulses present via doppler, no pedal pulses via doppler). Absent: edema - Labs and Meds CBC 11/19/18 Range/Units 13:46 WBC 13.2 H (4.5-11.0) K/mm3 RBC 3.17 L (3.65-5.03) M/mm3 Hgb 10.9 L (11.8-15.2) gm/dl Hct 32.7 L (35.5-45.6) % Plt Count 209 (140-440) K/mm3 Comprehensive Metabolic Panel 11/20/18 Range/Units 04:35 Sodium 144 (137-145) mmol/L Potassium 4.5 D (3.6-5.0) mmol/L Chloride 106.4 (98-107) mmol/L Carbon Dioxide 27 (22-30) mmol/L BUN 24 H (9-20) mg/dL Creatinine 0.5 L (0.8-1.5) mg/dL Glucose 105 H (75-100) mg/dL Calcium 8.0 L (8.4-10.2) mg/dL - Imaging and Cardiology Echo: report reviewed (TDS, EF 15-20%, mid anteroseptal, apical anterior and apical lateral wall dyskinetic.) Cardiac cath: report reviewed ( left main patent. LAD proximal 95% with WENDY 2 flow circumflex patent OM1 patent RCA patent with moderate LV dysfunction EF 3540% with septal inferior wall hypokinesis. With PCI of the LAD with a drug- eluting 3.5 x 23 mm stent at 15 kim.) AV and intraventricular conduction: right bundle branch block - Allied health notes Allied health notes reviewed: RT
[2018-11-20] MEDS: KEPPRA PO SCH (11:55)
[2018-11-20] MEDS: PEPCID PO SCH (11:55)
[2018-11-20] MEDS: BABY ASPIRIN PO SCH (11:55)
[2018-11-20] MEDS: PLAVIX PO SCH (11:56)
[2018-11-20 12:26] VITALS: BP 128/63
--- NOTE | 2018-11-20 13:10 | Death Note ---
Note Date of : 11/20/18 Time of : 12:32 Time Pronounced: 13:00
--- NOTE | 2018-11-20 15:22 | Death Summary ---
Summary - Providers Consults: 11/12/18 Consult to Cardiac Rehabilitation [CONS] Routine Reason For Exam: post pci 11/13/18 00:03 Consult to Physician [CONS] Routine Comment: Consulting Provider: RICH HULL Physician Instructions: saw patient Reason For Exam: cardiac arrest mi 11/13/18 01:36 Consult to Physician [CONS] Routine Comment: Consulting Provider: BOGDAN FOFANA Physician Instructions: Reason For Exam: ICU ADMISSION [facility],CRITICAL CARE 11/13/18 06:00 Consult to Physician [CONS] Routine Comment: Consulting Provider: KYLEE AVILES Physician Instructions: Reason For Exam: SCROTAL SWELLING R/O HYDROCELE VS HERNIA Consult to Physician [CONS] Routine Comment: Consulting Provider: NOLAN TYLER Physician Instructions: Reason For Exam: SEIZURE ATTACK 11/13/18 15:19 Consult to Dietitian/Nutrition [CONS] Routine Physician Instructions: Reason For Exam: Reason for Consult: Write/Manage Tube Feeding 11/13/18 19:05 Consult to Wound/ET Nurse [CONS] Stat Reason For Exam: wound eval-per admission note-skin tears bilat arm 11/13/18 22:48 Consult to Dietitian/Nutrition [CONS] Routine Physician Instructions: Reason For Exam: Reason for Consult: Write/Manage Tube Feeding 11/14/18 13:21 Consult to Dietitian/Nutrition [CONS] Routine Physician Instructions: Reason For Exam: Reason for Consult: Evaluate nutritional intake 11/17/18 10:09 Occupational Therapy Evaluate and Treat [CONS] Routine Comment: Reason For Exam: needs help with ADLS Physical Therapy Evaluation and Treat [CONS] Routine Comment: Reason For Exam: debility 11/18/18 08:19 Consult to Physician [CONS] Routine Comment: Consulting Provider: DANIAL MARTINEZ Physician Instructions: Reason For Exam: Anoxic Brain injury, continuation of care Attending: EFREN SCHROEDER - summary Date of admission: 11/12/18 23:59 Date of : 11/20/18
== END 2018-11-20 15:15 | DRG 246 ==
LOC: ED 21:55 → CC1 23:59
PROVIDERS: ADMIT Internal Medicine; ATTEND Internal Medicine
PROC: 027034Z Dilation of Coronary Artery, One Artery with Drug-eluting Intraluminal Device, Percutaneous Approach (ICD-10-PCS; principal; 2018-11-12)
PROC: 4A023N7 Measurement of Cardiac Sampling and Pressure, Left Heart, Percutaneous Approach (ICD-10-PCS; 2018-11-12)
PROC: 5A1955Z Respiratory Ventilation, Greater than 96 Consecutive Hours (ICD-10-PCS; 2018-11-12)
PROC: B2111ZZ Fluoroscopy of Multiple Coronary Arteries using Low Osmolar Contrast (ICD-10-PCS; 2018-11-12)
PROC: B2151ZZ Fluoroscopy of Left Heart using Low Osmolar Contrast (ICD-10-PCS; 2018-11-12)
PROC: 5A12012 Performance of Cardiac Output, Single, Manual (ICD-10-PCS; 2018-11-12)
PROC: 4A033R1 Measurement of Arterial Saturation, Peripheral, Percutaneous Approach (ICD-10-PCS; 2018-11-15)
DX: I21.02 ST elevation (STEMI) myocardial infarction involving left anterior descending coronary artery (principal); J96.01 Acute respiratory failure with hypoxia; I50.31 Acute diastolic (congestive) heart failure; E43 Unspecified severe protein-calorie malnutrition; G93.1 Anoxic brain damage, not elsewhere classified; R65.10 Systemic inflammatory response syndrome (SIRS) of non-infectious origin without acute organ dysfunction; Z68.1 Body mass index [BMI] 19.9 or less, adult; D68.9 Coagulation defect, unspecified; I46.9 Cardiac arrest, cause unspecified; I49.01 Ventricular fibrillation; G40.909 Epilepsy, unspecified, not intractable, without status epilepticus; F17.210 Nicotine dependence, cigarettes, uncomplicated; I21.19 ST elevation (STEMI) myocardial infarction involving other coronary artery of inferior wall; E87.6 Hypokalemia; R62.7 Adult failure to thrive; I25.5 Ischemic cardiomyopathy; E87.5 Hyperkalemia; N43.3 Hydrocele, unspecified; Z66 Do not resuscitate; Z86.73 Personal history of transient ischemic attack (TIA), and cerebral infarction without residual deficits
CPT/HCPCS: 36415; 36600; 70450; 71045; 74018; 80048; 80053; 80061; 80076; 82140; 82550; 82553; 82803; 82962; 83735; 84484; 85007; 85025; 85027; 85347; 85610; 85730; 86140; 87040; 87070; 87086; 87205; 92941; 93005; 93010; 93306; 93458; 93975; 94002; 94003; 94640; 95819; G0378; A9270-GY; C1725; C1769; C1874; C1887; C1894; C9606; J0171; J0360; J1644; J1650; J1815; J1953; J2060; J2250; J2270; J3010; J3475; J3480; J7030; J7040; Q9967